=== PATIENT | female | born 1955 | race Caucasian/White ===

== ENCOUNTER 2019-10-19 11:06 | Outpatient (CLI) | payer MEDICARE, OTHER, SELFPAY ==
--- NOTE | ~2019-10-19 | XR_ITS ---
EXAMINATION: XR knee RT min 4V DATE: 10/19/2019 12:15 INDICATION: Right calf pain. TECHNIQUE: 4 views of right knee were obtained. COMPARISON: Right knee radiographs 02/19/2019 FINDINGS: There is varus angulation at the knee. No fracture. There is severe osteoarthritis of media l compartment, moderate osteoarthritis of patellofemoral compartment, and mild osteoarthritis of late ral compartment. No knee joint effusion. IMPRESSION: 1. Severe right knee osteoarthritis. Reviewed, dictated and finalized at location A. 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
--- NOTE | ~2019-10-19 | US_ITS ---
EXAMINATION: US venous doppler [facility] DATE: 10/19/2019 11:56 INDICATION: Bilateral calf pain. TECHNIQUE: Grayscale ultrasound images without and with compression and Doppler ultrasound images of the bilateral lower extremity veins were obtained. COMPARISON: Ultrasound 09/21/2018 FINDINGS: The visualized portions of right common femoral vein, profunda (deep) femoral vein, femoral vein, pop liteal vein, peroneal veins, posterior tibial veins, and greater saphenous vein outflow are patent. The visualized portions of left common femoral vein, profunda femoral vein, femoral vein, popliteal v ein, peroneal veins, posterior tibial veins, and greater saphenous vein outflow are patent. IMPRESSION: 1. No deep venous thrombosis. Reviewed, dictated and finalized at location A. SUPERVISOR FIREARMS
--- NOTE | ~2019-10-19 | XR_ITS ---
EXAMINATION: XR knee LT min 4V DATE: 10/19/2019 12:15 INDICATION: Left calf pain. TECHNIQUE: 4 views of left knee were obtained. COMPARISON: Left knee radiographs 02/19/2019 FINDINGS: There is varus angulation at the knee. No fracture. There is severe osteoarthritis of media l compartment, moderate osteoarthritis of patellofemoral compartment, and mild osteoarthritis of late ral compartment. No knee joint effusion. There is an 11 mm loose body in lateral patellofemoral joint recess. IMPRESSION: 1. Severe left knee osteoarthritis. 2. Left knee loose body. Reviewed, dictated and finalized at location A. IFIED LACTATION EDUCATOR
[2019-10-19 13:05] LABS: Basophils Absolute Auto 0.1 K/mm3 (0.0-0.1); Basophils Percent Auto 0.6 % (0.2-1.2); Eosinophils Absolute Auto 0.4 K/mm3 (0-0.3); Eosinophils Percent Auto 4.2 % (0-4.4); Hemoglobin 11.7 g/dL (12.0-15.0); Immature Granulocyte Absolute 0.03 K/mm3 (0.00-0.031); Immature Granulocyte Percent A 0.3 % (0-0.5); Lymphocytes Absolute Auto 2.47 K/mm3 (0.9-3.2); Lymphocytes Percent Auto 27.3 % (18.3-44.2); Mean Corpuscular HGB Conc 30.8 g/dl (32-36); Mean Corpuscular Hemoglobin 28.5 pg (26-34); Mean Corpuscular Volume 92.5 fl (80-100); Mean Platelet Volume 9.3 fl (7.4-10.4); Monocytes Absolute Auto 0.6 K/mm3 (0.1-0.6); Monocytes Percent Auto 7.1 % (2.6-8.5); Neutrophils Absolute Auto 5.5 K/mm3 (1.3-6.7); Neutrophils Percent Auto 60.5 % (45.5-73.1); Platelet Count Result 256 k/mm3 (150-375); Red Blood Count 4.11 M/mm3 (4.2-5.4); Red Cell Distribution Width 14.5 % (11.5-14.5); White Blood Count 9.1 K/mm3 (4.5-10.0)
[2019-10-19 13:09] LABS: Add Urine Microscopic? YES; Appearance Urine Clear (Clear); Bacteria Urine Trace /hpf; Bilirubin Urine Negative (Negative); Color Urine Straw (Yellow); Glucose Urine UA Negative (Negative); Ketones Urine Negative (Negative); Leukocyte Esterase Ur 3+ LEU/UL (Negative); Mucus Urine Rare /lpf; Nitrate Urine Negative (Negative); Protein Urine Negative (Negative); Specific Grav Ur 1.011 (1.001-1.035); Squamous Epithelial Cell Urine Rare /hpf (Few); Urobilinogen Urine Negative mg/dL (<2.0); WBC Urine >75 /hpf
[2019-10-19 13:18] LABS: Blood Urine Negative (Negative)
[2019-10-22 03:17] LABS: Thyroglobulin 0.1 ng/mL (2.8-40.9); Thyroglobulin Antibodies <1 IU/mL (<=1); Thyroid Peroxidase Antibodies 6 IU/mL (<9)
== END 2019-10-19 11:07 | disposition home or self-care (01) ==
PROVIDERS: PCP Emergency Medicine; Visit Provider Emergency Medicine
DX: E03.9 Hypothyroidism, unspecified (principal); R35.0 Frequency of micturition; R53.81 Other malaise; M17.0 Bilateral primary osteoarthritis of knee; M23.42 Loose body in knee, left knee; M79.662 Pain in left lower leg; M79.661 Pain in right lower leg
CPT/HCPCS: 36415; 73564; 81001; 84432; 85025; 86376; 86800; 87077; 87086; 87088; 87186; 93970

== ENCOUNTER 2019-11-23 15:34 | Outpatient (CLI) | payer MEDICARE, SELFPAY ==
--- NOTE | ~2019-11-23 | CT_ITS ---
EXAMINATION: CT abdomen pelvis wo/w con DATE: 11/23/2019 16:42 INDICATION: Hematuria. Frequent urinary tract infections. TECHNIQUE: Computed tomography (CT) of the abdomen and pelvis was performed without and subsequently with 130 cc Omnipaque 350 intravenous contrast. Automated exposure control and iterative reconstructi on technique were employed. Exam dose: 2188.45 mGy-cm total exam DLP. COMPARISON: 09/17/2018 CT abdomen 06/17/2007 CT renal scan FINDINGS: There is minimal infiltrate or atelectasis in the lower lobes, primarily the dependent lowe r lobes and the anterior basilar right lower lobe. No pericardial or pleural effusion. There is a small sliding hiatal hernia. Status post cholecystectomy. There is a relatively stable approximately 1 cm hypoattenuating fluid density right hepatic lesion (s eries 6 image 42), present on 09/17/2018 but not identified on 06/17/2007. No other hepatic space-occu pying mass lesion is evident. No significant enlargement of the bile ducts or pancreatic duct. There are several calcifications in the pancreas consistent with chronic pancreatitis. Normal splenic size. Normal morphology of the adrenal glands. There is a 5 mm hypoenhancing lesion of the mid right kidney laterally (series 6 image 78), too small to definitively characterize, but most likely a cyst. There are approximately 6 mm posterior and 5.8 mm medial upper pole left renal cysts, approximately 5 mm posterior mid left renal cyst. At least 2 smaller left renal cysts are suggested. No filling defect of the renal collecting systems, ureters or urinary bladder is evident. No urinary tract calculus or hydroureteronephrosis. There is atherosclerotic calcification of the abdominal aorta but no aneurysm. No intraperitoneal or retroperitoneal or pelvic mass lesion or adenopathy or ascites. The urinary bladder is unremarkable. There are some uterine calcifications consistent with fibroadeno mas. No adnexal mass lesion is evident. Normal appendix. Diverticulosis of the left colon; no CT evidence of diverticulitis. No bowel obstruc tion or intraperitoneal free air. Up to 3.3 cm x 4.2 cm fat-containing umbilical hernia. Diffuse idiopathic skeletal hyperostosis of the thoracic spine. Moderately severe degenerative disc d isease with mild retrolisthesis at L4-5. There is moderate degenerative disc disease elsewhere in the lumbar spine. Generator device is noted in the subcutaneous soft tissues of the anterolateral left lower abdomen wi th electrodes extending into the lower thoracic spinal canal posteriorly. IMPRESSION: Bilateral 6 mm and smaller renal cysts No urinary tract calculus or hydroureteronephrosis Status post cholecystectomy Small sliding hiatal hernia Chronic pancreatitis Diverticulosis of left colon Reviewed, dictated and finalized at Location A. Reviewed, dictated and finalized at location B. 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
[2019-11-23 16:16] LABS: Blood Urea Nitrogen 22 mg/dL (8-26); Estimated Glomerular Filt Rate 50
== END 2019-11-23 15:35 | disposition home or self-care (01) ==
PROVIDERS: PCP Emergency Medicine; Visit Provider Emergency Medicine
DX: R31.9 Hematuria, unspecified (principal); N28.1 Cyst of kidney, acquired; K44.9 Diaphragmatic hernia without obstruction or gangrene; K57.30 Diverticulosis of large intestine without perforation or abscess without bleeding; K86.1 Other chronic pancreatitis
CPT/HCPCS: 74178; Q9967

== ENCOUNTER 2020-10-21 00:47 | Outpatient (CLI) | payer MEDICARE, SELFPAY ==
[2020-10-21 20:08] LABS: SARS-CoV-2 RNA PCR Positive
== END 2020-10-21 00:48 | disposition home or self-care (01) ==
LOC: ANHCOVIDDT 00:47
PROVIDERS: PCP Emergency Medicine; Visit Provider Internal Medicine Gastroenterology
DX: U07.1 COVID-19 (principal)
CPT/HCPCS: C9803; U0003

== ENCOUNTER 2021-01-25 14:36 | Outpatient (CLI) | payer MEDICARE, SELFPAY ==
--- NOTE | ~2021-01-25 | MM_ITS ---
EXAMINATION: MM screening stephon BI w margoth HISTORY: Screening mammogram TECHNIQUE: Craniocaudal and mediolateral oblique 3-D tomosynthesis images were obtained and synthetic 2-D images were generated. CAD analysis was submitted and interpreted. COMPARISON: 10/21/2019, 09/24/2018, 09/05/2017 bilateral digital screening mammogram examinations BREAST PARENCHYMAL COMPOSITION: There are scattered areas of fibroglandular density. FINDINGS: Bilateral benign calcifications. There is no evidence of suspicious mass, calcification, or architectural distortion to suggest malignancy in either breast. There has been no suspicious interv al new or developing density or other significant change. IMPRESSION: 1. No mammographic evidence of malignancy. 2. Recommend routine screening mammography in one year. BI-RADS Category 2: Benign finding(s)..... Reviewed, dictated and finalized at location A.
== END 2021-01-25 14:37 | disposition home or self-care (01) ==
PROVIDERS: PCP Emergency Medicine; Visit Provider Emergency Medicine
DX: Z12.31 Encounter for screening mammogram for malignant neoplasm of breast (principal)
CPT/HCPCS: 77063; 77067

== ENCOUNTER → 2021-03-24 01:16 | Outpatient (CLI) | payer MEDICARE, SELFPAY ==
[2021-03-24 19:37] LABS: SARS-CoV-2 RNA PCR Negative
== END ==
PROVIDERS: PCP Emergency Medicine; Visit Provider Internal Medicine Gastroenterology
DX: Z01.812 Encounter for preprocedural laboratory examination (principal); Z20.822 Contact with and (suspected) exposure to COVID-19
CPT/HCPCS: C9803; U0003; U0005

== ENCOUNTER 2021-03-27 01:17 | Day surgery (SDC) | payer MEDICARE, SELFPAY ==
[2020-10-05 12:06] VITALS: BMI 30.8
--- NOTE | 2020-10-23 10:35 | SUR.PREOP ---
Spoke with patient on phone about COVID test result positive. Denies symptoms at this time. Instructed to self isolate and stay home. Questions answered. Patient instructed to notify primary doctor and that the health department would be calling to follow up.
[2021-03-13 16:11] VITALS: BMI 31.1
[2021-03-27 09:13] VITALS: BP 140/70; PULSE 86; RESP 22; TEMP 36.8; O2SAT 100; BMI 31.0
[2021-03-27] MEDS: LACTATED RINGERS 1,000 ML 150 ML IV CONT (09:32)
[2021-03-27 09:33] LABS: Glucose Point of Care 181 mg/dl (65-105)
--- NOTE | 2021-03-27 10:19 | WPDANESEPPF ---
Anes - Initial Pre Proc Eval Procedure: Operation Date: 03/27/21 10:30 Proposed Procedures p Esophagogastroduodenoscopy & Screening Colonoscopy - Leroy Meza MD Date/Time: 03/27/21 10:19 Surgeon: Leroy Meza MD Pre Op Diagnosis: GERD, neoplasm screening Patient Data Age: 65 Gender: F Height: 5 ft 8 in Weight: 92.7 kg Last Vital Signs Temp 98.3 F 03/27/21 09:13 Pulse 86 03/27/21 09:13 Resp 22 H 03/27/21 09:13 BP 140/70 03/27/21 09:13 Pulse Ox 100 03/27/21 09:13 Allergies Allergy/AdvReac Type Severity Reaction Status Date / Time No Known Allergies Allergy Verified 03/27/21 09:12 Home Medications Medication Instructions Recorded Confirmed Type aspirin 81 mg tablet,delayed 81 mg PO DAILY 08/10/20 03/13/21 History release atorvastatin 10 mg tablet 10 mg PO DAILY 08/10/20 03/13/21 History furosemide 20 mg tablet 20 mg PO QAM 08/10/20 03/13/21 History glimepiride 2 mg tablet 2 mg PO .DAILYWM 08/10/20 03/13/21 History metformin 1,000 mg tablet 1,000 mg PO BID 08/10/20 03/13/21 History peg 3350-electrolytes 236 240 ml PO Q10M #4000 ml 08/11/20 03/13/21 Rx gram-22.74 gram-6.74 gram-5.86 gram solution Fiber (calcium polycarbophil) 3 tab-cap BYMOUTH DAILY 10/05/20 03/13/21 History allopurinol 100 mg PO BID 10/05/20 03/13/21 History gabapentin [Neurontin] 600 mg PO BID 10/05/20 03/13/21 History levothyroxine [Euthyrox] 137 mcg PO DAILY 10/05/20 03/13/21 History omeprazole 20 mg PO DAILY 10/05/20 03/13/21 History Laboratory Tests 03/27/21 09:22 POC Capillary Glucose 181 mg/dl H mg/dl (65-105) Patient hx anesthesia problems: none Family hx anesthesia problems: none PMFSH Past Medical History Medical History (Updated 08/10/20 @ 10:01 by LIZETT Victoria) Chronic pancreatitis Diabetes 1.5, managed as type 2 Dysphagia History of colon polyps Hyperlipidemia Family History Family History Mother Family history of diabetes mellitus in first degree relative Family history of heart disease in male family member before age 55 Family history of kidney disease, Onset Age: 84 Father Family history of heart disease in male family member before age 55 Grandparent Family history of heart disease in male family member before age 55 Social History Social History Smoking packs per day: 2.5 Smoking cigarettes per day: 50.0 Years smoked: 24 Smoking pack-years: 60.00 Smoking status: Former smoker Tobacco type: cigarettes Second hand tobacco smoke exposure: No Smoking end date: 10/20/99 Alcohol intake: current Alcohol use details: NO DRINKS 1 YEAR Substance use: never Substance use type: does not use Living arrangements: with family Spiritual care concerns: No Anes - Eval Final PreProcedure Day of Procedure 03/27/21 10:19 Patient weight: obese Heart: regular rate and rhythm Lungs: clear to auscultation Airway: Mallampati scale class III Neurological: alert and oriented Last oral intake: >/= 8 hours ASA classification: III Emergent: no Anesthetic plan: proceed Anesthesia type and monitoring: general GIVS and standard monitoring Informed Consent: The patient's anesthetic plan and its attendant risks and benefits were discussed with the patient/family/POA. Questions were solicited and answers provided to the satisfaction of the patient/family/POA.
--- NOTE | 2021-03-27 10:24 | PM.HPGS ---
History of Present Illness History of Present Illness Consent: Risks, benefits, and alternatives have been discussed and questions answered. Patient agrees to proceed with procedure. Chief complaint: GERD, neoplasm screening Narrative: Lee Ann Trujillo is a 65 year old female here for egd and colonoscopy, she has gerd symptoms better with omeprazole, also episodes of mild epigastric pain. Has history of perforated esophagus about 25 years ago during a surgical intubation with tracheostomy. Colon polyps about 5 years ago. Review of Systems Constitutional: Constitutional: Denies headache(s) and Denies weakness Eyes: Eyes: Denies blurry vision ENT: Reports Normal hearing present, Denies headache(s) and Denies neck pain Cardiovascular: Cardiovascular: Denies chest pain and Denies dyspnea Respiratory: Respiratory: Denies dyspnea Gastrointestinal: Gastrointestinal: Reports no additional gastrointestinal complaints Genitourinary: Genitourinary: Denies dysuria Musculoskeletal: Musculoskeletal: Denies neck pain Integumentary/Breasts: Skin/Breast: Denies dry skin Neurologic: Reports Normal hearing present, Denies headache(s) and Denies weakness Psychiatric: Psychiatric: Denies anxiety Endocrine: Endocrine: Denies change in body appearance Hematologic/Lymphatic: Hematologic/Lymphatic: Denies easy bleeding Allergic/Immunologic: Allergic/Immunologic: Denies urticaria PMFSH Past Medical History Medical History (Updated 03/27/21 @ 10:25 by Leroy Meza MD) Chronic pancreatitis Diabetes 1.5, managed as type 2 Dysphagia GERD (gastroesophageal reflux disease) History of colon polyps Hyperlipidemia Family History Family History Mother Family history of diabetes mellitus in first degree relative Family history of heart disease in male family member before age 55 Family history of kidney disease, Onset Age: 84 Father Family history of heart disease in male family member before age 55 Grandparent Family history of heart disease in male family member before age 55 Social History Social History Smoking packs per day: 2.5 Smoking cigarettes per day: 50.0 Years smoked: 24 Smoking pack-years: 60.00 Smoking status: Former smoker Tobacco type: cigarettes Second hand tobacco smoke exposure: No Smoking end date: 10/20/99 Alcohol intake: current Alcohol use details: NO DRINKS 1 YEAR Substance use: never Substance use type: does not use Living arrangements: with family Spiritual care concerns: No Meds Home Medications and Allergies Home Medications Medication Instructions Recorded Confirmed Type aspirin 81 mg tablet,delayed 81 mg PO DAILY 08/10/20 03/13/21 History release atorvastatin 10 mg tablet 10 mg PO DAILY 08/10/20 03/13/21 History furosemide 20 mg tablet 20 mg PO QAM 08/10/20 03/13/21 History glimepiride 2 mg tablet 2 mg PO .DAILYWM 08/10/20 03/13/21 History metformin 1,000 mg tablet 1,000 mg PO BID 08/10/20 03/13/21 History peg 3350-electrolytes 236 240 ml PO Q10M #4000 ml 08/11/20 03/13/21 Rx gram-22.74 gram-6.74 gram-5.86 gram solution Fiber (calcium polycarbophil) 3 tab-cap BYMOUTH DAILY 10/05/20 03/13/21 History allopurinol 100 mg PO BID 10/05/20 03/13/21 History gabapentin [Neurontin] 600 mg PO BID 10/05/20 03/13/21 History levothyroxine [Euthyrox] 137 mcg PO DAILY 10/05/20 03/13/21 History omeprazole 20 mg PO DAILY 10/05/20 03/13/21 History Allergies Allergy/AdvReac Type Severity Reaction Status Date / Time No Known Allergies Allergy Verified 03/27/21 09:12 Vital Signs Vital Signs - 24 hr 03/27/21 09:13 Temperature 98.3 F Pulse Rate 86 Respiratory Rate 22 H Blood Pressure 140/70 Pulse Oximetry 100 Exam Const: General: comfortable and no acute distress HENMT: General nose exam: Normal nares
[2021-03-27 10:55] VITALS: BP 82/50; PULSE 92; RESP 22; O2SAT 95
[2021-03-27 11:05] VITALS: BP 113/57; PULSE 88; RESP 19; O2SAT 99
[2021-03-27 11:15] VITALS: BP 114/70; PULSE 76; RESP 20; O2SAT 98
== END 2021-03-27 11:24 | disposition home or self-care (01) ==
PROVIDERS: PCP Emergency Medicine; Visit Provider Internal Medicine Gastroenterology
PROC: 0DJ08ZZ Inspection of Upper Intestinal Tract, Via Natural or Artificial Opening Endoscopic (ICD-10-PCS; CPT 43235; principal; 2021-03-27 10:30)
DX: Z12.11 Encounter for screening for malignant neoplasm of colon (principal); Z86.010 Personal history of colon polyps; K57.30 Diverticulosis of large intestine without perforation or abscess without bleeding; K64.8 Other hemorrhoids; K29.50 Unspecified chronic gastritis without bleeding; E78.5 Hyperlipidemia, unspecified; E13.8 Other specified diabetes mellitus with unspecified complications; K86.1 Other chronic pancreatitis; Z87.891 Personal history of nicotine dependence; Z79.82 Long term (current) use of aspirin; E03.9 Hypothyroidism, unspecified; Z79.84 Long term (current) use of oral hypoglycemic drugs; Z87.19 Personal history of other diseases of the digestive system
CPT/HCPCS: 43239; G0105; 82948; 88305; C9803; J7120; U0003; U0005

== ENCOUNTER → 2021-05-15 13:18 | Outpatient (CLI) | payer MEDICARE, SELFPAY ==
--- NOTE | ~2021-05-15 | DEXA_ITS ---
Bone Density Report Name: Lee Ann Trujillo Age: 65 Sex: Female Ethnicity: White Date of : 1955 Indication: postmenopausal; screening for osteoporosis; height loss; Referring Provider: GABRIELA YU Study: Bone densitometry was performed. Exam Date: May 15, 2021 Accession number: [id number] Bone Density: Region BMD T-score Z-score Classification AP Spine (L3, L4) 0.957 -1.3 0.7 Osteopenia Femoral Neck (Left) 0.604 -2.2 -0.6 Osteopenia Total Hip (Left) 0.791 -1.2 0.1 Osteopenia Femoral Neck (Right) 0.635 -1.9 -0.3 Osteopenia Total Hip (Right) 0.732 -1.7 -0.4 Osteopenia Total Hip Mean 0.762 -1.5 -0.2 Osteopenia World Health Organization criteria for BMD impression classify patients as: Normal (T-score at or above -1.0), Osteopenia (T-score between -1.0 and -2.5), or Osteoporosis (T-score at or below -2.5). 10-year Fracture Risk(1): Major Osteoporotic Fracture 11% Hip Fracture 1.8% Reported Risk Factors: [place] (), Neck BMD=0.604, BMI=32.5 (1) FRAX(R) Version 3.08. Fracture probability calculated for an untreated patient. Fracture probability may be lower if the patient has received treatment. Clinical Information Provided by Patient: Has used the following medications: Vitamin D, Calcium Patient maximum height was 68 Menopause Age: 41 No regular weight bearing exercise Drinks caffeinated beverages Onset of menses at age 11 Number of children 0 Missed period for more than 6 months in a row Impression: The patient has low bone mass, based on the Left Femoral Neck T-score. The patient has an estimated ten-year risk of hip fracture of 1.8% and an estimated ten-year risk of major fracture of 11%, based on the WHO FRAX algorithm. Discussion: BONE DENSITY IS LOW AT ONE OR MORE SKELETAL SITES. This patient's lowest T-score is low at one or more skeletal sites. It meets the World Health Organization's (WHO) criteria for ?low bone mass? (T-score between -1.0 and -2.5). The patient's 10-year risk of fracture as calculated by FRAX is less than the threshold where pharmacological therapy is recommended by the National Osteoporosis Foundation (NOF). However, all treatment decisions require clinical judgment and consideration of individual patient factors, including patient preferences, comorbidities, previous drug use, risk factors not captured in the FRAX model (e.g., frailty, falls, vitamin D deficiency, increased bone turnover, interval significant decline in bone density) and possible under or overestimation of fracture risk by FRAX. The patient should follow a healthful lifestyle (good nutrition with adequate calcium and vitamin D, and appropriate weight-bearing exercise). Follow-Up: Consider repeating this study in 2 to 3 years to reassess this patient's status, or sooner if there is some n
== END ==
PROVIDERS: PCP Emergency Medicine; Visit Provider Emergency Medicine
DX: M85.88 Other specified disorders of bone density and structure, other site (principal); M85.852 Other specified disorders of bone density and structure, left thigh; M85.851 Other specified disorders of bone density and structure, right thigh
CPT/HCPCS: 77080

== ENCOUNTER 2021-09-17 08:29 | Outpatient (CLI) | payer MEDICARE, SELFPAY ==
[2021-09-17 09:49] LABS: Hemoglobin A1C 7.3 % (<5.7)
[2021-09-17 09:59] LABS: Albumin Level 4.3 g/dL (3.5-5.1); Anion Gap 11 mmol/L (8-16); Blood Urea Nitrogen 39 mg/dL (7-17); Calcium 9.2 mg/dL (8.4-10.2); Carbon Dioxide 22 mmol/L (22-30); Chloride 105 mmol/L (98-107); Estimated Glomerular Filt Rate 50; Glucose 172 mg/dL (65-110); Phosphorus 3.6 mg/dL (2.5-4.5); Potassium 5.3 mmol/L (3.4-5.0); Sodium 138 mmol/L (137-145)
[2021-09-17 10:32] LABS: Add Urine Microscopic? YES; Appearance Urine Cloudy (Clear); Bacteria Urine Trace /hpf; Bilirubin Urine Negative (Negative); Blood Urine 2+ (Negative); Color Urine Yellow (Yellow); Glucose Urine UA Negative (Negative); Ketones Urine Negative (Negative); Leukocyte Esterase Ur 2+ LEU/UL (Negative); Mucus Urine Rare /lpf; Nitrate Urine Negative (Negative); Protein Urine Negative (Negative); RBC Urine 21-50 /hpf (0-2); Specific Grav Ur 1.014 (1.001-1.035); Squamous Epithelial Cell Urine Occasional /hpf (Few); Urobilinogen Urine Negative mg/dL (<2.0); WBC Urine >75 /hpf
== END 2021-09-17 08:30 | disposition home or self-care (01) ==
LOC: ANHLAB 08:35
PROVIDERS: PCP Emergency Medicine; Visit Provider Emergency Medicine
DX: E11.21 Type 2 diabetes mellitus with diabetic nephropathy (principal); E87.5 Hyperkalemia; R31.9 Hematuria, unspecified
CPT/HCPCS: 36415; 80069; 81001; 83036; 87077; 87086; 87186; 88108

== ENCOUNTER 2022-02-26 09:29 | Outpatient (CLI) | payer MEDICARE, SELFPAY ==
--- NOTE | ~2022-02-26 | MM_ITS ---
EXAMINATION: MM screening stephon BI w margoth HISTORY: Screening TECHNIQUE: Craniocaudal and mediolateral oblique 3-D tomosynthesis images were obtained and synthetic 2-D images were generated. CAD analysis was submitted and interpreted. COMPARISON: Comparison to multiple prior studies sequentially, with oldest reviewed study dated 07/21. BREAST PARENCHYMAL COMPOSITION: Breast composed of scattered areas of fibroglandular density FINDINGS: Stable benign-appearing left breast calcifications and small mass in the lower outer quadra nt anteriorly. There is no evidence of suspicious mass, calcification, or architectural distortion to suggest malignancy in either breast. There has been no suspicious interval change. IMPRESSION: 1. No mammographic evidence of malignancy. 2. Recommend routine screening mammography in one year. BI-RADS Category 2: Benign finding(s). Reviewed, dictated and finalized at location A.
== END 2022-02-26 09:30 | disposition home or self-care (01) ==
PROVIDERS: PCP Emergency Medicine; Visit Provider Emergency Medicine
DX: Z12.31 Encounter for screening mammogram for malignant neoplasm of breast (principal)
CPT/HCPCS: 77063; 77067

== ENCOUNTER 2022-04-10 09:24 | Outpatient (CLI) | payer MEDICARE, SELFPAY ==
--- NOTE | ~2022-04-10 | CT_ITS ---
EXAMINATION: CT abdomen pelvis wo/w con DATE: 04/10/2022 10:05 INDICATION: Hematuria TECHNIQUE: Computed tomography (CT) of the abdomen and pelvis was performed without intravenous contr ast. CT of the abdomen and pelvis was then performed with a total of 130 mL Omnipaque 300 intravenous contrast using a double-bolus technique for simultaneous opacification of the renal parenchyma and r enal collecting system. The dose-length product (DLP) was 2382.38 mGy-cm. Automated exposure control and iterative reconstruction technique were employed. COMPARISON: 11/23/2019 FINDINGS: Minimal dependent atelectasis is present in the lung bases. The heart size is normal. The l iver is diffusely low in attenuation when compared with the spleen, consistent with hepatic steatosis . The gallbladder is surgically absent. There is mild enlargement of the common bile duct and central intrahepatic ducts which is likely due to post cholecystectomy state. Punctate calcifications in an otherwise normal spleen likely represent healed granulomatous disease. The pancreas and adrenal gland s are normal. Hypoattenuating lesions in the kidneys, measuring up to 5 mm on the right, are too smal l to characterize but likely represent cysts. No suspicious renal or urothelial lesion is identified. No stones are identified in the kidneys, ureters, or bladder. There is no hydronephrosis or hydroure ter. Colonic diverticulosis is present without evidence of diverticulitis. No pathologically enlarged abdominal or pelvic lymph nodes are identified. There is no free intraperitoneal gas or evidence of bowel obstruction. There is an umbilical hernia containing fat. There is moderate lumbar spondylosis. IMPRESSION: 1. No CT correlate for the patient's symptoms. Reviewed, dictated and finalized at location A.
[2022-04-10 09:51] LABS: Estimated Glomerular Filt Rate 45
== END 2022-04-10 09:25 | disposition home or self-care (01) ==
PROVIDERS: PCP Emergency Medicine; Visit Provider Emergency Medicine
DX: R31.9 Hematuria, unspecified (principal)
CPT/HCPCS: 74178; Q9967

== ENCOUNTER 2022-05-21 15:50 | Outpatient (CLI) | payer MEDICARE, SELFPAY ==
--- NOTE | ~2022-05-21 | US_ITS ---
EXAMINATION: US pelvic complete w TV DATE: 05/21/2022 16:39 INDICATION: IRON DEFICIENCY ANEMIA and hematuria TECHNIQUE: Multiple transabdominal and endovaginal sonographic images of the pelvis were obtained. COMPARISON: CT abdomen pelvis 04/10/2022. FINDINGS: Uterus: 5.8 x 4.4 x 3.3 cm. Endometrial complex not well visualized. Multiple fibroids identified bhumika suring up to 3 cm and 2 cm. Likely third smaller fibroid in the lower uterine segment. Right Ovary: Not visualized. Left Ovary: Not visualized. There is no free fluid in the pelvis. IMPRESSION: 1. Limited examination, endometrial complex and bilateral ovaries not visualized. 2. Uterine fibroids. Reviewed, dictated and finalized at location K. IMPRESSION: 1. Limited examination, endometrial complex and bilateral ovaries not visualize d. 2. Uterine fibroids.
== END 2022-05-21 15:51 | disposition home or self-care (01) ==
PROVIDERS: PCP Emergency Medicine; Visit Provider Emergency Medicine
DX: D50.9 Iron deficiency anemia, unspecified (principal); D25.9 Leiomyoma of uterus, unspecified
CPT/HCPCS: 76830; 76856

== ENCOUNTER 2022-10-04 13:26 | Outpatient (CLI) | payer MEDICARE, SELFPAY ==
--- NOTE | ~2022-10-04 | US_ITS ---
EXAMINATION: US renal BI DATE: 10/04/2022 15:09 INDICATION: Chronic kidney disease TECHNIQUE: Multiple grayscale and Doppler ultrasound images of the kidneys were obtained. COMPARISON: 09/02/2019 FINDINGS: The right kidney measures 10.7 x 4.2 x 5.7 cm. The left kidney measures 11.8 x 5.4 x 7.0 cm . The kidneys demonstrate normal parenchymal echogenicity. There is no hydronephrosis. The bladder is normal. IMPRESSION: 1. Normal kidneys without hydronephrosis. Reviewed, dictated and finalized at location A. 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
== END 2022-10-04 13:27 | disposition home or self-care (01) ==
PROVIDERS: PCP Emergency Medicine; Visit Provider Internal Medicine Nephrology
DX: N18.32 Chronic kidney disease, stage 3b (principal)
CPT/HCPCS: 76775

== ENCOUNTER 2023-03-31 14:46 | Outpatient (NON) | payer MEDICARE, SELFPAY ==
[2023-04-01 08:45] LABS: IFOB Positive Control Positive; Immunochemical Fecal Occult Bl Negative (N)
== END 2023-03-31 14:47 | disposition home or self-care (01) ==
LOC: ANHLAB 14:48
PROVIDERS: PCP Emergency Medicine; Visit Provider Emergency Medicine
DX: D50.9 Iron deficiency anemia, unspecified (principal)
CPT/HCPCS: 82274

== ENCOUNTER 2023-06-17 08:55 | Outpatient (CLI) | payer MEDICARE, SELFPAY ==
--- NOTE | ~2023-06-17 | DEXA_ITS ---
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 Exam Date: June 17, 2023 Accession number: [id number] Bone Density: Region BMD T-score Z-score Classification AP Spine(L3, L4) 0.989 -1.0 1.1 Normal Femoral Neck (Left) 0.626 -2.0 -0.3 Osteopenia Total Hip (Left) 0.822 -1.0 0.4 Normal Femoral Neck (Right) 0.641 -1.9 -0.2 Osteopenia Total Hip (Right) 0.733 -1.7 -0.3 Osteopenia Total Hip Mean 0.777 -1.4 0.1 Osteopenia World Health Organization criteria for BMD impression classify patients as: Normal (T-score at or above -1.0), Osteopenia (T-score between -1.0 and -2.5), or Osteoporosis (T-score at or below -2.5). 10-year Fracture Risk(1): Major Osteoporotic Fracture 11% Hip Fracture 1.8% Reported Risk Factors: [place] (), Neck BMD=0.626, BMI=29.7 (1) FRAX(R) Version 3.08. Fracture probability calculated for an untreated patient. Fracture probability may be lower if the patient has received treatment. Previous Exams: Region Exam Age BMD T-score BMD Change BMD Change Date g/cm2 vs Baseline vs Previous AP Spine (L3-L4) 06/17/2023 67 0.989 -1.0 0.033 (3.4%)# 0.006 (0.6%) 09/24/2018 62 0.983 -1.1 0.027 (2.8%)# -0.008 (-0.8%) 08/03/2015 59 0.991 -1.0 0.035 (3.6%)# 0.035 (3.6%)# 05/28/2013 57 0.956 -1.3 Total Hip(Left) 06/17/2023 67 0.822 -1.0 -0.104 (-11.3% -0.095 (-10.3% 09/24/2018 62 0.916 -0.2 -0.010 (-1.1%) 0.083 (10.0%)* 08/03/2015 59 0.833 -0.9 -0.093 (-10.1% -0.093 (-10.1% 05/28/2013 57 0.926 -0.1 Total Hip(Right) 06/17/2023 67 0.733 -1.7 -0.156 (-17.6% -0.141 (-16.1% 09/24/2018 62 0.873 -0.6 -0.015 (-1.7%) 0.062 (7.6%)* 08/03/2015 59 0.812 -1.1 -0.077 (-8.6%) -0.077 (-8.6%) 05/28/2013 57 0.889 -0.4 *Denotes significance at 95% confidence level, LSC for AP Spine = 0.022 g/cm2, LSC for Total Hip = 0.027 g/cm2 # Denotes dissimilar scan types or analysis methods Clinical Information Provided by Patient: Has used the following medications: Vitamin D Has the following medical conditions: stage 4 ckd Patient maximum height was 68 Menopause Age: 41 No regular weight bearing exercise Drinks caffeinated beverages Onset of menses at age 11 Number of children 0
--- NOTE | ~2023-06-17 | MM_ITS ---
EXAMINATION: MM screening [facility] BI w margoth HISTORY: Screening mammogram, family history of breast cancer in her sister. TECHNIQUE: Craniocaudal and mediolateral oblique 3-D tomosynthesis images were obtained and synthetic 2-D images were generated. CAD analysis was submitted and interpreted. COMPARISON: 02/26/2022, 01/25/2021, 10/21/2019 BREAST PARENCHYMAL COMPOSITION: There are scattered areas of fibroglandular density. FINDINGS: There is stable focal asymmetry in the posterior third lower outer left breast. No suspicio us mass, calcification, or architectural distortion are identified in either breast to suggest malign moni. There has been no suspicious interval change. IMPRESSION: 1. No mammographic evidence of malignancy. 2. Recommend routine screening mammography in one year. BI-RADS Category 2: Benign finding(s). Reviewed, dictated and finalized at location A.
== END 2023-06-17 08:56 | disposition home or self-care (01) ==
PROVIDERS: PCP Emergency Medicine; Visit Provider Emergency Medicine
DX: Z12.31 Encounter for screening mammogram for malignant neoplasm of breast (principal); Z78.0 Asymptomatic menopausal state; M85.852 Other specified disorders of bone density and structure, left thigh; M85.851 Other specified disorders of bone density and structure, right thigh
CPT/HCPCS: 77063; 77067; 77080

== ENCOUNTER 2023-11-20 13:48 | Outpatient (CLI) | payer MEDICARE, SELFPAY ==
--- NOTE | ~2023-11-20 | US_ITS ---
EXAMINATION: US arterial ankle brachial ind DATE: 11/20/2023 14:37 INDICATION: Peripheral vascular disease with claudication TECHNIQUE: Segmental pressures and plethysmographic and Doppler waveforms of the brachial and lower e xtremity arteries were obtained. COMPARISON: None. FINDINGS: Right and left brachial artery pressures of 120 mm Hg and 116 mm Hg, respectively, are concordant (no rmal difference <= 30 mmHg). The right ankle-brachial index (FAVIO) is 1.24 (normal >= 0.9-1.0). The right great toe-brachial index (TBI) is 0.59 (normal >= 0.65). Arterial Doppler waveforms are biphasic with brisk systolic upstrokes at both right posterior tibial and dorsalis pedis arteries. The left FAVIO is 1.10. The left TBI is 0.80. Arterial Doppler waveforms are biphasic with brisk systol ic upstrokes at both left posterior tibial and dorsalis pedis arteries. IMPRESSION: 1. Mild arterial occlusive disease to the right lower limb with normal right FAVIO but mildly decreased right TBI. 2. No significant arterial occlusive disease to the left lower limb with normal left FAVIO and TBI. Reviewed, dictated and finalized at location A. L WINDER IMPRESSION: 1. Mild arterial occlusive disease to the right lower limb with normal right AB I but mildly decreased right TBI. 2. No significant arterial occlusive disease to the left lower limb with normal left FAVIO and TBI.
== END 2023-11-20 13:49 | disposition home or self-care (01) ==
LOC: ANHIMG 13:51
PROVIDERS: PCP Emergency Medicine; Visit Provider Emergency Medicine
DX: I73.9 Peripheral vascular disease, unspecified (principal)
CPT/HCPCS: 93922

== ENCOUNTER 2024-04-28 10:48 | Outpatient (CLI) | payer MEDICARE, SELFPAY ==
[2024-04-29 13:09] LABS: Creat 24 Hr 0.82 g/24 h (0.50-2.15); Pro/Creat Ratio 171 mg/g creat (<150); Pro/Creat Ratio mg/mg 0.171 (<0.150); Protein,total, 24 Hr Ur 140 mg/24 h (<150)
[2024-05-02 12:53] LABS: Albumin 100 %
== END 2024-04-28 10:49 | disposition home or self-care (01) ==
PROVIDERS: PCP Emergency Medicine; Visit Provider Internal Medicine Nephrology
DX: N18.32 Chronic kidney disease, stage 3b (principal)
CPT/HCPCS: 86335

== ENCOUNTER 2024-10-06 13:48 | Outpatient (CLI) | payer MEDICARE, SELFPAY ==
--- NOTE | ~2024-10-06 | MM_ITS ---
EXAMINATION: MM screening [facility] BI w margoth HISTORY: Screening TECHNIQUE: Craniocaudal and mediolateral oblique 3-D tomosynthesis images were obtained and synthetic 2-D images were generated. CAD analysis was submitted and interpreted. COMPARISON: Comparison to multiple prior studies sequentially, with oldest reviewed study dated 08/20. BREAST PARENCHYMAL COMPOSITION: Not dense: There are scattered areas of fibroglandular density. FINDINGS: There are 2 developing clusters of indeterminate calcifications of the left breast centered in the upper outer quadrant of the left breast. The right breast is stable without evidence for ricardo gnancy. IMPRESSION: 1. Developing clusters of indeterminate left breast calcifications. 2. Magnification views are recommended. BI-RADS Category 0: Incomplete: Needs additional imaging evaluation. Reviewed, dictated and finalized at location B. 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
== END 2024-10-06 13:49 | disposition home or self-care (01) ==
LOC: ANHIMG 13:50
PROVIDERS: PCP Emergency Medicine; Visit Provider Emergency Medicine
DX: Z12.31 Encounter for screening mammogram for malignant neoplasm of breast (principal); R92.8 Other abnormal and inconclusive findings on diagnostic imaging of breast
CPT/HCPCS: 77063; 77067

== ENCOUNTER 2024-10-28 10:22 | Outpatient (CLI) | payer MEDICARE, SELFPAY ==
--- NOTE | ~2024-10-28 | MM_ITS ---
EXAMINATION: MM diagnostic mammo unilat LT HISTORY: Left breast calcifications TECHNIQUE: Additional 3-D tomosynthesis images of the left breast were performed and synthetic 2-D im ages were generated. CAD analysis was submitted and interpreted. COMPARISON: Comparison to multiple prior studies sequentially, with oldest reviewed study dated 03/2018. BREAST PARENCHYMAL COMPOSITION: Not dense: There are scattered areas of fibroglandular density. FINDINGS: There is a developing cluster of indeterminate calcifications in the upper outer quadrant o f the left breast, posterior third. There is a second cluster of calcifications in the upper outer qu adrant located more medially which are not significantly changed from prior examinations. There are n o suspicious masses or architectural distortion. IMPRESSION: 1. 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 2. Stereotactic left breast biopsy recommended. BI-RADS category 4, suspicious findings. Reviewed, dictated and finalized at location B. 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 Developing cluster of indeterminate calcifications upper outer quadrant of t he left breast, posterior third. 2. Stereotactic left breast biopsy recommended. BI-RADS category 4, suspicious findings.
== END 2024-10-28 10:23 | disposition home or self-care (01) ==
PROVIDERS: PCP Emergency Medicine; Visit Provider Emergency Medicine
DX: N63.20 Unspecified lump in the left breast, unspecified quadrant (principal); R92.8 Other abnormal and inconclusive findings on diagnostic imaging of breast
CPT/HCPCS: 77065

== ENCOUNTER 2024-11-29 08:35 | Outpatient (CLI) | payer MEDICARE, SELFPAY ==
--- NOTE | ~2024-11-29 | MM_ITS ---
MM stereotactic bx LT, MM post biopsy diagnostic LT, MM stereotactic specimen LT INDICATION: Abnormal calcifications in the left breast. Stereotactic core biopsy is requested evalua te for malignancy.] BREAST PARENCHYMAL COMPOSITION: Not dense: There are scattered areas of fibroglandular density. TECHNIQUE AND FINDINGS: The risks and potential benefits of the procedure were discussed with the patient and written informe d consent was obtained. The patient was placed in the prone position clustered at the table with the left breast in craniocaudal compression, and the area of interest was localized and targeted utilizi ng digital imaging with stereotaxis. After sterile preparation of the skin, 1% lidocaine was utilized for local anesthesia at the skin pun cture site and 1% lidocaine with epinephrine was utilized for deeper local anesthesia/is about the bi opsy site. A 9G Eviva vacuum assisted biopsy needle was advanced to the level of the calcification o f interest from a cephalad approach utilizing stereotactic guidance and a total of 6 tissue core biop sies were obtained. A specimen radiograph demonstrates that the calcifications of interest are included within the tissue cores. A tissue marker clip was then placed at the biopsy site. The needle was removed and hemosta sis was achieved. The patient tolerated the procedure well and there is no evidence of significant i mmediate complication. The patient was given verbal as well as written postprocedural instructions p rior to discharge from the department. Tissue cores were submitted to surgical pathology for histolo gic analysis. A 2-view left unilateral digital mammogram was obtained post procedure and this demonstrates that the tissue marker clip is in expected position.] IMPRESSION: 1. Successful stereotactic biopsy of calcifications in the upper outer quadrant of the left breast w ith post procedure mammogram for marker placement. Please refer to pathology report for histologic a nalysis. Reviewed, dictated and finalized at location B. ES LABORER IMPRESSION: 1. Successful stereotactic biopsy of calcifications in the upper outer quadran t of the left breast with post procedure mammogram for marker placement. Pleas e refer to pathology report for histologic analysis. IMPRESSION: 1. Successful stereotactic biopsy of calcifications in the upper outer quadran t of the left breast with post procedure mammogram for marker placement. Pleas e refer to pathology report for histologic analysis.
--- OUTSIDE RECORDS SUMMARY | 2024-11-29 08:46 | XMS_ITS | Continuity of Care Document ---
Author Organization [facility] Address [address] [place] [address] Phone Care Team Providers Care Shopper Marketing Manager Name Role Phone Osman Malcolm MD Unavailable Unavailable Allergies, Adverse Reactions, Alerts Substance Reaction Status Criticality No Known Allergies Active No Inform ation Medications Medication Instructions Dosage Effective Dates (start - stop) Status Comments tramadol 50 mg tablet take 1 tablet by oral route every 6 hours as needed as needed 50 MG - Active PRN for pain, avoid driving or operate machines Synthroid 112 mcg tablet take 1 tablet by oral route every day 112 MCG - Active lisinopril 5 mg tablet take 1 tablet by oral route every day 5 MG - Active Lasix 20 mg tablet take 1 tablet by oral route every day 20 MG - Active allopurinol 100 mg tablet take 1 tablet by oral route 2 times every day 100 MG - Active fenofibrate 160 mg tablet take 1 tablet by oral route every day 160 MG - Active atorvastatin 10 mg tablet take 1 tablet by oral route every day 10 MG - Active Pepcid 20 mg tablet take 1 tablet by oral route 2 times every day 20 MG - Active metformin 500 mg tablet take 1 tablet by oral route 2 times every day with morning and evening meals 500 MG - Active Neurontin 300 mg capsule take 1 capsule by oral route 3 times every day 300 MG - Active Basagllubna Ruggiero U-100 Insulin 100 unit/mL (3 mL) subcutaneous inject by subcutaneous route as per insulin protocol 0.00 - Active 14 units daily OneTouch Verio test strips test bid - Active e11.9 Januvia 100 mg tablet take 1 tablet by oral route every day 100 MG - Active Procedures Procedure Date OFFICE/OUTPATIENT VISIT, EST OFFICE/OUTPATIENT VISIT, EST OFFICE/OUTPATIENT VISIT, EST OFFICE/OUTPATIENT VISIT, EST OFFICE/OUTPATIENT VISIT, EST OFFICE/OUTPATIENT VISIT, EST OFFICE/OUTPATIENT VISIT, EST OFFICE/OUTPATIENT VISIT, EST OFFICE/OUTPATIENT VISIT, EST OFFICE/OUTPATIENT VISIT, EST PREV VISIT, EST, 65 & OVER OFFICE/OUTPATIENT VISIT, EST OFFICE/OUTPATIENT VISIT, EST OFFICE/OUTPATIENT VISIT, EST OFFICE/OUTPATIENT VISIT, EST OFFICE/OUTPATIENT VISIT, EST OFFICE/OUTPATIENT VISIT, EST OFFICE/OUTPATIENT VISIT, EST PREV VISIT, EST, 65 & OVER OFFICE/OUTPATIENT VISIT, EST OFFICE/OUTPATIENT VISIT, EST OFFICE/OUTPATIENT VISIT, EST OFFICE/OUTPATIENT VISIT, EST PREV VISIT, EST, 65 & OVER OFFICE/OUTPATIENT VISIT, EST OFFICE/OUTPATIENT VISIT, EST OFFICE/OUTPATIENT VISIT, EST OFFICE/OUTPATIENT VISIT, EST OFFICE/OUTPATIENT VISIT, EST PREV VISIT, EST, 65 & OVER OFFICE/OUTPATIENT VISIT, EST OFFICE/OUTPATIENT VISIT, EST OFFICE/OUTPATIENT VISIT, EST OFFICE/OUTPATIENT VISIT, EST OFFICE/OUTPATIENT VISIT, EST OFFICE/OUTPATIENT VISIT, EST PREV VISIT, NEW, AGE 40-64 OFFICE/OUTPATIENT VISIT, NEW Advance Directives Directive Yes / No Effective Date File Name No Information Encounters Encounter Description Practice Location Reason(s) For Visit Diagnoses Date Provider Providers Copied on Encounter OFFICE/OUTPA TIENT VISIT, [facility], [address], [place], [place], [address], [place] tel:[phone] [facility] breast1 (chief complaint) Lump in the left breast 5 Gold Eduardo [address], [place], [place], [address] , [place]. tel:[phone] OFFICE/OUTPA TIENT VISIT, [facility], [address], [place], [place], [address], [place] tel:[phone] [facility] back pain1 (chief complaint) Chronic pain syndrome 5 Gold Eduardo [address], [place], [place], [address] , [place]. tel:[phone] OFFICE/OUTPA TIENT VISIT, [facility], [address], [place], [place], [address], [place] tel:[phone] [facility] mammo (chief complaint) Lump in the left breast 4 Gold Eduardo [address], [place], [place], [address] , [place]. tel:[phone] OFFICE/OUTPA TIENT VISIT, [facility], [address], [place], [place], [address], [place] tel:[phone] [facility] infection1 (chief complaint)re nal (chief complaint)ba ck pain1 (chief complaint) Iron deficiency anemiaType 2 diabetes mellitus with diabetic mononeuropathySta ge III chronic renal diseaseCellulitis of abdominal wall 4 Gold Eduardo [address], [place], [address] , [place]. tel:[phone] OFFICE/OUTPA TIENT VISIT, [facility], [address], [place], [place], [address], [place] tel:[phone] [facility] thyroid1 (chief complaint)HT N (chief complaint)go ut1 (chief complaint)ed ema1 (chief complaint) Encntr screen mammogram for malignant neoplasm of breastHypothyroid ismEssential (primary) hypertensionGoutE rafat 4 Gold Brewer. [address], [place], [place], [address] , [place]. tel:[phone] OFFICE/OUTPA TIENT VISIT, [facility], [address], [place], [place], [address], [place] tel:[phone] [facility] back pain1 (chief complaint) Chronic pain syndromeNeuropath y 4 Gold Brewer. [address], [place], [place], [address] , [place]. tel:[phone] OFFICE/OUTPA TIENT VISIT, [facility], [address], [place], [place], [address], [place] tel:[phone] [facility] hypothyroidi sm1 (chief complaint)ir on (chief complaint)HL P (chief complaint)DM (chief complaint)GE RD1 (chief complaint) Mixed hyperlipidemiaHyp othyroidismIron deficiency anemiaType 2 diabetes mellitus with diabetic mononeuropathyGER D w/o esophagitis 4 Gold Brewer. [address], [place], [place], [address] , [place]. tel:[phone] OFFICE/OUTPA TIENT VISIT, [facility], [address] [place] [place] [address], [place] tel:[phone] [facility] PVD1 (chief complaint)HL P (chief complaint)HT N (chief complaint) Peripheral vascular disease, unspecifiedEssent ial (primary) hypertensionMixed hyperlipidemia 4 Gold Brewer. [address], [place], [place], [address] , [place]. tel:[phone] OFFICE/OUTPA TIENT VISIT, [facility], [address], [place], [place], [address], [place] tel:[phone] [facility] GERD1 (chief complaint)PV D (chief complaint) Peripheral vascular disease, unspecifiedGERD w/o esophagitis 4 Malcolm Osman. [address], [place], [place], [address] , [place]. [phone] OFFICE/OUTPA TIENT VISIT, [facility], [address], [place], [place], [address], [place] tel:[phone] [facility] thyroid1 (chief complaint)re nal (chief complaint)HL P (chief complaint)ir on deficiency1 (chief complaint)DM (chief complaint)go ut1 (chief complaint) HypothyroidismMix ed hyperlipidemiaGou tIron deficiency anemiaType 2 diabetes mellitus with diabetic mononeuropathy 3 Gold Brewer. [address], [place], [place], [address] , [place]. [phone] PREV VISIT, EST, 65 & OVER [facility], [address], [place], [place], [address], [place] tel:[phone] [facility] physical (chief complaint) Encounter for general adult medical exam w abnormal findingsIron deficiency anemiaMixed hyperlipidemiaSta ge III chronic renal diseaseType 2 diabetes mellitus with diabetic mononeuropathyGou tHypothyroidism 3 oGld Brewer. [address], [place], [place], [address] , [place]. [phone] OFFICE/OUTPA TIENT VISIT, [facility], [address] [place] [place] [address], [place] tel:[phone] [facility] renal disease1 (chief complaint)th yroid1 (chief complaint)DM (chief complaint)os teopenia1 (chief complaint)ir on defificnecy (chief complaint)we ight loss1 (chief complaint) HypothyroidismSta ge III chronic renal diseaseIron deficiency anemiaOth disrd of bone density and structure, unspecified siteAbnormal weight lossMixed hyperlipidemia Raoul- 3 Gold Eduardo [address], [place], [place], [address] , [place]. tel: [phone] OFFICE/OUTPA TIENT VISIT, [facility], [address], [place], [place], [address], [place] tel:[phone] [facility] DM (chief complaint)GE RD1 (chief complaint)HL P (chief complaint)th yroid1 (chief complaint) HypothyroidismTyp e 2 diabetes mellitus with diabetic mononeuropathyMix ed hyperlipidemiaGER D w/o esophagitis 3 Gold Eduardo [address], [place], [place], [address] , [place]. tel: [phone] OFFICE/OUTPA TIENT VISIT, [facility], [address] [place] [place], [address], [place] tel:[phone] [facility] foot pain1 (chief complaint) Pain in right footType 2 diabetes mellitus with diabetic mononeuropathy 3 Gold Eduardo [address], [place], [place], [address] , [place]. tel: [phone] OFFICE/OUTPA TIENT VISIT, [facility], [address] [place] [place] [address], [place] tel:[phone] [facility] anemia1 (chief complaint)HL P (chief complaint)re nal1 (chief complaint)DM (chief complaint)th yroid1 (chief complaint)ra sh1 (chief complaint) Iron deficiency anemiaType 2 diabetes mellitus with diabetic mononeuropathyMix ed hyperlipidemiaHyp othyroidismStage III chronic renal diseaseTinea corporis Dec- 3 Gold Brewer. [address], [place], [place], [address] , [place]. tel: [phone] OFFICE/OUTPA TIENT VISIT, [facility], [address], [place], [place], [address], [place] tel:[phone] [facility] DM (chief complaint)he maturia1 (chief complaint)ir on deficiency 1 (chief complaint)HL P (chief complaint)fa tty liver1 (chief complaint)th ryoid1 (chief complaint) Type 2 diabetes mellitus with diabetic nephropathyIron deficiency anemiaMixed hyperlipidemiaFat ty liverHypothyroidi smOther specified disorder of bone densityGERD w/o esophagitis 2 Gold Eduardo [address], [place], [place], [address] , [place]. tel:[phone] [facility], [address], [place], [place], [address], [place] tel:[phone] [facility] No Information 2 Gold Eduardo [address], [place], [place], [address] , [place]. tel:[phone] OFFICE/OUTPA TIENT VISIT, EST [facility], [address], [place], [place], [address], [place] tel:[phone] [facility] back pain1 (chief complaint)an emia1 (chief complaint)DM (chief complaint) Chronic pain syndromeOther spondylosis, lumbar regionIron deficiency anemiaType 2 diabetes mellitus with diabetic mononeuropathy 2 Gold Eduardo [address], [place], [place], [address] , [place]. tel:[phone] PREV VISIT, EST, 65 & OVER [facility], [address], [place], [place], [address], [place] tel:[phone] [facility] physical (chief complaint) Encounter for general adult medical exam w abnormal findingsHypothyro idismIron deficiency anemiaAsymptomati c microscopic hematuriaMixed hyperlipidemiaOth disrd of bone density and structure, unspecified siteSleep apneaGoutType 2 diabetes mellitus with diabetic mononeuropathyGER D w/o esophagitis 2 Gold Eduardo [address], [place], [place], [address] , [place]. tel:[phone] [facility], [address] [facility] [place], [place], [address], [place] tel:[phone] [facility] No Information 2 Gold Eduardo [address] [facility] [address], [place], [place], [address] , [place]. tel:[phone] OFFICE/OUTPA TIENT VISIT, [facility], [address] [place], [address], [place] tel:[phone] [facility] DM (chief complaint)HL P (chief complaint)an emia1 (chief complaint)re nal1 (chief complaint)go ut1 (chief complaint) HematuriaRenal diseaseHyperlipid emiaType 2 diabetes mellitus with diabetic nephropathyHypoth yroidismAnemia 2 Gold Eduardo [address] [facility] [address], [place], [place], [address] , [place]. tel:[phone] OFFICE/OUTPA TIENT VISIT, [facility], [address] [place], [address], [place] tel:[phone] [facility] DM (chief complaint)UT I1 (chief complaint)os teopenia1 (chief complaint)re nal (chief complaint)go ut1 (chief complaint) Urinary tract infectionHematuri aType 2 diabetes mellitus with diabetic nephropathyHyperk alemiaOth disrd of bone density and structure, unspecified siteRenal diseaseGout 1 Gold Eduardo [address] [facility] [address], [place], [place], [address] , [place]. tel:[phone] OFFICE/OUTPA TIENT VISIT, [facility], [address] [facility] [place], [address], [place] tel:[phone] [facility] osteopenia1 (chief complaint)re nal (chief complaint)DM (chief complaint)Tati L (chief complaint)he maturia1 (chief complaint) Type 2 diabetes mellitus with diabetic nephropathyHyperk alemiaHematuriaOt her specified disorder of bone density 1 Gold Eduardo [address], [place], [place], [address] , [place]. tel:[phone] PREV VISIT, EST, 65 & OVER [facility], [address], [place], [place], [address], [place] tel:[phone] [facility] physical (chief complaint) Encounter for general adult medical exam w abnormal findingsHypothyro idismGERD w/o esophagitisHyperl ipidemiaGoutType 2 diabetes mellitus w/ diabetic neuropathySleep apneaOth disrd of bone density and structure, unspecified siteAnemiaFatty liver Mar- 1 Gold Eduardo [address], [place], [place], [address] , [place]. [phone] OFFICE/OUTPA TIENT VISIT, [facility], [address], [place], [place], [address], [place] tel:[phone] [facility] DM (chief complaint)GE RD1 (chief complaint)go ut1 (chief complaint)HL P (chief complaint) Type 2 diabetes mellitus w/ diabetic neuropathyHypothy roidismHyperlipid emiaGERD w/o esophagitisGout Nov- 1 Gold Eduardo [address], [place], [address] , [place]. [phone] OFFICE/OUTPA TIENT VISIT, [facility], [address] [place], [address], [place] tel:[phone] [facility] knee pain1 (chief complaint)sl eep apnea1 (chief complaint)hy pothyroidism 1 (chief complaint)ed ema1 (chief complaint)DM (chief complaint)HL P (chief complaint) Osteoarthritis of knee, unspecifiedSleep apneaType 2 diabetes mellitus without complicationsEdem aHypothyroidismHy perlipidemia 0 Gold Eduardo [address], [place], [place], [address] , [place]. tel:[phone] OFFICE/OUTPA TIENT VISIT, [facility], [address], [place], [place], [address], [place] tel:[phone] [facility] LFT (chief complaint)re nal (chief complaint)go ut1 (chief complaint)GE RD1 (chief complaint) Fatty liverRenal diseaseGoutType 2 diabetes mellitus without complicationsGERD w/o esophagitisPolyp of colon 0 Malcolm Osman. [address], [place], [place], [address] , [place]. tel:[phone] OFFICE/OUTPA TIENT VISIT, [facility], [address], [place], [place], [address], [place] tel:[phone] [facility] knee pain1 (chief complaint) Pain in left kneeOsteoarthriti s of knee, unspecified 0 Malcolm Osman. [address], [place], [place], [address] , [place]. tel:[phone] PREV VISIT, EST, 65 & OVER [facility], [address], [place], [place], [address], [place] tel:[phone] [facility] PHysical (chief complaint) Encounter for general adult medical exam w abnormal findingsGoutType 2 diabetes mellitus without complicationsGERD w/o esophagitisFatty liverHypothyroidi sm 0 Malcolm Osman. [address], [place], [place], [address] , [place]. tel:[phone] OFFICE/OUTPA TIENT VISIT, EST [facility], [address], [place], [place], [address], [place] tel:[phone] [facility] knee pain1 (chief complaint)he maturia1 (chief complaint)pa ncreatitis1 (chief complaint)GE RD1 (chief complaint)DM (chief complaint) Chronic pancreatitisHemat uriaGERD w/o esophagitisType 2 diabetes mellitus without complicationsAnem ia Dec- 0 Malcolm Osman. [address], [place], [place], [address] , [place]. tel:[phone] OFFICE/OUTPA TIENT VISIT, [facility], [address], [place], [place], [address], [place] tel:[phone] [facility] anemia1 (chief complaint)UT I1 (chief complaint)kn ee pain1 (chief complaint)go ut1 (chief complaint) HematuriaAnemiaOs teoarthritis of knee, unspecifiedGout 0 Gold Brewer. [address], [place], [place], [address] , [place]. tel:[phone] Referring Provider: Osman Malcolm, [address] [facility] [address], [place], [place], [address]. tel:[phone] OFFICE/OUTPA TIENT VISIT, [facility], [address], [place], [place], [address], [place] tel:[phone] [facility] fatty liver1 (chief complaint)th yroid (chief complaint)si ck1 (chief complaint) HypothyroidismFat ty liverUrinary frequencyPain in unspecified lower legVaricose veins of unspecified lower extremity with painSleep apnea 9 Gold Eduardo [address], [place], [place], [address] , [place]. tel:[phone] Referring Provider: Brittany Moreno [facility] [address], [place], [place], [address]. tel:[phone] OFFICE/OUTPA TIENT VISIT, [facility], [address] [place] [place], [address], [place] tel:[phone] [facility] LFT (chief complaint)DM (chief complaint)UT I1 (chief complaint)hy opthyroidism 1 (chief complaint)ba ck pain1 (chief complaint)ed ema1 (chief complaint) HypothyroidismUri nary tract infectionType 2 diabetes mellitus w/ diabetic neuropathyLiver diseaseOth disrd of bone density and structure, unspecified siteEdemaHyperlip idemiaMotion sickness, initial encounter 9 Gold Brewer. [address], [place], [place], [address] , [place]. tel:[phone] Referring Provider: Brittany Moreno [facility], [place], [place], [address]. tel:[phone] OFFICE/OUTPA TIENT VISIT, EST [facility], [address] [place], [place], [address], tel:[phone] [facility] Medicine DM (chief complaint)UT I1 (chief complaint)HL P (chief complaint)ba ck pain1 (chief complaint) GoutHyperlipidemi aType 2 diabetes mellitus w/ diabetic neuropathyUrinary tract infectionLiver diseaseEdema 9 Gold Brewer. [address] [facility] [address], [place], [place], [address] , [place]. tel:[phone] Referring Provider: Brittany Moreno [facility] [address], [place], [place], [address]. tel:[phone] PREV VISIT, NEW, AGE 40-64 [facility], [facility] [address] [facility] [place], [address], [place] tel:[phone] [facility] Physical (chief complaint) Encounter for general adult medical exam w abnormal findingsSleep apneaHyperlipidem iaGoutType 2 diabetes mellitus w/ diabetic neuropathy 9 Gold Brewer. [address] [facility] [address], [place], [place], [address] , [place]. tel:[phone] Referring Provider: Brittany Moreno [address] [facility], [place], [place], [address]. tel:[phone] Family History Family Member Type Diagnosis Age At Onset Mother Problem (finding) Diabetes melli tus type 2 (Cause Of ) 82 Father Problem (finding) lung CA 67 Sister Problem (finding) breast CA 50 Brother Problem (finding) Alive and well Payers Payer name Insurance type Covered democrat ID Authoriza tion(s) [facility] CI [id number] Social History Type Description Quantity Date Captured Comments Alcohol Use Details Caffeine Use Details Unknown Tobacco Use Status Ex-cigarette smoker 025 Smoking Status Former smoker Sex Female Vital Signs Date / Time: Height Weight BMI Pulse Rate Blood Pressure Temperature Respiratory Rate Body Surface Area Head Circumference BMI percentile Pulse Ox Inhaled Ox 2:15 PM 67.00 in 170.00 lbs 26.6 3 kg/m eter (2) Chief Complaint And Reason For Visit From encounter dated '11/01/2024 13:37'. breast1 (chief complaint). Description: Pt has suspicious clusters left upper outer quadrant of theleft breast on screening and diagnostic mammogram. Pt denies any palpable breast nodule or any painor redness or warmth or drainage. Pt needs biopsy Plan Of Treatment Date Type Action Status Goal Tobacco cessation counseling completed Goal Special diet education compl eted Goal Tobacco cessation counseling completed Goal Tobacco cessation counseling completed Goal Special diet education compl eted Goal Tobacco cessation counseling completed Goal Special diet education compl eted Goal Tobacco cessation counseling completed Goal Special diet education compl eted Referral Ordered: US GUIDANCE ordered Referral Ordered: MAMMOGRAM, ONE BREAST ordered Referral Ordered: MAMMOGRAM, SCREENING ordered Referral Ordered: US ARTERIAL ANKLE/BRACIAL IND ordered Referral Ordered: Podiatry (related to Pain in right foot) ordered Referral Ordered: Referrals: Podiatry. Evaluate and treat ordered Referral Ordered: Alexander George MD -[facility] : Obstetrics & Gynecology (related to Iron deficiency anemia) ordered Referral Ordered: Nephrology (related to Type 2 diabetes mellitus with diabetic nephropathy) ordered Referral Ordered: Referrals: Nephrology. Evaluate and treat ordered Referral Referred To: Alexander George MD, [address] [place], [id number] Ordered: Referrals: [facility] Phys[facility] : Obstetrics & Gynecology. Alexander George MD. Evaluate and treat ordered Referral Ordered: Hematology (related to Iron deficiency anemia) ordered Referral Ordered: US, PELVIC (NONOBSTETRIC); ordered Referral Ordered: Referrals: Hematology. Evaluate and treat ordered Referral Ordered: Urology (related to Hematuria) ordered Referral Ordered: Genaro Escalante -[facility] : Internal Medicine : Endocrinology, Diabetes & Metabolism (related to Type 2 diabetes mellitus with diabetic nephropathy) ordered Referral Referred To: Genaro Escalante [id number] [facility]
[address] [place], [place] [id number] Ordered: Referrals: Allopathic & Osteopathic Physicians : Internal Medicine : Endocrinology, Diabetes & Metabolism. Genaro Escalante. Evaluate and treat ordered Referral Ordered: Referrals: Urology. Evaluate and treat ordered Referral Ordered: DXA BONE DENSITY, AXIAL ordered Referral Ordered: Gastroenterology (related to GERD w/o esophagitis) ordered Referral Ordered: Gastroenterology (related to Chronic pancreatitis) ordered Referral Ordered: Referrals: Gastroenterology. Evaluate and treat ordered Referral Ordered: Go Lazaro -[facility] : Orthopaedic Surgery (related to Osteoarthritis of knee, unspecified) ordered Referral Referred To: Go Lazaro [address] [place] [address] [phone] Ordered: Referrals: Allopathic & Osteopathic Physicians : Orthopaedic Surgery. Go Lazaro. Evaluate and treat ordered Referral Ordered: CT ABDOMEN&PELVIS W/CONTRAST ordered Referral Ordered: US THYROID ordered Referral Ordered: US VENOUS DOPPLER ordered Referral Ordered: US EXAM, ABDOM, COMPLETE ordered History Of Present Illness Encounter Date Complaint History Of Prese nt Illness breast1 Pt has suspiciou s clusters left upper outer quadrant of the left breast on screening and diagnostic mammogram. Pt denies any palpable breast nodule or any pain or redness or warmth or drainage. Pt needs biopsy back pain1 Pt has chronic l ow back pain due to DDD Pt sees pain management and had MRI done in the past Pt denies any loss of bowel or bladder control or saddle area paresthesia Pt needs handicap parking permit completed mammo Pt had screening mammo done recently which showed developing clusters of indeterminate left breast calcifications. Pt denies any palpable breast nodule or pain. Pt denies any breast retractions of discoloration or any nipple discharge . infection1 pt recently went to hospital for infected neurostimulator and wires 3 weeks ago. Pt recently had neurostimulator replaced and she notices redness and warmth with drainage on her left side as well as her back where the wires comes out Pt received IV abx and she saw neurosurgeon and the neurostimulator and wires were removed and she left hospital with oral doxycycline .Pt is seeing ID doctor now Pt denies any fever, chill or drainage renal Pt has chronic r enal disease with anemia. back pain1 Pt has chronic l ow back pain and she has been having worsening back pain since neurostimulator removal. Pt wants ultram refilled . edema1 Pt has LE edema. Pt takes lasix and she denies any edema gout1 Pt denies any re current gout attacks. Pt is on allopurinol. her uric acid is ok HTN Pt has HTN, Pt t akes lisinopril and her bp is ok. Pt denies any chest pain or headache thyroid1 Pt has hypothyro idism. Pt takes 112 mcg synthroid and her TSH is ok Pt denies any dysphagia or neck pain back pain1 Pt has chronic l ow back pain with neuropathy Pt has neurostimulator in place but needs to be replaced .Pt needs medical clearance for above Pt is on baby asa daily Pt had MRi done of L spine which showed DDD in the past Pt denies any loss of bowel or bladder control or saddle area paresthesia. GERD1 Pt has chronic G ERD. Pt has HH and gastritis. Pt doing ok with pepcid .Pt denies any abd pain, nausea, vomiting DM Pt has DM with n ephropathy. pt sees endo and also nephrology. Pt is on metformin, amaryl, januvia and basaglar. her glucose is borderline high and her A1c is 6.3. HLP Pt has HLP. Pt t akes lipitor and feno Pt denies any myalgia. her TG is borderline high iron Pt has iron defi ciency anemia due to renal disease. Pt is s/p iron infusion recently by hematology. her iron is slightly high. She has mild stable anemia. Pt denies any blood loss . hypothyroidism1 Pt has hypothyro idism. Pt takes 125 mcg of synthroid and appears slightly over replaced. Pt denies any dysphagia or neck pain. Pt denies any chest pain or palpitation PVD1 Pt had PVD scree fred done by insurance which showed mild PVD both legs. Pt does have Dm with neuropathy Pt denies any harish claudication Pt denies any cold extremity or toe discoloration HLP Pt has HLP Pt ta kes lipitor pt denies any myalgia. Her LDL is over 91. HTN Pt has HTN Pt ta kes lisinopril and her bp is stable PVD Pt had PVD scree fred done by insurance which showed mild PVD both legs. Pt does have MD with neuropathy Pt denies any harish claudication Pt denies any cold extremity or toe discoloration GERD1 Pt has been havi ng GERD recently and her wood bucker started her on pepcid 3 months ago which works well for her. Pt has been off omeprazole per nephrology due to potential renal damage from omeprazole. Pt does have HH and gastritis Pt denies any abd pain gout1 Pt has gout Pt t akes allopurinol .Pt denies any gout attacks HLP Pt has HLP pt ta kes feno and lipitor Pt denies any myalgia. iron deficiency1 Pt has iron def iciency anemia pt denies any bleeding. pt denies any bleeding Pt sees hematology and had iron infusion DM Pt is seeing end o. Pt is on metformin, ,amaryl, januvia and insulin Pt sees endo. She restarted metformin recently due to elevated a1c per pt by endo renal Pt has chronic r enal disease .Pt sees nephrology and is stable Pt has normal UO thyroid1 Pt has hypothyro idism. Pt takes 125 mcg of synthroid Pt denies any dysphagia or neck pain physical Pt needs annual physical pt has chronic anemia Her iron is ok. Pt did receive iron infusion 6 months ago and her iron and hemoglobin are ok. Pt has slightly high thyroid. Pt has borderline and stable stage III renal disease .Pt sees nephrology. Pt has DM Pt sees endo. Pt has osteopenia. Pt takes calcium and D and she works on weight bearing exercise. Pt denies any new complaints renal disease1 Pt has worsening renal function Pt has normal UO Pt sees nephrology and she just saw nephrology this morning . Pt has proteinuria. thyroid1 Pt has hypothyro idism. Pt takes synthroid and is over replaced Pt denies any dysphagia or neck pain DM Pt sees endo Pt states that her recently A1c is down to 5.7. Pt is on insulin januvia ,amaryl and metformin. osteopenia1 Pt has been taki ng fosamax for two year .Pt denies any bone pain iron defificnecy Pt has iron def iciency anemia Pt has not had iron infusion for a while Pt denies any blood loss. Pt has not done fecal globin yet weight loss1 Pt has been work ing on diet and exercise and she lost some weight Pt denies any nausea, vomiting ,appetite loss, early satiety, change of bowel, blood in stool, abd pain, GERD. ETc GERD1 Pt has chronic G ERD. pt is off omeprazole by nephrology and she is on pepcid now. HLP pt has HLP Pt ta kes lipitor and feno. Pt denie sany myalgia thyroid1 Pt has hypothyro idism Pt takes synthroid Pt needs it refilled DM Pt has DM Pt see s endo. Pt is on insulin now Pt has neuropathy Pt states that she could not tolerate cymbalta and she is off cymbalta. Pt also failed lyrica. her endo started her on neurontin again which seems to help Pt also saw podiatry and was told the blisters are due to neuropathy foot pain1 pt c/o acute ons et of some pain and bruising plantar surface of right foot and spreading to lateral aspect of right foot since last night Pt notices some bruising and some bleeding as well but she is not sure where the bleeding is from Pt does have neuropathy both feet .Pt has not started cymbalta yet Pt denies any cold extremity Pt denies any foot injury. Pt denies any calf pain or swelling. She denies any claudication . 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 Pt received iron infusion and her anemia is improving and her iron is high. Lab missed fecal globin HLP Pt has high TG P t takes lipitor and feno Pt could not afford vascepa. renal1 Pt has stable st age III renal disease Pt has normal UO. Pt sees nephrology now. DM Pt has DM Pt jeaneth es metformin, amaryl, januvia and also insulin ,Pt sees endo her A1c is improving Pt denies any polyuria, polydipsia Pt also has neuropathy Pt weaned herself off lyrica about one month ago sine not helping her neuropathy thyroid1 Pt is on 150 mcg of synthroid. Pt denies any dysphagia orn elizabeth pain. Her TSh is slightly suppressed but T4 ok Pt feels well Pt denies any chest pain, palpitation, headache, etc rash1 Pt c/o mild itch ing rash around dorsal left foot for several months Pt denies any bleeding or bruising. Pt denies any spreading thryoid1 Pt has low thyro id Pt takes synthroid and is under replaced. Pt denies any dysphagia or neck pain hematuria1 Pt has chronic h ematuria .Pt seen urology and had negative work up Pt denies any UTI symptoms. DM Pt has DM. P jeaneth es metformin, amaryl and januvia and she is seeing endo and she started on 24 hours insulin and her glucose is down to 150s per patient. Pt denies any polyuria, polydipsia. Pt has low renal and proteinuria as well. fatty liver1 Pt has fatty helen er with borderline high LFT. Pt denies any abd pain or jaundice. Pt rarely drinks alcohol HLP Pt has HLP Pt ta kes feno and lipitor and her TG is high and her endo started her on vascepa. pt eats a lot of starchy food. Pt denies any myalgia iron deficiency 1 Pt has iron de ficiency anemia. Pt had 3 rounds of iron infusion but she is anemic again and she is planning for iron infusion .Pt denies any sob back pain1 pt has chronic l ow back pain with sciatica and leg numbness. Pt denies any loss of bowel or bladder control or saddle area paresthesia Pt had MRI done several years ago which showed DDD ,Pt did see neurosurgeon and was told that she was not surgical candidate. Pt denies any worsening pain, Pt wants ultram refilled. Pt takes lyrica as well anemia1 Pt has iron defi ciency anemia. Pt is seeing hematology and will get iron infusion. Pt denies any bleeding. Pt has not done pelvic ultrasound yet . DM Pt has DM Pt jeaneth es metformin and amaryl and Januvia. Pt states that her glucose is around 150s. Pt has francisca with endo next month physical Pt needs annual physical pt has chronic mild anemia with normal MCV. her iron is borderline low. Pt denies any vaginal bleeding .Pt denies any flank pain. Pt had normal CT urogram. Pt saw urology and had cystoscopy which was normal per patent. Pt is on abx now for at least two month and will repeat UA. Pt denies any dizziness, chest pain. Pt has DM. Pt takes amaryl, januvia, metformin. Her BG is around 120 at home. Pt has HLP pt takes lipitor her TG is high. Pt is not able to cut down carb and sweet. Pt has francisca with endo in May. Pt denies any other complaints DM Pt has DM Pt jeaneth es metformin, januvia and amaryl and her glucose is 186 and A1c is 7.9, which is slightly worse than last time. pt does have neuropathy Pt denies any polyuria, polydipsia. HLP Pt has HLP. take s lipitor and her TG is high. Pt denies any myalgia. Her TG is high anemia1 Pt has worsening anemia Pt has intermittent hematuria Pt. She denies any urinary symptoms Pt denies any GI bleeding renal1 Pt has boderline stable renal function. Pt has normal UO gout1 Pt takes allopur inol and her uric acid is ok Pt denies any gout flare up gout1 Pt takes allopur inol and she denies any gout attack renal Pt has borderlin e renal function, which is stable Pt denies any flank pain Pt has normal UO Pt has borderline high kcl, which is stable. Pt denies any chest pain or palpitation osteopenia1 Pt has osteopeni a Pt takes calcium and D and she tarted fosamax 3 months ago pt denies any joint pain, jaw pain, bone pain or toothache Pt denies any worsening GERD UTI1 Pt has UTI and h ematuria. Pt did notice some dysuria last week but no symptoms currently. Pt denies any flank pain or abd pain or fever, chill. Pt denies any abd pain or any urinary frequency or urgency DM Pt has DM. Pt ta ke metformin, amaryl and januvia. Her glucose is around 150s an her A1c improved pt denies any polyuria, polydipsia or hypoglycemia Pt has neuropathy and she takes lyrica and doing ok osteopenia1 Pt has osteopeni a, which is worse than two years ago pt denies any fx Pt takes calcium and D. Pt is working on weight bearing exercise renal Pt has borderlin e stable renal function Pt has normal UO DM Pt has DM Pt jeaneth es metformin and amaryl and her glucose is around 150s Pt denies any polyuria polydipsia. Pt started lisinopril and her bp is ok Pt has normal UO kCL Pt has hgh KCL p t denies any chest pain or palpitation hematuria1 Pt has mild evy turia. Pt denies any urinary symptoms Pt denies any flank pain Pt denies any vaginal bleeding physical Pt needs annual physical Pt has DM. Pt takes metformin and amaryl and her glucose has been elevated recently to around 200. Pt denies any polyuria, polydipsia. Pt also has worsening neuropathy symptoms. Pt has proteinuria on lab Pt denies any UTI symptoms. Pt has mildly elevated TG Pt takes lipitor. Pt denies any myalgia. Pt has borderline stable renal function. Pt has normal UO. Pt has borderline high LFT Pt denies any abd pain or jaundice. Pt does have fatty liver. Pt has borderline stable mild anemia. Pt has chronic GERD Pt takes omeprazole and doing ok. Pt also has low thyroid. Pt denies any dysphagia or neck pain Pt takes synthroid. Pt takes neurontin for neuropathy but not working anymore. Pt denies any other complaints DM Pt has DM Pt jeaneth es metformin and amaryl. Pt states that her glucose is around 130s Pt denies any polyuria polydipsia. Pt has neuropathy also and she takes neurontin and she states that she is out of refills. GERD1 Pt has GERD Pt t akes omeprazole and doing ok Pt denies any abd pain .Pt has not done EGD yet. Pt also has not done colonoscopy yet. gout1 Pt has gout. Pt takes allopurinol and doing ok Pt has not had gout attack. HLP Pt has HLP Pt ta kes lipitor Pt denies any myalgia knee pain1 Pt has chronic b ilateral knee pain due to severe arthritis ,.Pt just had left knee replacement and she will undergo right knee replacement soon Pt needs medical clearance . Pt denies any issue with general anesthesia or left knee replacement surgery recently. 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 Her [employer] is sending me paper work to complete hypothyroidism1 Pt has hypothyro idism. Pt takes synthroid Pt needs refill edema1 Pt has LE edema. Pt takes lasix and KCL and doing ok Pt denies any edema DM Pt has DM. Pt ta kes metformin and amaryl and her glucose is around 120s .Pt denies any polyuria, polydipsia. Pt has neuropathy Pt takes neurontin as well. LFT Pt has fatty helen er. PT denies any abd pain renal Pt has borderlin e stable renal disease Pt has normal UO gout1 Pt has been taki ng allopurinol BID and her uric acid is ok now . Pt denies any gout attacks GERD1 Pt has chronic G ERD Pt has hiatal hernia. Pt had colonoscopy 3-4 years ago with polyp and she was told to repeat every 5 years .Pt told me she spoke with [facility] office who told her no records of her colonoscopy ?? Pt doing ok with omeprazole. Pepcid is in back order . knee pain1 Pt has bilateral knee pain due to osteoarthritis .Pt will have left knee replacement soon. Pt denies any history of adverse reaction with anesthesia. Pt denies any chest pain or sob. Pt did have perforated esophagus from remote intubation which the anesthesiologist is aware of. Pt states that she will get spinal anesthesia this time. Pt denies any other complaints PHysical Pt needs annual physical pt has DM. pt takes metformin and amaryl and her glucose is around 130s. Her A1c is 6.7. Pt has mild GERD, which is well controlled with pepcid Pt denies any abd pain or GERD Pt has gout. Her uric acid is elevated currently. Pt does have knee pain Pt denies any joint redness or warmth. Pt takes allopurinol 100 mg daily Pt sees ortho due to arthritis Pt had injection which did help Pt has knee pain again and she will get knee replacement soon. Pt has borderline renal function and mild proteinuria. Pt takes ultram PRN for pain, Pt has mild sciatica and leg numbness, Pt also takes neurontin, Pt denies any other complaints. knee pain1 Pt has bilateral knee pain Pt just saw ortho and she received injections Pt was told that she needs to knee replacement soon Pt feels better hematuria1 Pt had UTI with hematuria ,which resolved after augmentin pt denies any abd pain and repeat UA is ok without hematuria. pt denies any fever, chill. pancreatitis1 pt has chronic p ancreatitis. Pt never had acute pancreatitis Pt rarely drinks alcohol. Pt denies any abd pain GERD1 Pt has mild hiat al hernia. pt states that she has been having heart burn daily Pt takes tums daily pt has been having GERD for several months DM Pt has Dm. pt ta kes metformin and amaryl. her BG is 120-130.Pt has neuropathy Pt takes neurontin and doing ok. knee pain1 Pt has severe bi lateral knee pain. Pt denies any knee injury ,Pt notices some swelling bilateral knee here and there Pt has severe arthritis on x ray recently Pt denies any redness or warmth. Pt has loose body left knee gout1 Pt takes allopur inol. pt denies any gout attack Pt needs refill UTI1 Pt has recurrent UTi and hematuria. Pt had levaquin and macrobid but she still has UTI Pt denies any active UTi Pt denies any abd pain, flank pain Pt denies any fever pt notices some chill here and there anemia1 Pt has very bord franky anemia .Pt denies any blood loss. pt denies any vaginal bleeding Pt has hematuria fatty liver1 Pt has fatty helen er. pt denies any abd pain. Pt denies any jaundice thyroid pt has low thyro id. Pt takes synthroid. Pt denies any neck pain or dysphagia sick1 Pt c/o acute ons et of urinary frequency, urgency and she thinks that her urine is foaming looking Pt c/o right flank pain ,pt feels low grade temp as high as 99. Pt denies any fever, chill. Pt feels overall malaise. Pt denies any abd pain, Pt notices mild nausea but no vomiting. Pt c/o bilateral lower extremity pain for 2-3 weeks and she notices right lower extremity swelling below the knee also for 2-3 weeks. Pt feels pain around bilateral calf and also tib/fib also. Pt denies any claudication Pt denies any recent travel or bedrest. Pt has chronic low back pain with sciatica but she feels different type of pain Pt just feels overall malaise pt c/o posterior right knee pain also. Pt feels very fatigue and wore out. Pt denies any chest pain or sob pt denies any recent travel LFT Pt has high LFT. pt denies any abd pain or jaundice DM Patient has diab etes. Patient take metformin and amaryl. Her A1c is 6.3. Patient denies any polyuria polydipsia. Pt has neuropathy symptoms and she takes neurontin and doing ok UTI1 Pt has persisten t UTI, Pt denies any symptoms Pt denies any fever, chill, flank pain hyopthyroidism1 Pt has hypothyro idism. Pt takes synthroid Pt needs refill back pain1 Pt has chronic l ow back pain pt sees pain management Pt has sciatica and neuropathy symptoms pt needs neurontin refilled. Pt denies any loss of bladder control edema1 Pt has chronic L E edema. Pt takes lasix and KCL pt needs refilled. HLP Pt has mildly hi gh TG. Pt takes lipitor Pt denies any myalgia. Pt does eat a lot of starchy food DM Pt has DM. Pt st ates that her fasting glucose in the morning is around 130-150 but then dip down to 50-70 right before lunch. Pt takes the amaryl at night before sleep. Pt denies any hypoglycemia. Pt denies any polyuria, polydipsia. . Pt has mild neuropathy symptoms. Pt takes neurontin. Pt has proteinuria. back pain1 Pt has chronic l ow back pain Pt has DDD with sciatica. Pt had MRI done also by pain management Pt has neurostimulator in place. Pt takes ultram PRN for pain Pt denies any loss of bladder control. UTI1 Pt has UTi. Pt j ust notices some burning and dysuria today. Pt denies any frequency or urgency or flank pain Physical PT needs annual physical. pt takes metformin and her BG is around 150 to 200. Pt denies any polyuria, polydipsia. Pt states that she has been getting sample of januvia vs Trajenta depending the availability of sample by her previous MD. Pt has not taken any samples drug for several weeks. Pt states that her BG is around 150s. Pt also has gout. Pt takes allopurinol and she has not had any gout attack for several years. Pt takes lipitor for HLP. pt denies any myalgia. Pt has LE edema and she takes lasix and KCL and doing ok. Pt has neuropathy both feet and she takes Neurontin and doing ok. Pt has DDD and she has sciatica and leg numbness. Pt takes ultram occasionally and she has neurostimulator in place and she sees pain management. Pt denies any other complaints Instructions Date Instruction Additional Infor mation Weight management Related to Hem aturia Special diet education Related t o Body mass index (BMI) 31.0-31.9, adult Increase physical activity Relat ed to Hypothyroidism Weight management Related to Hyp othyroidism Special diet education Related t o Body mass index (BMI) 31.0-31.9, adult Increase physical activity Relat ed to Hypothyroidism Weight management Related to Hyp othyroidism Special diet education Related t o Body mass index (BMI) 33.0-33.9, adult Increase activity. Related to Hy perlipidemia Follow a low sodium diet. Relate d to Hyperlipidemia Increase physical activity Relat ed to Encounter for general adult medical exam w abnormal findings Weight management Related to Enc ounter for general adult medical exam w abnormal findings Special diet education Related t o Body mass index (BMI) 32.0-32.9, adult Assessments Type Assessment Date assessment Lump in the left breast 025 Mental Status Date Cognitive Assessment Orientation - Cedar ed to time, place, person, situation.
--- OUTSIDE RECORDS SUMMARY | 2024-11-29 08:46 | XMS_ITS | Clinical Summary ---
Author Organization [facility] Address [address] [place] [address] Care Team Providers Care Bronc Breaker Name Role Phone Osman Malcolm MD Primary Care Provider [phone] Allergies No known active allergies Medications LASIX 20 MG tablet Take 1 tablet (20 mg total) by mouth daily. 06/23/2024 Active cephALEXin (KEFLEX) 500 MG capsule Take 1 capsule (500 mg total) by mouth daily. 06/07/2024 Active lisinopril (PRINIVIL) 5 MG tablet Take 1 tablet (5 mg total) by mouth daily. 06/23/2024 Active fenofibrate 160 MG tablet Take 1 tablet (160 mg total) by mouth daily. Active atorvastatin (LIPITOR) 10 MG tablet Take 1 tablet (10 mg total) by mouth daily. 02/19/2024 Active metFORMIN ER (GLUCOPHAGE-XR) 500 MG 24 hr tablet Take 1 tablet (500 mg total) by mouth 2 (two) times daily before meals. Active glimepiride (AMARYL) 1 MG tablet Take 1 tablet (1 mg total) by mouth daily. 08/03/2024 Active allopurinol (ZYLOPRIM) 100 MG tablet Take 1 tablet (100 mg total) by mouth 2 (two) times daily. Active levothyroxine (SYNTHROID) 112 MCG tablet Take 1 tablet (112 mcg total) by mouth every morning. 05/10/2024 Active famotidine (PEPCID) 20 MG tablet Take 1 tablet (20 mg total) by mouth 2 (two) times daily. Active insulin glargine (LANTUS) 100 UNIT/ML injection (PEN) Inject 18 Units into the skin nightly at bedtime. Active aspirin 81 MG chewable tablet Chew 1 tablet (81 mg total) by mouth daily. Active Multiple Vitamins-Minera ls (PRESERVISION AREDS 2) Cap Take 1 Capful by mouth 2 (two) times a day. Active Vitamin D3 125 mcg Tab Take 1 tablet (125 mcg total) by mouth daily. Active SITagliptin (JANUVIA) 100 MG tablet Take 1 tablet (100 mg total) by mouth daily. Active gabapentin (NEURONTIN) 400 MG capsule Take 1 capsule (400 mg total) by mouth 3 (three) times daily. 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 Encounters Date Type Department Care Team Description 09/22/[address], [address] [phone] Tania Lr NP Information 09/22/[address], [address] [phone] Tania Lr NP Information 09/07/2024 10:40 AM ACETYLENE TORCH BURNER Office Visit [address], [address] [phone] Tania Lr NP Follow Up; Infection (Post OP wound) 09/07/2024 Travel from Last 3 Months Immunizations Name Administration Dates Next Due Fluzone (IIV3, Trivalent, 0.5 ML Prefilled Syrin ) 08/10/2024 Social History Tobacco Use Types Packs/Day Years Used Date Smoking Tobacco: Never Smokeless Tobacco: Never Tobacco Cessation:Counseling Given: No Alcohol Use Standard Drinks/Week Comments Never 0 (1 standard drink = 0.6 oz pur e alcohol) [facility] Utilities Answer Date Recorded In the past 12 months has e electric, gas, oil, or water company threatened to shut off services in your home? No 08/04/2024 Humiliation, Afraid, Rape, and Kick questionnair e Answer Date Recorded Within the last year, have y ou been afraid of your partner or ex-partner? No 08/04/2024 Within the last year, have y ou been humiliated or emotionally abused in other ways by your partner or ex-partner? No Within the last year, have y ou been kicked, hit, slapped, or otherwise physically hurt by your partner or ex-partner? No 08/04/2024 Within the last year, have y ou been raped or forced to have any kind of sexual activity by your partner or ex-partner? No 08/04/2024 Overall Financial Resource Strain (CARDIA) Answe r Date Recorded How hard is it for you to pa y for the very basics like food, housing, medical care, and heating? Not hard at all 08/04/2024 PHQ-2 Answer Date Recorded Patient Health Questionnaire-2 Score 0 09/07/2024 Hunger Vital Sign Answer Date Recorded Within the past 12 months, y ou worried that your food would run out before you got the money to buy more. Never true 08/04/20 24 Within the past 12 months, t he food you bought just didn't last and you didn't have money to get more. Never true 08/04/2024 PRAPARE - Transportation Answer Date Re corded In the past 12 months, has l ack of transportation kept you from medical appointments or from getting medications? No 07/20 In the past 12 months, has l ack of transportation kept you from meetings, work, or from getting things needed for daily living? No 08/04/2024 Housing Stability Vital Sign Answer Jagjit e Recorded In the last 12 months, was t here a time when you were not able to pay the mortgage or rent on time? No 08/04/2024 In the past 12 months, how m any times have you moved where you were living? 0 08/04/2024 At any time in the past 12 m [facility], were you homeless or living in a residential (including now)? No 08/04/2024 Comments No Sex and Gender Information Value Date Recorded Sex Assigned at Not on file Legal Sex Female 12:57 PM CDT Gender Identity Not on file Sexual Orientation Not on file Last Filed Vital Signs Vital Sign Reading Time Taken Comments Blood Pressure 89/60 09/07/2024 10:35 AM ACETYLENE TORCH BURNER Pulse 88 09/07/2024 10:35 AM ACETYLENE TORCH BURNER Temperature 36.5 C (97.7 F) 09/07/2024 10:35 AM ACETYLENE TORCH BURNER Respiratory Rate 16 09/07/2024 10:35 AM ACETYLENE TORCH BURNER Oxygen Saturation 98% 09/07/2024 10:35 AM ACETYLENE TORCH BURNER Inhaled Oxygen Concentration - - Weight 76.7 kg (169 lb) 09/07/2024 10:35 AM ACETYLENE TORCH BURNER Height 170.2 cm (5' 7 ) 09/07/2024 10:35 AM ACETYLENE TORCH BURNER Body Mass Index 26.47 09/07/2024 10:35 AM ACETYLENE TORCH BURNER Plan of Treatment Health Maintenance Due Date Last Done Comments Colorectal Cancer Screening Colonoscopy (10 Years) 1954 Hepatitis C 1972 DTaP, Tdap and Td Vaccines (1 - Tdap) 1973 Mammogram Screening 1994 Annual Medicare Wellness Visit 2019 Dexa Scan (General) 2019 Pneumococcal Vaccine: 65+ Years (2 of 2 - PPSV23 or PCV20) 07/18/2021 07/18/2020, 06/20/2020 COVID-19 Vaccine ( season) 2024 07/31/2023, 08/04/2022, 01/22/2022, Additional history exists PHQ-2 (Physician [place]ining) 10/20/2024 09/07/2024 Zoster Vaccines Completed 04/30/2021, 02/21/2021 RSV Immunization or 60+ Years Completed 08/13/2023 Influenza Adult Completed 08/10/2024, 07/20, 08/05/2022, Additional history exists Meningococcal B Vaccine Aged Out No l onger eligible based on patient's age to complete this topic Meningococcal Vaccine Aged Out No bairon hair eligible based on patient's age to complete this topic RSV Immunizations Under 20 Months Aged Out No longer eligible based on patient's age to complete this topic Goals Goal Patient Goal Type Associated Problems Recent Progress Patient-Stated? Author Health - patient able to perform ADLs independently Lifestyle No Yina Briscoe, RN Medical Devices Implanted Type Area Hotel Assistant Manager Device Identifier Shelf Expiration Date Model / Serial / Lot Stimulator Lead Implant(2 Leads)-11/30/19 16 Implanted:Qty: 2 on 11/30/2015 Lead Implant Spine Thoracic [employer] [id number] / / Stimulator Implant- 024 Implanted:Qty: 1 on 04/16/2024 Stimulator Implant Back [employer] [id number] / [id number] / Description:MR CONDITIONAL A T 1.5 T ONLY, NEED REMOTE TO TURN OFF STIMULATION, SHOULD BE FULL BODY ELIGIBLE , NORMAL MODE NATALIIA , MAX 30 MINUTES TOTAL SCAN TIME IN 90 MINUTE WINDOW Insurance [facility] Advance Directives * Full Code (Latest Code Status on File) Date Activated Date Inactivated Comments 08/04/2024 1:00 AM 08/10/2024 2:07 PM Care Teams Bronc Breaker Relationship Specialty Start Date End Date Osman Malcolm MD PCP - General FAMILY PRACTICE 05/09/22
--- OUTSIDE RECORDS SUMMARY | 2024-11-29 08:46 | XMS_ITS | Clinical Summary ---
Author Organization [facility] Address [address] [place] [id number] Phone Care Team Providers Care Senior Drafter Name Role Phone Osman Malcolm MD Primary Care Provider [phone] Allergies No known active allergies Medications Medication Sig Dispensed Refills Start Date End Date Status alendronate (FOSAMAX) 35 MG tablet TAKE 1 TABLET BY MOUTH ONCE A WEEK. TAKE IN THE MORNING AT LEAST 30 MINUTES BEFORE FIRST FOOD, BEVERAGE, OR MEDICATION OF THE DAY 08/21/2022 Active allopurinol (ZYLOPRIM) 100 MG tablet Take 100 mg by mouth in the morning and 100 mg before bedtime. 07/12/2022 Active atorvastatin (LIPITOR) 10 MG tablet Take 10 mg by mouth 1 (one) time each day 07/12/2022 Active cholecalciferol (VITAMIN D-3 SUPER STRENGTH) 50 MCG (1999) tablet Take by mouth Activ e fenofibrate (TRIGLIDE) 160 MG tablet 09/30/2022 Active furosemide (LASIX) 20 MG tablet Take 20 mg by mouth 1 (one) time each day 09/09/2022 Active glimepiride (AMARYL) 2 MG tablet Take 1 mg by mouth in the morning. 05/28/2022 Active OneTouch Verio test strip USE TO TEST BLOOD SUGAR TWICE DAILY 09/16/2022 Active insulin glargine (Basaglar KwikPen) 100 UNIT/ML injection Inject 20 Units under the skin in the morning. 05/28/2022 Active pen needle, diabetic 31G X 8 MM misc USE TO INJECT INSULIN DAILY 08/14/2022 Active Lancets (OneTouch Delica Plus [id number]) misc USE TO CHECK GLUCOSE TWICE DAILY 08/28/2022 Active levothyroxine (SYNTHROID) 137 MCG tablet Take 1 tablet by mouth 1 (one) time each day 08/24/2019 Active lisinopril (PRINIVIL) 5 MG tablet 09/30/2022 Active metFORMIN (GLUCOPHAGE) 1000 MG tablet TAKE 1 TABLET BY MOUTH TWICE DAILY WITH MORNING MEAL AND WITH EVENING MEAL 07/14/2022 Active pregabalin (LYRICA) 100 MG capsule Take 100 mg by mouth in the morning and 100 mg at noon and 100 mg in the evening. 07/08/2022 Active SITagliptin (JANUVIA) 100 MG tablet Take 100 mg by mouth in the morning. 05/28/2022 Active traMADol (ULTRAM) 50 MG tablet TAKE 1 TABLET BY MOUTH EVERY 6 HOURS NEEDED FOR PAIN , AVOID DRIVING OR OPERATE MACHINES 07/14/2022 Active aspirin (ASPIR) 81 MG EC tablet Take 81 mg by mouth in the morning. Active calcium carbonate (OS-ALTON) 1250 (500 Ca) MG chewable tablet Chew 1 tablet 1 (one) time each day Active Multiple Vitamins-Minerals (ICAPS AREDS 2 PO) Take by mouth Act rosa elena Active Problems No known active problems Immunizations Name Administration Dates Next Due Influenza TIV (IM) 08/03/2022 Influenza, Unspecified 07/20/2020 Pneumococcal Conjugate 06/20/2020 Social History Tobacco Use Types Packs/Day Years Used Date Smoking Tobacco: Former Cigarettes Smokeless Tobacco: Never Tobacco Cessation:Counseling Given: Not Answered Alcohol Use Standard Drinks/Week Comments Yes 0 (1 standard drink = 0.6 oz pur e alcohol) rare Sex and Gender Information Value Date Recorded Sex Assigned at Not on file Gender Identity Not on file Sexual Orientation Not on file Last Filed Vital Signs Vital Sign Reading Time Taken Comments Blood Pressure 124/60 10/02/2022 11:11 AM COMMUNITY HEALTH REPRESENTATIVE Pulse 72 10/02/2022 11:11 AM COMMUNITY HEALTH REPRESENTATIVE Temperature 36.2 C (97.2 F) 10/02/2022 11:11 AM COMMUNITY HEALTH REPRESENTATIVE Respiratory Rate - - Oxygen Saturation - - Inhaled Oxygen Concentration - - Weight 97.5 kg (215 lb) 10/02/2022 11:11 AM COMMUNITY HEALTH REPRESENTATIVE Height 170.2 cm (5' 7 ) 10/02/2022 11:11 AM COMMUNITY HEALTH REPRESENTATIVE Body Mass Index 33.67 10/02/2022 11:11 AM COMMUNITY HEALTH REPRESENTATIVE Plan of Treatment Health Maintenance Due Date Last Done Comments Pneumococcal PPSV23/PCV13 65 + Years / High and Highest Risk (1 of 4 - PCV) 1960 Diabetic Foot Exam 1964 Ophthalmology Exam 1964 Influenza Vaccine (#1) 2024 08/03/2022, 2019 Care Teams Senior Drafter Relationship Specialty Start Date End Date Osman Malcolm MD [address] [place] [id number] PCP - General Family Medicine 08/28/22
--- OUTSIDE RECORDS SUMMARY | 2024-11-29 08:46 | XMS_ITS | Referral Summary ---
Author Organization [facility] Medical Office Building [address] Address [address] [place] [address] Care Team Providers Care Hospitality Coordinator Name Role Phone Jamaal Rey Linares PA Unavailable [phone] Reina Jimenes Unavailable [phone] Osman Malcolm MD Primary Care Provider [phone] Encounters Date Type Department Care Team Description 11/05/2024 11:59 PM CLINICAL PHYSICIAN ASSISTANT Anesthesia Event [facility] Operating Room [address] [place] [phone] Dinora Matthew NP 11/08/2024 11:45 AM CLINICAL PHYSICIAN ASSISTANT Pre-Admission Testing [facility] Pre Anesthesia Testing [address] [place] [phone] Preoperative evaluation to rule out surgical contraindication (Primary Dx); Other specified pre-operative examination; care home current use of anticoagulant 11/04/2024 Telephone [facility] Pre Anesthesia Testing [address] [place] [phone] Khushi Gresham 11/03/2024 Orders Only [facility] Diabetes and Endocrinology [address] [place] [phone] ProviderMarcello MD 10/26/2024 Telephone [facility] Diabetes and Endocrinology [address] [place] [phone] SchSisi batres NP Med Management ([facility] - Basaglar) 10/26/2024 11:30 AM CLINICAL PHYSICIAN ASSISTANT Office Visit [facility] Diabetes and Endocrinology [address] [place] [phone] Sisi Guevara, GRACE Type 2 diabetes mellitus with hyperglycemia, with long-term current use of insulin (HCC) (Primary Dx); CKD stage 4 due to type 2 diabetes mellitus (CMS/HCC) (HCC); Hyperlipidemia associated with type 2 diabetes mellitus (HCC); Diabetic neuropathy associated with type 2 diabetes mellitus (CMS/HCC) (HCC) 10/19/2024 Telephone [facility] [address] [phone] Sisi Guevara, GRACE Med Refill 10/08/2024 Telephone [facility] Diabetes and Endocrinology [address] [place] [phone] Sisi Guevara NP Forms/questionnaires ([place]) 09/30/2024 Telephone [facility] Diabetes and Endocrinology [address] [place] [phone] Sisi Guevara NP Forms/questionnaires ([facility] Pt Assistance) from Last 3 Months Allergies Active Allergy Reactions Criticality Noted Date Comments Duloxetine Other (See comments) Medium 01/30/2023 Pt states she felt like she was itching from the inside out Medications atorvastatin (LIPITOR) 10 mg tablet Take 1 tablet (10 mg total) by mouth every morning 9 Active blood glucose diagnostic strip test bid 9 Active furosemide (LASIX) 20 mg tablet Take 1 tablet (20 mg total) by mouth every morning 9 Active lancets 33 gauge misc use BID 9 Active allopurinoL (ZYLOPRIM) 100 mg tablet Take 1 tablet (100 mg total) by mouth 2 (two) times a day Active lisinopriL (PRINIVIL,ZEST RIL) 5 mg tablet Take 1 tablet (5 mg total) by mouth every morning 1 Active traMADoL (ULTRAM) 50 mg tablet Take 1 tablet (50 mg total) by mouth every 6 (six) hours as needed for pain Active aspirin 81 mg enteric coated tablet Take 1 tablet (81 mg total) by mouth daily Active famotidine (PEPCID) 20 mg tablet Take 1 tablet (20 mg total) by mouth 2 (two) times a day 3 Active fenofibrate (TRIGLIDE) 160 mg tablet Take 1 tablet (160 mg total) by mouth every morning 3 Active cephalexin (KEFLEX) 500 mg capsule Take 1 capsule (500 mg total) by mouth daily Active blood-glucose sensor (Dexcom G7 Sensor) deviceIndicati ons:Type 2 diabetes mellitus with hyperglycemia, with long-term current use of insulin ([facility]) Continuous glucose monitoring. Change every 10 days. 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) miscIndication s:Type 2 diabetes mellitus with hyperglycemia, with long-term current use of insulin ([facility]) Continuous glucose monitor 1 each 3 Active gabapentin (NEURONTIN) 300 mg capsuleIndicat ions:Diabetic Peripheral Neuropathy Take 1 capsule (300 mg total) by mouth 3 (three) times a day 90 capsule 11 4 12/25/19 25 Active metFORMIN XR (GLUCOPHAGE XR) 500 mg 24 hr tablet Take 1 tablet (500 mg total) by mouth 2 (two) times a day before breakfast and dinner 180 tablet 2 4 Active levothyroxine (SYNTHROID) 112 mcg tablet Take 1 tablet (112 mcg total) by mouth talent specialist before breakfast 4 Active pen needle, diabetic 32 gauge x needleIndicati ons:Type 2 diabetes mellitus with hyperglycemia, with long-term current use of insulin ([facility]) USE TO INJECT INSULIN DAILY 100 each 5 Active insulin glargine 100 unit/mL (3 mL) pen for injection Inject 14 Units under the skin nightly Max daily dose is 20 units Active SITagliptin phosphate (JANUVIA) 100 mg tabletIndicati ons:type 2 diabetes mellitus Take 1 tablet (100 mg total) by mouth every morning Active Januvia 100 mg tabletIndicati ons:Type 2 diabetes mellitus with hyperglycemia, with long-term current use of insulin ([facility]) TAKE ONE TABLET BY MOUTH EVERY DAY 90 tablet 2 4 11/08/19 Discontinu ed(Error) BASAGLAR 100 unit/mL (3 mL) pen for injection DIAL AND INJECT 20 UNITS UNDER THE SKIN NIGHTLY. MAX DAILY DOSE IS 20 UNITS. 30 mL 5 11/08/19 Discontinu ed(Error) Active Problems Problem Noted Date Diagnosed Date Diabetic neuropathy 11/16/2024 Diabetic mononeuropathy asso ciated with type 2 diabetes mellitus 11/01/2024 CKD stage 4 due to type 2 diabetes mellitus ([facility] /[facility]) 06/29/2024 Assessment & Plan (10/26/2024 12:09 PM CLINICAL PHYSICIAN ASSISTANT): Chronic problem. Managed by Dr Marr at [facility]. Next appt 12/29/24 Nephropathy: On GWEN-I / ARB s : Yes. Lisinopril 5mg. Last MA: 12/25/23 (36 calc). Last creat/GFR: 03/31/24 GFR=27, CR=1.96. Assessment & Plan (06/29/2024 11:48 AM CDT): Chronic problem. Managed by Dr Marr at [facility]. Next appt 06/30/24. Nephropathy: On GWEN-I / ARB s : Yes. Lisinopril 5mg. Last MA: 12/25/23 (36 calc). Last creat/GFR: 03/31/24 GFR=27, CR=1.96. Diabetic neuropathy associat ed with type 2 diabetes mellitus ([facility]) 01/30/2023 Assessment & Plan (10/26/2024 11:56 AM CLINICAL PHYSICIAN ASSISTANT): Chronic problem. Gabapentin Gabapentin 300-600mg at HS. Has tried duloxetine in past but allergy (pruritic). H/o foot ulcers. Reviewed foot care; needs to lotion daily. Aware to check feet nightly & not go barefoot.Aware to check feet nightly, not to go barefoot. Assessment & Plan (06/29/2024 11:46 AM CDT): Chronic problem. Gabapentin 300mg TID. Has tried duloxetine in past but allergy (pruritic). H/o foot ulcers. Reviewed foot care; needs to lotion daily. Aware to check feet nightly & not go barefoot.Aware to check feet nightly, not to go barefoot. Assessment & Plan (12/25/2023 10:41 AM CLINICAL PHYSICIAN ASSISTANT): Foot care discussed Continue gabapentin Assessment & Plan (05/08/2023 11:12 AM CDT): Chronic problem. Gabapentin 300mg Has tried duloxetine in past but allergy (pruritic). H/o foot ulcers. Aware to check feet nightly & not go barefoot. Assessment & Plan (01/30/2023 10:57 AM CDT): Chronic problem. Has tried duloxetine in past but allergy (pruritic). For neuropathy: Gabapentin 300mg at bedtime. If doing well; continue this. -In 4-5 days--If pain bothersome during day--add 300mg every morning (12 hours apart) & continue 300mg at bedtime. -in 4-5 days--If doing well but afternoons are bothersome--can add 300mg there also. All doses would be 8 hours apart then (morning, afternoon & evening). Class 1 obesity due to exces s calories with serious comorbidity and body mass index (BMI) of 32.0 to 32.9 in adult 10/31/2022 Assessment & Plan (10/31/2022 12:56 PM CLINICAL PHYSICIAN ASSISTANT): Encouraged Mrs Trujillo to walk in home if weather not conducive to walking outside. Discussed healthy diet and importance of regular physical activity (20- 30min/day, 150min/wk). Hyperlipidemia associated with type 2 diabetes ltaanya brown 07/25/2022 Assessment & Plan (10/26/2024 11:30 AM CLINICAL PHYSICIAN ASSISTANT): Chronic problem, at goal on Atorvastatin 10mg & fenofibrate 160mg daily Last lipid panel: 12/25/23 LDL=98, JV=458. Assessment & Plan (06/29/2024 11:46 AM CDT): Chronic problem, at goal on Atorvastatin 10mg & fenofibrate 160mg daily Last lipid panel: 12/25/23 LDL=98, RY=083. Assessment & Plan (12/25/2023 10:41 AM CLINICAL PHYSICIAN ASSISTANT): Chronic, stable Continue Atorvastatin 10 mg daily UDT lipid profile Assessment & Plan (05/08/2023 11:12 AM CDT): Chronic problem, at goal on Atorvastatin 10mg & fenofibrate 160mg daily Last lipid panel: 07/25/22 LDL=74, ZK=401. No changes at this time. Assessment & Plan (01/30/2023 11:08 AM CDT): Chronic problem, at goal on Atorvastatin 10mg. Last lipid panel: 07/25/22 LDL=74, ZJ=335. No changes at this time. Assessment & Plan (10/31/2022 8:59 AM CLINICAL PHYSICIAN ASSISTANT): Chronic problem, near goal. LDL=74 07/2022. Atorvastatin 10mg daily. No changes at this time. Assessment & Plan (07/25/2022 12:50 PM CDT): Continue atorvastastin Check lipid profile LDL goal under 70 Type 2 diabetes mellitus wit h hyperglycemia, with long-term current use of insulin 05/28/2022 Assessment & Plan (10/26/2024 11:56 AM CLINICAL PHYSICIAN ASSISTANT): Chronic problem, stable/controlled. A1c stable at 5.8%. Current medications: Metformin XR 500mg twice daily before meals Januvia 100 mg daily (PAP) Basaglar 14 units every evening (PAP) Cannot trial GLP1a d/t h/o pancreatitis UTD on labs DM eye exam (2023 at [facility]). 2nd request letter sent. Strive for regular exercise (30min most days) and diet (get at least 4-5 servings of fruit and veggies daily, avoid processed foods, increase lean protein intake and decrease carb portions as well as fruit juices, regular soda & desserts). Watch carbs and simple sugars. Check the blood sugar: Dexcom G7 Check the feet daily for skin breakdown and infection. Assessment & Plan (06/29/2024 12:02 PM CDT): Chronic problem. A1c improved from 6.3% 12/25/23 to now 5.9% Will need to start decreasing Basaglar by 2 units weekly to see if we can stop the overnight and before dinner lows. If Dr Marr stops the metformin tomorrow--keep the basaglar as it is (may need to increase in future) Current medications: Metformin XR 500mg twice daily before meals Glimepiride 1mg daily before breakfast Januvia 100 mg daily (PAP) Basaglar 18 units every evening (PAP) Cannot trial GLP1a d/t h/o pancreatitis UTD on labs DM eye exam. Strive for regular exercise (30min most days) and diet (get at least 4-5 servings of fruit and veggies daily, avoid processed foods, increase lean protein intake and decrease carb portions as well as fruit juices, regular soda & desserts). Watch carbs and simple sugars. Check the blood sugar: Dexcom G7 Check the feet daily for skin breakdown and infection. Assessment & Plan (12/25/2023 10:40 AM CLINICAL PHYSICIAN ASSISTANT): Chronic, stable Contiue current regimen including Basaglar, Glimepiride 1 mg daily, Metformin 500 mg bid and Januvia Diet and exercise were discussed Assessment & Plan (09/09/2023 11:37 AM CLINICAL PHYSICIAN ASSISTANT): Hba1c was Lab Results Component Value Date HGBA1C 7.0 09/09/2023 today, indicating suboptimal DM control with hypo and hyperglycemia Goal Hba1c and blood glucose explained Diet and exercise were advised Prevention and treatment of hyypoglcyemia were discussed with the patient Blood glucose monitoring : DEXCOM Adjustment to medications: Restart Metformin, 500 mg twice a day, before breakfast and dinner Lower Basaglar, 20 units at bedtime Lower Glimepiride 1 mg daily Stay on Januvia. Assessment & Plan (05/08/2023 11:09 AM CDT): Chronic problem. A1c increased from 5.9% to now 7.8% Phone not compatible with dexcom nor [employer].come. Sent in Dexcom 7 & reader. Current medications: Glimepiride 2mg twice daily before meals Januvia 100 mg daily (PAP) Basaglar 16 units every evening --will up tirate 2 units every week until blood sugars 130s or less without hypoglycemic events. Cannot trial GLP1a d/t h/o pancreatitis UTD on labs UTD on DM eye exam. Strive for regular exercise (30min most days) and diet (get at least 4-5 servings of fruit and veggies daily, avoid processed foods, increase lean protein intake and decrease carb portions as well as fruit juices, regular soda & desserts). Watch carbs and simple sugars. Check the blood sugar twice daily. Check the feet daily for skin breakdown and infection. Assessment & Plan (01/30/2023 11:05 AM CDT): Chronic problem, at goal. No changes at this time. Current medications: Metformin 1000 mg twice daily Glimepiride 0.5mg every morning Januvia 100 mg daily Basaglar 14 units every evening Had DM eye exam 01/2023 at [facility] in [place]. Letter sent to get copy of results. Engaged w/podiatry re: R foot blister. Discussed the need to strive for regular exercise (30min most days) and diet (get at least 4-5 servings of fruit and veggies daily, avoid processed foods, increase lean protein intake and decrease carb portions as well as fruit juices, regular soda & desserts). Watch carbs and simple sugars. Check the blood sugar twice daily. Check the feet daily for skin breakdown and infection. Assessment & Plan (10/31/2022 12:55 PM CLINICAL PHYSICIAN ASSISTANT): Chronic problem, at goal. No changes. Continue current medications: Metformin 1000 mg bid Glimepiride 1mg once a day, in the morning Januvia 100 mg in the am Basaglar 14 units hs Mrs Trujillo to make a diabetic eye exam and have report sent to our office. Assessment & Plan (07/25/2022 12:51 PM CDT): Better,but with afternoon hypoglycemia Lower Glimepiride to 1 mg Continue Januvia, Metformin and Basaglar. Assessment & Plan (05/28/2022 4:33 PM CDT): Hba1c was Lab Results Component Value Date HGBA1C 8.6 05/28/2022 today, indicating inadequate DM control Goal Hba1c and blood glucose explained Diet and exercise were advised Prevention and treatment of hyypoglcyemia were discussed with the patient Blood glucose monitoring : bid , bf and dinner Adjustment to medications: Stay on Januvia and Metformin Will recheck GFR and will adjust dose of Metformin, if indicated Lower the Glimepiride to only once a day, 2 mg in the morning. Start Basaglar, 14 units at beditme After a week, if your sugars are persistently over 160, in the mornings, increase the Basaglar to 20 unit s Anemia, iron deficiency, inadequate dietary inta ke 05/14/2022 B12 deficiency 05/14/2022 Iron deficiency 05/14/2022 S/P total knee arthroplasty, right 09/15/2020 Idiopathic chronic pancreatitis (CMS/HCC) 2019 Acquired hypothyroidism 08/24/2019 Resolved Problems Problem Noted Date Diagnosed Date Resolved Date Aftercare following left kne e joint replacement surgery 05/03/2020 10/31/2022 Primary osteoarthritis of both knees 04/20/2020 09/15/2020 Overview (04/20/2020): Added automatically from request for surgery [id number] Immunizations Name Administration Dates Next Due Influenza, Unspecified 07/20/2020 Social History Tobacco Use Types Packs/Day Years Used Date Smoking Tobacco: Former Smokeless Tobacco: Never Tobacco Cessation:Counseling Given: Not Answered Alcohol Use Standard Drinks/Week Comments Yes 0 (1 standard drink = 0.6 oz pur e alcohol) occasional AUDIT-C Answer Date Recorded Q1: How often do you have a drink containing alcohol? Never 11/08/2024 Q2: How many drinks containi ng alcohol do you have on a typical day when you are drinking? Patient does not drink Frequency of Binge Drinking Not on file 10/21 PHQ-2 Answer Date Recorded PHQ-2 Total Score (If total score is 3 or more points, staff should administer the PHQ-9) 0 05/08/2023 Comments Unknown Sex and Gender Information Value Date Recorded Sex Assigned at Not on file Legal Sex Female 6:42 PM CLINICAL PHYSICIAN ASSISTANT Gender Identity Not on file Sexual Orientation Not on file Last Filed Vital Signs Vital Sign Reading Time Taken Comments Blood Pressure 138/57 11/08/2024 11:00 AM CLINICAL PHYSICIAN ASSISTANT Pulse 90 11/08/2024 11:00 AM CLINICAL PHYSICIAN ASSISTANT Temperature 37 C (98.6 F) 01/16/2023 12:30 PM CDT Respiratory Rate 16 10/26/2024 11:13 AM CLINICAL PHYSICIAN ASSISTANT Oxygen Saturation 100% 11/08/2024 11:00 AM CLINICAL PHYSICIAN ASSISTANT Inhaled Oxygen Concentration - - Weight 76.2 kg (168 lb) 11/08/2024 11:00 AM CLINICAL PHYSICIAN ASSISTANT Height 170.2 cm (5' 7 ) 11/08/2024 11:00 AM CLINICAL PHYSICIAN ASSISTANT Body Mass Index 26.31 11/08/2024 11:00 AM CLINICAL PHYSICIAN ASSISTANT Plan of Treatment Upcoming Encounters Date Type Department Care Team (Latest Contact Info) Description 12/27/2024 9:30 AM CDT Hospital Encounter [facility] Operating Room [address] [place] [phone] [place] [address] [place] [id number] 12/27/2024 9:30 AM CDT - 12/27/2024 12:30 PM CDT Surgery [facility] Operating Room [address] [place] [phone] [place] [address] [place] [id number] Thoracic 10 Laminotomy for Placement of Spinal Cord Stimulator Scheduled Procedures Name Priority Associated Diagnoses Date/Ti me INSERTION SPINAL CORD STIMULATOR Diabetic polyneuropathy associated with other specified diabetes mellitus (HCC) 12/27/2024 9:30 AM CDT Medical Devices Implanted Type Area Food Cooking Machine Operator Device Identifier Shelf Expiration Date Model / Serial / Lot [employer] [id number] Attune Cruciate Retain Cementless Knee Left 6 Narrow Component - [id number] Implanted:Qty: 1 on 05/02/2020 by Go Lazaro MD at [facility] Left: Knee [employer] 10/19/2029 [id number] / / [id number] [employer] [id number] Attune 5mm Cruciate Retaining Rotate Platform Knee 6 Insert - [id number] Implanted:Qty: 1 on 05/02/2020 by Go Lazaro MD at [facility] Left: Knee [employer] 08/19/2024 [id number] / / [id number] Attune Knee System, Tibial Base Rotating Platform Implanted:Qty: 1 on 05/02/2020 by Go Lazaro MD at [facility] Left: Knee [employer] [id number] 05/19/2028 [id number] / / [id number] [employer] [id number] Palacos R+G High Viscosity Cement Bone Gentamicin Arthroplasty - [id number] Implanted:Qty: 1 on 05/02/2020 by Go Lazaro MD at [facility] Left: Knee [employer] 02/16/2022 [id number] / / [id number] [employer] [id number] Palacos R+G High Viscosity Cement Bone Gentamicin Arthroplasty - [id number] Implanted:Qty: 1 on 09/05/2020 by Go Lazaro MD at [facility] Right: Knee [employer] 08/19/2022 [id number] / / [id number] [employer] [id number] Baseplate Tibial Attune 6 Knee Cement Rotate Platform Sterile - [id number] Implanted:Qty: 1 on 09/05/2020 by Go Lazaro MD at [facility] Right: Knee [employer] 03/19/2030 [id number] / / [id number] [employer] [id number] Attune 7mm Cruciate Retaining Rotate Platform Knee 6 Insert - [id number] Implanted:Qty: 1 on 09/05/2020 by Go Lazaro MD at [facility] Right: Knee [employer] 08/19/2024 [id number] / / [id number] [employer] [id number] Attune Cruciate Retain Cementless Knee Right 6 Component Femoral - [id number] Implanted:Qty: 1 on 09/05/2020 by Go Lazaro MD at [facility] Right: Knee [employer] 07/19/2028 [id number] / / [id number] Procedures Procedure Name Priority Date/Time Associated Diagnosis Comments EGFR Routine 11/08/2024 12:06 PM CLINICAL PHYSICIAN ASSISTANT Preoperative evaluation to rule out surgical contraindication APTT Routine 11/08/2024 12:06 PM CLINICAL PHYSICIAN ASSISTANT Other specified pre-operative examination terminologist current use of anticoagulant BASIC METABOLIC PANEL Routine 11/08/2024 12:06 PM CLINICAL PHYSICIAN ASSISTANT Preoperative evaluation to rule out surgical contraindication POCT HEMOGLOBIN A1C Routine 10/26/2024 11:17 AM CLINICAL PHYSICIAN ASSISTANT Type 2 diabetes mellitus with hyperglycemia, with long-term current use of insulin ([facility]) POCT GLUCOSE Routine 10/26/2024 11:17 AM CLINICAL PHYSICIAN ASSISTANT Type 2 diabetes mellitus with hyperglycemia, with long-term current use of insulin ([facility]) DIABETES EYE EXAM Routine 09/07/2024 7:29 AM CLINICAL PHYSICIAN ASSISTANT LIPID PANEL Routine 12/25/2023 10:51 AM CLINICAL PHYSICIAN ASSISTANT Type 2 diabetes mellitus with hyperglycemia, with long-term current use of insulin ([facility]) ([facility]) ALBUMIN CREATININE RATIO, URINE Routine 12/25/2023 10:51 AM CLINICAL PHYSICIAN ASSISTANT Type 2 diabetes mellitus with hyperglycemia, with long-term current use of insulin ([facility]) ([facility]) from Last 3 Months or Most Recently Relevant to Health Maintenance Results * (ABNORMAL) eGFR (11/08/2024 12:06 PM CLINICAL PHYSICIAN ASSISTANT) [facility] eGFR 33(L) >=60 mL/min/1. 73 m2 Comment: Interpretive Data Reference Interval Normal >/= 90 mL/min/1.73m2 Mildly decreased* 60 - 89 mL/min/1.73m2 Mildly to moderately decreased 45 - 59 mL/min/1.73m2 Moderately to severely decreased 30 - 44 mL/min/1.73m2 Severely decreased 15 - 29 mL/min/1.73m2 Kidney Failure < 15 mL/min/1.73m2 *Relative to young adult level Estimated glomerular filtration rate is determined by the 2020 CKD-EPI equation recommended by the National Kidney Foundation (A Unifying Approach to GFR Estimation: Recommendations of the NKF-ASK Task Force on Reassessing the Inclusion of Race in Diagnosing Kidney Disease, JASN 2020). The CKD-EPI equation should not be used for patients with unstable renal function and has not been validated in children and those over 70. Current interpretive data was last reviewed 2021. Blood 11/08/2024 12:0 6 PM CLINICAL PHYSICIAN ASSISTANT 11/08/2024 12:06 PM CLINICAL PHYSICIAN ASSISTANT us Dinora Matthew NP LAB BLOOD ORDERABLES Fin al Result Performing Organization Address City/[facility]/ZIP Co de Phone Number [facility] [address] [employer] [place], [place] [id number] * aPTT (11/08/2024 12:06 PM CLINICAL PHYSICIAN ASSISTANT) aPTT 30 28 - 38 sec Comment: Interpretive Data Heparin therapeutic range: 66.0 - 100.0 seconds. Range based on correlation with therapeutic heparin activity range of 0.3 - 0.7 Units/mL. Current interpretive data was last revised on 2023. Blood 11/08/2024 12:0 6 PM CLINICAL PHYSICIAN ASSISTANT 11/08/2024 12:06 PM CLINICAL PHYSICIAN ASSISTANT us Vivi Johansen MD LAB BLOOD ORDERABLES Fin al Result Performing Organization Address City/[facility]/ZIP Co de Phone Number [facility] [address] [facility] [place] [address] * (ABNORMAL) Basic metabolic panel (11/08/2024 12:06 PM CLINICAL PHYSICIAN ASSISTANT) Sodium 141 135 - 145 mmol/L Potassium, pl 4.9 3.3 - 4.9 mmol/L [facility] Chloride 103 97 - 110 mmol/L [facility] CO2 25 22 - 32 mmol/L [facility] Anion gap 13 2 - 15 mmol/L [facility] BUN 47(H) 6 - 25 mg/dL [facility] Creatinine 1.67(H) 0.60 - 1.10 mg/dL [facility] Glucose 129 70 - 199 mg/dL [facility] Comment: Interpretive Data Fasting glucose >/= 126 mg/dl is diagnostic for diabetes. Fasting is defined as no caloric intake for at least 8 hours. Fasting glucose between 100 mg/dl to 125 mg/dl is diagnostic of prediabetes. In a patient with classic symptoms of hyperglycemia or hyperglycemic crisis, a random glucose >/= 200 mg/dl is diagnostic for diabetes. In the absence of unequivocal hyperglycemia, results should be confirmed by repeat testing. The classification and Diagnosis of Diabetes Diabetes Care 2021; 46: S19-S40. Current interpretive data was last revised 2022. Calcium 10.0 8.5 - 10.3 mg/dL [facility] Blood 11/08/2024 12:0 6 PM CLINICAL PHYSICIAN ASSISTANT 11/08/2024 12:06 PM CLINICAL PHYSICIAN ASSISTANT Dinora Matthew NP LAB BLOOD ORDERABLES Fin al Result [facility] [address] Department [place] [address] * (ABNORMAL) POCT hemoglobin A1c (10/26/2024 11:17 AM CLINICAL PHYSICIAN ASSISTANT) Hemoglobin A1C, POC 5.8 4.0 - 5.6 % Blood 10/26/2024 11:1 7 AM CLINICAL PHYSICIAN ASSISTANT us Sisi Guevara NP POINT OF CARE TEST ORDERA BLES Final Result * (ABNORMAL) POCT glucose (10/26/2024 11:17 AM CLINICAL PHYSICIAN ASSISTANT) Glucose Blood, POC 184 mg/dL Blood 10/26/2024 11:1 7 AM CLINICAL PHYSICIAN ASSISTANT Sisi Guevara OVERCASTER POINT OF CARE TEST ORDERA BLES Final Result * HM DIABETES EYE EXAM (09/07/2024 7:29 AM CLINICAL PHYSICIAN ASSISTANT) Historical Provider HEALTH MAINTENANCE Final Result * Albumin Creatinine Ratio, Urine (12/25/2023 10:51 AM CLINICAL PHYSICIAN ASSISTANT) Albumin Ur <12.0 mg/L Comment: Interpretive Data No reference range established. Current interpretive data was last revised 2019. Creatinine Ur 33.6 mg/dL [facility] Comment: Interpretive Data No reference range established. Current interpretive data was last revised 2019. Albumin Creatinine Ratio, Ur See Comment - [facility] Comment:Unable to calculate Urine 12/25/2023 10:5 1 AM CLINICAL PHYSICIAN ASSISTANT 12/25/2023 4:20 PM CLINICAL PHYSICIAN ASSISTANT Charan Hopper MD LAB URINE ORDERABLES Final Resul t [facility] [address] Department of Laboratories [place], [place] [id number] * (ABNORMAL) Lipid panel (12/25/2023 10:51 AM CLINICAL PHYSICIAN ASSISTANT) Cholesterol 179 30 - 199 mg/dL Comment: Interpretive Data Ages < or = 19 years Acceptable: <170 mg/dL Borderline high: 170-199 mg/dL High: >or= 200 mg/dL Ages > or = 20 years Desirable: <200 mg/dL Borderline high: 200-239 mg/dL High: >or= 240 mg/dL Literature References: 1. Expert Panel on Integrated Guidelines for Cardiovascular Health and Risk Reduction in Children and Adolescents. Pediatrics 2011;128:S213 2. NCEP Expert Panel. Circulation 2004;110:227 Current Interpretive Data was last revised on 2018. Triglycerides 194(H) <=149 mg/dL [facility] Comment: Interpretive Data Ages < or = 9 years Acceptable: <75 mg/dL Borderline high: 75-99 mg/dL High: >or= 100 mg/dL Ages 10 to 20 years Acceptable: <90 mg/dL Borderline high: 90-129 mg/dL High: >or= 130 mg/dL Ages > or = 20 years Desirable: <150 mg/dL Borderline high: 150-199 mg/dL High: 200-499 mg/dL Very high: >or= 499 mg/dL Literature References: 1. Expert Panel on Integrated Guidelines for Cardiovascular Health and Risk Reduction in Children and Adolescents. Pediatrics 2011;128:S213 2. NCEP Expert Panel. Circulation 2004;110:227 Current Interpretive Data was last revised on 2018. HDL 42 >=40 mg/dL [facility] Comment: Interpretive Data Ages < or = 19 years Acceptable: >45 mg/dL Borderline low: 40-45 mg/dL Low: <40 mg/dL Ages > or = 20 years Desirable: >or= 60 mg/dL Low: <40 mg/dL Literature References: 1. Expert Panel on Integrated Guidelines for Cardiovascular Health and Risk Reduction in Children and Adolescents. Pediatrics 2011;128:S213 2. NCEP Expert Panel. Circulation 2004;110:227 Current Interpretive Data was last revised on 2018. LDL, calculated 98 <=129 mg/dL [facility] Comment: Interpretive Data Ages < or = 19 years Acceptable: <110 mg/dL Borderline high: 110-129 mg/dL High: >or= 130 mg/dL Ages > or = 20 years Optimal: <100 mg/dL Near optimal: 100-129 mg/dL Borderline high: 130-159 mg/dL High: >160 mg/dL Literature References: 1. Expert Panel on Integrated Guidelines for Cardiovascular Health and Risk Reduction in Children and Adolescents. Pediatrics 2011;128:S213 2. NCEP Expert Panel. Circulation 2004;110:227 Current Interpretive Data was last revised on 2018. Non-HDL Cholesterol 137 mg/dL [facility] Comment: Interpretive Data Ages < or = 19 years Acceptable: <120 mg/dL Borderline high: 120-144 mg/dL High: >145 mg/dL Ages > or = 20 years When triglycerides are >200 mg/dL, Non-HDL cholesterol is a secondary target of therapy with treatment goals that are 30 mg/dL greater than the LDL cholesterol target. Literature References: 1. Expert Panel on Integrated Guidelines for Cardiovascular Health and Risk Reduction in Children and Adolescents. Pediatrics 2011;128:S213 2. NCEP Expert Panel. Circulation 2004;110:227 Current Interpretive Data was last revised on 2018. Chol/HDL ratio 4 [facility] Blood 12/25/2023 10:5 1 AM CLINICAL PHYSICIAN ASSISTANT 12/25/2023 4:20 PM CLINICAL PHYSICIAN ASSISTANT us Charan Hopper MD LAB BLOOD ORDERABLES Final Resul t [facility] [address] Department [place] [address] from Last 3 Months or Most Recently Relevant to Health Maintenance Insurance [employer] [facility] MEDICARE MEDICARE SOLUTIONS MEDICARE SOLUTIONS Advance Directives For more information, please contact: [phone] * Full Code (Latest Code Status on File) Date Activated Date Inactivated Comments 09/05/2020 1:54 PM 09/06/2020 6:34 PM * Full Code Date Activated Date Inactivated Comments 05/02/2020 2:11 PM 05/03/2020 8:18 PM Care Teams Hospitality Coordinator Relationship Specialty Start Date End Date Osman Malcolm MD [address] [place] [address] PCP - General Family Medicine 09/18/22 Rey Hinton PA [address] [place] [address] [place] [address] Physician Finish Inspector Orthopedic Surgery 05/03/20 Reina Jimenes PA [address] [place] [address] [place] [address] Physician Finish Inspector Orthopedic Surgery 09/06/20
--- OUTSIDE RECORDS SUMMARY | 2024-11-29 08:46 | XMS_ITS | Clinical Summary ---
Author Organization [facility] Address [address] [place] [address] Phone Care Team Providers Care Natural Science Curator Name Role Phone Gold Osman Primary Care Provider [phone] Robert Corbett MD Unavailable [phone] Adrien Cerrato MD Unavailable [phone] Allergies No known active allergies Medications furosemide (LASIX) 20 MG Tablet Take 1 Tablet by mouth daily. 0 Active allopurinol (ZYLOPRIM) 100 MG Tablet Take 100 mg by mouth 2 times daily. Active atorvastatin (LIPITOR) 10 MG Tablet Take 10 mg by mouth daily. Active traMADol (ULTRAM) 50 MG Tablet Take 50 mg by mouth every 6 hours as needed. Active Aspirin 81 MG Tablet Take 81 mg by mouth daily. Active lisinopril (PRINIVIL, ZESTRIL) 5 MG Tablet 1 Active Januvia 100 MG Tablet 2 Active Cholecalciferol (Vitamin D3) 50 MCG (1999) Tablet Take by mouth. Active fenofibrate 160 MG Tablet Take 1 Tablet by mouth. 2 Active ReliOn Pen [place] 32G X 4 MM Misc 3 Active gabapentin (NEURONTIN) 300 MG Capsule Take 300 mg by mouth 3 times daily. 3 Active levothyroxine (SYNTHROID) 112 MCG Tablet Take 112 mcg by mouth. 4 Active famotidine (PEPCID) 20 MG Tablet Take 20 mg by mouth 2 times daily. Active Continuous Glucose Sensor (Dexcom G7 Sensor) Misc Active cephALEXin (KEFLEX) 500 MG Capsule Take 500 mg by mouth daily. 4 Active metFORMIN (GLUCOPHAGE) 500 MG Tablet 2 times daily. Active insulin glargine (Basaglar KwikPen) 100 UNIT/ML Solution Pen-injector 18 Units. Active Vitamin D3 (CHOLECALCIFERO L) 125 MCG Tablet Take 125 mcg by mouth. Active Multiple Vitamins-Minera ls (PreserVision AREDS 2) Capsule Take 1 Capful by mouth 2 times daily. Active doxycycline hyclate (VIBRAMYCIN) 100 MG Capsule take 1 capsule by mouth every 12 hours 4 Active glimepiride (AMARYL) 1 MG Tablet 11/04/19 25 Discontinu ed(Med List Clean Up) Active Problems Problem Noted Date Diagnosed Date Elevated blood pressure reading 11/04/2024 Anemia in stage 3a chronic kidney disease 2023 Hyperlipidemia associated with type 2 diabetes m kevin 07/25/2022 Overview (10/23/2022): Last Assessment & Plan: Continue atorvastastin Check lipid profile LDL goal under 70 Type 2 diabetes mellitus wit h hyperglycemia, with long-term current use of insulin 05/28/2022 Overview (10/23/2022): Last Assessment & Plan: Better,but with afternoon hypoglycemia Lower Glimepiride to 1 mg Continue Januvia, Metformin and Basaglar. Iron deficiency 05/14/2022 B12 deficiency 05/14/2022 Anemia, iron deficiency, inadequate dietary inta ke 05/14/2022 Idiopathic chronic pancreatitis 03/08/2020 Acquired hypothyroidism 08/24/2019 Encounters Date Type Department Care Team Description 11/04/2024 9:30 AM CLAY HOISTER Clinical Support [facility] [address] [phone] Anemia in stage 3a chronic kidney disease (HCC) (Primary Dx); Anemia, iron deficiency, inadequate dietary intake 11/04/2024 9:00 AM CLAY HOISTER Office Visit [facility] [address] [facility] [address] [place] [phone] Mayda Torres, BUSINESS INSURANCE AGENT, DOCUMENT CONTROL SPECIALIST Anemia in stage 3a chronic kidney disease (HCC) (Primary Dx); Anemia, iron deficiency, inadequate dietary intake 11/04/2024 Travel 10/29/2024 Results Follow-Up [facility] [address] [place] [phone] Mayda Torres, BUSINESS INSURANCE AGENT, DOCUMENT CONTROL SPECIALIST 10/28/2024 9:00 AM CLAY HOISTER Lab [facility] [address] [facility] [address] [place] [address] Nurse, [facility] Anemia, iron deficiency, inadequate dietary intake (Primary Dx) 10/28/2024 Travel from Last 3 Months Immunizations Immunization Administration Dates Next Due Hepatitis A Vaccine 12/16/2000,06/10/2000 Influenza Vaccine, MDCK,quad rivalent, pres free 07/18/2020 Influenza Vaccine, Quadrivalent, PF 08/02/2019 Influenza Vaccine,unspecified Formulation 2019 Influenza, High-dose, Quadrivalent 08/05/2022, Influenza, Seasonal, Injectable, Undefined 08/03,06/07/2014,07/27/2013 Influenza, high-dose, trivalent, PF 08/17/2018 Pneumococcal Vaccine - 13 Valent 07/18/2020 Pneumococcal Vaccine Peds - 7 Valent 06/20/2020 Zoster Vaccine Recombinant 04/30/2021,02/21/2021 Family History Medical History Relation Name Comments Cancer Father lugs and all th roughout body Diabetes Mother Hypertension Mother Breast Cancer Sister Relation Name Status Comments Father Mother Sister Social History Tobacco Use Types Packs/Day Years Used Date Smoking Tobacco: Former Cigarettes Smokeless Tobacco: Never Tobacco Cessation:Counseling Given: Not Answered Alcohol Use Standard Drinks/Week Comments Yes 0 (1 standard drink = 0.6 oz pur e alcohol) very rare PHQ-2 Answer Date Recorded Total Score - Questions 1-9 0 04/20 Comments No Sex and Gender Information Value Date Recorded Sex Assigned at Not on file Legal Sex Female 11:42 PM CDT Gender Identity Not on file Sexual Orientation Not on file Last Filed Vital Signs Vital Sign Reading Time Taken Comments Blood Pressure 142/82 11/04/2024 9:15 AM CLAY HOISTER Pulse 88 11/04/2024 9:15 AM CLAY HOISTER Temperature 36 C (96.8 F) 11/04/2024 9:15 AM CLAY HOISTER Respiratory Rate 18 11/04/2024 9:15 AM CLAY HOISTER Oxygen Saturation 99% 11/04/2024 9:15 AM CLAY HOISTER Inhaled Oxygen Concentration - - Weight 77.1 kg (169 lb 14.4 oz) 11/04/2024 9:15 AM CLAY HOISTER Height 170.2 cm (5' 7 ) 11/04/2024 9:15 AM CLAY HOISTER Body Mass Index 26.61 11/04/2024 9:15 AM CLAY HOISTER Plan of Treatment Upcoming Encounters Date Type Department Care Team (Late st Contact Info) Description 02/03/2025 9:00 AM CDT Office Visit [facility] [address] [address] [phone] Adrien Cerrato MD [address] [place] [phone] Health Maintenance Due Date Last Done Comments DEXA Bone Density 1954 Diabetes: Eye Exam 1954 Diabetes: Foot Exam 1954 Hepatitis C Virus (HCV) Screening 1954 TdaP Immunization 1954 Mammogram 1994 Colonoscopy 1999 Colorectal Cancer Screening 1999 Cologuard 2004 Immunochemical Fecal Occult Blood 2004 Pneumococcal Immunization (50+ years) (2 of 2 - PPSV23) 09/12/2020 07/18/2020, 06/20/2020 SARS-COV-2 Immunization ( season) 2025 08/12/2024, 07/31/2023, 08/04/2022, Additional history exists Diabetes: Hemoglobin A1c 04/25/2025 025, 06/29/2024, 12/25/2023, Additional history exists Diabetes: Nephropathy Screening 10/28/2025 10/28/2024, 07/22/2024, 01/21/2024, Additional history exists Pneumococcal Immunization Combined Discontinued 07/18/2020, 06/20/2020 Zoster Immunization Completed 04/30/2021, Respiratory Syncytial Virus (RSV) Immunization (Adult) Completed 08/13/2023 Influenza Immunization Completed 4, 07/31/2023, 08/05/2022, Additional history exists Hepatitis B Immunization Aged Out No longer eligible based on patient's age to complete this topic Meningococcal Immunization (ACWY) Aged Out No longer eligible based on patient's age to complete this topic Rotavirus Immunization Aged Out No lo nger eligible based on patient's age to complete this topic Procedures Procedure Name Priority Date/Time Associated Diagnosis Comments CBC WITH AUTO DIFF OH Routine 10/28/2024 8:55 AM CLAY HOISTER CMP (COMPREHENSIVE METABOLIC PANEL) Routine 10/28/2024 8:55 AM CLAY HOISTER Anemia in stage 3a chronic kidney disease (HCC) VITAMIN B12 Routine 10/28/2024 8:55 AM CLAY HOISTER Anemia in stage 3a chronic kidney disease (HCC) FOLIC ACID (FOLATE) Routine 10/28/2024 8 :55 AM CLAY HOISTER Anemia in stage 3a chronic kidney disease (HCC) FERRITIN Routine 10/28/2024 8:55 AM CLAY HOISTER Anemia in stage 3a chronic kidney disease (HCC) IRON W/ IRON BINDING CAPACITY OH Routine 10/28/2024 8:55 AM CLAY HOISTER Anemia in stage 3a chronic kidney disease (HCC) from Last 3 Months Results * (ABNORMAL) IRON W/ IRON BINDING CAPACITY OH (10/28/2024 8:55 AM CLAY HOISTER) IRON 69 50 - 212 ug/dL [facility] UIBC 440(H) 155 - 355 ug/dL [facility] TIBC 509(H) 261 - 478 ug/dl [facility] ROLL SCALE WORK[facility] % Saturation 14(L) 20 - 50 % [facility] ROLL SCALE WORK[facility] 10/28/2024 8:55 AM CLAY HOISTER Narrative [facility] - 10/29/2024 10:21 AM CLAY HOISTER Release to patient->Immediate Mayda Torres BUSINESS INSURANCE AGENT, DOCUMENT CONTROL SPECIALIST LAB SEND OUTS Final Result [facility] [employer] [place] [address], * (ABNORMAL) CBC WITH AUTO DIFF [place] (10/28/2024 8:55 AM CLAY HOISTER) WBC 5.2 4.0 - 10.0 10*3/uL [facility] ROLL SCALE WORKER [facility] HGB 9.7(L) 11.2 - 15.7 g/dL [facility] ROLL SCALE WORKER [facility] HCT 31.2(L) 34.1 - 44.9 % CANCER ROLL SCALE WORKER [facility] PLT 209 163 - 369 10*3/uL [facility] SC[employer] WORK[facility] MPV 10.3 9.4 - 12.4 fL [facility] RO[employer] SC[facility] WORK[facility] RBC 3.08(L) 3.93 - 5.22 10*6/uL [facility] ROLL SCALE WORKER [facility] MCV 101(H) 79 - 95 fL [facility] ROLL SCALE WORKER [facility] MCH 31.5 25.6 - 32.2 pg CANCER ROLL SCALE WORKER [facility] MCHC 31.1(L) 32.2 - 36.5 g/dL [facility] ROLL SCALE WORK[facility] RDW 14.9(H) 11.6 - 14.4 % [facility] Neutrophils % 65.3 36.0 - 66.0 % [facility] RO[facility] SC[facility] WORK[facility] Lymphocytes % 15.6(L) 19.0 - 40.0 % [facility] SC[facility] WORK[facility] Monocytes % 10.6 4.1 - 12.1 % [facility] RO[employer] SC[facility] WORK[facility] Eosinophils % 5.8(H) 0.0 - 3.5 % [facility] ROLL SCALE WORKER [facility] Basophils % 1.0 0.0 - 1.0 % [facility] RO[facility] SCALE WORK[facility] Absolute Neutrophils 3.4 1.4 - 6.6 10*3/uL [facility] SC[facility] WORK[facility] Absolute Lymphocytes 0.8 0.8 - 4.0 10*3/uL [facility] ROLL SCALE WORKER [facility] Absolute Monocytes 0.6 0.2 - 1.2 10*3/uL [facility] ROLL SCALE WORKER [facility] Absolute Eosinophils 0.3 0.0 - 0.4 10*3/uL [facility] SC[facility] WORKER [facility] Absolute Basophils 0.1 0.0 - 0.1 10*3/uL [facility] WORK[facility] 10/28/2024 8:55 AM CLAY HOISTER us Mayda Torres APRN, DOCUMENT CONTROL SPECIALIST LAB SEND OUTS Final Result [facility]LL SCALE WORK[facility] [address] [place] [address], [place] [phone] * VITAMIN B12 (10/28/2024 8:55 AM CLAY HOISTER) Vitamin B12 222 180 - 914 pg/mL [facility] Blood 10/28/2024 8:55 AM CLAY HOISTER Narrative [facility] - 10/29/2024 3:15 PM CLAY HOISTER Release to patient->Immediate us Mayda Torres APRN, DOCUMENT CONTROL SPECIALIST CHEMISTRY ORDERABLES Final Result Performing Organization Address City/[facility]/ZIP Co de Phone Number [facility] [place] [address], [place] [phone] * FOLIC ACID (FOLATE) (10/28/2024 8:55 AM CLAY HOISTER) Folate 8.69 >=5.90 ng/mL [facility] Blood 10/28/2024 8:55 AM CLAY HOISTER Narrative [facility] - 10/29/2024 3:15 PM CLAY HOISTER Release to patient->Immediate IS THE PATIENT REQUIRED TO BE FASTING FOR 12 HOURS?->No us Mayda Torres APRN, DOCUMENT CONTROL SPECIALIST CHEMISTRY ORDERABLES Final Result Performing Organization Address City/[facility]/ZIP Co de Phone Number [facility] ROLL SCALE WORKER [facility] [address] [place] [address], [place] [phone] * (ABNORMAL) FERRITIN (10/28/2024 8:55 AM CLAY HOISTER) Ferritin 365(H) 11 - 307 ng/mL [facility] WORK[facility] Blood 10/28/2024 8:55 AM CLAY HOISTER Narrative [facility] ROLL SCALE WORKER [facility] - 10/29/2024 3:15 PM CLAY HOISTER Release to patient->Immediate Mayda Torres APRN, DOCUMENT CONTROL SPECIALIST CHEMISTRY ORDERABLES Final Result Performing Organization Address [facility]/ZIP Co de Phone Number CANCER ROLL SCALE WORKER [facility] [address] [place] [address], * (ABNORMAL) CMP (COMPREHENSIVE METABOLIC PANEL) (10/28/2024 8:55 AM CLAY HOISTER) Glucose 205(H) 70 - 105 mg/dL [facility] WORK[facility] Blood Urea Nitrogen 43(H) 7 - 25 mg/dL [facility] Creatinine 1.8(H) 0.6 - 1.2 mg/dL [facility] ROLL SCALE WORKER [facility] Sodium 142 136 - 145 mEq/L [facility] Potassium 4.0 3.5 - 5.1 mEq/L [facility] Chloride 101 98 - 107 mEq/L [facility] Bicarbonate 29 21 - 31 mEq/L [facility] Total Bilirubin 0.4 0.3 - 1.0 mg/dL [facility] ROLL SCALE WORKER [facility] Alk. Phosphatase 26(L) 34 - 104 U/L [facility] ROLL SCALE WORKER [facility] Aspartate Aminotransferase 29 13 - 39 U/L [facility] ROLL SCALE WORKER [facility] Alanine Aminotransferase 22 7 - 52 U/L [facility] Total Protein 6.7 6.4 - 8.9 g/dL [facility] Albumin 4.4 3.5 - 5.7 g/dL [facility] ROLL SCALE WORKER [facility] Calcium 9.6 8.6 - 10.3 mg/dL [facility] WORK[facility] Anion Gap 16.0(H) 7.0 - 15.0 mEq/L [facility] WORK[facility] Globulin 2.3 2.0 - 3.5 g/dL [facility] RO[employer] SCALE WORK[facility] EGFR 30(L) >60 ml/min/1. 73m2 [facility] SC[employer] WORK[facility] Comment: This eGFR is calculated using 2020 CKD-EPI Creatinine equation without race modifier based on the NKF-ASN task force recommendations Blood 10/28/2024 8:55 AM CLAY HOISTER Narrative [facility] - 10/29/2024 10:21 AM CLAY HOISTER Release to patient->Immediate IS THE PATIENT REQUIRED TO BE FASTING FOR 8 HOURS?->No Mayda Torres APRN, DOCUMENT CONTROL SPECIALIST CHEMISTRY ORDERABLES Final Result [facility] [facility] [place] [address], from Last 3 Months Insurance MEDICARE C AET MEDICARE C [facility] Care Teams Natural Science Curator Relationship Specialty Start Date End Date Osman Malcolm [address] [place] [address] PCP - General Family Medicine 03/08/20 Robert Corbett MD [address] [place] [address] Consulting Physician Oncology 04/18/22 Adrien Cerrato MD [address] [place] [address] Consulting Physician Oncology 05/14/22
--- OUTSIDE RECORDS SUMMARY | 2024-11-29 08:46 | XMS_ITS | Continuity of Care Document ---
Author Organization [facility] Address [id number] [place] [address] [address] [place] [address] Phone Care Team Providers Care Consumer Loan Processor Name Role Phone Elda Powers Unavailable Unavailable Procedures Procedure Date Eye Exam & Treatment Dilated Retinal Exam W Interpretation Se AREDS Formula Prescribed/Recommended May Eye Exam, New Patient Dilated Macular Exam Performed 07 Advance Directives Directive Yes / No Effective Date File Name No Information Encounters Encounter Description Practice Location Reason(s) For Visit Diagnoses Date Provider Providers Copied on Encounter [facility], [address], [place], [place], [id number], tel:[phone] [facility] No Information [address]. [address] , [address], [place], [place], [facility], . tel:[phone] Referring Provider: Avery Ye, [address] [facility] [address], [place], [place], [facility]. tel:[phone] [facility], [address], [place], [place], [id number], tel:[phone] [facility] No Information [address]. [address] , [address], [place], [place], [facility], . tel:[phone] Referring Provider: Avery Ye, [address], [place], [place], [facility]. tel:[phone] Family History Family Member Type Diagnosis Age At Onset No Information Payers Payer name Insurance type Covered republican ID Authoriza tifrederick(s) Medicare [facility] [id number] Social History Type Description Quantity Date Captured [...]
--- OUTSIDE RECORDS SUMMARY | 2024-11-29 08:47 | XMS_ITS | Clinical Summary ---
Author Organization [facility] Building B Address [address] [place] [address] Care Team Providers Care Fraud Analyst Name Role Phone Rey Hinton PA Unavailable [phone] Reina Jimenes Unavailable [phone] Osman Malcolm MD Primary Care Provider [phone] Allergies Active Allergy Reactions Criticality Noted Date [...] with long-term current use of insulin (HCC) Continuous glucose monitoring. Change every 10 days. 9 each 3 3 Active blood-glucose meter,continuo us (Dexcom G7 Porcelain Waxer) miscIndication s:Type 2 diabetes mellitus with hyperglycemia, with long-term current use of insulin ([facility]) Continuous glucose monitor 1 each 3 Active [...] 1 tablet (112 mcg total) by mouth pattern grader cutter before breakfast 4 Active pen needle, diabetic 32 gauge x 32 needleIndicati ons:Type 2 diabetes mellitus with hyperglycemia, with long-term current use of insulin (HCC) USE TO INJECT INSULIN DAILY 100 each [...] with long-term current use of insulin (HCC) TAKE ONE TABLET BY MOUTH EVERY DAY 90 tablet 2 4 11/08/19 25 Discontinu ed(Error) BASAGLAR 100 unit/mL (3 mL) pen for injection DIAL AND INJECT 20 UNITS UNDER THE SKIN NIGHTLY. MAX DAILY DOSE IS 20 UNITS. 30 mL 5 11/08/19 25 Discontinu ed(Error) Active Problems Problem Noted Date Diagnosed Date Diabetic neuropathy 11/16/2024 Diabetic mononeuropathy asso ciated with type 2 diabetes mellitus 11/01/2024 CKD stage 4 due to type 2 diabetes mellitus ([facility]) 06/29/2024 Assessment & Plan (10/26/2024 12:09 PM YEAST MAKER): Chronic problem. Managed by Dr Marr at [place]. Next appt 12/29/24 Nephropathy: On GWEN-I / ARB s : Yes. Lisinopril 5mg. Last MA: 12/25/23 (36 calc). Last creat/GFR: 03/31/24 GFR=27, CR=1.96. Assessment & Plan (06/29/2024 11:48 AM CDT): Chronic problem. Managed by Dr Marr at [facility]. Next appt 06/30/24. Nephropathy: On GWEN-I / ARB s : Yes. Lisinopril 5mg. Last MA: 12/25/23 (36 calc). Last creat/GFR: 03/31/24 GFR=27, CR=1.96. Diabetic neuropathy associat ed with type 2 diabetes mellitus ([facility]) 01/30/2023 Assessment & Plan (10/26/2024 11:56 AM YEAST MAKER): Chronic problem. Gabapentin Gabapentin 300-600mg at HS. [...] barefoot. Assessment & Plan (12/25/2023 10:41 AM YEAST MAKER): Foot care discussed Continue gabapentin Assessment & [...] 10/31/2022 Assessment & Plan (10/31/2022 12:56 PM YEAST MAKER): Encouraged Mrs Trujillo to walk in home if weather not conducive to walking outside. Discussed healthy diet and importance of regular physical activity (20- 30min/day, 150min/wk). Hyperlipidemia associated with type 2 diabetes latanya brown 07/25/2022 Assessment & Plan (10/26/2024 11:30 AM YEAST MAKER): Chronic problem, at goal on Atorvastatin 10mg & fenofibrate 160mg daily Last lipid panel: 12/25/23 LDL=98, DM=129. Assessment & Plan (06/29/2024 11:46 AM CDT): Chronic problem, at goal on Atorvastatin 10mg & fenofibrate 160mg daily Last lipid panel: 12/25/23 LDL=98, VE=894. Assessment & Plan (12/25/2023 10:41 AM YEAST MAKER): Chronic, stable Continue Atorvastatin 10 mg daily UDT lipid profile Assessment & Plan (05/08/2023 11:12 AM CDT): Chronic problem, at goal on Atorvastatin 10mg & fenofibrate 160mg daily Last lipid panel: 07/25/22 LDL=74, PG=459. No changes at this time. Assessment & Plan (01/30/2023 11:08 AM CDT): Chronic problem, at goal on Atorvastatin 10mg. Last lipid panel: 07/25/22 LDL=74, YU=450. No changes at this time. Assessment & Plan (10/31/2022 8:59 AM YEAST MAKER): Chronic problem, near goal. LDL=74 07/2022. Atorvastatin 10mg daily. No changes at this time. Assessment & Plan (07/25/2022 12:50 PM CDT): Continue atorvastastin Check lipid profile LDL goal under 70 Type 2 diabetes mellitus wit h hyperglycemia, with long-term current use of insulin 05/28/2022 Assessment & Plan (10/26/2024 11:56 AM YEAST MAKER): Chronic problem, stable/controlled. A1c stable at 5.8%. Current medications: Metformin XR 500mg twice daily before meals Januvia 100 mg daily (PAP) Basaglar 14 units every evening (PAP) Cannot trial GLP1a d/t h/o pancreatitis UTD on labs DM eye exam (2023 at [facility]). 2nd request letter sent. Strive for regular [...] infection. Assessment & Plan (12/25/2023 10:40 AM YEAST MAKER): Chronic, stable Contiue current regimen including Basaglar, Glimepiride 1 mg daily, Metformin 500 mg bid and Januvia Diet and exercise were discussed Assessment & Plan (09/09/2023 11:37 AM YEAST MAKER): Hba1c was Lab Results Component Value Date [...] 7.8% Phone not compatible with dexcom nor freestyle ahseeb. Sent in Dexcom 7 & reader. Current [...] evening Had DM eye exam 01/2023 at [facility] in [place]. Letter sent to get copy of results. [...] infection. Assessment & Plan (10/31/2022 12:55 PM YEAST MAKER): Chronic problem, at goal. No changes. Continue [...] (04/20/2020): Added automatically from request for surgery [id number] Encounters Date Type Department Care Team Description 11/08/2024 11:45 AM YEAST MAKER Pre-Admission Testing [facility] Pre Anesthesia Testing [address] [place] [phone] Preoperative evaluation to rule out surgical contraindication (Primary Dx); Other specified pre-operative examination; oncology registrar current use of anticoagulant 11/05/2024 11:59 PM YEAST MAKER Anesthesia Event [facility] Operating Room [address] [place] [phone] Dinora Matthew NP 11/04/2024 Telephone [facility] Pre Anesthesia Testing [address] [place] [phone] Khushi Gresham 11/03/2024 Orders Only [facility] Diabetes and Endocrinology [address] [place] [phone] Provider, MD Marcello 10/26/2024 11:30 AM YEAST MAKER Office Visit [facility] Medical [facility] Diabetes and Endocrinology [address] [place] [phone] Sisi Guevara, GRACE Type 2 diabetes mellitus with hyperglycemia, with long-term current use of insulin (HCC) (Primary Dx); CKD stage 4 due to type 2 diabetes mellitus (CMS/HCC) (HCC); Hyperlipidemia associated with type 2 diabetes mellitus (HCC); Diabetic neuropathy associated with type 2 diabetes mellitus (CMS/HCC) (HCC) 10/26/2024 Telephone [facility] Diabetes and Endocrinology [address] [place] [phone] Sisi Guevara, GRACE Med Management (Huyen Cares - Basaglar) 10/19/2024 Telephone [facility] [address] [address] Sisi Guevara, GRACE Med Refill 10/08/2024 Telephone [facility] Diabetes and Endocrinology [address] [place] [phone] Sisi Guevara NP Forms/questionnaires (Malcolm) 09/30/2024 Telephone [facility] Diabetes and Endocrinology [address] [place] [phone] Sisi Guevara NP Forms/questionnaires ([employer] Pt Assistance) from Last 3 Months Immunizations Name Administration Dates Next Due Influenza, Unspecified 07/20/2020 Surgical History Surgery Date Site/Laterality Comments TRACHEOSTOMY and closure SPINAL CORD STIMULATOR IMPLANT (has had 3 SCS) THYROIDECTOMY CHOLECYSTECTOMY SPINAL CORD STIMULATOR REMOVAL 07/20/2024 - 08/19/2024 for infection DILATION AND CURETTAGE, DIAGNOSTIC / THERAPEUTIC TOTAL KNEE ARTHROPLASTY Bilateral Medical History Medical History Date Comments Diabetes mellitus (HCC) History of nephrolithiasis Esophagus perforation Gout ABDIRAHMAN on CPAP Hyperlipidemia GERD (gastroesophageal reflux disease) CKD (chronic kidney disease) stage 4, GFR 15-29 ml/min (CMS/HCC) (HCC) Diabetic neuropathy (HCC) Chronic iron deficiency anemia l ast iron infusion 11-04-2024 (gets intermittent iron infusion) Injury of trachea with D&C as yo uth. required tracheostomy Hypothyroidism Family History Relation Name Status Comments Other Sister Social History Tobacco Use Types Packs/Day [...] on file Legal Sex Female 6:42 PM YEAST MAKER Gender Identity Not on file Sexual Orientation Not on file Obstetrics History Last Filed Vital Signs Vital Sign Reading Time Taken Comments Blood Pressure 138/57 11/08/2024 11:00 AM YEAST MAKER Pulse 90 11/08/2024 11:00 AM YEAST MAKER Temperature 37 C (98.6 F) 01/16/2023 12:30 PM CDT Respiratory Rate 16 10/26/2024 11:13 AM YEAST MAKER Oxygen Saturation 100% 11/08/2024 11:00 AM YEAST MAKER Inhaled Oxygen Concentration - - Weight 76.2 kg (168 lb) 11/08/2024 11:00 AM YEAST MAKER Height 170.2 cm (5' 7 ) 11/08/2024 11:00 AM YEAST MAKER Body Mass Index 26.31 11/08/2024 11:00 AM YEAST MAKER Plan of Treatment Upcoming Encounters Date Type Department Care Team (Latest Contact Info) Description 12/27/2024 9:30 AM CDT Hospital Encounter [facility] Operating Room [address] [place] [phone] [place] [address] [place] [address] 12/27/2024 9:30 AM CDT - 12/27/2024 12:30 PM CDT Surgery [facility] Operating Room [address] [place] [address], [place] [address] [place] [address] [place] [address] Thoracic 10 Laminotomy for Placement of Spinal Cord Stimulator Scheduled Procedures Name Priority Associated Diagnoses Date/Ti me INSERTION SPINAL CORD STIMULATOR Diabetic polyneuropathy associated with other specified diabetes mellitus (HCC) 12/27/2024 9:30 AM CDT Health Maintenance Due Date Last Done Comments Breast Cancer Screening-Mammogram 1954 Colon Cancer Screening-Colonoscopy 1955 Hepatitis C Screening 1954 Osteoporosis Screening-Bone Density Scan 1954 DTaP/Tdap/Td Vaccine (1 - Tdap) 1965 Hepatitis B Screening 1972 Well Visit 65+ 2019 Pneumococcal vaccine 65+ (2 of 2 - PPSV23 or PCV20) 09/12/2020 07/18/2020, 06/20/2020 Depression Screening 05/08/2024 05/08/2023, 07/25/2022, 05/28/2022, Additional history exists Albumin Creatinine Ratio, Urine 12/24/2024 , 07/25/2022 Lipid Panel 12/24/2024 12/25/2023, 07/25/2022 Hemoglobin A1C 04/25/2025 10/26/2024, 06/20, 12/25/2023, Additional history exists Foot Exam 06/29/2025 06/29/2024, 01/18, 10/31/2022 Dilated Eye Exam 09/07/2025 09/07/2024, 10/22/2021 Fall Risk Assessment 11/08/2025 11/08/2024, 09/09/20 23 eGFR 11/08/2025 11/08/2024, 03/20, 12/25/2023, Additional history exists Zoster Vaccine Completed 04/30/2021, 02/21/2021 Influenza Vaccine Completed 08/10/2024, , 07/20/2020, Additional history exists Medical Devices Implanted Type Area Grounds Manager Device Identifier Shelf Expiration Date Model / Serial / Lot [employer] [id number] Attune Cruciate Retain Cementless Knee Left 6 Narrow Component - [id number] Implanted:Qty: 1 on 05/02/2020 by Go Lazaro MD at [facility] Left: Knee [employer] 10/19/2029 [id number] / / [id number] [employer] [id number] Attune 5mm Cruciate Retaining Rotate Platform Knee 6 Insert - [id number] Implanted:Qty: 1 on 05/02/2020 by Go Lazaro MD at [facility] Left: Knee [employer] 08/19/2024 [id number] / / [id number] Attune Knee System, Tibial Base Rotating Platform Implanted:Qty: 1 on 05/02/2020 by Go Lazaro MD at [facility] Left: Knee [employer] [id number] 05/19/2028 [id number] / / [id number] [employer] [id number] Palacos R+G High Viscosity Cement Bone Gentamicin Arthroplasty - [id number] Implanted:Qty: 1 on 05/02/2020 by Go Lazaro MD at [facility] Left: Knee [employer] 02/16/2022 [id number] / / [id number] [employer] [id number] Palacos R+G High Viscosity Cement Bone Gentamicin Arthroplasty - [id number] Implanted:Qty: 1 on 09/05/2020 by Go Lazaro MD at [facility] Right: Knee [employer] 08/19/2022 [id number] / / [id number] [employer] [id number] Baseplate Tibial Attune 6 Knee Cement Rotate Platform Sterile - [id number] Implanted:Qty: 1 on 09/05/2020 by Go Lazaro MD at [facility] Right: Knee [employer] 03/19/2030 [id number] / / [id number] [employer] [id number] Attune 7mm Cruciate Retaining Rotate Platform Knee 6 Insert - [id number] Implanted:Qty: 1 on 09/05/2020 by Go Lazaro MD at [facility] Right: Knee [employer] 08/19/2024 [id number] / / [id number] [employer] [id number] Attune Cruciate Retain Cementless Knee Right 6 Component Femoral - [id number] Implanted:Qty: 1 on 09/05/2020 by Go Lazaro MD at [facility] Right: Knee [employer] 07/19/2028 [id number] / / [id number] Procedures Procedure Name Priority Date/Time Associated Diagnosis Comments EGFR Routine 11/08/2024 12:06 PM YEAST MAKER Preoperative evaluation to rule out surgical contraindication APTT Routine 11/08/2024 12:06 PM YEAST MAKER Other specified pre-operative examination oncology registrar current use of anticoagulant BASIC METABOLIC PANEL Routine 11/08/2024 12:06 PM YEAST MAKER Preoperative evaluation to rule out surgical contraindication POCT HEMOGLOBIN A1C Routine 10/26/2024 11:17 AM YEAST MAKER Type 2 diabetes mellitus with hyperglycemia, with long-term current use of insulin ([facility]) POCT GLUCOSE Routine 10/26/2024 11:17 AM YEAST MAKER Type 2 diabetes mellitus with hyperglycemia, with long-term current use of insulin ([facility]) DIABETES EYE EXAM Routine 09/07/2024 7:29 AM YEAST MAKER LIPID PANEL Routine 12/25/2023 10:51 AM YEAST MAKER Type 2 diabetes mellitus with hyperglycemia, with long-term current use of insulin ([facility]/HCC) ([facility]) ALBUMIN CREATININE RATIO, URINE Routine 12/25/2023 10:51 AM YEAST MAKER Type 2 diabetes mellitus with hyperglycemia, with long-term current use of insulin ([facility]) ([facility]) from Last 3 Months or Most Recently Relevant to Health Maintenance Results * (ABNORMAL) eGFR (11/08/2024 12:06 PM YEAST MAKER) [facility] eGFR 33(L) >=60 mL/min/1. 73 m2 Comment: [...] reviewed 2021. Blood 11/08/2024 12:0 6 PM YEAST MAKER 11/08/2024 12:06 PM YEAST MAKER us Dinora Matthew NP LAB BLOOD ORDERABLES Fin al Result Performing Organization Address City/[facility]/ZIP Co de Phone Number [facility] [address] Department [employer] [place], [place] [phone] * aPTT (11/08/2024 12:06 PM YEAST MAKER) [facility] aPTT 30 28 - 38 sec Comment: Interpretive Data Heparin therapeutic range: 66.0 - 100.0 seconds. Range based on correlation with therapeutic heparin activity range of 0.3 - 0.7 Units/mL. Current interpretive data was last revised on 2023. Blood 11/08/2024 12:0 6 PM YEAST MAKER 11/08/2024 12:06 PM YEAST MAKER us Vivi Johansen MD LAB BLOOD ORDERABLES Fin al Result Performing Organization Address City/[facility]/ZIP Co de Phone Number [facility] [address] Department of [employer] [place], [place] [phone] * (ABNORMAL) Basic metabolic panel (11/08/2024 12:06 PM YEAST MAKER) [facility] Sodium 141 135 - 145 mmol/L Potassium, pl 4.9 3.3 - 4.9 mmol/L [facility] Chloride 103 97 - 110 mmol/L [facility] CO2 25 22 - 32 mmol/L [facility] Anion gap 13 2 - 15 mmol/L [facility] BUN 47(H) 6 - 25 mg/dL [facility] Creatinine 1.67(H) 0.60 - 1.10 mg/dL [facility] Glucose 129 70 - 199 mg/dL [facility] Comment: Interpretive Data Fasting glucose >/= [...] 2022. Calcium 10.0 8.5 - 10.3 mg/dL [facility] Blood 11/08/2024 12:0 6 PM YEAST MAKER 11/08/2024 12:06 PM YEAST MAKER us Dinora Matthew NP LAB BLOOD ORDERABLES Fin al Result [facility] [address] Department [place] [address] * (ABNORMAL) POCT hemoglobin A1c (10/26/2024 11:17 AM YEAST MAKER) [facility] Hemoglobin A1C, POC 5.8 4.0 - 5.6 % Blood 10/26/2024 11:1 7 AM YEAST MAKER us Sisi Guevara NP POINT OF CARE TEST ORDERA BLES Final Result * (ABNORMAL) POCT glucose (10/26/2024 11:17 AM YEAST MAKER) Glucose Blood, POC 184 mg/dL Blood 10/26/2024 11:1 7 AM YEAST MAKER Sisi Guevara [employer] POINT OF CARE TEST ORDERA BLES Final Result * HM DIABETES EYE EXAM (09/07/2024 7:29 AM YEAST MAKER) Historical Provider HEALTH MAINTENANCE Final Result * Albumin Creatinine Ratio, Urine (12/25/2023 10:51 AM YEAST MAKER) Albumin Ur <12.0 mg/L Comment: Interpretive Data No reference range established. Current interpretive data was last revised 2019. Creatinine Ur 33.6 mg/dL [facility] Comment: Interpretive Data No reference range established. Current interpretive data was last revised 2019. Albumin Creatinine Ratio, Ur See Comment 1 - 29 [facility] Comment:Unable to calculate Urine 12/25/2023 10:5 1 AM YEAST MAKER 12/25/2023 4:20 PM YEAST MAKER Charan Hopper MD LAB URINE ORDERABLES Final Resul t [facility] [address] Department [place] [address] * (ABNORMAL) Lipid panel (12/25/2023 10:51 AM YEAST MAKER) Cholesterol 179 30 - 199 mg/dL Comment: [...] on 2018. HDL 42 >=40 mg/dL [facility] Comment: Interpretive Data Ages [...] 2018. LDL, calculated 98 <=129 mg/dL [facility] Comment: Interpretive Data Ages [...] on 2018. Non-HDL Cholesterol 137 mg/dL [facility] Comment: Interpretive Data Ages [...] [facility] Blood 12/25/2023 10:5 1 AM YEAST MAKER 12/25/2023 4:20 PM YEAST MAKER us Charan Hopper MD LAB BLOOD ORDERABLES Final Resul t [facility] [address] Department [place] [address] from Last 3 Months or Most Recently Relevant to Health Maintenance Insurance [employer] T MEDICARE MEDICARE SOLUTIONS MEDICARE SOLUTIONS Advance Directives For more information, please contact: [phone] * Full Code (Latest Code Status on File) Date Activated Date Inactivated Comments 09/05/2020 1:54 PM 09/06/2020 6:34 PM * Full Code Date Activated Date Inactivated Comments 05/02/2020 2:11 PM 05/03/2020 8:18 PM Care Teams Fraud Analyst Relationship Specialty Start Date End Date Osman Malcolm MD [address] [facility] [address] [place] [address] PCP - General Family Medicine 09/18/22 Rey Hinton PA [address] [place] [address] [address] [place] [address] Physician Neuroscience Director Na Orthopedic Surgery 05/03/20 Reina Jimenes PA [address] [place] [address] [address], [place] [address] Physician Neuroscience Director Na Orthopedic Surgery 09/06/20
== END 2024-11-29 08:36 | disposition home or self-care (01) ==
PROVIDERS: PCP Emergency Medicine; Visit Provider Emergency Medicine
DX: R92.1 Mammographic calcification found on diagnostic imaging of breast (principal)
CPT/HCPCS: 19081; 77065; 88305

== ENCOUNTER 2025-01-12 08:53 | Outpatient (CLI) | payer MEDICARE, SELFPAY ==
--- OUTSIDE RECORDS SUMMARY | 2025-01-12 09:21 | XMS_ITS | Continuity of Care Document ---
Author Organization [facility] Address [id number] [place] [address] [address] [place] [address] Phone Care Team Providers Care Screen Printing Inspector Name Role Phone Elda Powers Unavailable Unavailable Procedures Procedure Date Eye Exam & Treatment Dilated Retinal Exam W Interpretation Se AREDS Formula Prescribed/Recommended May Eye Exam, New Patient Dilated Macular Exam Performed 07 Advance Directives Directive Yes / No Effective Date File Name No Information Encounters Encounter Description Practice Location Reason(s) For Visit Diagnoses Date Provider Providers Copied on Encounter [facility], [address], [place], [place], [id number], tel:[phone] [facility] No Information [address]. [address] , [address], [place], [place], [facility], . tel:[phone] Referring Provider: Avery Ye, [address], [place], [place], [facility]. tel:[phone] [facility], [address], [place], [place], [id number], tel:[phone] [facility] No Information [address]. [address] , [address], [place], [place], [facility], . tel:[phone] Referring Provider: Avery Ye, [address], [place], [place], [facility]. tel:[phone] Family History Family Member Type Diagnosis Age At Onset No Information Payers Payer name Insurance type Covered alliance party ID Authoriza tifrederick(s) Medicare [facility] [id number] Social History Type Description Quantity Date Captured [...]
--- OUTSIDE RECORDS SUMMARY | 2025-01-12 09:21 | XMS_ITS | Referral Summary ---
Author Organization [facility] Building B Address [address] [place] [address] Care Team Providers Care Optical Engineering Technician Name Role Phone Rey Hinton Unavailable [phone] Reina Jimenes Unavailable [phone] Osman Malcolm MD Primary Care Provider [phone] Encounters Date Type Department Care Team Description 12/27/2024 5:11 AM CDT - 12/29/2024 3:52 PM CDT Hospital Encounter [facility] [address] [place] [phone] Vivi Johansen MD Discharge Disposition: Discharge to home or self care 12/27/2024 7:30 AM CDT - 12/27/2024 10:30 AM CDT Surgery [facility] Operating Room [address] [place] [phone] Vivi Johansen MD T10 Laminotomy for Placement of Spinal Cord Stimulator 12/27/2024 7:33 AM CDT Anesthesia Event [facility] Operating Room [address] [place] [phone] Carson Yee MD [place], Justin Kyle, SALES TRADER 11/05/2024 11:59 PM ASE MASTER MECHANIC Anesthesia Event [facility] Operating Room [address] [place] [phone] Dinora Matthew NP 11/08/2024 11:45 AM ASE MASTER MECHANIC Pre-Admission Testing [facility] Pre Anesthesia Testing [address] [place] [phone] Preoperative evaluation to rule out surgical contraindication (Primary Dx); Other specified pre-operative examination; 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 11/04/2024 Telephone [facility] Pre Anesthesia Testing [address] [place] [phone] Khushi Gresham 11/03/2024 Orders Only [facility] Medical [facility] [address] [place] [phone] ProviderMarcello MD 10/26/2024 Telephone [facility] Diabetes [facility] Endocrinology [address] [place] [phone] Sisi Guevara NP Med Management (Huyen [facility]ares - Basaglar) 10/26/2024 11:30 AM ASE MASTER MECHANIC Office Visit [facility] Medical [facility] [address] [place] [phone] Sisi Guevara NP Type 2 diabetes mellitus with hyperglycemia, with long-term current use of insulin (HCC) (Primary Dx); CKD stage 4 due to type 2 diabetes mellitus (HCC); Hyperlipidemia associated with type 2 diabetes mellitus (HCC); Diabetic neuropathy associated with type 2 diabetes mellitus (HCC) 10/19/2024 Telephone [facility] [address] [phone] Sisi Guevara NP Med Refill from Last 3 Months Allergies Active Allergy [...] total) by mouth every morning 1 Active famotidine (PEPCID) 20 mg tablet Take [...] hyperglycemia, with long-term current use of insulin ([facility]) Continuous glucose monitoring. Change every 10 days. 9 each 3 3 Active blood-glucose meter,continuo us (Dexcom G7 Marine Propulsion Technician) miscIndication s:Type 2 diabetes mellitus with hyperglycemia, with long-term current use of insulin ([facility]) Continuous glucose monitor 1 each 3 Active gabapentin (NEURONTIN) 300 mg capsuleIndicat ions:Diabetic Peripheral Neuropathy Take 1 capsule (300 mg total) by mouth 3 (three) times a day 90 capsule 11 4 Active metFORMIN XR (GLUCOPHAGE XR) 500 mg 24 hr tablet Take 1 tablet (500 mg total) by mouth 2 (two) times a day before breakfast and dinner 180 tablet 2 4 Active levothyroxine (SYNTHROID) 112 mcg tablet Take 1 tablet (112 mcg total) by mouth digital project manager before breakfast 4 Active pen needle, diabetic 32 gauge x needleIndicati ons:Type 2 diabetes mellitus with hyperglycemia, with long-term current use of insulin ([facility]) USE TO INJECT INSULIN DAILY 100 each 5 Active insulin glargine 100 unit/mL (3 mL) pen for injection Inject 14 Units under the skin nightly Max daily dose is 20 units Active SITagliptin phosphate (JANUVIA) 100 mg tabletIndicati ons:type 2 diabetes mellitus Take 1 tablet (100 mg total) by mouth every morning Active oxyCODONE (ROXICODONE) 5 mg immediate release tabletIndicati ons:Pain Take 1 tablet (5 mg total) by mouth every 6 (six) hours as needed for pain 28 tablet 5 Active cyclobenzaprin e (FLEXERIL) 10 mg tablet Take 1 tablet (10 mg total) by mouth 3 (three) times a day as needed for muscle spasms 30 tablet 5 Active senna-docusate (PERICOLACE) 8.6-50 mgIndications: constipation Take 1 tablet by mouth 2 (two) times a day 14 tablet 5 Active traMADoL (ULTRAM) 50 mg tablet Take 1 tablet (50 mg total) by mouth every 6 (six) hours as needed for pain 12/30/19 25 Discontinu ed(Stop Taking at Discharge) aspirin 81 mg enteric coated tablet Take 1 tablet (81 mg total) by mouth daily 12/30/19 25 Discontinu ed(Stop Taking at Discharge) cephalexin (KEFTAB) 500 mg tablet Take 1 tablet (500 mg total) by mouth 4 (four) times a day for 3 days 12 tablet 5 12/31/19 25 methylPREDNISo lone (MEDROL DOSEPACK) 4 mg Dosepack Take as directed on package 1 packet 5 01/05/20 25 Active Problems Problem Noted Date Diagnosed Date Diabetic neuropathy with neurologic complication 12/27/2024 Diabetic neuropathy 11/16/2024 Diabetic mononeuropathy asso ciated with type 2 diabetes mellitus 11/01/2024 CKD stage 4 due to type 2 diabetes mellitus 06/20 Assessment & Plan (10/26/2024 12:09 PM ASE MASTER MECHANIC): Chronic problem. Managed by Dr Marr at [facility]. Next appt 12/29/24 Nephropathy: On GWEN-I / ARB s : Yes. Lisinopril 5mg. Last MA: 12/25/23 (36 calc). Last creat/GFR: 03/31/24 GFR=27, CR=1.96. Assessment & Plan (06/29/2024 11:48 AM CDT): Chronic problem. Managed by Dr Marr at [facility]. Next appt 06/30/24. Nephropathy: On GWEN-I / ARB s : Yes. Lisinopril 5mg. Last MA: 12/25/23 (36 calc). Last creat/GFR: 03/31/24 GFR=27, CR=1.96. Diabetic neuropathy associat ed with type 2 diabetes mellitus 01/30/2023 Assessment & Plan (10/26/2024 11:56 AM ASE MASTER MECHANIC): Chronic problem. Gabapentin Gabapentin 300-600mg at HS. [...] barefoot. Assessment & Plan (12/25/2023 10:41 AM ASE MASTER MECHANIC): Foot care discussed Continue gabapentin Assessment & [...] 10/31/2022 Assessment & Plan (10/31/2022 12:56 PM ASE MASTER MECHANIC): Encouraged Mrs Trujillo to walk in home if weather not conducive to walking outside. Discussed healthy diet and importance of regular physical activity (20- 30min/day, 150min/wk). Hyperlipidemia associated with type 2 diabetes latanya brown 07/25/2022 Assessment & Plan (10/26/2024 11:30 AM ASE MASTER MECHANIC): Chronic problem, at goal on Atorvastatin 10mg & fenofibrate 160mg daily Last lipid panel: 12/25/23 LDL=98, YA=709. Assessment & Plan (06/29/2024 11:46 AM CDT): Chronic problem, at goal on Atorvastatin 10mg & fenofibrate 160mg daily Last lipid panel: 12/25/23 LDL=98, HV=270. Assessment & Plan (12/25/2023 10:41 AM ASE MASTER MECHANIC): Chronic, stable Continue Atorvastatin 10 mg daily UDT lipid profile Assessment & Plan (05/08/2023 11:12 AM CDT): Chronic problem, at goal on Atorvastatin 10mg & fenofibrate 160mg daily Last lipid panel: 07/25/22 LDL=74, BE=793. No changes at this time. Assessment & Plan (01/30/2023 11:08 AM CDT): Chronic problem, at goal on Atorvastatin 10mg. Last lipid panel: 07/25/22 LDL=74, WW=521. No changes at this time. Assessment & Plan (10/31/2022 8:59 AM ASE MASTER MECHANIC): Chronic problem, near goal. LDL=74 07/2022. Atorvastatin 10mg daily. No changes at this time. Assessment & Plan (07/25/2022 12:50 PM CDT): Continue atorvastastin Check lipid profile LDL goal under 70 Type 2 diabetes mellitus wit h hyperglycemia, with long-term current use of insulin 05/28/2022 Assessment & Plan (10/26/2024 11:56 AM ASE MASTER MECHANIC): Chronic problem, stable/controlled. A1c stable at 5.8%. Current medications: Metformin XR 500mg twice daily before meals Januvia 100 mg daily (PAP) Basaglar 14 units every evening (PAP) Cannot trial GLP1a d/t h/o pancreatitis UTD on labs DM eye exam (2023 at [facility]). 2nd request letter sent. Strive for regular [...] infection. Assessment & Plan (12/25/2023 10:40 AM ASE MASTER MECHANIC): Chronic, stable Contiue current regimen including Basaglar, Glimepiride 1 mg daily, Metformin 500 mg bid and Januvia Diet and exercise were discussed Assessment & Plan (09/09/2023 11:37 AM ASE MASTER MECHANIC): Hba1c was Lab Results Component Value Date [...] 7.8% Phone not compatible with dexcom nor MiaoyushangstPhone2Action haseeb. Sent in Dexcom 7 & reader. Current [...] evening Had DM eye exam 01/2023 at [facility] in [place]. Letter sent to get copy of results. [...] infection. Assessment & Plan (10/31/2022 12:55 PM ASE MASTER MECHANIC): Chronic problem, at goal. No changes. Continue [...] knee arthroplasty, right 09/15/2020 Idiopathic chronic pancreatitis 03/08/2020 Acquired hypothyroidism 08/24/2019 Resolved Problems Problem Noted Date Diagnosed Date Resolved Date Aftercare following left kne e joint replacement surgery 05/03/2020 10/31/2022 Primary osteoarthritis of both knees 04/20/2020 09/15/2020 Overview (04/20/2020): Added automatically from request for surgery [id number] Immunizations Immunization Administration Dates Next Due Influenza, Unspecified 07/20/2020 Social History Tobacco Use Types Packs/Day Years Used Date Smoking Tobacco: Former Smokeless Tobacco: Never Tobacco Cessation:Counseling Given: Not Answered Alcohol Use Standard Drinks/Week Comments Yes 0 (1 standard drink = 0.6 oz pur e alcohol) occasional AUDIT-C Answer Date Recorded Q1: How often do you have a drink containing alcohol? Never 12/24/2024 Q2: How many drinks containi ng alcohol do you have on a typical day when you are drinking? Patient does not drink Q3: How often do you have si x or more drinks on one occasion? Never 12/24/2024 PHQ-2 Answer Date Recorded PHQ-2 Total Score (If total score is 3 or more points, staff should administer the PHQ-9) 0 05/08/2023 Personal Safety Answer Date Recorded Have you ever been in or are you currently in a harmful physical or emotional relationship or is someone making you feel afraid or unsafe? Denies 12/27/2024 Comments Unknown Sex and Gender Information Value Date Recorded Sex Assigned at Not on file Legal Sex Female 6:42 PM ASE MASTER MECHANIC Gender Identity Not on file Sexual Orientation Not on file Last Filed Vital Signs Vital Sign Reading Time Taken Comments Blood Pressure 121/70 12/29/2024 7:49 AM CDT Pulse 110 12/29/2024 7:49 AM CDT Temperature 36.9 C (98.4 F) 12/29/2024 7:49 AM CDT Respiratory Rate 18 12/29/2024 7:49 AM CDT Oxygen Saturation 95% 12/29/2024 7:49 AM CDT Inhaled Oxygen Concentration - - Weight 77.6 kg (171 lb 1.2 oz) 12/27/2024 6:32 A M CDT Height 170.2 cm (5' 7 ) 12/27/2024 6:32 AM CDT Body Mass Index 26.79 12/27/2024 6:32 AM CDT Plan of Treatment Not on file Medical Devices Implanted Type [employer] Device Identifier Shelf Expiration Date Model / Serial / Lot Depuy Orthopaedics Inc [id number] Attune Cruciate Retain Cementless Knee Left 6 Narrow Component - [id number] Implanted:Qty: 1 on 05/02/2020 by Go Lazaro MD at [facility] Left: Knee [employer] 10/19/2029 [id number] / / [id number] Depuy Orth[employer]ed[employer] Inc [id number] Attune 5mm Cruciate Retaining Rotate Platform Knee 6 Insert - [id number] Implanted:Qty: 1 on 05/02/2020 by Go Lazaro MD at [facility] Left: Knee [employer] 08/19/2024 [id number] / / [id number] Attune Knee System, Tibial Base Rotating Platform Implanted:Qty: 1 on 05/02/2020 by Go Lazaro MD at [facility] Left: Knee [employer] Inc [id number] 05/19/2028 [id number] / / [id number] [employer] [id number] [place]os R+G High Viscosity Cement Bone Gentamicin Arthroplasty - [id number] Implanted:Qty: 1 on 05/02/2020 by Go Lazaro MD at [facility] Left: Knee [employer] 02/16/2022 [id number] / / [id number] [employer] [id number] [place]os R+G High Viscosity Cement Bone Gentamicin Arthroplasty - [id number] Implanted:Qty: 1 on 09/05/2020 by Go Lazaro MD at [facility] Right: Knee [employer] 08/19/2022 [id number] / / [id number] Depuy Orthopaed[employer] Inc [id number] Baseplate Tibial Attune 6 Knee Cement Rotate Platform Sterile - [id number] Implanted:Qty: 1 on 09/05/2020 by Go Lazaro MD at [facility] Right: Knee [employer] 03/19/2030 [id number] / / [id number] Dep[employer] [id number] Attune 7mm Cruciate Retaining Rotate Platform Knee 6 Insert - [id number] Implanted:Qty: 1 on 09/05/2020 by Go Lazaro MD at [facility] Right: Knee [employer] 08/19/2024 [id number] / / [id number] Dep[employer] [id number] Attune Cruciate Retain Cementless Knee Right 6 Component Femoral - [id number] Implanted:Qty: 1 on 09/05/2020 by Go Lazaro MD at [facility] Right: Knee [employer] 07/19/2028 [id number] / / [id number] Medtronic Inc Specify Surescan 65cm 3 Column 16 Electrode Lead Nerve Stimulator [id number] - [id number] Implanted:Qty: 1 on 12/27/2024 by Vivi Johansen MD at [facility] N/A: Back Med[employer] Inc 09/24/2028 [id number] / / [id number] Med[employer] Inc Generator Pulse Inceptiv Sys Stm Electrcl Analges Implant [id number] - [id number] - [id number] Implanted:Qty: 1 on 12/27/2024 by Vivi Johansen MD at [facility] Right: Back [employer] Inc [id number] 11/02/2025 [id number] / [id number] / Biocomposites Stimulan Rapid Cure Kit Paste Paramedic Instructor 5cc 12.5cc Bone Void 620-005 - [id number] Implanted:Qty: 1 on 12/27/2024 by Vivi Johansen MD at [facility] N/A: Back [employer] [id number] 06/19/2027 [id number] / / [id number] Procedures Procedure Name Priority Date/Time Associated Diagnosis Comments POCT GLUCOSE DEVICE Routine 12/28/2024 8 :34 PM CDT POCT GLUCOSE DEVICE Routine 12/27/2024 9 :06 PM CDT POCT GLUCOSE DEVICE Routine 12/27/2024 1 0:20 AM CDT FL FLUOROSCOPY < 1 HOUR IP Routine 12/27/2024 9:19 AM CDT XR SPINE THORACOLUMBAR JUNCTION 2 OR MORE VIEWS IP Routine 12/27/2024 9:19 AM CDT AZ AN PROCEDURE PLACEHOLDER Routine 12/27/2024 8:03 AM CDT AZ AN ELECTIVE ENDOTRACHEAL AIRWAY Routine 12/27/2024 8:03 AM CDT INSERTION SPINAL CORD STIMULATOR 12/27/2024 7:35 AM CDT Diabetic polyneuropathy associated with other specified diabetes mellitus (HCC) EGFR STAT 12/27/2024 6:52 AM CDT BASIC METABOLIC PANEL STAT 12/27/2024 6:52 AM CDT POCT GLUCOSE DEVICE Routine 12/27/2024 6 :38 AM CDT EGFR Routine 11/08/2024 12:06 PM ASE MASTER MECHANIC Preoperative evaluation to rule out surgical contraindication APTT Routine 11/08/2024 12:06 PM ASE MASTER MECHANIC Other specified pre-operative examination skilled nursing current use of anticoagulant BASIC METABOLIC PANEL Routine 11/08/2024 12:06 PM ASE MASTER MECHANIC Preoperative evaluation to rule out surgical contraindication POCT HEMOGLOBIN A1C Routine 10/26/2024 1 1:17 AM ASE MASTER MECHANIC Type 2 diabetes mellitus with hyperglycemia, with long-term current use of insulin (HCC) POCT GLUCOSE Routine 10/26/2024 11:17 AM ASE MASTER MECHANIC Type 2 diabetes mellitus with hyperglycemia, with long-term current use of insulin (HCC) HM DIABETES EYE EXAM Routine 09/07/2024 7:29 AM ASE MASTER MECHANIC LIPID PANEL Routine 12/25/2023 10:51 AM ASE MASTER MECHANIC Type 2 diabetes mellitus with hyperglycemia, with long-term current use of insulin (HCC) ALBUMIN CREATININE RATIO, URINE Routine 12/25/2023 10:51 AM ASE MASTER MECHANIC Type 2 diabetes mellitus with hyperglycemia, with long-term current use of insulin (HCC) from Last 3 Months or Most Recently Relevant to Health Maintenance Results * POCT glucose (12/28/2024 8:34 PM CDT) Glucose, POC 156 70 - 199 mg/dL Comment: For Glucose values <35 mg/dl when Hematocrit is >60 mg/dl,the test may not accurately detect significant hypoglycemia,and testing in the Laboratory should be considered if clinically indicated. Blood 12/28/2024 8:34 PM CDT 12/28/2024 8:34 PM CDT Vivi Johansen MD LAB POCT ORDERABLES - DE VICE Final Result Performing Organization Address [facility] Co de Phone Number [facility] [address] [facility] [place] [address] * POCT glucose (12/27/2024 9:06 PM CDT) Glucose, POC 150 70 - 199 mg/dL Comment: For Glucose values <35 mg/dl when Hematocrit is >60 mg/dl,the test may not accurately detect significant hypoglycemia,and testing in the Laboratory should be considered if clinically indicated. Blood 12/27/2024 9:06 PM CDT 12/27/2024 9:06 PM CDT Vivi Johansen MD LAB POCT ORDERABLES - DE VICE Final Result Performing Organization Address [facility] Co de Phone Number [facility] [address] [facility] [place] [address] * POCT glucose (12/27/2024 10:20 AM CDT) Glucose, POC 176 70 - 199 mg/dL Comment: For Glucose values <35 mg/dl when Hematocrit is >60 mg/dl,the test may not accurately detect significant hypoglycemia,and testing in the Laboratory should be considered if clinically indicated. Blood 12/27/2024 10:2 0 AM CDT 12/27/2024 10:20 AM CDT Vivi Johansen MD LAB POCT ORDERABLES - DE VICE Final Result Performing Organization Address City/[facility]/ZIP Co de Phone Number [facility] [address] Department [place] [address] * FL Fluoroscopy < 1 Hour (12/27/2024 9:19 AM CDT) Narrative [facility] - 12/27/2024 9:20 AM CDT The images from this study are not interpreted by Radiology. Please refer to the physician's procedure / OR operative note. Vivi Johansen MD IMG FLUOROSCOPY PROCEDUR ES Final Result Performing Organization Address [facility] Co de Phone Number [facility] * XR Spine Thoracolumbar Junction 2 or More Views (12/27/2024 9:19 AM CDT) Anatomical Region Laterality Modality Spine N/A Computed Radiogr aphy 12/27/2024 9:23 AM CDT Impressions 12/27/2024 9:23 AM CDT FINDINGS/IMPRESSION: 5 intraoperative fluoroscopic images are submitted for review. Operative changes of T10 laminotomy for spinal cord stimulator lead placement. Please refer to the dedicated operative report for complete evaluation of real-time findings. Electronically signed by: Sebastian Orellana M.D. Narrative 12/27/2024 9:23 AM CDT EXAM: XR SPINE THORACOLUMBAR JUNCTION 2 OR MORE VIEWS INDICATION: T10 Laminotomy for Placement of Spinal Cord Stimulator COMPARISON: Radiograph 11/30/2015 Procedure Note Sebastian Orellana MD - 12/27/2024 EXAM: XR SPINE THORACOLUMBAR JUNCTION 2 OR MORE VIEWS INDICATION: T10 Laminotomy for Placement of Spinal Cord Stimulator COMPARISON: Radiograph 11/30/2015 IMPRESSION: FINDINGS/IMPRESSION: 5 intraoperative fluoroscopic images are submitted for review. Operative changes of T10 laminotomy for spinal cord stimulator lead placement. Please refer to the dedicated operative report for complete evaluation of real-time findings. Electronically signed by: Sebastian Orellana M.D. Vivi Johansen MD IMG XR PROCEDURES Final Result * AZ AN ELECTIVE ENDOTRACHEAL AIRWAY, AZ AN PROCEDURE PLACEHOLDER (12/27/2024 8:03 AM CDT) Narrative Deshawn Mera CRNA - 12/27/2024 8:03 AM CDT Deshawn Mera CRNA 12/27/2024 8:04 AM Airway Patient location: OR Urgency: elective Indications for airway management: anesthesia and airway protection Difficult airway: no Staff: Supervising provider: Carson Yee MD Placed by: SALES TRADER: Deshawn Mera CRNA Emergent airway documentation: Risks and benefits discussed: yes Consent obtained: yes Consent given by: patient Airway prep: Preoxygenated: yes Patient position: sniffing MILS maintained throughout: yes Mask difficulty assessment: 2 - vent by mask + OA or adjuvant Spontaneous ventilation during airway: absent Sedation level during airway: deep Final airway details: Final airway type: endotracheal airway Tube type: ETT ETT size: 6.0 mm Cuffed: yes Technique used for successful ETT placement: video laryngoscopy Devices/Methods used in placement: stylet Insertion site: oral Blade type: Giancarlo Video blade type: Glidescope Blade size: 3 Cormack-Lehane (video): grade I - full view of glottis Cuff volume: 8 mL Cuff inflated with: air ETT to teeth: 19 cm Placement verified by: auscultation and CO2 detection Airway secured with: silk tape Number of attempts: 1 us Carson Yee MD ANESTHESIA ORDERABLES Final Result * (ABNORMAL) eGFR (12/27/2024 6:52 AM CDT) eGFR 42(L) >=60 mL/min/1. 73 m2 Comment: Interpretive Data [...] interpretive data was last reviewed 2021. Blood 12/27/2024 6:52 AM CDT 12/27/2024 6:57 AM CDT us Carson Yee MD LAB BLOOD ORDERABLES Final R esult [facility] [address] Department [place] [address] * (ABNORMAL) Basic metabolic panel (12/27/2024 6:52 AM CDT) Sodium 140 135 - 145 mmol/L Potassium, pl 4.7 3.3 - 4.9 mmol/L [facility] Chloride 105 97 - 110 mmol/L [facility] CO2 23 22 - 32 mmol/L [facility] Anion gap 12 2 - 15 mmol/L [facility] BUN 41(H) 6 - 25 mg/dL [facility] Creatinine 1.36(H) 0.60 - 1.10 mg/dL [facility] Glucose 110 70 - 199 mg/dL [facility] Comment: Interpretive Data Fasting glucose >/= 126 [...] interpretive data was last revised 2022. Calcium 9.5 8.5 - 10.3 mg/dL [facility] Blood 12/27/2024 6:52 AM CDT 12/27/2024 6:57 AM CDT us Carson Yee MD LAB BLOOD ORDERABLES Final R esult Performing Organization Address City/[facility]/ZIP Co de Phone Number [facility] [address] Department [place] [place] [address] * POCT glucose (12/27/2024 6:38 AM CDT) Glucose, POC 111 70 - 199 mg/dL Comment: For Glucose values <35 mg/dl when Hematocrit is >60 mg/dl,the test may not accurately detect significant hypoglycemia,and testing in the Laboratory should be considered if clinically indicated. Blood 12/27/2024 6:38 AM CDT 12/27/2024 6:38 AM CDT us Vivi Johansen MD LAB POCT ORDERABLES - DE VICE Final Result Performing Organization Address [facility] Co de Phone Number [facility] [address] Department of [employer] [place], [place] [id number] * (ABNORMAL) eGFR (11/08/2024 12:06 PM ASE MASTER MECHANIC) eGFR 33(L) >=60 mL/min/1. 73 m2 Comment: [...] reviewed 2021. Blood 11/08/2024 12:0 6 PM ASE MASTER MECHANIC 11/08/2024 12:06 PM ASE MASTER MECHANIC us Dinora Matthew NP LAB BLOOD ORDERABLES Fin al Result Performing Organization Address [facility] Co de Phone Number [facility] [address] [place] [address] * aPTT (11/08/2024 12:06 PM ASE MASTER MECHANIC) aPTT 30 28 - 38 sec Comment: Interpretive Data Heparin therapeutic range: 66.0 - 100.0 seconds. Range based on correlation with therapeutic heparin activity range of 0.3 - 0.7 Units/mL. Current interpretive data was last revised on 2023. Blood 11/08/2024 12:0 6 PM ASE MASTER MECHANIC 11/08/2024 12:06 PM ASE MASTER MECHANIC us Vivi Johansen MD LAB BLOOD ORDERABLES Fin al Result Performing Organization Address [facility] de Phone Number [facility] [address] [place] [address] * (ABNORMAL) Basic metabolic panel (11/08/2024 12:06 PM ASE MASTER MECHANIC) Sodium 141 135 - 145 mmol/L Potassium, pl 4.9 3.3 - 4.9 mmol/L [facility] Chloride 103 97 - 110 mmol/L [facility] CO2 25 22 - 32 mmol/L [facility] Anion gap 13 2 - 15 mmol/L [facility] BUN 47(H) 6 - 25 mg/dL [facility] Creatinine 1.67(H) 0.60 - 1.10 mg/dL [facility] Glucose 129 70 - 199 mg/dL [facility] Comment: Interpretive Data Fasting glucose >/= 126 [...] 2022. Calcium 10.0 8.5 - 10.3 mg/dL [facility] Blood 11/08/2024 12:0 6 PM ASE MASTER MECHANIC 11/08/2024 12:06 PM ASE MASTER MECHANIC us Dinora Matthew NP LAB BLOOD ORDERABLES Fin al Result [facility] [address] Department [place] [address] * (ABNORMAL) POCT hemoglobin A1c (10/26/2024 11:17 AM ASE MASTER MECHANIC) Hemoglobin A1C, POC 5.8 4.0 - 5.6 % Blood 10/26/2024 11:1 7 AM ASE MASTER MECHANIC us Sisi Guevara NP POINT OF CARE TEST ORDERA BLES Final Result * (ABNORMAL) POCT glucose (10/26/2024 11:17 AM ASE MASTER MECHANIC) Glucose Blood, POC 184 mg/dL Blood 10/26/2024 11:1 7 AM ASE MASTER MECHANIC us Sisi Guevara NP POINT OF CARE TEST ORDERA BLES Final Result * HM DIABETES EYE EXAM (09/07/2024 7:29 AM ASE MASTER MECHANIC) us Historical Provider HEALTH MAINTENANCE Final Result * Albumin Creatinine Ratio, Urine (12/25/2023 10:51 AM ASE MASTER MECHANIC) Albumin Ur <12.0 mg/L Comment: Interpretive Data No reference range established. Current interpretive data was last revised 2019. Creatinine Ur 33.6 mg/dL [facility] Comment: Interpretive Data No reference range established. Current interpretive data was last revised 2019. Albumin Creatinine Ratio, Ur See Comment 1 - 29 [facility] Comment:Unable to calculate Urine 12/25/2023 10:5 1 AM ASE MASTER MECHANIC 12/25/2023 4:20 PM ASE MASTER MECHANIC us Charan Hopper MD LAB URINE ORDERABLES Final Resul t [facility] [address] [address] Department [place] [address] * (ABNORMAL) Lipid panel (12/25/2023 10:51 AM ASE MASTER MECHANIC) Cholesterol 179 30 - 199 mg/dL Comment: [...] revised on 2018. Non-HDL Cholesterol 137 mg/dL [facility] Comment: Interpretive Data Ages < or [...] Pediatrics 2011;128:S213 2. NCEP Expert Panel. Circulation 2003;110:227 Current Interpretive Data was last revised on 2018. Chol/HDL ratio 4 [facility] Blood 12/25/2023 10:5 1 AM ASE MASTER MECHANIC 12/25/2023 4:20 PM ASE MASTER MECHANIC us Charan Hopper MD LAB BLOOD [place] [address] [facility] Department [place] [address] from Last 3 Months or Most Recently Relevant to Health Maintenance Insurance [employer] [facility] MEDICARE [facility] MEDICARE Address: [address] [place] [address] [employer] Formerly [facility] [address] [address] [employer] [address] [address] Advance Directives For more information, please contact: [phone] * Full Code (Latest Code Status on File) Date Activated Date Inactivated Comments 12/27/2024 12:45 PM 12/29/2024 7:57 PM * Full Code Date Activated Date Inactivated Comments 09/05/2020 1:54 PM 09/06/2020 6:34 PM * Full Code Date Activated Date Inactivated Comments 05/02/2020 2:11 PM 05/03/2020 8:18 PM Care Teams Optical Engineering Technician Relationship Specialty Start Date End Date Osman Malcolm MD [address] [address] PCP - General Family Medicine 09/18/22 Rey Hinton PA [address] [place] [address] [place] [address] Physician Theatre Professor Orthopedic Surgery 05/03/20 Reina Jimenes PA [address] [place] [address] [place] [address] Physician Theatre Professor Orthopedic Surgery 09/06/20
--- OUTSIDE RECORDS SUMMARY | 2025-01-12 09:21 | XMS_ITS | Clinical Summary ---
Author Organization [facility] Address [address] [place] [address] Phone Care Team Providers Care Stripper Black And White Name Role Phone Osman Malcolm Primary Care Provider [phone] Robert Corbett MD Unavailable Adrien Cerrato MD Unavailable [phone] Allergies No known active allergies Medications furosemide (LASIX) 20 MG Tablet Take 1 Tablet by mouth daily. 02/01/2020 Active allopurinol (ZYLOPRIM) 100 MG Tablet Take 100 mg by mouth 2 times daily. Active atorvastatin (LIPITOR) 10 MG Tablet Take 10 mg by mouth daily. Active traMADol (ULTRAM) 50 MG Tablet Take 50 mg by mouth every 6 hours as needed. Active Aspirin 81 MG Tablet Take 81 mg by mouth daily. Active lisinopril (PRINIVIL, ZESTRIL) 5 MG Tablet 07/11/2021 Active Januvia 100 MG Tablet 04/30/2022 Active Cholecalciferol (Vitamin D3) 50 MCG (1999) Tablet Take by mouth. Active fenofibrate 160 MG Tablet Take 1 Tablet by mouth. 08/21/2022 Active ReliOn Pen Lock [place] 32G X 4 MM Misc 12/24/2022 Active gabapentin (NEURONTIN) 300 MG Capsule Take 300 mg by mouth 3 times daily. 02/26/2023 Active levothyroxine (SYNTHROID) 112 MCG Tablet Take 112 mcg by mouth. 05/10/2024 Active famotidine (PEPCID) 20 MG Tablet Take 20 mg by mouth 2 times daily. Active Continuous Glucose Sensor (Dexcom G7 Sensor) Misc Active cephALEXin (KEFLEX) 500 MG Capsule Take 500 mg by mouth daily. 06/07/2024 Active metFORMIN (GLUCOPHAGE) 500 MG Tablet 2 [...] 1 capsule by mouth every 12 hours 09/04/2024 Active Active Problems Problem Noted Date Diagnosed [...] Department Care Team Description 11/04/2024 9:30 AM DOUBLE CUTTER Clinical Support [facility] [address] [address] [address] Anemia in stage 3a chronic kidney disease (HCC) (Primary Dx); Anemia, iron deficiency, inadequate dietary intake 11/04/2024 9:00 AM DOUBLE CUTTER Office Visit [facility] [address] [address] [place] [address] Mayda Torres, MOOSE, OPERATIONS BUSINESS PARTNER Anemia in stage 3a chronic kidney disease (HCC) (Primary Dx); Anemia, iron deficiency, inadequate dietary intake 11/04/2024 Travel 10/29/2024 Results Follow-Up [facility] [address] [place] [address] Mayda Torres, MANAGER WOMEN, OPERATIONS BUSINESS PARTNER 10/28/2024 9:00 AM DOUBLE CUTTER Lab [facility] [address] [address] [address] Nurse, [facility] [place] Anemia, iron deficiency, inadequate dietary intake (Primary [...] Comments Blood Pressure 142/82 11/04/2024 9:15 AM DOUBLE CUTTER Pulse 88 11/04/2024 9:15 AM DOUBLE CUTTER Temperature 36 C (96.8 F) 11/04/2024 9:15 AM DOUBLE CUTTER Respiratory Rate 18 11/04/2024 9:15 AM DOUBLE CUTTER Oxygen Saturation 99% 11/04/2024 9:15 AM DOUBLE CUTTER Inhaled Oxygen Concentration - - Weight 77.1 kg (169 lb 14.4 oz) 11/04/2024 9:15 AM DOUBLE CUTTER Height 170.2 cm (5' 7 ) 11/04/2024 9:15 AM DOUBLE CUTTER Body Mass Index 26.61 11/04/2024 9:15 AM DOUBLE CUTTER Plan of Treatment Upcoming Encounters Date Type Department Care Team (Late st Contact Info) Description 02/03/2025 9:00 AM CDT Office Visit [facility] [address] [address] [address] Adrien Cerrato MD [address] [place] [address] Health Maintenance Due Date Last Done Comments DEXA Bone Density 1954 Diabetes: Eye Exam 1954 Diabetes: Foot Exam 1955 Hepatitis C Virus (HCV) Screening 1955 Mammogram 1955 TdaP Immunization 1954 Colonoscopy 1999 Colorectal Cancer Screening 1999 Cologuard [...] AUTO DIFF [place] Routine 10/28/2024 8:55 AM DOUBLE CUTTER CMP (COMPREHENSIVE METABOLIC PANEL) Routine 10/28/2024 8:55 AM DOUBLE CUTTER Anemia in stage 3a chronic kidney disease (HCC) VITAMIN B12 Routine 10/28/2024 8:55 AM DOUBLE CUTTER Anemia in stage 3a chronic kidney disease (HCC) FOLIC ACID (FOLATE) Routine 10/28/2024 8 :55 AM DOUBLE CUTTER Anemia in stage 3a chronic kidney disease (HCC) FERRITIN Routine 10/28/2024 8:55 AM DOUBLE CUTTER Anemia in stage 3a chronic kidney disease (HCC) IRON W/ IRON BINDING CAPACITY OH Routine 10/28/2024 8:55 AM DOUBLE CUTTER Anemia in stage 3a chronic kidney disease (HCC) from Last 3 Months Results * (ABNORMAL) IRON W/ IRON BINDING CAPACITY [place] (10/28/2024 8:55 AM DOUBLE CUTTER) IRON 69 50 - 212 ug/dL [facility] UIBC 440(H) 155 - 355 ug/dL [facility] TIBC 509(H) 261 - 478 ug/dl [facility] % Saturation 14(L) 20 - 50 % [facility] 10/28/2024 8:55 AM DOUBLE CUTTER Narrative [facility] - 10/29/2024 10:21 AM DOUBLE CUTTER Release to patient->Immediate Mayda Torres MANAGER WOMEN, OPERATIONS BUSINESS PARTNER LAB SEND OUTS Final Result [facility] [address] [place] [address], * (ABNORMAL) CBC WITH AUTO DIFF [place] (10/28/2024 8:55 AM DOUBLE CUTTER) WBC 5.2 4.0 - 10.0 10*3/uL [facility] HGB 9.7(L) 11.2 - 15.7 g/dL [facility] HCT 31.2(L) 34.1 - 44.9 % [facility] PLT 209 163 - 369 10*3/uL [facility] MPV 10.3 9.4 - 12.4 fL [facility] RBC 3.08(L) 3.93 - 5.22 10*6/uL [facility] MCV 101(H) 79 - 95 fL [facility] MCH 31.5 25.6 - 32.2 pg [facility] MCHC 31.1(L) 32.2 - 36.5 g/dL [facility] RDW 14.9(H) 11.6 - 14.4 % [facility] Neutrophils % 65.3 36.0 - 66.0 % [facility] Lymphocytes % 15.6(L) 19.0 - 40.0 % [facility] Monocytes % 10.6 4.1 - 12.1 % [facility] Eosinophils % 5.8(H) 0.0 - 3.5 % [facility] Basophils % 1.0 0.0 - 1.0 % [facility] Absolute Neutrophils 3.4 1.4 - 6.6 10*3/uL [facility] Absolute Lymphocytes 0.8 0.8 - 4.0 10*3/uL [facility] Absolute Monocytes 0.6 0.2 - 1.2 10*3/uL [facility] Absolute Eosinophils 0.3 0.0 - 0.4 10*3/uL [facility] Absolute Basophils 0.1 0.0 - 0.1 10*3/uL [facility] 10/28/2024 8:55 AM DOUBLE CUTTER us Mayda Torres APRN, OPERATIONS BUSINESS PARTNER LAB SEND OUTS Final Result Performing Organization Address [facility]/ZIP Co de Phone Number [facility] [address] [place] [address], [place] [phone] * VITAMIN B12 (10/28/2024 8:55 AM DOUBLE CUTTER) Vitamin B12 222 180 - 914 pg/mL [facility] Blood 10/28/2024 8:55 AM DOUBLE CUTTER Narrative [facility] - 10/29/2024 3:15 PM DOUBLE CUTTER Release to patient->Immediate us Mayda Torres APRN, OPERATIONS BUSINESS PARTNER CHEMISTRY ORDERABLES Final Result Performing Organization Address [facility] Co de Phone Number [facility] [address] [place] [address], [place] [phone] * FOLIC ACID (FOLATE) (10/28/2024 8:55 AM DOUBLE CUTTER) Folate 8.69 >=5.90 ng/mL [facility] Blood 10/28/2024 8:55 AM DOUBLE CUTTER Narrative [facility] - 10/29/2024 3:15 PM DOUBLE CUTTER Release to patient->Immediate IS THE PATIENT REQUIRED TO BE FASTING FOR 12 HOURS?->No us Mayda Torres APRN, OPERATIONS BUSINESS PARTNER CHEMISTRY ORDERABLES Final Result Performing Organization Address City/[facility]/ZIP Co de Phone Number [facility] [address] [address], [place] [phone] * (ABNORMAL) FERRITIN (10/28/2024 8:55 AM DOUBLE CUTTER) Ferritin 365(H) 11 - 307 ng/mL [facility] Blood 10/28/2024 8:55 AM DOUBLE CUTTER Narrative [facility] - 10/29/2024 3:15 PM DOUBLE CUTTER Release to patient->Immediate Mayda Torres MANAGER WOMEN, OPERATIONS BUSINESS PARTNER CHEMISTRY ORDERABLES Final Result [facility] [address] [address], [place] [phone] * (ABNORMAL) CMP (COMPREHENSIVE METABOLIC PANEL) (10/28/2024 8:55 AM DOUBLE CUTTER) Glucose 205(H) 70 - 105 mg/dL [facility] Blood Urea Nitrogen 43(H) 7 - 25 mg/dL [facility] Creatinine 1.8(H) 0.6 - 1.2 mg/dL [facility] Sodium 142 136 - 145 mEq/L [facility] Potassium 4.0 3.5 - 5.1 mEq/L [facility] Chloride 101 98 - 107 mEq/L [facility] Bicarbonate 29 21 - 31 mEq/L [facility] Total Bilirubin 0.4 0.3 - 1.0 mg/dL [facility] Alk. Phosphatase 26(L) 34 - 104 U/L [facility] Aspartate Aminotransferase 29 13 - 39 U/L [facility] Alanine Aminotransferase 22 7 - 52 U/L [facility] Total Protein 6.7 6.4 - 8.9 g/dL [facility] Albumin 4.4 3.5 - 5.7 g/dL [facility] Calcium 9.6 8.6 - 10.3 mg/dL [facility] Anion Gap 16.0(H) 7.0 - 15.0 mEq/L [facility] Globulin 2.3 2.0 - 3.5 g/dL [facility] EGFR 30(L) >60 ml/min/1. 73m2 [facility] Comment: This eGFR is calculated using 2020 CKD-EPI Creatinine equation without race modifier based on the NKF-ASN task force recommendations Blood 10/28/2024 8:55 AM DOUBLE CUTTER Narrative [facility] - 10/29/2024 10:21 AM DOUBLE CUTTER Release to patient->Immediate IS THE PATIENT REQUIRED TO BE FASTING FOR 8 HOURS?->No Mayda Torres APRN, OPERATIONS BUSINESS PARTNER CHEMISTRY ORDERABLES Final Result [facility] [place] [address], from Last 3 Months Insurance MEDICARE C [employer] MEDICARE C [facility] Care Teams Stripper Black And White Relationship Specialty Start Date End Date Osman Malcolm [address] [place] [address] PCP - General Family Medicine 03/08/20 Robert Corbett MD [address] [place] [address] Consulting Physician Oncology 04/18/22 Adrien Cerrato MD [address] [place] [address] Consulting Physician Oncology 05/14/22
--- OUTSIDE RECORDS SUMMARY | 2025-01-12 09:21 | XMS_ITS | Clinical Summary ---
Author Organization [facility] [address] Address [address] [place] [address] Care Team Providers Care Motorcycle Mechanic Apprentice Name Role Phone Rey Hinton PA Unavailable [phone] Reina Jimenes Unavailable [phone] Osman Malcolm MD Primary Care Provider [phone] Allergies Active Allergy Reactions Criticality Noted Date [...] hyperglycemia, with long-term current use of insulin ([facility]) Continuous glucose monitoring. Change every 10 days. 9 each 3 3 Active blood-glucose meter,continuo us (Dexcom G7 Resource Room Special Education Teacher) miscIndication s:Type 2 diabetes mellitus with hyperglycemia, with long-term current use of insulin ([facility]) Continuous glucose monitor 1 each 3 Active [...] 1 tablet (112 mcg total) by mouth director ambulatory before breakfast 4 Active pen needle, diabetic 32 gauge x /32 needleIndicati ons:Type 2 diabetes mellitus with hyperglycemia, with long-term current use of insulin ([facility]) USE TO INJECT INSULIN DAILY 100 each [...] (six) hours as needed for pain 12/30/19 Discontinu ed(Stop Taking at Discharge) aspirin 81 [...] 06/20 Assessment & Plan (10/26/2024 12:09 PM TAX INTERN): Chronic problem. Managed by Dr Marr at [facility]. Next appt 12/29/24 Nephropathy: On GWEN-I / ARB s : Yes. Lisinopril 5mg. Last MA: 12/25/23 (36 calc). Last creat/GFR: 03/31/24 GFR=27, CR=1.96. Assessment & Plan (06/29/2024 11:48 AM CDT): Chronic problem. Managed by Dr Tejinder mcconnell [facility]. Next appt 06/30/24. Nephropathy: On GWEN-I / ARB s : Yes. Lisinopril 5mg. Last MA: 12/25/23 (36 calc). Last creat/GFR: 03/31/24 GFR=27, CR=1.96. Diabetic neuropathy associat ed with type 2 diabetes mellitus 01/30/2023 Assessment & Plan (10/26/2024 11:56 AM TAX INTERN): Chronic problem. Gabapentin Gabapentin 300-600mg at HS. [...] barefoot. Assessment & Plan (12/25/2023 10:41 AM TAX INTERN): Foot care discussed Continue gabapentin Assessment & [...] 10/31/2022 Assessment & Plan (10/31/2022 12:56 PM TAX INTERN): Encouraged Mrs Trujillo to walk in home if weather not conducive to walking outside. Discussed healthy diet and importance of regular physical activity (20- 30min/day, 150min/wk). Hyperlipidemia associated with type 2 diabetes latanya brown 07/25/2022 Assessment & Plan (10/26/2024 11:30 AM TAX INTERN): Chronic problem, at goal on Atorvastatin 10mg & fenofibrate 160mg daily Last lipid panel: 12/25/23 LDL=98, PR=537. Assessment & Plan (06/29/2024 11:46 AM CDT): Chronic problem, at goal on Atorvastatin 10mg & fenofibrate 160mg daily Last lipid panel: 12/25/23 LDL=98, XU=448. Assessment & Plan (12/25/2023 10:41 AM TAX INTERN): Chronic, stable Continue Atorvastatin 10 mg daily UDT lipid profile Assessment & Plan (05/08/2023 11:12 AM CDT): Chronic problem, at goal on Atorvastatin 10mg & fenofibrate 160mg daily Last lipid panel: 07/25/22 LDL=74, NV=289. No changes at this time. Assessment & Plan (01/30/2023 11:08 AM CDT): Chronic problem, at goal on Atorvastatin 10mg. Last lipid panel: 07/25/22 LDL=74, CM=652. No changes at this time. Assessment & Plan (10/31/2022 8:59 AM TAX INTERN): Chronic problem, near goal. LDL=74 07/2022. Atorvastatin 10mg daily. No changes at this time. Assessment & Plan (07/25/2022 12:50 PM CDT): Continue atorvastastin Check lipid profile LDL goal under 70 Type 2 diabetes mellitus wit h hyperglycemia, with long-term current use of insulin 05/28/2022 Assessment & Plan (10/26/2024 11:56 AM TAX INTERN): Chronic problem, stable/controlled. A1c stable at 5.8%. Current medications: Metformin XR 500mg twice daily before meals Januvia 100 mg daily (PAP) Basaglar 14 units every evening (PAP) Cannot trial GLP1a d/t h/o pancreatitis UTD on labs DM eye exam (2023 at [facility]). 2nd request letter sent. Strive for regular [...] infection. Assessment & Plan (12/25/2023 10:40 AM TAX INTERN): Chronic, stable Contiue current regimen including Basaglar, Glimepiride 1 mg daily, Metformin 500 mg bid and Januvia Diet and exercise were discussed Assessment & Plan (09/09/2023 11:37 AM TAX INTERN): Hba1c was Lab Results Component Value Date [...] 7.8% Phone not compatible with dexcom nor [employer] haseeb. Sent in Dexcom 7 & reader. [...] DM eye exam 01/2023 at [facility] in [place]. Letter sent to get copy of results. [...] infection. Assessment & Plan (10/31/2022 12:55 PM TAX INTERN): Chronic problem, at goal. No changes. Continue [...] (04/20/2020): Added automatically from request for surgery [id number] Encounters Date Type Department Care Team Description 12/27/2024 7:33 AM CDT Anesthesia Event [facility] Operating Room [facility] [place] [address] Carson Yee MD [place], Justin Kyle, WU 12/27/2024 7:30 AM CDT - 12/27/2024 10:30 AM CDT Surgery [facility] Operating Room [address] [place] [phone] Vivi Johansen MD T10 Laminotomy for Placement of Spinal Cord Stimulator 12/27/2024 5:11 AM CDT - 12/29/2024 3:52 PM CDT Hospital Encounter [facility] [address] [place] [phone] Vivi Johansen MD Discharge Disposition: Discharge to home or self care 11/08/2024 11:45 AM TAX INTERN Pre-Admission Testing [facility] Pre Anesthesia Testing [address] [place] [phone] Preoperative evaluation to rule out surgical contraindication (Primary Dx); Other specified pre-operative examination; 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 specialist current use of anticoagulant 11/05/2024 11:59 PM TAX INTERN Anesthesia Event [facility] Operating Room [address] [place] [phone] Dinora Matthew NP 11/04/2024 Telephone [facility] Pre Anesthesia Testing [address] [place] [phone] Khushi Gresham 11/03/2024 Orders Only [facility] [address] [place] [phone] ProviderMarcello MD 10/26/2024 11:30 AM TAX INTERN Office Visit [facility] [address] [place] [phone] Sisi Guevara NP Type 2 diabetes mellitus with hyperglycemia, with long-term current use of insulin (HCC) (Primary Dx); CKD stage 4 due to type 2 diabetes mellitus (HCC); Hyperlipidemia associated with type 2 diabetes mellitus (HCC); Diabetic neuropathy associated with type 2 diabetes mellitus (HCC) 10/26/2024 Telephone [facility] [address] [place] [phone] Sisi Guevara NP Med Management ([facility] - Basaglar) 10/19/2024 Telephone [facility] [address] [place] [address] [address] [address] Sisi Guevara, GRACE Med Refill from Last 3 Months Immunizations Immunization Administration Dates Next Due Influenza, [...] kidney disease) stage 4, GFR 15-29 ml/min (HCC) Diabetic neuropathy (HCC) Chronic iron deficiency [...] on file Legal Sex Female 6:42 PM TAX INTERN Gender Identity Not on file Sexual Orientation [...] 12/27/2024 6:32 AM CDT Plan of Treatment Health Maintenance Due Date Last Done Comments Breast Cancer Screening-Mammogram 1954 Colon Cancer Screening-Colonoscopy 1954 Hepatitis C Screening 1954 Osteoporosis Screening-Bone Density Scan 1954 DTaP/Tdap/Td Vaccine (1 - Tdap) 1965 Hepatitis B Screening 1972 Well Visit 65+ 2019 Pneumococcal vaccine 65+ (2 of 2 - PPSV23) 09/12/2020 07/18/2020, 06/20/2020 Depression Screening 05/08/2024 05/08/2023, 07/25/2022, 05/28/2022, Additional history exists Albumin Creatinine Ratio, Urine 12/24/2024 , 07/25/2022 Lipid Panel 12/24/2024 12/25/2023, 07/25/2022 Hemoglobin A1C 04/25/2025 10/26/2024, 06/20, 12/25/2023, Additional history exists Foot Exam 06/29/2025 06/29/2024, 0412/2022, 10/31/2022 Dilated Eye Exam 09/07/2025 09/07/2024, 10/22/2021 eGFR 12/27/2025 12/27/2024, 10/21, 03/31/2024, Additional history exists Fall Risk Assessment 12/29/2025 12/29/2024, 09/09/20 23 Zoster Vaccine Completed 04/30/2021, 02/21/2021 Influenza Vaccine Completed 08/10/2024, , 07/20/2020, Additional history exists Medical Devices Implanted Type Area Data Conversion Analyst Device Identifier Shelf Expiration Date Model / Serial / Lot Depuy Orthopaed[employer] Inc [id number] Attune Cruciate Retain Cementless Knee Left 6 Narrow Component - [id number] Implanted:Qty: 1 on 05/02/2020 by Go Lazaro MD at [facility] Left: Knee [employer] 10/19/2029 [id number] / / [id number] Dep[employer] [id number] Attune 5mm Cruciate Retaining Rotate Platform Knee 6 Insert - [id number] Implanted:Qty: 1 on 05/02/2020 by Go Lazaro MD at [facility] Left: Knee [employer] 08/19/2024 [id number] / / [id number] Attune Knee System, Tibial Base Rotating Platform Implanted:Qty: 1 on 05/02/2020 by Go Lazaro MD at [facility] Left: Knee [employer] Inc [id number] 05/19/2028 [id number] / / [id number] [employer] [id number] Pal[place]os R+G High Viscosity Cement Bone Gentamicin Arthroplasty - [id number] Implanted:Qty: 1 on 05/02/2020 by Go Lazaro MD at [facility] Left: Knee [employer] 02/16/2022 [id number] / / [id number] [employer] [id number] Pal[place]os R+G High Viscosity Cement Bone Gentamicin Arthroplasty - [id number] Implanted:Qty: 1 on 09/05/2020 by Go Lazaro MD at [facility] Right: Knee [employer] 08/19/2022 [id number] / / [id number] Depuy [employer]opa[employer] [id number] Baseplate Tibial Attune 6 Knee Cement Rotate Platform Sterile - [id number] Implanted:Qty: 1 on 09/05/2020 by Go Lazaro MD at [facility] Right: Knee [employer] 03/19/2030 [id number] / / [id number] [employer] [id number] Attune 7mm Cruciate Retaining Rotate Platform Knee 6 Insert - [id number] Implanted:Qty: 1 on 09/05/2020 by Go Lazaro MD at [facility] Right: Knee [employer] 08/19/2024 [id number] / / [id number] [employer] [id number] Attune Cruciate Retain Cementless Knee Right 6 Component Femoral - [id number] Implanted:Qty: 1 on 09/05/2020 by Go Lazaro MD at [facility] Right: Knee [employer] 07/19/2028 [id number] / / [id number] Med[employer] Inc Specify Surescan 65cm 3 Column 16 Electrode Lead Nerve Stimulator [id number] - [id number] Implanted:Qty: 1 on 12/27/2024 by Vivi Johansen MD at [facility] N/A: Back [employer] Inc 09/24/2028 [id number] / / [id number] Med[employer] Inc Generator Pulse Inceptiv Sys Stm Electrcl Analges Implant [id number] - [id number] - [id number] Implanted:Qty: 1 on 12/27/2024 by Vivi Johansen MD at [facility] Right: Back [employer] Inc [id number] 11/02/2025 [id number] / [id number] / Biocom[employer]ites Stimulan Rapid Cure Kit Paste Coin Box Inspector 5cc 12.5cc Bone Void 620-005 - [id number] Implanted:Qty: 1 on 12/27/2024 by Vivi Johansen MD at [facility] N/A: Back [employer] [id number] 06/19/2027 [id number] / / [id number] Procedures Procedure Name Priority Date/Time Associated Diagnosis Comments POCT GLUCOSE DEVICE Routine 12/28/2024 8 :34 PM CDT POCT GLUCOSE DEVICE Routine 12/27/2024 9 :06 PM CDT POCT GLUCOSE DEVICE Routine 12/27/2024 1 0:20 AM CDT FL FLUOROSCOPY < 1 HOUR IP Routine 12/27/2024 9:19 AM CDT XR SPINE THORACOLUMBAR JUNCTION 2 OR MORE VIEWS IP Routine 12/27/2024 9:19 AM CDT HI AN PROCEDURE PLACEHOLDER Routine 12/27/2024 8:03 AM CDT HI AN ELECTIVE ENDOTRACHEAL AIRWAY Routine 12/27/2024 8:03 AM CDT INSERTION SPINAL CORD STIMULATOR 12/27/2024 7:35 AM CDT Diabetic polyneuropathy associated with other specified diabetes mellitus (HCC) EGFR STAT 12/27/2024 6:52 AM CDT BASIC METABOLIC PANEL STAT 12/27/2024 6:52 AM CDT POCT GLUCOSE DEVICE Routine 12/27/2024 6 :38 AM CDT EGFR Routine 11/08/2024 12:06 PM TAX INTERN Preoperative evaluation to rule out surgical contraindication APTT Routine 11/08/2024 12:06 PM TAX INTERN Other specified pre-operative examination 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 current 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 of anticoagulant BASIC METABOLIC PANEL Routine 11/08/2024 12:06 PM TAX INTERN Preoperative evaluation to rule out surgical contraindication POCT HEMOGLOBIN A1C Routine 10/26/2024 1 1:17 AM TAX INTERN Type 2 diabetes mellitus with hyperglycemia, with long-term current use of insulin (HCC) POCT GLUCOSE Routine 10/26/2024 11:17 AM TAX INTERN Type 2 diabetes mellitus with hyperglycemia, with long-term current use of insulin (HCC) HM DIABETES EYE EXAM Routine 09/07/2024 7:29 AM TAX INTERN LIPID PANEL Routine 12/25/2023 10:51 AM TAX INTERN Type 2 diabetes mellitus with hyperglycemia, with long-term current use of insulin (HCC) ALBUMIN CREATININE RATIO, URINE Routine 12/25/2023 10:51 AM TAX INTERN Type 2 diabetes mellitus with hyperglycemia, with [...] DE VICE Final Result Performing Organization Address [facility] Co de Phone Number [facility] [address] [place] [address] * POCT glucose (12/27/2024 9:06 [...] DE VICE Final Result Performing Organization Address City/[facility]/ZIP Co de Phone Number [facility] [address] [facility] [place] [address] * POCT glucose (12/27/2024 10:20 AM CDT) [...] DE VICE Final Result Performing Organization Address [facility] Co de Phone Number [facility] [address] [place] [address] * FL Fluoroscopy < 1 Hour (12/27/2024 9:19 AM CDT) Narrative [facility] - 12/27/2024 9:20 AM CDT The images from this study are not interpreted by Radiology. Please refer to the physician's procedure / OR operative note. Vivi Johansen MD IMG FLUOROSCOPY PROCEDUR ES Final Result Performing Organization Address [facility] Co sd Phone Number [facility] * XR Spine Thoracolumbar Junction 2 or [...] findings. Electronically signed by: Sebastian Orellana M.D. us Vivi Johansen MD IMG XR PROCEDURES Final Result * HI AN ELECTIVE ENDOTRACHEAL AIRWAY, HI AN PROCEDURE PLACEHOLDER (12/27/2024 8:03 AM CDT) Narrative Deshawn Mera CRNA - 12/27/2024 8:03 AM CDT Deshawn Mera CRNA 12/27/2024 8:04 AM Airway Patient location: OR Urgency: elective Indications for airway management: anesthesia and airway protection Difficult airway: no Staff: Supervising provider: Carson Yee MD Placed by: WARP SPINNER: Deshawn Mera CRNA Emergent airway documentation: Risks [...] of Race in Diagnosing Kidney Disease, JASN 202). The CKD-EPI equation should not be used for patients with unstable renal function and has not been validated in children and those over 70. Current interpretive data was last reviewed 2021. Blood 12/27/2024 6:52 AM CDT 12/27/2024 6:57 AM CDT us Carson Yee MD LAB BLOOD ORDERABLES Final R esult [facility] [address] [place] [address] * (ABNORMAL) Basic metabolic panel (12/27/2024 6:52 AM CDT) Sodium 140 135 - 145 mmol/L Potassium, pl 4.7 3.3 - 4.9 mmol/L [facility] Chloride 105 97 - 110 mmol/L [facility] CO2 23 22 - 32 mmol/L [facility] Anion gap 12 2 - 15 mmol/L [facility] BUN 41(H) 6 - 25 mg/dL [facility] Creatinine 1.36(H) 0.60 - 1.10 mg/dL [facility] Glucose 110 70 - 199 mg/dL [facility] Comment: Interpretive Data Fasting glucose [...] 2022. Calcium 9.5 8.5 - 10.3 mg/dL [facility] Blood 12/27/2024 6:52 AM CDT 12/27/2024 6:57 AM CDT us Carson Yee MD LAB BLOOD ORDERABLES Final R esult Performing Organization Address City/[facility]/ZIP Co de Phone Number [facility] [address] [place] [address] * POCT glucose (12/27/2024 6:38 AM CDT) [facility] Glucose, POC 111 70 - 199 mg/dL Comment: For Glucose values <35 mg/dl when Hematocrit is >60 mg/dl,the test may not accurately detect significant hypoglycemia,and testing in the Laboratory should be considered if clinically indicated. Blood 12/27/2024 6:38 AM CDT 12/27/2024 6:38 AM CDT us Vivi Johansen MD LAB POCT ORDERABLES - DE VICE Final Result Performing Organization Address [facility] de Phone Number [facility] [address] Department [place] [address] * (ABNORMAL) eGFR (11/08/2024 12:06 PM TAX INTERN) [facility] eGFR 33(L) >=60 mL/min/1. 73 m2 [...] reviewed 2021. Blood 11/08/2024 12:0 6 PM TAX INTERN 11/08/2024 12:06 PM TAX INTERN Dinora Matthew NP LAB BLOOD ORDERABLES Fin al Result Performing Organization Address [facility] Co de Phone Number [facility] [address] Department [employer] [place], [place] [phone] * aPTT (11/08/2024 12:06 PM TAX INTERN) aPTT 30 28 - 38 sec Comment: Interpretive Data Heparin therapeutic range: 66.0 - 100.0 seconds. Range based on correlation with therapeutic heparin activity range of 0.3 - 0.7 Units/mL. Current interpretive data was last revised on 2023. Blood 11/08/2024 12:0 6 PM TAX INTERN 11/08/2024 12:06 PM TAX INTERN Vivi Johansen MD LAB BLOOD ORDERABLES Fin al Result Performing Organization Address [facility] Co de Phone Number [facility] [address] Department [employer] [place], [place] [id number] * (ABNORMAL) Basic metabolic panel (11/08/2024 12:06 PM TAX INTERN) Sodium 141 135 - 145 mmol/L Potassium, pl 4.9 3.3 - 4.9 mmol/L [facility] Chloride 103 97 - 110 mmol/L [facility] CO2 25 22 - 32 mmol/L [facility] Anion gap 13 2 - 15 mmol/L [facility] BUN 47(H) 6 - 25 mg/dL [facility] Creatinine 1.67(H) 0.60 - 1.10 mg/dL [facility] Glucose 129 70 - 199 mg/dL [facility] Comment: Interpretive Data Fasting glucose [...] 2022. Calcium 10.0 8.5 - 10.3 mg/dL [facility] Blood 11/08/2024 12:0 6 PM TAX INTERN 11/08/2024 12:06 PM TAX INTERN us Dinora Matthew NP LAB BLOOD ORDERABLES Fin al Result [facility] [address] [place] [address] * (ABNORMAL) POCT hemoglobin A1c (10/26/2024 11:17 AM TAX INTERN) Hemoglobin A1C, POC 5.8 4.0 - 5.6 % Blood 10/26/2024 11:1 7 AM TAX INTERN us Sisi Guevara NP POINT OF CARE TEST ORDERA BLES Final Result * (ABNORMAL) POCT glucose (10/26/2024 11:17 AM TAX INTERN) Glucose Blood, POC 184 mg/dL Blood 10/26/2024 11:1 7 AM TAX INTERN us Sisi Guevara NP POINT OF CARE TEST ORDERA BLES Final Result * HM DIABETES EYE EXAM (09/07/2024 7:29 AM TAX INTERN) us Marcello Provider HEALTH MAINTENANCE Final Result * Albumin Creatinine Ratio, Urine (12/25/2023 10:51 AM TAX INTERN) Albumin Ur <12.0 mg/L Comment: Interpretive Data No reference range established. Current interpretive data was last revised 2019. Creatinine Ur 33.6 mg/dL [facility] Comment: Interpretive Data No reference range established. Current interpretive data was last revised 2019. Albumin Creatinine Ratio, Ur See Comment - [facility] Comment:Unable to calculate Urine 12/25/2023 10:5 1 AM TAX INTERN 12/25/2023 4:20 PM TAX INTERN Charan Hopper MD LAB URINE ORDERABLES Final Resul t [facility] [address] [place] [address] * (ABNORMAL) Lipid panel (12/25/2023 10:51 AM TAX INTERN) Cholesterol 179 30 - 199 mg/dL Comment: [...] revised on 2018. Chol/HDL ratio 4 [facility] Blood 12/25/2023 10:5 1 AM TAX INTERN 12/25/2023 4:20 PM TAX INTERN us Charan Hopper MD LAB BLOOD ORDERABLES Final Resul t [facility] [address] [place] [address] from Last 3 Months or Most Recently Relevant to Health Maintenance Insurance Strategy Store INSURANCE COMPANY [facility]IC[facility] Address: [facility] [id number] [place] [address] [facility] MEDICARE ADVANTAGE [facility] MEDICARE ADVANTAGE Advance Directives For more information, please contact: [phone] * Full Code (Latest Code Status on File) Date Activated Date Inactivated Comments 12/27/2024 12:45 PM 12/29/2024 7:57 PM * Full Code Date Activated Date Inactivated Comments 09/05/2020 1:54 PM 09/06/2020 6:34 PM * Full Code Date Activated Date Inactivated Comments 05/02/2020 2:11 PM 05/03/2020 8:18 PM Care Teams Motorcycle Mechanic Apprentice Relationship Specialty Start Date End Date Osman Malcolm MD [address] [place] [address] PCP - General Family Medicine 09/18/22 Rey Hinton PA [address] [place] [address] [facility] [address] [address] Physician Sorter [employer] Articles Orthopedic Surgery 05/03/20 Reina Jimenes PA [address] [place] [address] [address] [place] [address] Physician Sorter [employer] Articles Orthopedic Surgery 09/06/20
--- OUTSIDE RECORDS SUMMARY | 2025-01-12 09:21 | XMS_ITS | Clinical Summary ---
Author Organization [facility] Address [address] [place] [address] Care Team Providers Care First Dyer Name Role Phone Osman Malcolm MD Primary Care Provider [phone] Allergies No known active allergies Medications LASIX [...] Date Infection of spinal cord stimulator 08/04/2024 Immunizations Name Administration Dates Next Due Fluzone (IIV3, Trivalent, 0.5 ML Prefilled Syrin ge) 08/10/2024 Social History Tobacco Use Types Packs/Day Years Used Date Smoking Tobacco: Never Smokeless Tobacco: Never Tobacco Cessation:Counseling Given: No Alcohol Use Standard Drinks/Week Comments Never 0 (1 standard drink = 0.6 oz pur e alcohol) [facility] Utilities Answer Date Recorded In the past 12 months has [facility] [employer], oil, or water [employer] threatened to shut off services in your [...] any time in the past 12 m [facility], were you homeless or living in a senior care (including now)? No 08/04/2024 Comments No Sex and Gender Information Value Date Recorded Sex Assigned at Not on file Legal Sex Female 12:57 PM CDT Gender Identity Not on file Sexual Orientation Not on file Last Filed Vital Signs Vital Sign Reading Time Taken Comments Blood Pressure 89/60 09/07/2024 10:35 AM TELEPHONE SERVICE ADVISER Pulse 88 09/07/2024 10:35 AM TELEPHONE SERVICE ADVISER Temperature 36.5 C (97.7 F) 09/07/2024 10:35 AM TELEPHONE SERVICE ADVISER Respiratory Rate 16 09/07/2024 10:35 AM TELEPHONE SERVICE ADVISER Oxygen Saturation 98% 09/07/2024 10:35 AM TELEPHONE SERVICE ADVISER Inhaled Oxygen Concentration - - Weight 76.7 kg (169 lb) 09/07/2024 10:35 AM TELEPHONE SERVICE ADVISER Height 170.2 cm (5' 7 ) 09/07/2024 10:35 AM TELEPHONE SERVICE ADVISER Body Mass Index 26.47 09/07/2024 10:35 AM TELEPHONE SERVICE ADVISER Plan of Treatment Health Maintenance Due Date [...] 08/04/2022, 01/22/2022, Additional history exists PHQ-2 (Physician [place]) 10/20/2024 09/07/2024 Zoster Vaccines Completed 04/30/2021, 02/21/2021 [...] Briscoe, RN Medical Devices Implanted Type Area Rope Laying Machine Operator Device Identifier Shelf Expiration Date Model / Serial / Lot Stimulator Lead Implant(2 Leads)-11/30/19 16 Implanted:Qty: 2 on 11/30/2015 Lead Implant Spine Thoracic [employer] [id number] / / Stimulator Implant- 024 Implanted:Qty: 1 on 04/16/2024 Stimulator Implant Back [employer] [id number] / [id number] / Description:MR CONDITIONAL A T 1.5 T ONLY, NEED REMOTE TO TURN OFF STIMULATION, SHOULD BE FULL BODY ELIGIBLE , NORMAL MODE NATALIIA , MAX 30 MINUTES TOTAL SCAN TIME IN 90 MINUTE WINDOW Insurance [facility] Advance Directives * Full Code (Latest Code Status on File) Date Activated Date Inactivated Comments 08/04/2024 1:00 AM 08/10/2024 2:07 PM Care Teams First Dyer Relationship Specialty Start Date End Date Osman Malcolm MD PCP - General FAMILY PRACTICE 05/09/22
--- OUTSIDE RECORDS SUMMARY | 2025-01-12 09:22 | XMS_ITS | Clinical Summary ---
Author Organization [facility] Address [address] [place] [id number] Phone Care Team Providers Care Asset Management Lead Name Role Phone Osman Malcolm MD Primary Care Provider [phone] Allergies No known active allergies Medications Medication [...] DAILY 08/14/2022 Active Lancets (OneTouch Delica Plus [id number]) misc USE TO CHECK GLUCOSE TWICE DAILY [...] Comments Blood Pressure 124/60 10/02/2022 11:11 AM OFFICE COPY SELECTOR Pulse 72 10/02/2022 11:11 AM OFFICE COPY SELECTOR Temperature 36.2 C (97.2 F) 10/02/2022 11:11 AM OFFICE COPY SELECTOR Respiratory Rate - - Oxygen Saturation - - Inhaled Oxygen Concentration - - Weight 97.5 kg (215 lb) 10/02/2022 11:11 AM OFFICE COPY SELECTOR Height 170.2 cm (5' 7 ) 10/02/2022 11:11 AM OFFICE COPY SELECTOR Body Mass Index 33.67 10/02/2022 11:11 AM OFFICE COPY SELECTOR Plan of Treatment Health Maintenance Due Date Last Done Comments Pneumococcal PPSV23/PCV13 65 + Years / High and Highest Risk (1 of 4 - PCV) 1960 Diabetic Foot Exam 1964 Ophthalmology Exam 1964 Influenza Vaccine (#1) 2024 08/03/2022, 2019 Care Teams Asset Management Lead Relationship Specialty Start Date End Date Osman Malcolm MD [address] [place] [address] PCP - General Family Medicine 08/28/22
--- OUTSIDE RECORDS SUMMARY | 2025-01-12 09:22 | XMS_ITS | Continuity of Care Document ---
Author Organization [facility] Address [address] [place] [address] Phone Care Team Providers Care Station Engineer Chief Name Role Phone Osman Malcolm MD Unavailable [...] Providers Copied on Encounter OFFICE/OUTPA TIENT VISIT, [facility], [address], [place], [place], [address], [place] tel:[phone] [facility] sleep apnea1 (chief complaint)br east1 (chief complaint) Obstructive sleep apnea hypopneaLump in the left breast 5 Gold Brewer. [address], [place], [place], [address] , [place]. tel:[phone] OFFICE/OUTPA TIENT VISIT, [facility], [address], [place], [place], [address], [place] tel:[phone] [facility] breast1 (chief complaint) Lump in the left breast 5 Gold Osman. [address], [place], [place], [address] , [place]. tel:[phone] OFFICE/OUTPA TIENT VISIT, [facility], [address], [place], [place], [address], [place] tel:[phone] [facility] back pain1 (chief complaint) Chronic pain syndrome 5 Malcolm Osman. [address], [place], [place], [address] , [place]. tel:[phone] OFFICE/OUTPA TIENT VISIT, [facility], [address], [place], [place], [address], [place] tel:[phone] [facility] mammo (chief complaint) Lump in the left breast 4 Malcolm Osman. [address], [place], [place], [address] , [place]. tel:[phone] OFFICE/OUTPA TIENT VISIT, [facility], [address], [place], [place], [address], [place] tel:[phone] [facility] infection1 (chief complaint)re nal (chief complaint)ba ck pain1 (chief complaint) Iron deficiency anemiaType 2 diabetes mellitus with diabetic mononeuropathySta ge III chronic renal diseaseCellulitis of abdominal wall 4 Gold Brewer. [address], [place], [place], [address] , [place]. tel:[phone] OFFICE/OUTPA TIENT VISIT, [facility], [address], [place], [place], [address], [place] tel:[phone] [facility] thyroid1 (chief complaint)HT N (chief complaint)go ut1 (chief complaint)ed ema1 (chief complaint) Encntr screen mammogram for malignant neoplasm of breastHypothyroid ismEssential (primary) hypertensionGoutE rafat 4 Gold Brewer. [address], [place], [place], [address] , [place]. tel:[phone] OFFICE/OUTPA TIENT VISIT, [facility], [address], [place], [place], [address], [place] tel:[phone] [facility] back pain1 (chief complaint) Chronic pain syndromeNeuropath y 4 Gold Osman. [address], [place], [place], [address] , [place]. tel:[phone] OFFICE/OUTPA TIENT VISIT, [facility], [address], [place], [place], [address], [place] tel:[phone] [facility] hypothyroidi sm1 (chief complaint)ir on (chief complaint)HL P (chief complaint)DM (chief complaint)GE RD1 (chief complaint) Mixed hyperlipidemiaHyp othyroidismIron deficiency anemiaType 2 diabetes mellitus with diabetic mononeuropathyGER D w/o esophagitis 4 Gold Brewer. [address], [place], [place], [address] , [place]. tel:[phone] OFFICE/OUTPA TIENT VISIT, [facility], [address], [place], [place], [address], [place] tel:[phone] [facility] PVD1 (chief complaint)HL P (chief complaint)HT N (chief complaint) Peripheral vascular disease, unspecifiedEssent ial (primary) hypertensionMixed hyperlipidemia 4 Gold Brewer. [address], [place], [place], [address] , [place]. tel:[phone] OFFICE/OUTPA TIENT VISIT, [facility], [address], [place], [address], [place] tel:[phone] [facility] GERD1 (chief complaint)PV D (chief complaint) Peripheral vascular disease, unspecifiedGERD w/o esophagitis 4 Gold Brewer. [address], [place], [place], [address] , [place]. tel:[phone] OFFICE/OUTPA TIENT VISIT, [facility], [address], [place], [address], [place] tel:[phone] [facility] thyroid1 (chief complaint)re nal (chief complaint)HL P (chief complaint)ir on deficiency1 (chief complaint)DM (chief complaint)go ut1 (chief complaint) HypothyroidismMix ed hyperlipidemiaGou tIron deficiency anemiaType 2 diabetes mellitus with diabetic mononeuropathy 3 Gold Brewer. [address], [place], [place], [address] , [place]. tel:[phone] PREV VISIT, EST, 65 & OVER [facility], [address], [place], [place], [address], [place] tel:[phone] [facility] physical (chief complaint) Encounter for general adult medical exam w abnormal findingsIron deficiency anemiaMixed hyperlipidemiaSta ge III chronic renal diseaseType 2 diabetes mellitus with diabetic mononeuropathyGou tHypothyroidism 3 Gold Brewer. [address], [place], [address] , [place]. tel:[phone] OFFICE/OUTPA TIENT VISIT, [facility], [address] [place], [address], [place] tel:[phone] [facility] renal disease1 (chief complaint)th yroid1 (chief complaint)DM (chief complaint)os teopenia1 (chief complaint)ir on defificnecy (chief complaint)we ight loss1 (chief complaint) HypothyroidismSta ge III chronic renal diseaseIron deficiency anemiaOth disrd of bone density and structure, unspecified siteAbnormal weight lossMixed hyperlipidemia Raoul- 3 Gold Eduardo [address], [place], [place], [address] , [place]. tel:[phone] OFFICE/OUTPA TIENT VISIT, [facility], [address] [place], [address], tel:[phone] [facility] DM (chief complaint)GE RD1 (chief complaint)HL P (chief complaint)th yroid1 (chief complaint) HypothyroidismTyp e 2 diabetes mellitus with diabetic mononeuropathyMix ed hyperlipidemiaGER D w/o esophagitis 3 Gold Eduardo [address], [place], [address] , [place]. tel:[phone] OFFICE/OUTPA TIENT VISIT, [facility], [address] [place], [address], [place] tel:[phone] [facility] foot pain1 (chief complaint) Pain in right footType 2 diabetes mellitus with diabetic mononeuropathy 3 Gold Eduardo [address], [place], [place], [address] , [place]. tel:[phone] OFFICE/OUTPA TIENT VISIT, [facility], [address] [place], [address], [place] tel:[phone] [facility] anemia1 (chief complaint)HL P (chief complaint)re nal1 (chief complaint)DM (chief complaint)th yroid1 (chief complaint)ra sh1 (chief complaint) Iron deficiency anemiaType 2 diabetes mellitus with diabetic mononeuropathyMix ed hyperlipidemiaHyp othyroidismStage III chronic renal diseaseTinea corporis 3 Gold Eduardo [address], [place], [place], [address] , [place]. tel:[phone] OFFICE/OUTPA TIENT VISIT, [facility], [address], [place], [address], [place] tel:[phone] [facility] DM (chief complaint)he maturia1 (chief complaint)ir on deficiency 1 (chief complaint)HL P (chief complaint)fa tty liver1 (chief complaint)th ryoid1 (chief complaint) Type 2 diabetes mellitus with diabetic nephropathyIron deficiency anemiaMixed hyperlipidemiaFat ty liverHypothyroidi smOther specified disorder of bone densityGERD w/o esophagitis 2 Gold Eduardo [address], [place], [place], [address] , [place]. tel:[phone] [facility], [address], [place], [place], [address], [place] tel:[phone] [facility] No Information 2 Gold Eduardo [address], [place], [address] , [place]. tel:[phone] OFFICE/OUTPA TIENT VISIT, [facility], [address], [place], [place], [address], [place] tel:[phone] [facility] back pain1 (chief complaint)an emia1 (chief complaint)DM (chief complaint) Chronic pain syndromeOther spondylosis, lumbar regionIron deficiency anemiaType 2 diabetes mellitus with diabetic mononeuropathy 2 Gold Eduardo [address], [place], [place], [address] , [place]. tel:[phone] PREV VISIT, EST, 65 & OVER [facility], [address], [place], [place], [address], tel:[phone] [facility] physical (chief complaint) Encounter for general adult medical exam w abnormal findingsHypothyro idismIron deficiency anemiaAsymptomati c microscopic hematuriaMixed hyperlipidemiaOth disrd of bone density and structure, unspecified siteSleep apneaGoutType 2 diabetes mellitus with diabetic mononeuropathyGER D w/o esophagitis 2 Gold Eduardo [address], [place], [place], [address] , [place]. tel:[phone] [facility], [address], [place], [place], [address], [place] tel:[phone] [facility] No Information 2 Gold Eduardo [address], [place], [place], [address] , [place]. tel:[phone] OFFICE/OUTPA TIENT VISIT, [facility], [address] [place], [address], [place] tel:[phone] [facility] DM (chief complaint)HL P (chief complaint)an emia1 (chief complaint)re nal1 (chief complaint)go ut1 (chief complaint) HematuriaRenal diseaseHyperlipid emiaType 2 diabetes mellitus with diabetic nephropathyHypoth yroidismAnemia 2 Gold Eduardo [address], [place], [place], [address] , [place]. tel:[phone] OFFICE/OUTPA TIENT VISIT, [facility], [address], [place], [address], [place] tel:[phone] [facility] DM (chief complaint)UT I1 (chief complaint)os teopenia1 (chief complaint)re nal (chief complaint)go ut1 (chief complaint) Urinary tract infectionHematuri aType 2 diabetes mellitus with diabetic nephropathyHyperk alemiaOth disrd of bone density and structure, unspecified siteRenal diseaseGout 1 Gold Eduardo [address], [place], [place], [address] , [place]. tel:[phone] OFFICE/OUTPA TIENT VISIT, [facility], [address] [place], [address], [place] tel:[phone] [facility] osteopenia1 (chief complaint)re nal (chief complaint)DM (chief complaint)Tati L (chief complaint)he maturia1 (chief complaint) Type 2 diabetes mellitus with diabetic nephropathyHyperk alemiaHematuriaOt her specified disorder of bone density Jun- 1 Gold Brewer. [address], [place], [place], [address] , [place]. tel:[phone] PREV VISIT, EST, 65 & OVER [facility], [address], [place], [address], [place] tel:[phone] [facility] physical (chief complaint) Encounter for general adult medical exam w abnormal findingsHypothyro idismGERD w/o esophagitisHyperl ipidemiaGoutType 2 diabetes mellitus w/ diabetic neuropathySleep apneaOth disrd of bone density and structure, unspecified siteAnemiaFatty liver 1 Gold Brewer. [address], [place], [place], [address] , [place]. tel:[phone] OFFICE/OUTPA TIENT VISIT, [facility], [address] [place], [address], [place] tel:[phone] [facility] DM (chief complaint)GE RD1 (chief complaint)go ut1 (chief complaint)HL P (chief complaint) Type 2 diabetes mellitus w/ diabetic neuropathyHypothy roidismHyperlipid emiaGERD w/o esophagitisGout 1 Gold Brewer. [address], [place], [place], [address] , [place]. tel:[phone] OFFICE/OUTPA TIENT VISIT, [facility], [address] [place], [address], [place] tel:[phone] [facility] knee pain1 (chief complaint)sl eep apnea1 (chief complaint)hy pothyroidism 1 (chief complaint)ed ema1 (chief complaint)DM (chief complaint)HL P (chief complaint) Osteoarthritis of knee, unspecifiedSleep apneaType 2 diabetes mellitus without complicationsEdem aHypothyroidismHy perlipidemia 0 Malcolm Osman. [address], [place], [place], [address] , [place]. tel:[phone] OFFICE/OUTPA TIENT VISIT, [facility], [address], [place], [place], [address], [place] tel:[phone] [facility] LFT (chief complaint)re nal (chief complaint)go ut1 (chief complaint)GE RD1 (chief complaint) Fatty liverRenal diseaseGoutType 2 diabetes mellitus without complicationsGERD w/o esophagitisPolyp of colon 0 Malcolm Osman. [address], [place], [address] , [place]. [phone] OFFICE/OUTPA TIENT VISIT, [facility], [address], [place], [place], [address], [place] tel:[phone] [facility] knee pain1 (chief complaint) Pain in left kneeOsteoarthriti s of knee, unspecified 0 Malcolm Osman. [address], [place], [place], [address] , [place]. tel:[phone] PREV VISIT, EST, 65 & OVER [facility], [address], [place], [place], [address], [place] tel:[phone] [facility] PHysical (chief complaint) Encounter for general adult medical exam w abnormal findingsGoutType 2 diabetes mellitus without complicationsGERD w/o esophagitisFatty liverHypothyroidi sm 0 Malcolm Osman. [address], [place], [place], [address] , [place]. tel:[phone] OFFICE/OUTPA TIENT VISIT, [facility], [address], [place], [place], [address], [place] tel:[phone] [facility] knee pain1 (chief complaint)he maturia1 (chief complaint)pa ncreatitis1 (chief complaint)GE RD1 (chief complaint)DM (chief complaint) Chronic pancreatitisHemat uriaGERD w/o esophagitisType 2 diabetes mellitus without complicationsAnem ia 0 Gold Brewer. [address], [place], [place], [address] , [place]. tel:[phone] OFFICE/OUTPA TIENT VISIT, [facility], [address], [place], [address], [place] tel:[phone] [facility] anemia1 (chief complaint)UT I1 (chief complaint)kn ee pain1 (chief complaint)go ut1 (chief complaint) HematuriaAnemiaOs teoarthritis of knee, unspecifiedGout 0 Gold Brewer. [address], [place], [place], [address] , [place]. tel:[phone] Referring Provider: Brittany Moreno [address], [place], [place], [address]. tel:[phone] OFFICE/OUTPA TIENT VISIT, [facility], [address], [place], [address], [place] tel:[phone] [facility] fatty liver1 (chief complaint)th yroid (chief complaint)si ck1 (chief complaint) HypothyroidismFat ty liverUrinary frequencyPain in unspecified lower legVaricose veins of unspecified lower extremity with painSleep apnea 9 Gold Brewer. [address], [place], [address] , [place]. tel:[phone] Referring Provider: Brittany Moreno [address], [place], [place], [address]. tel:[phone] OFFICE/OUTPA TIENT VISIT, [facility], [address], [place], [address], [place] tel:[phone] [facility] LFT (chief complaint)DM (chief complaint)UT I1 (chief complaint)hy opthyroidism 1 (chief complaint)ba ck pain1 (chief complaint)ed ema1 (chief complaint) HypothyroidismUri nary tract infectionType 2 diabetes mellitus w/ diabetic neuropathyLiver diseaseOth disrd of bone density and structure, unspecified siteEdemaHyperlip idemiaMotion sickness, initial encounter 9 Gold Brewer. [address], [place], [place], [address] , [place]. [phone] Referring Provider: Brittany Moreno [facility] [address], [place], [place], [address]. tel:[phone] OFFICE/OUTPA TIENT VISIT, EST [facility], [address] [place], [address], tel:[phone] [facility] DM (chief complaint)UT I1 (chief complaint)HL P (chief complaint)ba ck pain1 (chief complaint) GoutHyperlipidemi aType 2 diabetes mellitus w/ diabetic neuropathyUrinary tract infectionLiver diseaseEdema 9 Gold Eduardo [address] [facility] [address], [place], [place], [address] , [place]. tel:[phone] Referring Provider: Brittany Moreno [facility] [address], [place], [place], [address]. tel:[phone] PREV VISIT, NEW, AGE 40-64 [facility], [address] [place], [address], [place] tel:[phone] [facility] Physical (chief complaint) Encounter for general adult medical exam w abnormal findingsSleep apneaHyperlipidem iaGoutType 2 diabetes mellitus w/ diabetic neuropathy 9 Gold Eduardo [address], [place], [place], [address] , [place]. [phone] Referring Provider: Brittany Moreno, [place], [address]. tel:[phone] Family History Family Member Type Diagnosis Age At Onset Mother Problem (finding) Diabetes janine miller type 2 (Cause Of ) 82 Father Problem (finding) lung CA 67 Sister Problem (finding) breast CA 50 Brother Problem (finding) Alive and well Payers Payer name Insurance type Covered libertarian ID [facility]ija [id number] Social History Type Description Quantity Date Captured Comments Alcohol Use Details Caffeine Use Details Unknown Tobacco Use Status Ex-cigarette smoker 025 Smoking Status Former smoker Sex Female Vital Signs Date / Time: Height Weight BMI Pulse Rate Blood Pressure Temperature Respiratory Rate Body Surface Area Head Circumference BMI percentile Pulse Ox Inhaled Ox 12:10 PM 67.00 in 173.00 lbs 27.1 0 kg/m eter (2) 89 /min 130/80 mm[Hg] 97.4 F 16 /min Chief Complaint And Reason For Visit From encounter dated '12/21/2024 11:56'. sleep apnea1 (chief complaint). Description: pt has severe sleep apnea Pt uses cpap nightly. pt states that the machine is over 5 years and the motor error msg pop up recently and she thinks the machines is about to break down. Pt uses cpap machine nightly and she feels more energy and better rest during sleep and the next day breast1 (chief complaint). Description: pt had left breast biopsy with benign nodule recently Plan Of Treatment Date Type Action Status [...] Referral Referred To: Alexander George MD, [address] [place], [phone] Ordered: Referrals: Allopathic & Osteopathic Physicians : [...] nephropathy) ordered Referral Referred To: Genaro Escalante [id number] [facility]
[address], [place] [id number] Ordered: Referrals: Allopathic & Osteopathic Physicians : [...] unspecified) ordered Referral Referred To: Go Lazaro [address] [place] [address] DR CERVANTES B [address] [phone] Ordered: Referrals: Allopathic & Osteopathic Physicians : Orthopaedic Surgery. Go Lazaro. Evaluate and treat ordered Referral Ordered: CT ABDOMEN&PELVIS W/CONTRAST ordered Referral Ordered: US THYROID ordered Referral Ordered: US VENOUS DOPPLER ordered Referral Ordered: US EXAM, ABDOM, COMPLETE ordered History Of Present Illness Encounter Date Complaint History Of Prese nt Illness sleep apnea1 pt has severe sl eep apnea Pt uses cpap nightly. pt states that the machine is over 5 years and the motor error msg pop up recently and she thinks the machines is about to break down. Pt uses cpap machine nightly and she feels more energy and better rest during sleep and the next day breast1 pt had left kaylene st biopsy with benign nodule recently breast1 Pt has suspiciou s clusters left [...] neurostimulator removal. Pt wants ultram refilled . thyroid1 Pt has hypothyro idism. Pt takes 112 mcg synthroid and her TSH is ok Pt denies any dysphagia or neck pain HTN Pt has HTN, Pt t akemerita lisinopril and her bp is ok. Pt denies any chest pain or headache gout1 Pt denies any re current gout attacks. Pt is on allopurinol. her uric acid is ok edema1 Pt has LE edema. Pt takes lasix and she denies any edema back pain1 Pt has chronic l ow back pain with neuropathy Pt has neurostimulator in place but needs to be replaced .Pt needs medical clearance for above Pt is on baby asa daily Pt had MRi done of L spine which showed DDD in the past Pt denies any loss of bowel or bladder control or saddle area paresthesia. hypothyroidism1 Pt has hypothyro idism. Pt takes 125 mcg of synthroid and appears slightly over replaced. Pt denies any dysphagia or neck pain. Pt denies any chest pain or palpitation iron Pt has iron defi ciency anemia due to renal disease. Pt is s/p iron infusion recently by hematology. her iron is slightly high. She has mild stable anemia. Pt denies any blood loss . HLP Pt has HLP. Pt t akes lipitor and feno Pt denies any myalgia. her TG is borderline high DM Pt has DM with n ephropathy. pt sees endo and also nephrology. Pt is on metformin, amaryl, januvia and basaglar. her glucose is borderline high and her A1c is 6.3. GERD1 Pt has chronic G ERD. Pt has HH and gastritis. Pt doing ok with pepcid .Pt denies any abd pain, nausea, vomiting PVD1 Pt had PVD scree fred done [...] bp is stable PVD Pt had PVD maribel ibarra done by insurance which showed mild PVD both legs. Pt does have MD with neuropathy Pt denies any harish claudication Pt denies any cold extremity or toe discoloration GERD1 Pt has been havi ng GERD recently and her outsole splicer started her on pepcid 3 months ago which works well for her. Pt has been off omeprazole per nephrology due to potential renal damage from omeprazole. Pt does have HH and gastritis Pt denies any abd pain HLP Pt has HLP pt ta kes [...] to elevated a1c per pt by endo gout1 Pt has gout Pt t akes allopurinol .Pt denies any gout attacks thyroid1 Pt has hypothyro idism. Pt takes 125 mcg of synthroid Pt denies any dysphagia or neck pain renal Pt has chronic r enal disease .Pt sees nephrology and is stable Pt has normal UO physical Pt needs annual physical pt has [...] o f iron deficiency anemia Pt sees SUPERINTENDENT PIER and hematology Pt denies any vacuum cleaner repairer bleeding Pt denies any Gi bleeding Pt [...] bleeding or bruising. Pt denies any spreading iron deficiency 1 Pt has iron de ficiency anemia. Pt had 3 rounds of iron infusion but she is anemic again and she is planning for iron infusion .Pt denies any sob HLP Pt has HLP Pt ta kes feno and lipitor and her TG is high and her endo started her on vascepa. pt eats a lot of starchy food. Pt denies any myalgia fatty liver1 Pt has fatty helen er with borderline high LFT. Pt denies any abd pain or jaundice. Pt rarely drinks alcohol DM Pt has DM. P jeaneth es metformin, amaryl and januvia and she is seeing endo and she started on 24 hours insulin and her glucose is down to 150s per patient. Pt denies any polyuria, polydipsia. Pt has low renal and proteinuria as well. hematuria1 Pt has chronic h ematuria .Pt seen urology and had negative work up Pt denies any UTI symptoms. thryoid1 Pt has low thyro id Pt takes synthroid and is under replaced. Pt denies any dysphagia or neck pain back pain1 pt has chronic l ow [...] ok Pt denies any gout flare up DM Pt has DM. Pt ta ke metformin, amaryl and januvia. Her glucose is around 150s an her A1c improved pt denies any polyuria, polydipsia or hypoglycemia Pt has neuropathy and she takes lyrica and doing ok UTI1 Pt has UTI and h ematuria. Pt did notice some dysuria last week but no symptoms currently. Pt denies any flank pain or abd pain or fever, chill. Pt denies any abd pain or any urinary frequency or urgency osteopenia1 Pt has osteopeni a Pt takes calcium and D and she tarted fosamax 3 months ago pt denies any joint pain, jaw pain, bone pain or toothache Pt denies any worsening GERD renal Pt has borderlin e renal function, which is stable Pt denies any flank pain Pt has normal UO Pt has borderline high kcl, which is stable. 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 Her [employer] company Provider [employer] is sending me paper work to complete [...] years .Pt [facility] me [facility] who told her no [...] neuropathy Pt takes neurontin and doing ok. anemia1 Pt has very bord franky anemia .Pt denies any blood loss. pt denies any vaginal bleeding Pt has hematuria UTI1 Pt has recurrent UTi and hematuria. Pt had levaquin and macrobid but she still has UTI Pt denies any active UTi Pt denies any abd pain, flank pain Pt denies any fever pt notices some chill here and there knee pain1 Pt has severe bi lateral knee pain. Pt denies any knee injury ,Pt notices some swelling bilateral knee here and there Pt has severe arthritis on x ray recently Pt denies any redness or warmth. Pt has loose body left knee gout1 Pt takes allopur inol. pt denies any gout attack Pt needs refill fatty liver1 Pt has fatty helen er. [...] other complaints Instructions Date Instruction Additional Infor jovany Weight management Related to Hem aturia Special [...] low sodium diet. Relate d to Hyperlipidemia Special diet education Related t o Body mass index (BMI) 32.0-32.9, adult Increase physical activity Relat ed to Encounter for general adult medical exam w abnormal findings Weight management Related to Enc ounter for general adult medical exam w abnormal findings Assessments Type Assessment Date assessment Obstructive sleep apnea hypopnea assessment Lump in the left breast 025 Mental Status Date Cognitive Assessment Orientation - [place] ed to time, place, person, situation.
[2025-01-12 09:53] LABS: Creatinine Urine 70.8 mg/dL; Total Protein Urine Random 17 mg/dL; Ur Ttl Prot Creatinine Ratio 0.24 mg/mg (0-0.20)
[2025-01-12 10:02] LABS: Hematocrit 37.8 % (37.0-47.0); Hemoglobin 11.8 g/dL (12.0-15.0); Mean Corpuscular HGB Conc 31.2 g/dl (32-36); Mean Corpuscular Hemoglobin 31.6 pg (26-34); Mean Corpuscular Volume 101.3 fl (80-100); Mean Platelet Volume 10.2 fl (7.4-10.4); Platelet Count Result 270 k/mm3 (150-375); Red Blood Count 3.73 M/mm3 (4.2-5.4); Red Cell Distribution Width 13.2 % (11.5-14.5); White Blood Count 8.7 K/mm3 (4.5-10.0)
[2025-01-12 10:22] LABS: Albumin Level 4.7 g/dL (3.5-5.1); Anion Gap 10 mmol/L (4-12); Blood Urea Nitrogen 54 mg/dL (7-17); Calcium 12.4 mg/dL (8.4-10.2); Carbon Dioxide 27 mmol/L (22-30); Chloride 103 mmol/L (98-107); Estimated Glomerular Filt Rate 20; Glucose 120 mg/dL (65-110); Phosphorus 4.5 mg/dL (2.5-4.5); Potassium 5.6 mmol/L (3.4-5.0); Sodium 140 mmol/L (137-145); Uric Acid 5.3 mg/dL (2.5-7.5)
[2025-01-12 10:48] LABS: Parathyroid Intact < 14.5 pg/mL (14.5-75.2)
== END 2025-01-12 08:54 | disposition home or self-care (01) ==
PROVIDERS: PCP Emergency Medicine; Visit Provider Internal Medicine Nephrology
DX: N18.32 Chronic kidney disease, stage 3b (principal); N20.0 Calculus of kidney
CPT/HCPCS: 36415; 80069; 82570; 83970; 84156; 84550; 85027

== ENCOUNTER 2025-01-14 09:32 | Emergency (ER) | payer MEDICARE, SELFPAY ==
[2025-01-14] VITALS (25 sets, daily range): BP systolic 109–138; BP diastolic 61–98; PULSE 80–98; RESP 12–21; TEMP 36.4; O2SAT 98–100
--- NOTE | ~2025-01-14 | XR_ITS ---
CHEST RADIOGRAPH, PA AND LATERAL CLINICAL HISTORY: hypercalcemia, breast CA . COMPARISON: 06/09/2006 TECHNIQUE: PA and lateral views of the chest. FINDINGS Multiple calcified lymph nodes within the mediastinum, suggesting prior granulomatous disease. The remainder of the cardiomediastinal silhouette is otherwise unremarkable. The lungs are clear. Dorsal column stimulator device is noted. IMPRESSION: No focal infiltrate or effusion. Reviewed, dictated and finalized at location A.
--- NOTE | ~2025-01-14 | CT_ITS ---
EXAMINATION: CT abd pelvis lumbar wo con DATE: 01/14/2025 12:42 INDICATION: Lower abdominal pain and lower back pain TECHNIQUE: Computed tomography (CT) of the abdomen, pelvis and lumbar spine was performed without int ravenous contrast. Automated exposure control and iterative reconstruction technique were employed. T he dose-length product was 441.09 mGy-cm. COMPARISON: 04/10/2022 FINDINGS: Lung bases are clear. Heart size is normal. Atherosclerotic coronary artery calcification. No pericar dial or pleural effusion. Small sliding-type hiatal hernia. Cholecystectomy clips the gallbladder fos sa. Liver, spleen, bilateral adrenal glands and kidneys are normal. A few punctate dystrophic calcifi cation at the tail of pancreas consistent with sequela of chronic pancreatitis. There is mild colonic diverticulosis with a sigmoid predominance. There is no adjacent inflammatory change to suggest div erticulitis. Small bowel and appendix are normal. Small to moderate-sized fat-containing umbilical h ernia. Uterine fibroids with coarse calcifications. Bilateral adnexa are unremarkable. No free intrap eritoneal gas or fluid. No pathologically enlarged abdominal or pelvic lymphadenopathy. Spinal stimulator with power supply in the subcutaneous tissues posterior to the right posterior mary c spine with leads extending into the central canal by interspinous process approach at the level of T9-T10 with distal tips at the level of the superior margin of the [id number]-[id number] at T8. There been pr ior partial T8 and T9 laminectomies. Mild lumbar levocurvature. Sagittal alignment is normal. Vertebr al body heights are normal with bridging or nearly bridging osteophytes at multiple levels in the low er thoracic and upper lumbar spine consistent with diffuse idiopathic skeletal hyperostosis (DISH). M oderate disc height loss at L4-L5. Mild disc height loss at L3-L4. Disc bulges contributing to mild c entral canal stenosis at L2-L3 through L4-L5. Severe right-sided and moderate left-sided facet osteoa rthritis at L5-S1. Additional mild to moderate facet osteoarthritis throughout the more cephalad lumb ar and lower thoracic spine. There is mild neural foraminal stenosis on the left at T12-L1 and bilate rally at L1-L2 through L4-L5.. IMPRESSION: 1. No acute intra-abdominal/pelvic process. 2. Dystrophic calcifications at the tail of pancreas consistent with sequela of chronic pancreatitis 3. Small sliding-type hiatal hernia. 4. Fibroid uterus. 5. Small to moderate-sized fat-containing umbilical hernia. 6. Diverticulosis. 7. Mild to moderate lumbar spondylosis with partial T8 and T9 laminectomies and thoracic spinal stimu lator lead placement. Reviewed, dictated and finalized at location B. IMPRESSION: 1. No acute intra-abdominal/pelvic process. 2. Dystrophic calcifications at the tail of pancreas consistent with sequela of chronic pancreatitis 3. Small sliding-type hiatal hernia. 4. Fibroid uterus. 5. Small to moderate-sized fat-containing umbilical hernia. 6. Diverticulosis. 7. Mild to moderate lumbar spondylosis with partial T8 and T9 laminectomies and thoracic spinal stimulator lead placement.
--- OUTSIDE RECORDS SUMMARY | 2025-01-14 10:10 | XMS_ITS | Continuity of Care Document ---
Author Organization [facility] Address [address] [place] [address] [address] [place] [address] Phone Care Team Providers Care Nuclear Technologist Name Role Phone Elda Powers Unavailable Unavailable Procedures Procedure Date Eye Exam & Treatment Dilated Retinal Exam W Interpretation Se AREDS Formula Prescribed/Recommended May Eye Exam, New Patient Dilated Macular Exam Performed 07 Advance Directives Directive Yes / No Effective Date File Name No Information Encounters Encounter Description Practice Location Reason(s) For Visit Diagnoses Date Provider Providers Copied on Encounter Merged with [facility], [address], [place], [place], [address], tel:[phone] [facility] No Information 2[address] Priya Schroeder. [address] , [address], [place], [place], [facility], . tel:[phone] Referring Provider: Avery Ye, [address] [facility] [address], [place], [place], [facility]. tel:[phone] Merged with [facility], [address], [place], [place], [address], tel:[phone] [facility] No Information 0200 7 Priya Schroeder. [address] , [address], [place], [place], [facility], . tel:[phone] Referring Provider: Avery Ye, [address], [place], [place], [facility]. tel:[phone] Family History Family Member Type Diagnosis Age At Onset No Information Payers Payer name Insurance type Covered libertarian ID Authoriza tifrederick(s) Medicare [facility] [id number] Social History Type Description Quantity Date Captured [...]
--- OUTSIDE RECORDS SUMMARY | 2025-01-14 10:10 | XMS_ITS | Continuity of Care Document ---
Author Organization [facility] Address [address] [place] [address] [place] [address] Phone Care Team Providers Care Legal Assistant Name Role Phone Osman Malcolm MD Unavailable [...] Providers Copied on Encounter OFFICE/OUTPA TIENT VISIT, [facility], [address], [place], [place], [address], [place] tel:[phone] [facility] sleep apnea1 (chief complaint)br east1 (chief complaint) Obstructive sleep apnea hypopneaLump in the left breast 5 Gold Brewer. [address], [place], [place], [address] , [place]. tel:[phone] OFFICE/OUTPA TIENT VISIT, [facility], [address], [place], [place], [address], [place] tel:[phone] [facility] breast1 (chief complaint) Lump in the left breast 5 Gold Osman. [address], [address], [place], [place], [address] , [place]. tel:[phone] OFFICE/OUTPA TIENT VISIT, [facility], [address], [place], [place], [address], [place] tel:[phone] [facility] back pain1 (chief complaint) Chronic pain syndrome 5 Malcolm Osman. [address], [place], [place], [address] , [place]. tel:[phone] OFFICE/OUTPA TIENT VISIT, [facility], [address], [place], [place], [address], [place] tel:[phone] [facility] mammo (chief complaint) Lump in the left breast 4 Malcolm Osman. [address], [address], [place], [place], [address] , [place]. tel:[phone] OFFICE/OUTPA TIENT VISIT, [facility], [address], [place], [place], [address], [place] tel:[phone] [facility] infection1 (chief complaint)re nal (chief complaint)ba ck pain1 (chief complaint) Iron deficiency anemiaType 2 diabetes mellitus with diabetic mononeuropathySta ge III chronic renal diseaseCellulitis of abdominal wall 4 Gold Brewer. [address], [address], [place], [place], [address] , [place]. tel:[phone] OFFICE/OUTPA TIENT VISIT, [facility], [address], [place], [place], [address], [place] tel:[phone] [facility] thyroid1 (chief complaint)HT N (chief complaint)go ut1 (chief complaint)ed ema1 (chief complaint) Encntr screen mammogram for malignant neoplasm of breastHypothyroid ismEssential (primary) hypertensionGoutE rafat 4 Gold Brewer. [address], [address], [place], [place], [address] , [place]. tel:[phone] OFFICE/OUTPA TIENT VISIT, [facility], [address], [place], [place], [address], [place] tel:[phone] [facility] back pain1 (chief complaint) Chronic pain syndromeNeuropath y 4 Gold Osman. [address], [address], [place], [place], [address] , [place]. tel:[phone] OFFICE/OUTPA TIENT VISIT, [facility], [address], [place], [place], [address], [place] tel:[phone] [facility] hypothyroidi sm1 (chief complaint)ir on (chief complaint)HL P (chief complaint)DM (chief complaint)GE RD1 (chief complaint) Mixed hyperlipidemiaHyp othyroidismIron deficiency anemiaType 2 diabetes mellitus with diabetic mononeuropathyGER D w/o esophagitis 4 Gold Brewer. [address], [address], [place], [place], [address] , [place]. tel:[phone] OFFICE/OUTPA TIENT VISIT, [facility], [address], [place], [place], [address], [place] tel:[phone] [facility] PVD1 (chief complaint)HL P (chief complaint)HT N (chief complaint) Peripheral vascular disease, unspecifiedEssent ial (primary) hypertensionMixed hyperlipidemia 4 Gold Brewer. [address], [address], [place], [place], [address] , [place]. tel:[phone] OFFICE/OUTPA TIENT VISIT, [facility], [address], [place], [place], [address], [place] tel:[phone] [facility] GERD1 (chief complaint)PV D (chief complaint) Peripheral vascular disease, unspecifiedGERD w/o esophagitis 4 Gold Brewer. [address], [address], [place], [place], [address] , [place]. tel:[phone] OFFICE/OUTPA TIENT VISIT, [facility], [address], [place], [place], [address], [place] tel:[phone] [facility] thyroid1 (chief complaint)re nal (chief complaint)HL P (chief complaint)ir on deficiency1 (chief complaint)DM (chief complaint)go ut1 (chief complaint) HypothyroidismMix ed hyperlipidemiaGou tIron deficiency anemiaType 2 diabetes mellitus with diabetic mononeuropathy 3 Gold Brewer. [address], [address], [place], [place], [address] , [place]. tel:[phone] PREV VISIT, EST, 65 & OVER [facility], [address], [place], [place], [address], [place] tel:[phone] [facility] physical (chief complaint) Encounter for general adult medical exam w abnormal findingsIron deficiency anemiaMixed hyperlipidemiaSta ge III chronic renal diseaseType 2 diabetes mellitus with diabetic mononeuropathyGou tHypothyroidism 3 Gold Brewer. [address], [address], [place], [place], [address] , [place]. tel:[phone] OFFICE/OUTPA TIENT VISIT, [facility], [address] [place] [place], [address], [place] tel:[phone] [facility] renal disease1 (chief complaint)th yroid1 (chief complaint)DM (chief complaint)os teopenia1 (chief complaint)ir on defificnecy (chief complaint)we ight loss1 (chief complaint) HypothyroidismSta ge III chronic renal diseaseIron deficiency anemiaOth disrd of bone density and structure, unspecified siteAbnormal weight lossMixed hyperlipidemia Raoul- 3 Gold Eduardo [address], [address], [place], [place], [address] , [place]. tel:[phone] OFFICE/OUTPA TIENT VISIT, [facility], [address] [place], [address], tel:[phone] [facility] DM (chief complaint)GE RD1 (chief complaint)HL P (chief complaint)th yroid1 (chief complaint) HypothyroidismTyp e 2 diabetes mellitus with diabetic mononeuropathyMix ed hyperlipidemiaGER D w/o esophagitis 3 Gold Eduardo [address], [address], [place], [place], [address] , [place]. tel:[phone] OFFICE/OUTPA TIENT VISIT, [facility], [address] [place], [address], [place] tel:[phone] [facility] foot pain1 (chief complaint) Pain in right footType 2 diabetes mellitus with diabetic mononeuropathy 3 Gold Eduardo [address], [place], [place], [address] , [place]. tel:[phone] OFFICE/OUTPA TIENT VISIT, [facility], [address] [place], [address], [place] tel:[phone] [facility] anemia1 (chief complaint)HL P (chief complaint)re nal1 (chief complaint)DM (chief complaint)th yroid1 (chief complaint)ra sh1 (chief complaint) Iron deficiency anemiaType 2 diabetes mellitus with diabetic mononeuropathyMix ed hyperlipidemiaHyp othyroidismStage III chronic renal diseaseTinea corporis 3 Gold Eduardo [address], [address], [place], [place], [address] , [place]. tel:[phone] OFFICE/OUTPA TIENT VISIT, [facility], [address], [place], [place], [address], [place] tel:[phone] [facility] DM (chief complaint)he maturia1 (chief complaint)ir on deficiency 1 (chief complaint)HL P (chief complaint)fa tty liver1 (chief complaint)th ryoid1 (chief complaint) Type 2 diabetes mellitus with diabetic nephropathyIron deficiency anemiaMixed hyperlipidemiaFat ty liverHypothyroidi smOther specified disorder of bone densityGERD w/o esophagitis 2 Gold Eduardo [address], [address], [place], [place], [address] , [place]. tel:[phone] [facility], [address], [place], [place], [address], [place] tel:[phone] [facility] No Information 2 Gold Eduardo [address], [address], [place], [place], [address] , [place]. tel:[phone] OFFICE/OUTPA TIENT VISIT, [facility], [address], [place], [place], [address], [place] tel:[phone] [facility] back pain1 (chief complaint)an emia1 (chief complaint)DM (chief complaint) Chronic pain syndromeOther spondylosis, lumbar regionIron deficiency anemiaType 2 diabetes mellitus with diabetic mononeuropathy 2 Gold Eduardo [address], [place], [place], [address] , [place]. tel:[phone] PREV VISIT, EST, 65 & OVER [facility], [address], [place], [place], [address], tel:[phone] [facility] physical (chief complaint) Encounter for general adult medical exam w abnormal findingsHypothyro idismIron deficiency anemiaAsymptomati c microscopic hematuriaMixed hyperlipidemiaOth disrd of bone density and structure, unspecified siteSleep apneaGoutType 2 diabetes mellitus with diabetic mononeuropathyGER D w/o esophagitis 2 Gold Eduardo [address], [place], [place], [address] , [place]. tel:[phone] [facility], [address], [place], [place], [address], [place] tel:[phone] [facility] No Information 2 Gold Eduardo [address], [place], [place], [address] , [place]. tel:[phone] OFFICE/OUTPA TIENT VISIT, [facility], [address] [place], [address], [place] tel:[phone] [facility] DM (chief complaint)HL P (chief complaint)an emia1 (chief complaint)re nal1 (chief complaint)go ut1 (chief complaint) HematuriaRenal diseaseHyperlipid emiaType 2 diabetes mellitus with diabetic nephropathyHypoth yroidismAnemia 2 Gold Eduardo [address], [place], [place], [address] , [place]. tel:[phone] OFFICE/OUTPA TIENT VISIT, [facility], [address], [place], [place], [address], [place] tel:[phone] [facility] DM (chief complaint)UT I1 (chief complaint)os teopenia1 (chief complaint)re nal (chief complaint)go ut1 (chief complaint) Urinary tract infectionHematuri aType 2 diabetes mellitus with diabetic nephropathyHyperk alemiaOth disrd of bone density and structure, unspecified siteRenal diseaseGout 1 Gold Eduardo [address], [place], [place], [address] , [place]. tel:[phone] OFFICE/OUTPA TIENT VISIT, [facility], [address] [place], [address], [place] tel:[phone] [facility] osteopenia1 (chief complaint)re nal (chief complaint)DM (chief complaint)Tati L (chief complaint)he maturia1 (chief complaint) Type 2 diabetes mellitus with diabetic nephropathyHyperk alemiaHematuriaOt her specified disorder of bone density Jun- 1 Gold Brewer. [address], [place], [place], [address] , [place]. tel:[phone] PREV VISIT, EST, 65 & OVER [facility], [address], [place], [place], [address], [place] tel:[phone] [facility] physical (chief complaint) Encounter for general adult medical exam w abnormal findingsHypothyro idismGERD w/o esophagitisHyperl ipidemiaGoutType 2 diabetes mellitus w/ diabetic neuropathySleep apneaOth disrd of bone density and structure, unspecified siteAnemiaFatty liver 1 Gold Brewer. [address], [address], [place], [place], [address] , [place]. tel:[phone] OFFICE/OUTPA TIENT VISIT, [facility], [address] [place], [address], [place] tel:[phone] [facility] DM (chief complaint)GE RD1 (chief complaint)go ut1 (chief complaint)HL P (chief complaint) Type 2 diabetes mellitus w/ diabetic neuropathyHypothy roidismHyperlipid emiaGERD w/o esophagitisGout 1 Gold Brewer. [address], [address], [place], [place], [address] , [place]. tel:[phone] OFFICE/OUTPA TIENT VISIT, [facility], [address] [place], [address], [place] tel:[phone] [facility] knee pain1 (chief complaint)sl eep apnea1 (chief complaint)hy pothyroidism 1 (chief complaint)ed ema1 (chief complaint)DM (chief complaint)HL P (chief complaint) Osteoarthritis of knee, unspecifiedSleep apneaType 2 diabetes mellitus without complicationsEdem aHypothyroidismHy perlipidemia 0 Malcolm Osman. [address], [address], [place], [place], [address] , [place]. tel:[phone] OFFICE/OUTPA TIENT VISIT, [facility], [address], [place], [place], [address], [place] tel:[phone] [facility] LFT (chief complaint)re nal (chief complaint)go ut1 (chief complaint)GE RD1 (chief complaint) Fatty liverRenal diseaseGoutType 2 diabetes mellitus without complicationsGERD w/o esophagitisPolyp of colon 0 Malcolm Osman. [address], [address], [place], [place], [address] , [place]. [phone] OFFICE/OUTPA TIENT VISIT, [facility], [address], [place], [place], [address], [place] tel:[phone] [facility] knee pain1 (chief complaint) Pain in left kneeOsteoarthriti s of knee, unspecified 0 Malcolm Osman. [address], [address], [place], [place], [address] , [place]. tel:[phone] PREV VISIT, EST, 65 & OVER [facility], [address], [place], [place], [address], [place] tel:[phone] [facility] PHysical (chief complaint) Encounter for general adult medical exam w abnormal findingsGoutType 2 diabetes mellitus without complicationsGERD w/o esophagitisFatty liverHypothyroidi sm 0 Malcolm Osman. [address], [address], [place], [place], [address] , [place]. tel:[phone] OFFICE/OUTPA TIENT VISIT, [facility], [address], [place], [place], [address], [place] tel:[phone] [facility] knee pain1 (chief complaint)he maturia1 (chief complaint)pa ncreatitis1 (chief complaint)GE RD1 (chief complaint)DM (chief complaint) Chronic pancreatitisHemat uriaGERD w/o esophagitisType 2 diabetes mellitus without complicationsAnem ia 0 Gold Brewer. [address], [address], [place], [place], [address] , [place]. tel:[phone] OFFICE/OUTPA TIENT VISIT, [facility], [address], [place], [place], [address], [place] tel:[phone] [facility] anemia1 (chief complaint)UT I1 (chief complaint)kn ee pain1 (chief complaint)go ut1 (chief complaint) HematuriaAnemiaOs teoarthritis of knee, unspecifiedGout 0 Gold Brewer. [address], [address], [place], [place], [address] , [place]. tel:[phone] Referring Provider: Brittany [address], [place], [place], [address]. tel:[phone] OFFICE/OUTPA TIENT VISIT, [facility], [address], [place], [place], [address], [place] tel:[phone] [facility] fatty liver1 (chief complaint)th yroid (chief complaint)si ck1 (chief complaint) HypothyroidismFat ty liverUrinary frequencyPain in unspecified lower legVaricose veins of unspecified lower extremity with painSleep apnea 9 Gold Brewer. [address], [place], [place], [address] , [place]. tel:[phone] Referring Provider: Brittany Moreno [address], [place], [place], [address]. tel:[phone] OFFICE/OUTPA TIENT VISIT, [facility], [address], [place], [place], [address], [place] tel:[phone] [facility] LFT (chief complaint)DM (chief complaint)UT I1 (chief complaint)hy opthyroidism 1 (chief complaint)ba ck pain1 (chief complaint)ed ema1 (chief complaint) HypothyroidismUri nary tract infectionType 2 diabetes mellitus w/ diabetic neuropathyLiver diseaseOth disrd of bone density and structure, unspecified siteEdemaHyperlip idemiaMotion sickness, initial encounter 9 Gold Brewer. [address], [place], [place], [address] , [place]. [phone] Referring Provider: Brittany Moreno [facility] [address], [place], [place], [address]. tel:[phone] OFFICE/OUTPA TIENT VISIT, EST [facility], [address] [place], [address], tel:[phone] [facility] DM (chief complaint)UT I1 (chief complaint)HL P (chief complaint)ba ck pain1 (chief complaint) GoutHyperlipidemi aType 2 diabetes mellitus w/ diabetic neuropathyUrinary tract infectionLiver diseaseEdema 9 Gold Eduardo [address] [facility] [address], [place], [place], [address] , [place]. tel:[phone] Referring Provider: Brittany Moreno [facility] [address], [place], [place], [address]. tel:[phone] PREV VISIT, NEW, AGE 40-64 [facility], [address] [place], [address], [place] tel:[phone] [facility] Physical (chief complaint) Encounter for general adult medical exam w abnormal findingsSleep apneaHyperlipidem iaGoutType 2 diabetes mellitus w/ diabetic neuropathy 9 Gold Eduardo [address], [place], [place], [address] , [place]. [phone] Referring Provider: Brittany Moreno, [place], [place], [address]. tel:[phone] Family History Family Member Type Diagnosis Age At Onset Mother Problem (finding) Diabetes janine miller type 2 (Cause Of ) 82 Father Problem (finding) lung CA 67 Sister Problem (finding) breast CA 50 Brother Problem (finding) Alive and well Payers Payer name Insurance type Covered alliance party ID Daija baut[id number] Social History Type Description Quantity Date Captured [...] Status Goal Tobacco cessation counseling completed Goal Tobacco [...] Referral Referred To: Alexander George MD, [address] [place], [place], [id number] Ordered: Referrals: Allopathic & Osteopathic Physicians : [...] nephropathy) ordered Referral Referred To: Genaro Escalante [address] [facility] [address], [place] [id number] Ordered: Referrals: Allopathic & Osteopathic Physicians : [...] unspecified) ordered Referral Referred To: Go Lazaro [address] [place] [address] [address] CERVANTES B [address] [phone] Ordered: Referrals: Allopathic & Osteopathic Physicians : [...] been havi ng GERD recently and her executive account manager started her on pepcid 3 months ago [...] o f iron deficiency anemia Pt sees ELECTROENCEPHALOGRAPHIC TECHNICIAN and hematology Pt denies any restaurant associate bleeding Pt denies any Gi bleeding Pt [...] pain or palpitation hematuria1 Pt has mild vey turia. Pt denies any urinary symptoms Pt [...] any myalgia sleep apnea1 Pt has sleep hand spring former ea Pt needs a new machine. Her [employer] company Provider [employer] is sending me paper work to complete [...] years .Pt told me [facility] who told her no records of [...] 32.0-32.9, adult Assessments Type Assessment Date assessment Obstructive sleep apnea hypopnea assessment Lump in the left breast 025 Mental Status Date Cognitive Assessment Orientation - [place] ed to time, place, person, situation.
--- OUTSIDE RECORDS SUMMARY | 2025-01-14 10:10 | XMS_ITS | Encounter Summary ---
Author Organization [facility] Healthcare Address [address] [place] [id number] Care Team Providers Care Loading Unit Tool Setter Name Role Phone Rey Hinton Unavailable [phone] Reina Jimenes Unavailable [phone] Osman Malcolm MD Primary Care Provider [phone] Encounter Details Date Type Department Care Team (Late st Contact Info) Description 01/13/2025 Orders Only [facility] Diabetes and Endocrinology Formerly named [facility] [place] [address] Provider, MD Marcello [address] [place], [place] [id number] Social History Tobacco Use Types Packs/Day Years Used Date Smoking Tobacco: Former Smokeless Tobacco: Never Alcohol Use Standard Drinks/Week Comments Yes 0 [...] on file 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 Gender Identity Not on file Sexual Orientation Not on file documented as of this encounter Plan of Treatment Not on file documented as of this encounter Procedures Procedure Name Priority Date/Time Associated Diagnosis Comments EGFR Routine 01/12/2025 9:14 AM CDT HM CREATININE Routine 01/12/2025 9:14 AM CDT PARATHYROID HORMONE-INTACT Routine 01/12/2025 9:14 AM CDT documented in this encounter Results * (ABNORMAL) Parathyroid Hormone-Intact (01/12/2025 9:14 AM CDT) 01/12/2025 9:14 AM CDT Impressions EXTERNAL LAB - 01/12/2025 9:58 AM CDT Result: <14.5 (14.5-75.2) us Historical Provider LAB BLOOD ORDERABLES Edit ed Result - Final EXTERNAL LAB * (ABNORMAL) EGFR (01/12/2025 9:14 AM CDT) SCRIBED eGFR in NonAfric Colombian 20 >=60 - NA EXTERNAL LAB 01/12/2025 9:14 AM CDT us Historical Provider HEALTH MAINTENANCE Edited Result - Final EXTERNAL LAB * (ABNORMAL) HM CREATININE (01/12/2025 9:14 AM CDT) SCRIBED Creatinine 2.14(A) 0.7 - 1.0 mg/dl EXTERNAL LAB SCRIBED eGFR in NonAfrican Colombian 20 >=60 - NA EXTERNAL LAB Blood 01/12/2025 9:14 AM CDT us Historical Provider HEALTH MAINTENANCE Edited Result - Final EXTERNAL LAB documented in this encounter Visit Diagnoses Not on filedocumented in this encounter Care Teams Loading Unit Tool Setter Relationship Specialty Start Date End Date Osman Malcolm MD [address] [place] [address] PCP - General Family Medicine 09/18/22 Rey Hinton PA [address] [place] [address] Physician Manufacturing Supervisor Orthopedic Surgery 05/03/20 Reina Jimenes PA [address] [place] [address] Physician Manufacturing Supervisor Orthopedic Surgery 09/06/20 documented as of this encounter
--- OUTSIDE RECORDS SUMMARY | 2025-01-14 10:10 | XMS_ITS | Clinical Summary ---
Author Organization [facility] Address [address] [place] [address] Care Team Providers Care Pharmaceutical Sales Representative Name Role Phone Osamn Malcolm MD Primary Care Provider [phone] Allergies No known active allergies Medications LASIX [...] 0.6 oz pur e alcohol) [facility] Utilities Answer Date Recorded In the past 12 months has [facility] [employer], oil, or water [employer] threatened to shut off services in your [...] any time in the past 12 m [facility], were you homeless or living in a residential (including now)? No 08/04/2024 Comments No Sex and Gender Information Value Date Recorded Sex Assigned at Not on file Legal Sex Female 12:57 PM CDT Gender Identity Not on file Sexual Orientation Not on file Last Filed Vital Signs Vital Sign Reading Time Taken Comments Blood Pressure 89/60 09/07/2024 10:35 AM FORMING ROLL OPERATOR Pulse 88 09/07/2024 10:35 AM FORMING ROLL OPERATOR Temperature 36.5 C (97.7 F) 09/07/2024 10:35 AM FORMING ROLL OPERATOR Respiratory Rate 16 09/07/2024 10:35 AM FORMING ROLL OPERATOR Oxygen Saturation 98% 09/07/2024 10:35 AM FORMING ROLL OPERATOR Inhaled Oxygen Concentration - - Weight 76.7 kg (169 lb) 09/07/2024 10:35 AM FORMING ROLL OPERATOR Height 170.2 cm (5' 7 ) 09/07/2024 10:35 AM FORMING ROLL OPERATOR Body Mass Index 26.47 09/07/2024 10:35 AM FORMING ROLL OPERATOR Plan of Treatment Health Maintenance Due Date [...] 08/04/2022, 01/22/2022, Additional history exists PHQ-2 (Physician Sun'Aq) 10/20/2024 09/07/2024 Zoster Vaccines Completed 04/30/2021, 02/21/2021 [...] Briscoe, RN Medical Devices Implanted Type Area Delivery Person Device Identifier Shelf Expiration Date Model / Serial / Lot Stimulator Lead Implant(2 Leads)-11/30/19 16 Implanted:Qty: 2 on 11/30/2015 Lead Implant Spine Thoracic [employer] [id number] / / Stimulator Implant- 024 Implanted:Qty: 1 on 04/16/2024 Stimulator Implant Back [employer] [id number] / [id number] / Description:MR CONDITIONAL A T 1.5 T ONLY, NEED REMOTE TO TURN OFF STIMULATION, SHOULD BE FULL BODY ELIGIBLE , NORMAL MODE NATALIIA , MAX 30 MINUTES TOTAL SCAN TIME IN 90 MINUTE WINDOW Insurance [facility] Advance Directives * Full Code (Latest Code Status on File) Date Activated Date Inactivated Comments 08/04/2024 1:00 AM 08/10/2024 2:07 PM Care Teams Pharmaceutical Sales Representative Relationship Specialty Start Date End Date Osman Malcolm MD PCP - General FAMILY PRACTICE 05/09/22
--- OUTSIDE RECORDS SUMMARY | 2025-01-14 10:10 | XMS_ITS | Referral Summary ---
Author Organization [facility] Medical Office Building B Address [address] [place] [address] Care Team Providers Care Cardroom Worker Name Role Phone Bettinachristin Rey Milagros PA Unavailable [phone] Jalil Reina Reid PA Unavailable [phone] Osman Malcolm MD Primary Care Provider [phone] Encounters Date Type Department Care Team Description 01/13/2025 Orders Only [facility] Medical Group Diabetes and Endocrinology [address] [place] [phone] ProviderMarcello MD 01/12/2025 Telephone [facility] Medical [facility] Diabetes and Endocrinology [address] [place] [phone] Sisi Guevara, CROWN POUNCER Med Management 12/27/2024 5:11 AM CDT - 12/29/2024 3:52 PM CDT Hospital Encounter [facility] [address] [place] [phone] Vivi Johansen MD Discharge Disposition: Discharge to home or self care 12/27/2024 7:30 AM CDT - 12/27/2024 10:30 AM CDT Surgery [facility] Operating Room [address] [place] [phone] Vivi Johansen MD T10 Laminotomy for Placement of Spinal Cord Stimulator 12/27/2024 7:33 AM CDT Anesthesia Event [facility] Operating Room [address] [place] [phone] Carson Yee MD [place], Justin Kyle, CRNA 11/05/2024 11:59 PM CHIP MUCKER Anesthesia Event [facility] Operating Room [facility] [place] [address] Dinora Matthew NP 11/08/2024 11:45 AM CHIP MUCKER Pre-Admission Testing [facility] Pre Anesthesia Testing [address] [place] [phone] Preoperative evaluation to rule out surgical contraindication (Primary Dx); Other specified pre-operative examination; superintendent terminal current use of anticoagulant 11/04/2024 Telephone [facility] Pre Anesthesia Testing [address] [place] [phone] Khushi Gresham 11/03/2024 Orders Only [facility] Medical Group Diabetes and Endocrinology [address] [place] [phone] ProviderMarcello MD 10/26/2024 Telephone [facility] Medical [facility] Diabetes and Endocrinology [address] [place] [phone] Sisi Guevara NP Med Management (Huyen Cares - Basaglar) 10/26/2024 11:30 AM CHIP MUCKER Office Visit [facility] Medical Group Diabetes and Endocrinology [address] [place] [phone] Sisi Guevara NP Type 2 diabetes mellitus with hyperglycemia, with long-term current use of insulin (HCC) (Primary Dx); CKD stage 4 due to type 2 diabetes mellitus (HCC); Hyperlipidemia associated with type 2 diabetes mellitus (HCC); Diabetic neuropathy associated with type 2 diabetes mellitus (HCC) 10/19/[address] [facility] [address], [place] [address] Sisi Guevara NP Med Refill from [...] hyperglycemia, with long-term current use of insulin ([facility]) Continuous glucose monitoring. Change every 10 days. 9 each 3 3 Active blood-glucose meter,continuo us (Dexcom G7 Employment Case Manager) miscIndication s:Type 2 diabetes mellitus with hyperglycemia, with long-term current use of insulin ([facility]) Continuous glucose monitor 1 each 3 Active [...] 1 tablet (112 mcg total) by mouth plate drying machine tender before breakfast 4 Active pen needle, diabetic 32 gauge x 5/32 needleIndicati ons:Type 2 diabetes mellitus with hyperglycemia, [...] 06/20 Assessment & Plan (10/26/2024 12:09 PM CHIP MUCKER): Chronic problem. Managed by Dr Marr at [place]. Next appt 12/29/24 Nephropathy: On GWEN-I / ARB s : Yes. Lisinopril 5mg. Last MA: 12/25/23 (36 calc). Last creat/GFR: 03/31/24 GFR=27, CR=1.96. Assessment & Plan (06/29/2024 11:48 AM CDT): Chronic problem. Managed by Dr Marr at [facility]. Next appt 06/30/24. Nephropathy: On GWEN-I / ARB s : Yes. Lisinopril 5mg. Last MA: 12/25/23 (36 calc). Last creat/GFR: 03/31/24 GFR=27, CR=1.96. Diabetic neuropathy associat ed with type 2 diabetes mellitus 01/30/2023 Assessment & Plan (10/26/2024 11:56 AM CHIP MUCKER): Chronic problem. Gabapentin Gabapentin 300-600mg at HS. [...] barefoot. Assessment & Plan (12/25/2023 10:41 AM CHIP MUCKER): Foot care discussed Continue gabapentin Assessment & [...] 10/31/2022 Assessment & Plan (10/31/2022 12:56 PM CHIP MUCKER): Encouraged Mrs Trujillo to walk in home if weather not conducive to walking outside. Discussed healthy diet and importance of regular physical activity (20- 30min/day, 150min/wk). Hyperlipidemia associated with type 2 diabetes latanya brown 07/25/2022 Assessment & Plan (10/26/2024 11:30 AM CHIP MUCKER): Chronic problem, at goal on Atorvastatin 10mg & fenofibrate 160mg daily Last lipid panel: 12/25/23 LDL=98, NF=155. Assessment & Plan (06/29/2024 11:46 AM CDT): Chronic problem, at goal on Atorvastatin 10mg & fenofibrate 160mg daily Last lipid panel: 12/25/23 LDL=98, HW=488. Assessment & Plan (12/25/2023 10:41 AM CHIP MUCKER): Chronic, stable Continue Atorvastatin 10 mg daily UDT lipid profile Assessment & Plan (05/08/2023 11:12 AM CDT): Chronic problem, at goal on Atorvastatin 10mg & fenofibrate 160mg daily Last lipid panel: 07/25/22 LDL=74, JN=069. No changes at this time. Assessment & Plan (01/30/2023 11:08 AM CDT): Chronic problem, at goal on Atorvastatin 10mg. Last lipid panel: 07/25/22 LDL=74, ZI=382. No changes at this time. Assessment & Plan (10/31/2022 8:59 AM CHIP MUCKER): Chronic problem, near goal. LDL=74 07/2022. Atorvastatin 10mg daily. No changes at this time. Assessment & Plan (07/25/2022 12:50 PM CDT): Continue atorvastastin Check lipid profile LDL goal under 70 Type 2 diabetes mellitus wit h hyperglycemia, with long-term current use of insulin 05/28/2022 Assessment & Plan (10/26/2024 11:56 AM CHIP MUCKER): Chronic problem, stable/controlled. A1c stable at 5.8%. Current medications: Metformin XR 500mg twice daily before meals Januvia 100 mg daily (PAP) Basaglar 14 units every evening (PAP) Cannot trial GLP1a d/t h/o pancreatitis UTD on labs DM eye exam (2023 at [facility]). 2nd request letter sent. Strive for regular [...] infection. Assessment & Plan (12/25/2023 10:40 AM CHIP MUCKER): Chronic, stable Contiue current regimen including Basaglar, Glimepiride 1 mg daily, Metformin 500 mg bid and Januvia Diet and exercise were discussed Assessment & Plan (09/09/2023 11:37 AM CHIP MUCKER): Hba1c was Lab Results Component Value Date [...] 7.8% Phone not compatible with dexcom nor [employer] haseeb. Sent in Dexcom 7 & reader. [...] evening Had DM eye exam 01/2023 at [facility] in [place]. Letter sent to get copy of results. [...] infection. Assessment & Plan (10/31/2022 12:55 PM CHIP MUCKER): Chronic problem, at goal. No changes. Continue [...] (04/20/2020): Added automatically from request for surgery [id number] Immunizations Immunization Administration Dates Next Due Influenza, [...] on file Legal Sex Female 6:42 PM CHIP MUCKER Gender Identity Not on file Sexual Orientation [...] on file Medical Devices Implanted Type Area Candy Separator Hard Device Identifier Shelf Expiration Date Model / Serial / Lot Depuy Orthopaed[employer] Inc [id number] Attune Cruciate Retain Cementless Knee Left 6 Narrow Component - [id number] Implanted:Qty: 1 on 05/02/2020 by Go Lazaro MD at [facility] Left: Knee [employer] 10/19/2029 [id number] / / [id number] Dep[employer] [id number] Attune 5mm Cruciate Retaining Rotate Platform Knee 6 Insert - [id number] Implanted:Qty: 1 on 05/02/2020 by Go Lazaro MD at [facility] Left: Knee [employer] 08/19/2024 [id number] / / [id number] Attune Knee System, Tibial Base Rotating Platform Implanted:Qty: 1 on 05/02/2020 by Go Lazaro MD at [facility] Left: Knee Dep[employer] Inc [id number] 05/19/2028 [id number] / / [id number] [employer] [id number] Palacos R+G High Viscosity Cement Bone Gentamicin Arthroplasty - [id number] Implanted:Qty: 1 on 05/02/2020 by Go Lazaro MD at [facility] Left: Knee [employer] 02/16/2022 [id number] / / [id number] [employer] [id number] Palacos R+G High Viscosity Cement Bone Gentamicin Arthroplasty - [id number] Implanted:Qty: 1 on 09/05/2020 by Go Lazaro MD at [facility] Right: Knee [employer] 08/19/2022 [id number] / / [id number] Depuy Orthopa[employer] Inc [id number] Baseplate Tibial Attune 6 Knee Cement Rotate Platform Sterile - [id number] Implanted:Qty: 1 on 09/05/2020 by Go Lazaro MD at [facility] Right: Knee [employer] 03/19/2030 [id number] / / [id number] Dep[employer] [id number] Attune 7mm Cruciate Retaining Rotate Platform Knee 6 Insert - [id number] Implanted:Qty: 1 on 09/05/2020 by Go Lazaro MD at [facility] Right: Knee [employer] 08/19/2024 [id number] / / [id number] [employer] [id number] Attune Cruciate Retain Cementless Knee Right 6 Component Femoral - [id number] Implanted:Qty: 1 on 09/05/2020 by Go Lazaro MD at [facility] Right: Knee [employer] 07/19/2028 [id number] / / [id number] Medtronic Inc Specify Surescan 65cm 3 Column 16 Electrode Lead Nerve Stimulator [id number] - [id number] Implanted:Qty: 1 on 12/27/2024 by Vivi Johansen MD at [facility] N/A: Back Med[employer] Inc 09/24/2028 [id number] / / [id number] Med[employer]onic Inc Generator Pulse Inceptiv Sys Stm Electrcl Analges Implant [id number] - [id number] - [id number] Implanted:Qty: 1 on 12/27/2024 by Vivi Johansen MD at [facility] Right: Back Med[employer] Inc [id number] 11/02/2025 [id number] / [id number] / Biocomposites Stimulan Rapid Cure Kit Paste Osha Inspector 5cc 12.5cc Bone Void 620-005 - [id number] Implanted:Qty: 1 on 12/27/2024 by Vivi Johansen MD at [facility] N/A: Back [employer] [id number] 06/19/2027 [id number] / / [id number] Procedures Procedure Name Priority Date/Time Associated Diagnosis Comments PARATHYROID HORMONE-INTACT Routine 01/12/2025 9:14 AM CDT EGFR Routine 01/12/2025 9:14 AM CDT HM CREATININE Routine 01/12/2025 9:14 AM CDT POCT GLUCOSE DEVICE Routine 12/28/2024 8 :34 PM CDT POCT GLUCOSE DEVICE Routine 12/27/2024 9 :06 PM CDT POCT GLUCOSE DEVICE Routine 12/27/2024 1 0:20 AM CDT FL FLUOROSCOPY < 1 HOUR IP Routine 12/27/2024 9:19 AM CDT XR SPINE THORACOLUMBAR JUNCTION 2 OR MORE VIEWS IP Routine 12/27/2024 9:19 AM CDT SC AN PROCEDURE PLACEHOLDER Routine 12/27/2024 8:03 AM CDT SC AN ELECTIVE ENDOTRACHEAL AIRWAY Routine 12/27/2024 8:03 AM CDT INSERTION SPINAL CORD STIMULATOR 12/27/2024 7:35 AM CDT Diabetic polyneuropathy associated with other specified diabetes mellitus (HCC) EGFR STAT 12/27/2024 6:52 AM CDT BASIC METABOLIC PANEL STAT 12/27/2024 6:52 AM CDT POCT GLUCOSE DEVICE Routine 12/27/2024 6 :38 AM CDT EGFR Routine 11/08/2024 12:06 PM CHIP MUCKER Preoperative evaluation to rule out surgical contraindication APTT Routine 11/08/2024 12:06 PM CHIP MUCKER Other specified pre-operative examination group home current use of anticoagulant BASIC METABOLIC PANEL Routine 11/08/2024 12:06 PM CHIP MUCKER Preoperative evaluation to rule out surgical contraindication POCT HEMOGLOBIN A1C Routine 10/26/2024 1 1:17 AM CHIP MUCKER Type 2 diabetes mellitus with hyperglycemia, with long-term current use of insulin (HCC) POCT GLUCOSE Routine 10/26/2024 11:17 AM CHIP MUCKER Type 2 diabetes mellitus with hyperglycemia, with long-term current use of insulin (HCC) HM DIABETES EYE EXAM Routine 09/07/2024 7:29 AM CHIP MUCKER LIPID PANEL Routine 12/25/2023 10:51 AM CHIP MUCKER Type 2 diabetes mellitus with hyperglycemia, with long-term current use of insulin (HCC) ALBUMIN CREATININE RATIO, URINE Routine 12/25/2023 10:51 AM CHIP MUCKER Type 2 diabetes mellitus with hyperglycemia, with long-term current use of insulin ([facility]) from Last 3 Months or Most Recently Relevant to Health Maintenance Results * (ABNORMAL) EGFR (01/12/2025 9:14 AM CDT) SCRIBED eGFR in NonAfrican Indian 20 >=60 - NA EXTERNAL LAB 01/12/2025 9:14 AM CDT us Historical Provider HEALTH MAINTENANCE Edited Result - Final Performing Organization Address City/[facility]/ZIP Co de Phone Number EXTERNAL LAB * (ABNORMAL) HM CREATININE (01/12/2025 9:14 AM CDT) SCRIBED Creatinine 2.14(A) 0.7 - 1.0 mg/dl EXTERNAL LAB SCRIBED eGFR in NonAfrican Indian 20 >=60 - NA EXTERNAL LAB Blood 01/12/2025 9:14 AM CDT us Historical Provider HEALTH MAINTENANCE Edited Result - Final EXTERNAL LAB * (ABNORMAL) Parathyroid Hormone-Intact (01/12/2025 9:14 AM CDT) 01/12/2025 9:14 AM CDT Impressions EXTERNAL LAB - 01/12/2025 9:58 AM CDT Result: <14.5 (14.5-75.2) [facility] Provider LAB BLOOD ORDERABLES Edit ed Result - Final Performing Organization Address City/[facility] [[email or web address]] Co de Phone Number EXTERNAL LAB * POCT glucose (12/28/2024 8:34 PM CDT) [...] DE VICE Final Result Performing Organization Address [facility] [[email or web address]] Co de Phone Number [facility] [address] [place] [address] * POCT glucose (12/27/2024 9:06 PM CDT) [...] DE VICE Final Result Performing Organization Address [facility] [[email or web address]] Co de Phone Number [facility] [address] Department [place] [address] * POCT glucose (12/27/2024 10:20 AM CDT) [...] DE VICE Final Result Performing Organization Address [facility]/ZIP Co de Phone Number [facility] [address] Department [place] [address] * FL Fluoroscopy < 1 Hour (12/27/2024 9:19 AM CDT) Narrative [facility] - 12/27/2024 9:20 AM CDT The images from this study are not interpreted by Radiology. Please refer to the physician's procedure / OR operative note. Vivi Johansen MD IMG FLUOROSCOPY PROCEDUR ES Final Result Performing Organization Address [facility] [[email or web address]] Co de Phone Number [facility] * XR Spine Thoracolumbar Junction 2 [...] MD IMG XR PROCEDURES Final Result * SC AN ELECTIVE ENDOTRACHEAL AIRWAY, SC AN PROCEDURE PLACEHOLDER (12/27/2024 8:03 AM CDT) Narrative Deshawn Mera CRNA - 12/27/2024 8:03 AM CDT Deshawn Mera CRNA 12/27/2024 8:04 AM Airway Patient location: OR Urgency: elective Indications for airway management: anesthesia and airway protection Difficult airway: no Staff: Supervising provider: Carson Yee MD Placed by: COTTON STRIPPER: Deshawn Mera CRNA Emergent airway documentation: Risks [...] MD LAB BLOOD ORDERABLES Final R esult [facility] [address] Department [place] [address] * (ABNORMAL) Basic metabolic panel (12/27/2024 6:52 AM CDT) Sodium 140 135 - 145 mmol/L Potassium, pl 4.7 3.3 - 4.9 mmol/L [facility] Chloride 105 97 - 110 mmol/L [facility] CO2 23 22 - 32 mmol/L [facility] Anion gap 12 2 - 15 mmol/L [facility] BUN 41(H) 6 - 25 mg/dL [facility] Creatinine 1.36(H) 0.60 - 1.10 mg/dL [facility] Glucose 110 70 - 199 mg/dL [facility] Comment: Interpretive Data Fasting glucose [...] classification and Diagnosis of Diabetes Diabetes Care 202; 46: S19-S40. Current interpretive data was last revised 2022. Calcium 9.5 8.5 - 10.3 mg/dL [facility] Blood 12/27/2024 6:52 AM CDT 12/27/2024 6:57 AM CDT us Carson Yee MD LAB BLOOD ORDERABLES Final R esult Performing Organization Address City/[facility]/ZIP Co de Phone Number [facility] [address] Department [place] [address] * POCT glucose (12/27/2024 6:38 AM CDT) [...] DE VICE Final Result Performing Organization Address City/[facility]/ZIP Co de Phone Number [facility] [address] Department [place] [address] * (ABNORMAL) eGFR (11/08/2024 12:06 PM CHIP MUCKER) eGFR 33(L) >=60 mL/min/1. 73 m2 Comment: [...] reviewed 2021. Blood 11/08/2024 12:0 6 PM CHIP MUCKER 11/08/2024 12:06 PM CHIP MUCKER Dinroa Matthew NP LAB BLOOD ORDERABLES Fin al Result Performing Organization Address [facility] [[email or web address]] Co de Phone Number [facility] [address] Department of MD [employer] [place], [place] [id number] * aPTT (11/08/2024 12:06 PM CHIP MUCKER) Pathologist [facility] aPTT 30 28 - 38 sec Comment: Interpretive Data Heparin therapeutic range: 66.0 - 100.0 seconds. Range based on correlation with therapeutic heparin activity range of 0.3 - 0.7 Units/mL. Current interpretive data was last revised on 2023. Blood 11/08/2024 12:0 6 PM CHIP MUCKER 11/08/2024 12:06 PM CHIP MUCKER Vivi Johansen MD LAB BLOOD ORDERABLES Fin al Result Performing Organization Address [facility]/ZIP Co de Phone Number [facility] [address] Department [place] [address] * (ABNORMAL) Basic metabolic panel (11/08/2024 12:06 PM CHIP MUCKER) Pathologist [facility] Sodium 141 135 - 145 mmol/L Potassium, pl 4.9 3.3 - 4.9 mmol/L [facility] Chloride 103 97 - 110 mmol/L [facility] CO2 25 22 - 32 mmol/L [facility] Anion gap 13 2 - 15 mmol/L [facility] BUN 47(H) 6 - 25 mg/dL [facility] Creatinine 1.67(H) 0.60 - 1.10 mg/dL [facility] Glucose 129 70 - 199 mg/dL [facility] Comment: Interpretive Data Fasting glucose [...] 2022. Calcium 10.0 8.5 - 10.3 mg/dL [facility] Blood 11/08/2024 12:0 6 PM CHIP MUCKER 11/08/2024 12:06 PM CHIP MUCKER us Dinora Matthew NP LAB BLOOD ORDERABLES Fin al Result [facility] [address] Department [place] [address] * (ABNORMAL) POCT hemoglobin A1c (10/26/2024 11:17 AM CHIP MUCKER) Hemoglobin A1C, POC 5.8 4.0 - 5.6 % Blood 10/26/2024 11:1 7 AM CHIP MUCKER us Sisi Guevara NP POINT OF CARE TEST ORDERA BLES Final Result * (ABNORMAL) POCT glucose (10/26/2024 11:17 AM CHIP MUCKER) Glucose Blood, POC 184 mg/dL Blood 10/26/2024 11:1 7 AM CHIP MUCKER us Sisi Guevara NP POINT OF CARE TEST ORDERA BLES Final Result * HM DIABETES EYE EXAM (09/07/2024 7:29 AM CHIP MUCKER) Historical Provider HEALTH MAINTENANCE Final Result * Albumin Creatinine Ratio, Urine (12/25/2023 10:51 AM CHIP MUCKER) Albumin Ur <12.0 mg/L Comment: Interpretive Data No reference range established. Current interpretive data was last revised 2019. Creatinine Ur 33.6 mg/dL [facility] Comment: Interpretive Data No reference range established. Current interpretive data was last revised 2019. Albumin Creatinine Ratio, Ur See Comment 1 - 29 [facility] Comment:Unable to calculate Urine 12/25/2023 10:5 1 AM CHIP MUCKER 12/25/2023 4:20 PM CHIP MUCKER Charan Hopper MD LAB URINE ORDERABLES Final Resul t [facility] [id number] Department [place] [address] * (ABNORMAL) Lipid panel (12/25/2023 10:51 AM CHIP MUCKER) Cholesterol 179 30 - 199 mg/dL Comment: [...] [facility] Blood 12/25/2023 10:5 1 AM CHIP MUCKER 12/25/2023 4:20 PM CHIP MUCKER us Charan Hopper MD LAB BLOOD ORDERABLES Final Resul t [facility] [address] Department [place] [address] from Last 3 Months or Most Recently Relevant to Health Maintenance Insurance [employer] MEDICARE [facility] MEDICARE [facility] MEDICARE Address: [address] [address] [place] [address] [facility] MEDICARE [facility] MEDIC[facility] Address: [address] [address] [place] [address] [address] Advance Directives For more information, please contact: [phone] * Full Code (Latest Code Status on File) Date Activated Date Inactivated Comments 12/27/2024 12:45 PM 12/29/2024 7:57 PM * Full Code Date Activated Date Inactivated Comments 09/05/2020 1:54 PM 09/06/2020 6:34 PM * Full Code Date Activated Date Inactivated Comments 05/02/2020 2:11 PM 05/03/2020 8:18 PM Care Teams Cardroom Worker Relationship Specialty Start Date End Date Osman Malcolm MD [address] [place], [place] [id number] PCP - General Family Medicine 09/18/22 Rey Hinton PA [address] [place] [address] [address] [address] Physician Soft Work Wrapper Examiner Orthopedic Surgery 05/03/20 Reina Jimenes PA [address] [place] [address] [address]RE[address]O [place] [address] Physician Soft Work Wrapper Examiner Orthopedic Surgery 09/06/20
--- OUTSIDE RECORDS SUMMARY | 2025-01-14 10:10 | XMS_ITS | Encounter Summary ---
Author Organization [facility] Address [address] [place] [address] Care Team Providers Care Pet Stylist Name Role Phone Rey Hinton Unavailable [phone] Reina Jimenes Unavailable [phone] Osman Malcolm MD Primary Care Provider [phone] Reason for Visit * Reason Onset Date Comments Med Management 01/12/2025 Encounter Details Date Type Department Care Team (Late st Contact Info) Description 01/12/2025 Telephone [facility] Diabetes and Endocrinology [address] [place] [phone] Sisi Guevara, ENERGY RISK MANAGEMENT ANALYST [address] [facility] [address] [address] Med Management Social History Tobacco Use Types Packs/Day Years [...] on file Legal Sex Female 6:42 PM SET UP PERSON Gender Identity Not on file Sexual Orientation Not on file documented as of this encounter Miscellaneous Notes * Telephone Encounter - Sisi Guevara NP - 01/13/2025 12:11 PM CDT [phone] Spoke w/Mrs Trujillo. Had neurostimlator placed 12/28/24; still healing. Creatinine=2.41, BUN=54, GFR=20, calcium=12.4 01/12/25 Dr Marr asked her to stop the metformin. Was taken off glimepiride also. Currently taking basaglar 18 units daily & Januvia 100mg daily. Reviewed above labs with Mrs Trujillo. She will stay off the Metformin & Glimepiride. She will increase basaglar 2 units weekly to attain morning fasting BG less than 150 wo going low. She will call if new script needed. * Telephone Encounter - Shanell Ordoñez MA - 01/13/2025 7:19 AM CDT Labs reports received and sent to Sisi for review. Creatinine, EGFR and PTH entered to chart. * Telephone Encounter - Sisi Guevara NP - 01/12/2025 4:28 PM CDT Unable to see note from renal as he's out of network. Can you call Dr Marr's office ([facility]) to get copy of last note & most recent labs? thanks * Telephone Encounter - Kathie Hook LPN - 01/12/2025 3:58 PM CDT Pt states that the Tufting Machine Operator told pt to stop taking her metformin because of pts lab/ pt kidney function test was too low (done on 12/27/24). Pt would like to know your opinion. documented in this encounter Plan of Treatment Not on file documented as of this encounter Visit Diagnoses Not on filedocumented in this encounter Care Teams Pet Stylist Relationship Specialty Start Date End Date Osman Malcolm MD [address] [place] [address] PCP - General Family Medicine 09/18/22 Rey Hinton PA [address] [facility] [address] [place] [address] Physician Processing Associate Orthopedic Surgery 05/03/20 Reina Jimenes PA [address] [facility] [address] [place] [address] Physician Processing Associate Orthopedic Surgery 09/06/20 documented as of this encounter
--- OUTSIDE RECORDS SUMMARY | 2025-01-14 10:11 | XMS_ITS | Clinical Summary ---
Author Organization [facility] Building B Address [address] [place] [address] Care Team Providers Care Heel Coverer Name Role Phone Rey Hinton PA Unavailable [phone] Reina Jimenes Unavailable [phone] Osman Malcolm MD Primary Care Provider [phone] Allergies Active Allergy Reactions Criticality Noted Date [...] with long-term current use of insulin ([facility]) Continuous glucose monitoring. Change every 10 days. 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 And Assembly Supervisor) miscIndication s:Type 2 diabetes mellitus with hyperglycemia, with long-term current use of insulin ([facility]) Continuous glucose monitor 1 each 3 Active [...] 1 tablet (112 mcg total) by mouth front desk representative before breakfast 4 Active pen needle, diabetic 32 gauge x /32 needleIndicati ons:Type 2 diabetes mellitus with hyperglycemia, with long-term current use of insulin ([facility]) USE TO INJECT INSULIN DAILY 100 each [...] 06/20 Assessment & Plan (10/26/2024 12:09 PM POWER WASHER): Chronic problem. Managed by Dr Marr at [place]. Next appt 12/29/24 Nephropathy: On GWEN-I / ARB s : Yes. Lisinopril 5mg. Last MA: 12/25/23 (36 calc). Last creat/GFR: 03/31/24 GFR=27, CR=1.96. Assessment & Plan (06/29/2024 11:48 AM CDT): Chronic problem. Managed by Dr Tejinder mcconnell [place]. Next appt 06/30/24. Nephropathy: On GWEN-I / ARB s : Yes. Lisinopril 5mg. Last MA: 12/25/23 (36 calc). Last creat/GFR: 03/31/24 GFR=27, CR=1.96. Diabetic neuropathy associat ed with type 2 diabetes mellitus 01/30/2023 Assessment & Plan (10/26/2024 11:56 AM POWER WASHER): Chronic problem. Gabapentin Gabapentin 300-600mg at HS. [...] barefoot. Assessment & Plan (12/25/2023 10:41 AM POWER WASHER): Foot care discussed Continue gabapentin Assessment & [...] 10/31/2022 Assessment & Plan (10/31/2022 12:56 PM POWER WASHER): Encouraged Mrs Trujillo to walk in home if weather not conducive to walking outside. Discussed healthy diet and importance of regular physical activity (20- 30min/day, 150min/wk). Hyperlipidemia associated with type 2 diabetes latanya brown 07/25/2022 Assessment & Plan (10/26/2024 11:30 AM POWER WASHER): Chronic problem, at goal on Atorvastatin 10mg & fenofibrate 160mg daily Last lipid panel: 12/25/23 LDL=98, HN=777. Assessment & Plan (06/29/2024 11:46 AM CDT): Chronic problem, at goal on Atorvastatin 10mg & fenofibrate 160mg daily Last lipid panel: 12/25/23 LDL=98, AE=138. Assessment & Plan (12/25/2023 10:41 AM POWER WASHER): Chronic, stable Continue Atorvastatin 10 mg daily UDT lipid profile Assessment & Plan (05/08/2023 11:12 AM CDT): Chronic problem, at goal on Atorvastatin 10mg & fenofibrate 160mg daily Last lipid panel: 07/25/22 LDL=74, KG=966. No changes at this time. Assessment & Plan (01/30/2023 11:08 AM CDT): Chronic problem, at goal on Atorvastatin 10mg. Last lipid panel: 07/25/22 LDL=74, RG=461. No changes at this time. Assessment & Plan (10/31/2022 8:59 AM POWER WASHER): Chronic problem, near goal. LDL=74 07/2022. Atorvastatin 10mg daily. No changes at this time. Assessment & Plan (07/25/2022 12:50 PM CDT): Continue atorvastastin Check lipid profile LDL goal under 70 Type 2 diabetes mellitus wit h hyperglycemia, with long-term current use of insulin 05/28/2022 Assessment & Plan (10/26/2024 11:56 AM POWER WASHER): Chronic problem, stable/controlled. A1c stable at 5.8%. Current medications: Metformin XR 500mg twice daily before meals Januvia 100 mg daily (PAP) Basaglar 14 units every evening (PAP) Cannot trial GLP1a d/t h/o pancreatitis UTD on labs DM eye exam (2023 at [facility]). 2nd request letter sent. Strive [...] infection. Assessment & Plan (12/25/2023 10:40 AM POWER WASHER): Chronic, stable Contiue current regimen including Basaglar, Glimepiride 1 mg daily, Metformin 500 mg bid and Januvia Diet and exercise were discussed Assessment & Plan (09/09/2023 11:37 AM POWER WASHER): Hba1c was Lab Results Component Value Date [...] 7.8% Phone not compatible with dexcom nor CureVac haseeb. Sent in Dexcom 7 & reader. [...] evening Had DM eye exam 01/2023 at [facility] in [place]. Letter sent to get copy of results. [...] infection. Assessment & Plan (10/31/2022 12:55 PM POWER WASHER): Chronic problem, at goal. No changes. Continue [...] (04/20/2020): Added automatically from request for surgery [id number] Encounters Date Type Department Care Team Description 01/13/2025 Orders Only [facility] Diabetes and Endocrinology [address] [place] [phone] ProviderMarcello MD 01/12/2025 Telephone [facility] Diabetes and Endocrinology [address] [place] [phone] Sisi Guevara, [employer] MEMBER Med Management 12/27/2024 7:33 AM CDT Anesthesia Event [facility] Operating Room [address] [place] [phone] Carson Yee MD [place], Justin Kyle, CRNA 12/27/2024 7:30 AM CDT - 12/27/2024 10:30 AM CDT Surgery [facility] Operating Room [address] [place] [phone] Vivi Johansen MD T10 Laminotomy for Placement of Spinal Cord Stimulator 12/27/2024 5:11 AM CDT - 12/29/2024 3:52 PM CDT Hospital Encounter [facility] [address] [place] [phone] Vivi Johansen MD Discharge Disposition: Discharge to home or self care 11/08/2024 11:45 AM POWER WASHER Pre-Admission Testing [facility] Pre Anesthesia Testing [address] [place] [address] [phone] Preoperative evaluation to rule out surgical contraindication (Primary Dx); Other specified pre-operative examination; group home current use of anticoagulant 11/05/2024 11:59 PM POWER WASHER Anesthesia Event [facility] Operating Room [address] [place] [phone] Dinora Matthew NP 11/04/2024 Telephone [facility] Pre Anesthesia Testing [address] [place] [phone] Khushi Gresham 11/03/2024 Orders Only [facility] Diabetes and Endocrinology [address] [place] [phone] Marcello Barajas MD 10/26/2024 11:30 AM POWER WASHER Office Visit [facility] Diabetes and Endocrinology [address] [place] [phone] Sisi Guevara, GRACE Type 2 diabetes mellitus with hyperglycemia, with long-term current use of insulin (HCC) (Primary Dx); CKD stage 4 due to type 2 diabetes mellitus (HCC); Hyperlipidemia associated with type 2 diabetes mellitus (HCC); Diabetic neuropathy associated with type 2 diabetes mellitus (HCC) 10/26/2024 Telephone [facility] Diabetes and Endocrinology [address] [place] [phone] Sisi Guevara, GRACE Med Management (Huyen Cares - Basaglar) 10/19/2024 Telephone [facility] [address] [place] [address] [address] [address] Sisi Guevara, GRACE Med Refill [...] on file Legal Sex Female 6:42 PM POWER WASHER Gender Identity Not on file Sexual Orientation [...] Exam 09/07/2025 09/07/2024, 10/22/2021 Fall Risk Assessment 12/29/2025 12/29/2024, 09/09/20 23 eGFR 01/12/2026 01/12/2025, 12/19, 12/27/2024, Additional history exists Zoster Vaccine Completed 04/30/2021, 02/21/2021 Influenza Vaccine Completed 08/10/2024, , 07/20/2020, Additional history exists Medical Devices Implanted Type Area Labor Contract Analyst Device Identifier Shelf Expiration Date Model / Serial / Lot Depuy Orthopaedics Inc [id number] Attune Cruciate Retain Cementless Knee Left 6 Narrow Component - [id number] Implanted:Qty: 1 on 05/02/2020 by Go Lazaro MD at [facility] Left: Knee [employer] 10/19/2029 [id number] / / [id number] Depuy [employer]ed[employer] [id number] Attune 5mm Cruciate Retaining Rotate Platform Knee 6 Insert - [id number] Implanted:Qty: 1 on 05/02/2020 by Go Lazaro MD at [facility] Left: Knee [employer] 08/19/2024 [id number] / / [id number] Attune Knee System, Tibial Base Rotating Platform Implanted:Qty: 1 on 05/02/2020 by Go Lazaro MD at [facility] Left: Knee [employer]uy [employer] Inc [id number] 05/19/2028 [id number] / / [id number] [employer] [id number] Palacos R+G High Viscosity Cement Bone Gentamicin Arthroplasty - [id number] Implanted:Qty: 1 on 05/02/2020 by Go Lazaro MD at [facility] Left: Knee [employer] 02/16/2022 [id number] / / [id number] [employer] [id number] Palacos R+G High Viscosity Cement Bone Gentamicin Arthroplasty - [id number] Implanted:Qty: 1 on 09/05/2020 by Go Lazaro MD at [facility] Right: Knee [employer] 08/19/2022 [id number] / / [id number] Depuy Orthopaedics Inc [id number] Baseplate Tibial Attune 6 Knee Cement Rotate Platform Sterile - [id number] Implanted:Qty: 1 on 09/05/2020 by Go Lazaro MD at [facility] Right: Knee [employer] Inc 03/19/2030 [id number] / / [id number] Dep[employer] [id number] Attune 7mm Cruciate Retaining Rotate Platform Knee 6 Insert - [id number] Implanted:Qty: 1 on 09/05/2020 by Go Lazaro MD at [facility] Right: Knee [employer] 08/19/2024 [id number] / / [id number] Dep[employer] [id number] Attune Cruciate Retain Cementless Knee Right 6 Component Femoral - [id number] Implanted:Qty: 1 on 09/05/2020 by Go Lazaro MD at [facility] Right: Knee [employer] Inc 07/19/2028 [id number] / / [id number] Medtronic Inc Specify Surescan 65cm 3 Column 16 Electrode Lead Nerve Stimulator [id number] - [id number] Implanted:Qty: 1 on 12/27/2024 by Vivi Johansen MD at [facility] N/A: Back Med[employer]onic Inc 09/24/2028 [id number] / / [id number] Medtronic Inc Generator Pulse Inceptiv Sys Stm Electrcl Analges Implant [id number] - [id number] - [id number] Implanted:Qty: 1 on 12/27/2024 by Vivi Johansen MD at [facility] Right: Back Med[employer] Inc [id number] 11/02/2025 [id number] / [id number] / Biocomposites Stimulan Rapid Cure Kit Paste Library Technician 5cc 12.5cc Bone Void 620-005 - [id number] Implanted:Qty: 1 on 12/27/2024 by Vivi Johansen MD at [facility] N/A: Back [employer]ites [id number] 06/19/2027 [id number] / / [id number] Procedures Procedure Name Priority Date/Time Associated Diagnosis [...] VIEWS IP Routine 12/27/2024 9:19 AM CDT AR AN PROCEDURE PLACEHOLDER Routine 12/27/2024 8:03 AM CDT AR AN ELECTIVE ENDOTRACHEAL AIRWAY Routine 12/27/2024 8:03 AM CDT INSERTION SPINAL CORD STIMULATOR 12/27/2024 7:35 AM CDT Diabetic polyneuropathy associated with other specified diabetes mellitus (HCC) EGFR STAT 12/27/2024 6:52 AM CDT BASIC METABOLIC PANEL STAT 12/27/2024 6:52 AM CDT POCT GLUCOSE DEVICE Routine 12/27/2024 6 :38 AM CDT EGFR Routine 11/08/2024 12:06 PM POWER WASHER Preoperative evaluation to rule out surgical contraindication APTT Routine 11/08/2024 12:06 PM POWER WASHER Other specified pre-operative examination group home current use of anticoagulant BASIC METABOLIC PANEL Routine 11/08/2024 12:06 PM POWER WASHER Preoperative evaluation to rule out surgical contraindication POCT HEMOGLOBIN A1C Routine 10/26/2024 1 1:17 AM POWER WASHER Type 2 diabetes mellitus with hyperglycemia, with long-term current use of insulin (HCC) POCT GLUCOSE Routine 10/26/2024 11:17 AM POWER WASHER Type 2 diabetes mellitus with hyperglycemia, with long-term current use of insulin (HCC) HM DIABETES EYE EXAM Routine 09/07/2024 7:29 AM POWER WASHER LIPID PANEL Routine 12/25/2023 10:51 AM POWER WASHER Type 2 diabetes mellitus with hyperglycemia, with long-term current use of insulin (HCC) ALBUMIN CREATININE RATIO, URINE Routine 12/25/2023 10:51 AM POWER WASHER Type 2 diabetes mellitus with hyperglycemia, with long-term current use of insulin (HCC) from Last 3 Months or Most Recently Relevant to Health Maintenance Results * (ABNORMAL) EGFR (01/12/2025 9:14 AM CDT) SCRIBED eGFR in NonAfrican Sudanese 20 >=60 - NA EXTERNAL LAB 01/12/2025 9:14 AM CDT Historical Provider HEALTH MAINTENANCE Edited Result - Final EXTERNAL LAB * (ABNORMAL) HM CREATININE (01/12/2025 9:14 AM CDT) SCRIBED Creatinine 2.14(A) 0.7 - 1.0 mg/dl EXTERNAL LAB SCRIBED eGFR in NonAfrican Sudanese 20 >=60 - NA EXTERNAL LAB Blood 01/12/2025 9:14 AM CDT Historical Provider HEALTH MAINTENANCE Edited Result - Final EXTERNAL LAB * (ABNORMAL) Parathyroid Hormone-Intact (01/12/2025 9:14 AM CDT) 01/12/2025 9:14 AM CDT Impressions EXTERNAL LAB - 01/12/2025 9:58 AM CDT Result: <14.5 (14.5-75.2) Historical Provider LAB BLOOD ORDERABLES Edit ed Result - Final EXTERNAL LAB * POCT glucose (12/28/2024 8:34 [...] DE VICE Final Result Performing Organization Address [facility] Co de Phone Number [facility] [address] [place], [place] [phone] * POCT glucose (12/27/2024 9:06 PM CDT) [...] DE VICE Final Result Performing Organization Address [facility] Co de Phone Number [facility] [address] Department [place] [address] * POCT glucose (12/27/2024 10:20 AM CDT) [...] Performing Organization Address City/[facility]/ZIP Co de Phone Number [facility] [address] Department [place] [address] * FL Fluoroscopy < 1 Hour (12/27/2024 9:19 AM CDT) Narrative [facility] - 12/27/2024 9:20 AM CDT The images from this study are not interpreted by Radiology. Please refer to the physician's procedure / OR operative note. Vivi Johansen MD IMG FLUOROSCOPY PROCEDUR ES Final Result Performing Organization Address [facility] Co de Phone Number [facility] * XR Spine Thoracolumbar [place] 2 or [...] MD IMG XR PROCEDURES Final Result * AR AN ELECTIVE ENDOTRACHEAL AIRWAY, AR AN PROCEDURE PLACEHOLDER (12/27/2024 8:03 AM CDT) Narrative Deshawn Mera CRNA - 12/27/2024 8:03 AM CDT Deshawn Mera CRNA 12/27/2024 8:04 AM Airway Patient location: OR Urgency: elective Indications for airway management: anesthesia and airway protection Difficult airway: no Staff: Supervising provider: Carson Yee MD Placed by: [employer] FOOTBALL COACH: Deshawn Mera CRNA Emergent airway documentation: Risks [...] MD LAB BLOOD ORDERABLES Final R esult [facility] [address] [place] [address] * (ABNORMAL) Basic metabolic panel (12/27/2024 6:52 AM CDT) [facility] Sodium 140 135 - 145 mmol/L Potassium, pl 4.7 3.3 - 4.9 mmol/L [facility] Chloride 105 97 - 110 mmol/L [facility] CO2 23 22 - 32 mmol/L [facility] Anion gap 12 2 - 15 mmol/L [facility] BUN 41(H) 6 - 25 mg/dL [facility] Creatinine 1.36(H) 0.60 - 1.10 mg/dL [facility] Glucose 110 70 - 199 mg/dL [facility] Comment: Interpretive Data Fasting glucose >/= 126 [...] 2022. Calcium 9.5 8.5 - 10.3 mg/dL [facility] Blood 12/27/2024 6:52 AM CDT 12/27/2024 6:57 AM CDT us Carson Yee MD LAB BLOOD ORDERABLES Final R esult Performing Organization Address City/[facility]/ZIP Co de Phone Number [facility] [address] Department of Laboratories [place], [place] [phone] * POCT glucose (12/27/2024 6:38 AM CDT) [facility] Glucose, POC 111 70 - 199 mg/dL Comment: For Glucose values <35 mg/dl when Hematocrit is >60 mg/dl,the test may not accurately detect significant hypoglycemia,and testing in the Laboratory should be considered if clinically indicated. Blood 12/27/2024 6:38 AM CDT 12/27/2024 6:38 AM CDT Vivi Johansen MD LAB POCT ORDERABLES - DE VICE Final Result Performing Organization Address City/[facility] Co de Phone Number [facility] [address] Department [place] [address] * (ABNORMAL) eGFR (11/08/2024 12:06 PM POWER WASHER) [facility] eGFR 33(L) >=60 mL/min/1. 73 m2 Comment: [...] reviewed 2021. Blood 11/08/2024 12:0 6 PM POWER WASHER 11/08/2024 12:06 PM POWER WASHER us Dinora Matthew NP LAB BLOOD ORDERABLES Fin al Result Performing Organization Address City/[facility]/ZIP Co de Phone Number [facility] [address] [place], [place] [id number] * aPTT (11/08/2024 12:06 PM POWER WASHER) aPTT 30 28 - 38 sec Comment: Interpretive Data Heparin therapeutic range: 66.0 - 100.0 seconds. Range based on correlation with therapeutic heparin activity range of 0.3 - 0.7 Units/mL. Current interpretive data was last revised on 2023. Blood 11/08/2024 12:0 6 PM POWER WASHER 11/08/2024 12:06 PM POWER WASHER us Vivi Johansen MD LAB BLOOD ORDERABLES Fin al Result [facility] [address] [facility] [address] [address] * (ABNORMAL) Basic metabolic panel (11/08/2024 12:06 PM POWER WASHER) Sodium 141 135 - 145 mmol/L Potassium, pl 4.9 3.3 - 4.9 mmol/L [facility] Chloride 103 97 - 110 mmol/L [facility] CO2 25 22 - 32 mmol/L [facility] Anion gap 13 2 - 15 mmol/L [facility] BUN 47(H) 6 - 25 mg/dL [facility] Creatinine 1.67(H) 0.60 - 1.10 mg/dL [facility] Glucose 129 70 - 199 mg/dL [facility] Comment: Interpretive Data Fasting glucose >/= 126 [...] 2022. Calcium 10.0 8.5 - 10.3 mg/dL [facility] Blood 11/08/2024 12:0 6 PM POWER WASHER 11/08/2024 12:06 PM POWER WASHER us Dinora Matthew NP LAB BLOOD ORDERABLES Fin al Result [facility] [address] Department [place] [address] * (ABNORMAL) POCT hemoglobin A1c (10/26/2024 11:17 AM POWER WASHER) Hemoglobin A1C, POC 5.8 4.0 - 5.6 % Blood 10/26/2024 11:1 7 AM POWER WASHER us Sisi Guevara [employer] MEMBER POINT OF CARE TEST ORDERA BLES Final Result * (ABNORMAL) POCT glucose (10/26/2024 11:17 AM POWER WASHER) Glucose Blood, POC 184 mg/dL Blood 10/26/2024 11:1 7 AM POWER WASHER Sisi Guevara [employer]BER POINT OF CARE TEST ORDERA BLES Final Result * HM DIABETES EYE EXAM (09/07/2024 7:29 AM POWER WASHER) Historical Provider HEALTH MAINTENANCE Final Result * Albumin Creatinine Ratio, Urine (12/25/2023 10:51 AM POWER WASHER) Albumin Ur <12.0 mg/L Comment: Interpretive Data No reference range established. Current interpretive data was last revised 2019. Creatinine Ur 33.6 mg/dL [facility] Comment: Interpretive Data No reference range established. Current interpretive data was last revised 2019. Albumin Creatinine Ratio, Ur See Comment 1 - [facility] Comment:Unable to calculate Urine 12/25/2023 10:5 1 AM POWER WASHER 12/25/2023 4:20 PM POWER WASHER Charan Hopper MD LAB URINE ORDERABLES Final Resul t [facility] [address] Department of Laboratories [place], [place] [phone] * (ABNORMAL) Lipid panel (12/25/2023 10:51 AM POWER WASHER) Cholesterol 179 30 - 199 mg/dL Comment: [...] on 2018. LDL, calculated 98 <=129 mg/dL [facility] Comment: Interpretive Data Ages < or = [...] [facility] Blood 12/25/2023 10:5 1 AM POWER WASHER 12/25/2023 4:20 PM POWER WASHER us Charan Hopper MD LAB BLOOD ORDERABLES Final Resul t [facility] [address] Department [place] [address] from Last 3 Months or Most Recently Relevant to Health Maintenance Insurance [employer]URANCE [employer] [facility] MEDICARE [facility] MEDICARE ADVANTAGE [facility] MEDICARE Address: [address] [address] [place] [address] [facility] MEDIC[facility] Address: [address] [address] [place] [address] Advance Directives For more information, please contact: [phone] * Full Code (Latest Code Status on File) Date Activated Date Inactivated Comments 12/27/2024 12:45 PM 12/29/2024 7:57 PM * Full Code Date Activated Date Inactivated Comments 09/05/2020 1:54 PM 09/06/2020 6:34 PM * Full Code Date Activated Date Inactivated Comments 05/02/2020 2:11 PM 05/03/2020 8:18 PM Care Teams Heel Coverer Relationship Specialty Start Date End Date Osman Malcolm MD [address] [facility] [address] [place] [phone] PCP - General Family Medicine 09/18/22 Rey Hinton PA [address] [place] [address] [address] [place] [address] Physician Vehicle Monitor Technician Orthopedic Surgery 05/03/20 Reina Jimenes PA [address] [place] [address] [address] [place] [address] Physician Vehicle Monitor Technician Orthopedic Surgery 09/06/20
--- OUTSIDE RECORDS SUMMARY | 2025-01-14 10:11 | XMS_ITS | Clinical Summary ---
Author Organization [facility] Address [address] [place] [address] Phone Care Team Providers Care Regional Safety Manager Name Role Phone Osman Malcolm Primary Care Provider [phone] Robert Corbett MD Unavailable [phone] Adrien Cerrato MD Unavailable [phone] Allergies No known active allergies Medications furosemide [...] Tablet by mouth. 08/21/2022 Active ReliOn Pen [place] 32G X 4 MM Misc 12/24/2022 Active [...] Department Care Team Description 11/04/2024 9:30 AM HEAD OF DIGITAL Clinical Support [facility] [address] [address] Anemia in stage 3a chronic kidney disease (HCC) (Primary Dx); Anemia, iron deficiency, inadequate dietary intake 11/04/2024 9:00 AM HEAD OF DIGITAL Office Visit [facility] [address] [address] [place] [phone] Mayda Torres, MOOSE, DIRECTOR SECURITY RISK MANAGEMENT Anemia in stage 3a chronic kidney disease (HCC) (Primary Dx); Anemia, iron deficiency, inadequate dietary intake 11/04/2024 Travel 10/29/2024 Results Follow-Up [facility] [address] [place] [address] Mayda Torres, TEST CONDUCTOR, DIRECTOR SECURITY RISK MANAGEMENT 10/28/2024 9:00 AM HEAD OF DIGITAL Lab [facility] [address] [address] [address] Nurse, Cc [place] Anemia, iron deficiency, inadequate dietary intake (Primary [...] Comments Blood Pressure 142/82 11/04/2024 9:15 AM HEAD OF DIGITAL Pulse 88 11/04/2024 9:15 AM HEAD OF DIGITAL Temperature 36 C (96.8 F) 11/04/2024 9:15 AM HEAD OF DIGITAL Respiratory Rate 18 11/04/2024 9:15 AM HEAD OF DIGITAL Oxygen Saturation 99% 11/04/2024 9:15 AM HEAD OF DIGITAL Inhaled Oxygen Concentration - - Weight 77.1 kg (169 lb 14.4 oz) 11/04/2024 9:15 AM HEAD OF DIGITAL Height 170.2 cm (5' 7 ) 11/04/2024 9:15 AM HEAD OF DIGITAL Body Mass Index 26.61 11/04/2024 9:15 AM HEAD OF DIGITAL Plan of Treatment Upcoming Encounters Date Type Department Care Team (Late st Contact Info) Description 02/03/2025 9:00 AM CDT Office Visit [facility] [address] [address] [address] Adrien Cerrato MD [address] [place] [address] Health Maintenance Due Date Last [...] AUTO DIFF [place] Routine 10/28/2024 8:55 AM HEAD OF DIGITAL CMP (COMPREHENSIVE METABOLIC PANEL) Routine 10/28/2024 8:55 AM HEAD OF DIGITAL Anemia in stage 3a chronic kidney disease (HCC) VITAMIN B12 Routine 10/28/2024 8:55 AM HEAD OF DIGITAL Anemia in stage 3a chronic kidney disease (HCC) FOLIC ACID (FOLATE) Routine 10/28/2024 8 :55 AM HEAD OF DIGITAL Anemia in stage 3a chronic kidney disease (HCC) FERRITIN Routine 10/28/2024 8:55 AM HEAD OF DIGITAL Anemia in stage 3a chronic kidney disease (HCC) IRON W/ IRON BINDING CAPACITY [place] Routine 10/28/2024 8:55 AM HEAD OF DIGITAL Anemia in stage 3a chronic kidney disease (HCC) from Last 3 Months Results * (ABNORMAL) IRON W/ IRON BINDING CAPACITY [place] (10/28/2024 8:55 AM HEAD OF DIGITAL) IRON 69 50 - 212 ug/dL [facility] UIBC 440(H) 155 - 355 ug/dL [facility] TIBC 509(H) 261 - 478 ug/dl [facility] % Saturation 14(L) 20 - 50 % [facility] 10/28/2024 8:55 AM HEAD OF DIGITAL Narrative [facility] - 10/29/2024 10:21 AM HEAD OF DIGITAL Release to patient->Immediate Mayda Torres TEST CONDUCTOR, DIRECTOR SECURITY RISK MANAGEMENT LAB SEND OUTS Final Result [facility] [place] [address], * (ABNORMAL) CBC WITH AUTO DIFF [place] (10/28/2024 8:55 AM HEAD OF DIGITAL) WBC 5.2 4.0 - 10.0 10*3/uL [facility] HGB 9.7(L) 11.2 - 15.7 g/dL [facility] HCT 31.2(L) 34.1 - 44.9 % [facility] PLT 209 163 - 369 10*3/uL [facility] MPV 10.3 9.4 - 12.4 fL [facility] RBC 3.08(L) 3.93 - 5.22 10*6/uL [facility] MCV 101(H) 79 - 95 fL [facility] MCH 31.5 25.6 - 32.2 pg [facility] MCHC 31.1(L) 32.2 - 36.5 g/dL [facility] RDW 14.9(H) 11.6 - 14.4 % [facility] Neutrophils % 65.3 36.0 - 66.0 % [facility] Lymphocytes % 15.6(L) 19.0 - 40.0 % [facility] Monocytes % 10.6 4.1 - 12.1 % [facility] Eosinophils % 5.8(H) 0.0 - 3.5 % [facility] Basophils % 1.0 0.0 - 1.0 % [facility] Absolute Neutrophils 3.4 1.4 - 6.6 10*3/uL [facility] Absolute Lymphocytes 0.8 0.8 - 4.0 10*3/uL [facility] Absolute Monocytes 0.6 0.2 - 1.2 10*3/uL [facility] Absolute Eosinophils 0.3 0.0 - 0.4 10*3/uL [facility] Absolute Basophils 0.1 0.0 - 0.1 10*3/uL [facility] 10/28/2024 8:55 AM HEAD OF DIGITAL us Mayda Torres APRN, DIRECTOR SECURITY RISK MANAGEMENT LAB SEND OUTS Final Result Performing Organization Address [facility]/ZIP Co de Phone Number [facility] [address] [place] [address], [place] [phone] * VITAMIN B12 (10/28/2024 8:55 AM HEAD OF DIGITAL) Vitamin B12 222 180 - 914 pg/mL [facility] Blood 10/28/2024 8:55 AM HEAD OF DIGITAL Narrative [facility] - 10/29/2024 3:15 PM HEAD OF DIGITAL Release to patient->Immediate us Mayda Torres APRN, DIRECTOR SECURITY RISK MANAGEMENT CHEMISTRY ORDERABLES Final Result Performing Organization Address [facility] Co de Phone Number [facility] [address] [place] [address], [place] [phone] * FOLIC ACID (FOLATE) (10/28/2024 8:55 AM HEAD OF DIGITAL) Folate 8.69 >=5.90 ng/mL [facility] Blood 10/28/2024 8:55 AM HEAD OF DIGITAL Narrative [facility] - 10/29/2024 3:15 PM HEAD OF DIGITAL Release to patient->Immediate IS THE PATIENT REQUIRED TO BE FASTING FOR 12 HOURS?->No us Mayda Torres APRN, DIRECTOR SECURITY RISK MANAGEMENT CHEMISTRY ORDERABLES Final Result Performing Organization Address City/[facility]/ZIP Co de Phone Number [facility] [address] [address], [place] [phone] * (ABNORMAL) FERRITIN (10/28/2024 8:55 AM HEAD OF DIGITAL) Ferritin 365(H) 11 - 307 ng/mL [facility] Blood 10/28/2024 8:55 AM HEAD OF DIGITAL Narrative [facility] - 10/29/2024 3:15 PM HEAD OF DIGITAL Release to patient->Immediate Mayda Torres TEST CONDUCTOR, DIRECTOR SECURITY RISK MANAGEMENT CHEMISTRY ORDERABLES Final Result [facility] [address] [address], [place] [phone] * (ABNORMAL) CMP (COMPREHENSIVE METABOLIC PANEL) (10/28/2024 8:55 AM HEAD OF DIGITAL) Glucose 205(H) 70 - 105 mg/dL [facility] Blood Urea Nitrogen 43(H) 7 - 25 mg/dL [facility] Creatinine 1.8(H) 0.6 - 1.2 mg/dL [facility] Sodium 142 136 - 145 mEq/L [facility] Potassium 4.0 3.5 - 5.1 mEq/L [facility] Chloride 101 98 - 107 mEq/L [facility] Bicarbonate 29 21 - 31 mEq/L [facility] Total Bilirubin 0.4 0.3 - 1.0 mg/dL [facility] Alk. Phosphatase 26(L) 34 - 104 U/L [facility] Aspartate Aminotransferase 29 13 - 39 U/L [facility] Alanine Aminotransferase 22 7 - 52 U/L [facility] Total Protein 6.7 6.4 - 8.9 g/dL [facility] Albumin 4.4 3.5 - 5.7 g/dL [facility] Calcium 9.6 8.6 - 10.3 mg/dL [facility] Anion Gap 16.0(H) 7.0 - 15.0 mEq/L [facility] Globulin 2.3 2.0 - 3.5 g/dL [facility] EGFR 30(L) >60 ml/min/1. 73m2 [facility] Comment: This eGFR is calculated using 2020 CKD-EPI Creatinine equation without race modifier based on the NKF-ASN task force recommendations Blood 10/28/2024 8:55 AM HEAD OF DIGITAL Narrative [facility] - 10/29/2024 10:21 AM HEAD OF DIGITAL Release to patient->Immediate IS THE PATIENT REQUIRED TO BE FASTING FOR 8 HOURS?->No Mayda Torres APRN, DIRECTOR SECURITY RISK MANAGEMENT CHEMISTRY ORDERABLES Final Result [facility] [place] [address], from Last 3 Months Insurance MEDICARE C [employer] MEDICARE C [facility] Care Teams Regional Safety Manager Relationship Specialty Start Date End Date Osman Malcolm [address] [facility] [place] [address] PCP - General Family Medicine 03/08/20 Robert Corbett MD [address] [place] [address] Consulting Physician Oncology 04/18/22 Adrien Cerrato MD [address] [place] [address] Consulting Physician Oncology 05/14/22
--- OUTSIDE RECORDS SUMMARY | 2025-01-14 10:11 | XMS_ITS | Clinical Summary ---
Author Organization [facility] cam[facility] Address [address] [place] [address] Phone Care Team Providers Care Commercial Parts Professional Name Role Phone Osman Malcolm MD Primary Care Provider [phone] Allergies No known active allergies Medications Medication [...] DAILY 08/14/2022 Active Lancets (OneTouch Delica Plus [id number]) misc USE TO CHECK GLUCOSE TWICE DAILY [...] Comments Blood Pressure 124/60 10/02/2022 11:11 AM FLIGHT SURGEON Pulse 72 10/02/2022 11:11 AM FLIGHT SURGEON Temperature 36.2 C (97.2 F) 10/02/2022 11:11 AM FLIGHT SURGEON Respiratory Rate - - Oxygen Saturation - - Inhaled Oxygen Concentration - - Weight 97.5 kg (215 lb) 10/02/2022 11:11 AM FLIGHT SURGEON Height 170.2 cm (5' 7 ) 10/02/2022 11:11 AM FLIGHT SURGEON Body Mass Index 33.67 10/02/2022 11:11 AM FLIGHT SURGEON Plan of Treatment Health Maintenance Due Date Last Done Comments Pneumococcal PPSV23/PCV13 65 + Years / High and Highest Risk (1 of 4 - PCV) 1960 Diabetic Foot Exam 1964 Ophthalmology Exam 1964 Influenza Vaccine (#1) 2024 08/03/2022, 2019 Care Teams Commercial Parts Professional Relationship Specialty Start Date End Date Osman Malcolm MD [address] [place] [address] PCP - General Family Medicine 08/28/22
[2025-01-14 11:39] LABS: Basophils Absolute Auto 0.1 K/mm3 (0.0-0.1); Basophils Percent Auto 0.7 % (0.2-1.2); Eosinophils Absolute Auto 0.4 K/mm3 (0-0.3); Eosinophils Percent Auto 6.1 % (0-4.4); Hematocrit 34.2 % (37.0-47.0); Hemoglobin 11.1 g/dL (12.0-15.0); Immature Granulocyte Absolute 0.04 K/mm3 (0.00-0.031); Immature Granulocyte Percent A 0.6 % (0-0.5); Lymphocytes Absolute Auto 1.35 K/mm3 (0.9-3.2); Lymphocytes Percent Auto 19.1 % (18.3-44.2); Mean Corpuscular HGB Conc 32.5 g/dl (32-36); Mean Corpuscular Hemoglobin 33.1 pg (26-34); Mean Corpuscular Volume 102.1 fl (80-100); Mean Platelet Volume 9.8 fl (7.4-10.4); Monocytes Absolute Auto 0.7 K/mm3 (0.1-0.6); Monocytes Percent Auto 9.2 % (2.6-8.5); Neutrophils Absolute Auto 4.6 K/mm3 (1.3-6.7); Neutrophils Percent Auto 64.3 % (45.5-73.1); Platelet Count Result 221 k/mm3 (150-375); Red Blood Count 3.35 M/mm3 (4.2-5.4); Red Cell Distribution Width 13.4 % (11.5-14.5); White Blood Count 7.1 K/mm3 (4.5-10.0)
[2025-01-14 11:53] LABS: Alanine Aminotransferase 17 U/L (6-35); Albumin Level 4.4 g/dL (3.5-5.1); Alkaline Phosphatase 32 U/L (38-126); Anion Gap 13 mmol/L (4-12); Aspartate Amino Transferase 26 U/L (14-36); Bilirubin,Total 0.3 mg/dL (0.2-1.3); Blood Urea Nitrogen 51 mg/dL (7-17); Carbon Dioxide 23 mmol/L (22-30); Chloride 105 mmol/L (98-107); Estimated CRCL calculation 23 ml/min; Estimated Glomerular Filt Rate 24; Glucose 128 mg/dL (65-110); Sodium 141 mmol/L (137-145)
[2025-01-14] MEDS: SODIUM CHLORIDE 0.9% IV 1,000 ML 999 ML IV CONT ×2 (12:10→15:04)
--- OUTSIDE RECORDS SUMMARY | 2025-01-14 12:19 | XMS_ITS | Clinical Summary ---
Author Organization [facility] Medical Office Building [address] Address [address] [place] [address] Care Team Providers Care Felled Seam Operator Chainstitch Name Role Phone Rey Hinton PA Unavailable [phone] Reina Jimenes Unavailable [phone] Osman Malcolm MD Primary Care Provider [phone] Allergies Active Allergy Reactions Criticality Noted Date [...] hyperglycemia, with long-term current use of insulin ([facility]) Continuous glucose monitoring. Change every 10 days. 9 each 3 3 Active blood-glucose meter,continuo us (Dexcom G7 Counter Person) miscIndication s:Type 2 diabetes mellitus with hyperglycemia, with long-term current use of insulin ([facility]) Continuous glucose monitor 1 each 3 Active [...] 1 tablet (112 mcg total) by mouth sorter lumber straightener before breakfast 4 Active pen needle, diabetic 32 gauge x /32 needleIndicati ons:Type 2 diabetes mellitus with hyperglycemia, with long-term current use of insulin ([facility]) USE TO INJECT INSULIN DAILY 100 each [...] 06/20 Assessment & Plan (10/26/2024 12:09 PM TRACK LAYER): Chronic problem. Managed by Dr Marr at [facility]. Next appt 12/29/24 Nephropathy: On GWEN-I / ARB s : Yes. Lisinopril 5mg. Last MA: 12/25/23 (36 calc). Last creat/GFR: 03/31/24 GFR=27, CR=1.96. Assessment & Plan (06/29/2024 11:48 AM CDT): Chronic problem. Managed by Dr Tejinder mcconnell [facility]. Next appt 06/30/24. Nephropathy: On GWEN-I / ARB s : Yes. Lisinopril 5mg. Last MA: 12/25/23 (36 calc). Last creat/GFR: 03/31/24 GFR=27, CR=1.96. Diabetic neuropathy associat ed with type 2 diabetes mellitus 01/30/2023 Assessment & Plan (10/26/2024 11:56 AM TRACK LAYER): Chronic problem. Gabapentin Gabapentin 300-600mg at HS. [...] barefoot. Assessment & Plan (12/25/2023 10:41 AM TRACK LAYER): Foot care discussed Continue gabapentin Assessment & [...] 10/31/2022 Assessment & Plan (10/31/2022 12:56 PM TRACK LAYER): Encouraged Mrs Trujillo to walk in home if weather not conducive to walking outside. Discussed healthy diet and importance of regular physical activity (20- 30min/day, 150min/wk). Hyperlipidemia associated with type 2 diabetes latanya brown 07/25/2022 Assessment & Plan (10/26/2024 11:30 AM TRACK LAYER): Chronic problem, at goal on Atorvastatin 10mg & fenofibrate 160mg daily Last lipid panel: 12/25/23 LDL=98, PV=127. Assessment & Plan (06/29/2024 11:46 AM CDT): Chronic problem, at goal on Atorvastatin 10mg & fenofibrate 160mg daily Last lipid panel: 12/25/23 LDL=98, OD=899. Assessment & Plan (12/25/2023 10:41 AM TRACK LAYER): Chronic, stable Continue Atorvastatin 10 mg daily UDT lipid profile Assessment & Plan (05/08/2023 11:12 AM CDT): Chronic problem, at goal on Atorvastatin 10mg & fenofibrate 160mg daily Last lipid panel: 07/25/22 LDL=74, QY=092. No changes at this time. Assessment & Plan (01/30/2023 11:08 AM CDT): Chronic problem, at goal on Atorvastatin 10mg. Last lipid panel: 07/25/22 LDL=74, PP=422. No changes at this time. Assessment & Plan (10/31/2022 8:59 AM TRACK LAYER): Chronic problem, near goal. LDL=74 07/2022. Atorvastatin 10mg daily. No changes at this time. Assessment & Plan (07/25/2022 12:50 PM CDT): Continue atorvastastin Check lipid profile LDL goal under 70 Type 2 diabetes mellitus wit h hyperglycemia, with long-term current use of insulin 05/28/2022 Assessment & Plan (10/26/2024 11:56 AM TRACK LAYER): Chronic problem, stable/controlled. A1c stable at 5.8%. Current medications: Metformin XR 500mg twice daily before meals Januvia 100 mg daily (PAP) Basaglar 14 units every evening (PAP) Cannot trial GLP1a d/t h/o pancreatitis UTD on labs DM eye exam (2023 at [facility]). 2nd request letter sent. Strive [...] infection. Assessment & Plan (12/25/2023 10:40 AM TRACK LAYER): Chronic, stable Contiue current regimen including Basaglar, Glimepiride 1 mg daily, Metformin 500 mg bid and Januvia Diet and exercise were discussed Assessment & Plan (09/09/2023 11:37 AM TRACK LAYER): Hba1c was Lab Results Component Value Date [...] 7.8% Phone not compatible with dexcom nor Astaro haseeb. Sent in Dexcom 7 & reader. [...] evening Had DM eye exam 01/2023 at [facility] in [place]. Letter sent to get copy of results. [...] infection. Assessment & Plan (10/31/2022 12:55 PM TRACK LAYER): Chronic problem, at goal. No changes. Continue current medications: Metformin 1000 mg bid Glimepiride 1mg once a day, in the morning Januvia 100 mg in the am Basaglar 14 units hs Mrs Trujilol to make a diabetic eye exam and [...] (04/20/2020): Added automatically from request for surgery [id number] Encounters Date Type Department Care Team Description 01/13/2025 Orders Only [facility] Diabetes and Endocrinology [address] [place] [phone] ProviderMarcello MD 01/12/2025 Telephone [facility] Diabetes and Endocrinology [address] [place] [phone] Sisi Guevara, SHANK THREADER Med Management 12/27/2024 7:33 AM CDT Anesthesia Event [facility] Operating Room [address] [place] [phone] Carson Yee MD [place], Justin Kyle, CRNA 12/27/2024 7:30 AM CDT - 12/27/2024 10:30 AM CDT Surgery [facility] Operating Room [address] [place] [phone] Vivi Johansen MD T10 Laminotomy for Placement of Spinal Cord Stimulator 12/27/2024 5:11 AM CDT - 12/29/2024 3:52 PM CDT Hospital Encounter [facility] [address] [place] [phone] Vivi Johansen MD Discharge Disposition: Discharge to home or self care 11/08/2024 11:45 AM TRACK LAYER Pre-Admission Testing [facility] Pre Anesthesia Testing [address] [place] [phone] Preoperative evaluation to rule out surgical contraindication (Primary Dx); Other specified pre-operative examination; USP current use of anticoagulant 11/05/2024 11:59 PM TRACK LAYER Anesthesia Event [facility] Operating Room [address] [place] [phone] Dinora Matthew NP 11/04/2024 Telephone [facility] Pre Anesthesia Testing [address] [place] [address] [phone] Khushi Gresham 11/03/2024 Orders Only [facility] Diabetes and Endocrinology [address] [place] [phone] Marcello Barajas MD 10/26/2024 11:30 AM TRACK LAYER Office Visit [facility] Diabetes and Endocrinology [address] [place] [phone] Sisi Guevara, GRACE Type 2 diabetes mellitus with hyperglycemia, with long-term current use of insulin (HCC) (Primary Dx); CKD stage 4 due to type 2 diabetes mellitus (HCC); Hyperlipidemia associated with type 2 diabetes mellitus (HCC); Diabetic neuropathy associated with type 2 diabetes mellitus (HCC) 10/26/2024 Telephone [facility] Diabetes and Endocrinology [address] [place] [address] Sisi Guevara, GRACE Med Management (Huyen [facility]ares - Basaglar) 10/19/2024 Telephone [facility] [phone] [place] [address] [address] [address] Sisi Guevara, GRACE Med Refill [...] on file Legal Sex Female 6:42 PM TRACK LAYER Gender Identity Not on file Sexual Orientation [...] history exists Medical Devices Implanted Type Area Supervisor [employer] Device Identifier Shelf Expiration Date Model / Serial / Lot Depuy Orthopaed[employer] Inc [id number] Attune Cruciate Retain Cementless Knee Left 6 Narrow Component - [id number] Implanted:Qty: 1 on 05/02/2020 by Go Lazaro MD at [facility] Left: Knee [employer] 10/19/2029 [id number] / / [id number] Depuy [employer] [id number] Attune 5mm Cruciate Retaining Rotate Platform Knee 6 Insert - [id number] Implanted:Qty: 1 on 05/02/2020 by Go Lazaro MD at [facility] Left: Knee [employer] 08/19/2024 [id number] / / [id number] Attune Knee System, Tibial Base Rotating Platform Implanted:Qty: 1 on 05/02/2020 by Go Lazaro MD at [facility] Left: Knee Depuy [employer] Inc [id number] 05/19/2028 [id number] / / [id number] [employer] [id number] [place]os R+G High Viscosity Cement Bone Gentamicin Arthroplasty - [id number] Implanted:Qty: 1 on 05/02/2020 by Go Lazaro MD at [facility] Left: Knee [employer] 02/16/2022 [id number] / / [id number] [employer] [id number] [place]os R+G High Viscosity Cement Bone Gentamicin Arthroplasty - [id number] Implanted:Qty: 1 on 09/05/2020 by Go Lazaro MD at [facility] Right: Knee [employer] 08/19/2022 [id number] / / [id number] Depuy Orthopaedics Inc [id number] Baseplate Tibial Attune 6 Knee Cement Rotate Platform Sterile - [id number] Implanted:Qty: 1 on 09/05/2020 by Go Lazaro MD at [facility] Right: Knee [employer] 03/19/2030 [id number] / / [id number] Dep[employer] [id number] Attune 7mm Cruciate Retaining Rotate Platform Knee 6 Insert - [id number] Implanted:Qty: 1 on 09/05/2020 by Go Lazaro MD at [facility] Right: Knee [employer] 08/19/2024 [id number] / / [id number] Dep[employer] [id number] Attune Cruciate Retain Cementless Knee Right 6 Component Femoral - [id number] Implanted:Qty: 1 on 09/05/2020 by Go Lazaro MD at [facility] Right: Knee [employer] 07/19/2028 [id number] / / [id number] Medtronic Inc Specify Surescan 65cm 3 Column 16 Electrode Lead Nerve Stimulator [id number] - [id number] Implanted:Qty: 1 on 12/27/2024 by Vivi Johansen MD at [facility] N/A: Back Med[employer] Inc 09/24/2028 [id number] / / [id number] Med[employer]onic Inc Generator Pulse Inceptiv Sys Stm Electrcl Analges Implant [id number] - [id number] - [id number] Implanted:Qty: 1 on 12/27/2024 by Vivi Johansen MD at [facility] Right: Back [employer] Inc [id number] 11/02/2025 [id number] / [id number] / Biocomposites Stimulan Rapid Cure Kit Paste Gang Supervisor Pipe Lines 5cc 12.5cc Bone Void 620-005 - [id number] Implanted:Qty: 1 on 12/27/2024 by Vivi Johansen MD at [facility] N/A: Back [employer] [id number] 06/19/2027 620-005 / / [id number] Procedures Procedure Name Priority Date/Time Associated Diagnosis [...] VIEWS IP Routine 12/27/2024 9:19 AM CDT WI AN PROCEDURE PLACEHOLDER Routine 12/27/2024 8:03 AM CDT WI AN ELECTIVE ENDOTRACHEAL AIRWAY Routine 12/27/2024 8:03 AM CDT INSERTION SPINAL CORD STIMULATOR 12/27/2024 7:35 AM CDT Diabetic polyneuropathy associated with other specified diabetes mellitus (HCC) EGFR STAT 12/27/2024 6:52 AM CDT BASIC METABOLIC PANEL STAT 12/27/2024 6:52 AM CDT POCT GLUCOSE DEVICE Routine 12/27/2024 6 :38 AM CDT EGFR Routine 11/08/2024 12:06 PM TRACK LAYER Preoperative evaluation to rule out surgical contraindication APTT Routine 11/08/2024 12:06 PM TRACK LAYER Other specified pre-operative examination USP current use of anticoagulant BASIC METABOLIC PANEL Routine 11/08/2024 12:06 PM TRACK LAYER Preoperative evaluation to rule out surgical contraindication POCT HEMOGLOBIN A1C Routine 10/26/2024 1 1:17 AM TRACK LAYER Type 2 diabetes mellitus with hyperglycemia, with long-term current use of insulin (HCC) POCT GLUCOSE Routine 10/26/2024 11:17 AM TRACK LAYER Type 2 diabetes mellitus with hyperglycemia, with long-term current use of insulin (HCC) [facility] DIABETES EYE EXAM Routine 09/07/2024 7:29 AM TRACK LAYER LIPID PANEL Routine 12/25/2023 10:51 AM TRACK LAYER Type 2 diabetes mellitus with hyperglycemia, with long-term current use of insulin (HCC) ALBUMIN CREATININE RATIO, URINE Routine 12/25/2023 10:51 AM TRACK LAYER Type 2 diabetes mellitus with hyperglycemia, with long-term current use of insulin (HCC) from Last 3 Months or Most Recently Relevant to Health Maintenance Results * (ABNORMAL) EGFR (01/12/2025 9:14 AM CDT) SCRIBED eGFR in NonAfrican Rwandan 20 >=60 - NA EXTERNAL LAB 01/12/2025 9:14 AM CDT Historical Provider HEALTH MAINTENANCE Edited Result - Final EXTERNAL LAB * (ABNORMAL) HM CREATININE (01/12/2025 9:14 AM CDT) SCRIBED Creatinine 2.14(A) 0.7 - 1.0 mg/dl EXTERNAL LAB SCRIBED eGFR in NonAfrican Rwandan 20 >=60 - NA EXTERNAL LAB Blood [...] DE VICE Final Result Performing Organization Address [facility] Co de Phone Number [facility] [address] [employer] [place], [place] [phone] * POCT glucose (12/27/2024 9:06 PM CDT) [...] DE VICE Final Result Performing Organization Address [facility] Co de Phone Number [facility] [address] Department [place] [address] * POCT glucose (12/27/2024 10:20 AM CDT) [...] DE VICE Final Result Performing Organization Address City/[facility]/ZIP Co de Phone Number [facility] [address] Department [place] [address] * FL Fluoroscopy < 1 Hour (12/27/2024 9:19 AM CDT) Narrative [facility] - 12/27/2024 9:20 AM CDT The images from this study are not interpreted by Radiology. Please refer to the physician's procedure / OR operative note. Vivi Johansen MD IMG FLUOROSCOPY PROCEDUR ES Final Result Performing Organization Address [facility] Co de Phone Number [facility] * XR Spine Thoracolumbar Junction 2 or [...] MD IMG XR PROCEDURES Final Result * WI AN ELECTIVE ENDOTRACHEAL AIRWAY, WI AN PROCEDURE PLACEHOLDER (12/27/2024 8:03 AM CDT) Narrative Deshawn Mera CRNA - 12/27/2024 8:03 AM CDT Deshawn Mera CRNA 12/27/2024 8:04 AM Airway Patient location: OR Urgency: elective Indications for airway management: anesthesia and airway protection Difficult airway: no Staff: Supervising provider: Carson Yee MD Placed by: BAG WORKER: Deshawn Mera CRNA Emergent airway documentation: Risks [...] MD LAB BLOOD ORDERABLES Final R esult [facility] [address] Department [place] [address] * (ABNORMAL) Basic metabolic panel (12/27/2024 6:52 AM CDT) [facility] Sodium 140 135 - 145 mmol/L Potassium, pl 4.7 3.3 - 4.9 mmol/L [facility] Chloride 105 97 - 110 mmol/L [facility] CO2 23 22 - 32 mmol/L [facility] Anion gap 12 2 - 15 mmol/L [facility] BUN 41(H) 6 - 25 mg/dL [facility] Creatinine 1.36(H) 0.60 - 1.10 mg/dL [facility] Glucose 110 70 - 199 mg/dL [facility] Comment: Interpretive Data Fasting glucose >/= [...] 2022. Calcium 9.5 8.5 - 10.3 mg/dL [facility] Blood 12/27/2024 6:52 AM CDT 12/27/2024 6:57 AM CDT us Carson Yee MD LAB BLOOD ORDERABLES Final R esult Performing Organization Address City/[facility]/ZIP Co de Phone Number [facility] [address] Department of Laboratories [place], [place] [phone] * POCT glucose (12/27/2024 6:38 AM CDT) [facility] Glucose, POC 111 70 - 199 mg/dL Comment: For Glucose values <35 mg/dl when Hematocrit is >60 mg/dl,the test may not accurately detect significant hypoglycemia,and testing in the Laboratory should be considered if clinically indicated. Blood 12/27/2024 6:38 AM CDT 12/27/2024 6:38 AM CDT Vivi Johansen MD LAB POCT ORDERABLES - DE VICE Final Result Performing Organization Address City/[facility] Co de Phone Number [facility] [address] Department [place] [address] * (ABNORMAL) eGFR (11/08/2024 12:06 PM TRACK LAYER) [facility] eGFR 33(L) >=60 mL/min/1. 73 m2 Comment: [...] reviewed 2021. Blood 11/08/2024 12:0 6 PM TRACK LAYER 11/08/2024 12:06 PM TRACK LAYER us Dinora Matthew NP LAB BLOOD ORDERABLES Fin al Result Performing Organization Address City/[facility]/ZIP Co de Phone Number [facility] [address] [employer] [place], [place] [phone] * aPTT (11/08/2024 12:06 PM TRACK LAYER) aPTT 30 28 - 38 sec Comment: Interpretive Data Heparin therapeutic range: 66.0 - 100.0 seconds. Range based on correlation with therapeutic heparin activity range of 0.3 - 0.7 Units/mL. Current interpretive data was last revised on 2023. Blood 11/08/2024 12:0 6 PM TRACK LAYER 11/08/2024 12:06 PM TRACK LAYER us Vivi Johansen MD LAB BLOOD ORDERABLES Fin al Result [facility] [address] [facility] [employer] [place] [address] * (ABNORMAL) Basic metabolic panel (11/08/2024 12:06 PM TRACK LAYER) Sodium 141 135 - 145 mmol/L Potassium, pl 4.9 3.3 - 4.9 mmol/L [facility] Chloride 103 97 - 110 mmol/L [facility] CO2 25 22 - 32 mmol/L [facility] Anion gap 13 2 - 15 mmol/L [facility] BUN 47(H) 6 - 25 mg/dL [facility] Creatinine 1.67(H) 0.60 - 1.10 mg/dL [facility] Glucose 129 70 - 199 mg/dL [facility] Comment: Interpretive Data Fasting glucose >/= [...] 2022. Calcium 10.0 8.5 - 10.3 mg/dL [facility] Blood 11/08/2024 12:0 6 PM TRACK LAYER 11/08/2024 12:06 PM TRACK LAYER us Dinora Matthew NP LAB BLOOD ORDERABLES Fin al Result [facility] [address] Department [place] [address] * (ABNORMAL) POCT hemoglobin A1c (10/26/2024 11:17 AM TRACK LAYER) Hemoglobin A1C, POC 5.8 4.0 - 5.6 % Blood 10/26/2024 11:1 7 AM TRACK LAYER us Sisi Guevara SHANK THREADER POINT OF CARE TEST ORDERA BLES Final Result * (ABNORMAL) POCT glucose (10/26/2024 11:17 AM TRACK LAYER) Glucose Blood, POC 184 mg/dL Blood 10/26/2024 11:1 7 AM TRACK LAYER Sisi Guevara SHANK THREADER POINT OF CARE TEST ORDERA BLES Final Result * [facility] DIABETES EYE EXAM (09/07/2024 7:29 AM TRACK LAYER) Historical Provider HEALTH MAINTENANCE Final Result * Albumin Creatinine Ratio, Urine (12/25/2023 10:51 AM TRACK LAYER) Albumin Ur <12.0 mg/L Comment: Interpretive Data No reference range established. Current interpretive data was last revised 2019. Creatinine Ur 33.6 mg/dL [facility] Comment: Interpretive Data No reference range established. Current interpretive data was last revised 2019. Albumin Creatinine Ratio, Ur See Comment 1 - [facility] Comment:Unable to calculate Urine 12/25/2023 10:5 1 AM TRACK LAYER 12/25/2023 4:20 PM TRACK LAYER Charan Hopper MD LAB URINE ORDERABLES Final Resul t [facility] [address] Department of Laboratories [place], [place] [phone] * (ABNORMAL) Lipid panel (12/25/2023 10:51 AM TRACK LAYER) Cholesterol 179 30 - 199 mg/dL Comment: [...] [facility] Blood 12/25/2023 10:5 1 AM TRACK LAYER 12/25/2023 4:20 PM TRACK LAYER us Charan Hopper MD LAB BLOOD ORDERABLES Final Resul t [facility] [address] Department [place] [address] from Last 3 Months or Most Recently Relevant to Health Maintenance Insurance [employer] [facility] MEDICARE [facility] MEDICARE ADVANTAGE [place] [id number] Advance Directives For more information, please contact: [phone] * Full Code (Latest Code Status on File) Date Activated Date Inactivated Comments 12/27/2024 12:45 PM 12/29/2024 7:57 PM * Full Code Date Activated Date Inactivated Comments 09/05/2020 1:54 PM 09/06/2020 6:34 PM * Full Code Date Activated Date Inactivated Comments 05/02/2020 2:11 PM 05/03/2020 8:18 PM Care Teams Felled Seam Operator Chainstitch Relationship Specialty Start Date End Date Osman Malcolm MD [address] [place] [phone] PCP - General Family Medicine 09/18/22 Rey Hinton PA [address] [place] [address] [address] [place] [address] Physician Heater Planer Operator Orthopedic Surgery 05/03/20 Reina Jimenes PA [address] [place] [address] [address] [place] [address] Physician Heater Planer Operator Orthopedic Surgery 09/06/20
--- OUTSIDE RECORDS SUMMARY | 2025-01-14 12:19 | XMS_ITS | Continuity of Care Document ---
Author Organization [facility] Address [address] [place] [address] [place] [address] Phone Care Team Providers Care 3D Animator Name Role Phone Osman Malcolm MD Unavailable Unavailable Allergies, Adverse Reactions, Alerts Substance Reaction Status Criticality No Known Allergies Active No Inform ation Medications Medication Instructions Dosage Effective Dates (start - stop) Status Comments tramadol 50 mg tablet take 1 tablet by oral route every 6 hours as needed as needed 50 MG - Active PRN for pain, avoid driving or operate machines allopurinol 100 mg tablet take 1 tablet by oral route 2 times every day 100 MG - Active Lasix 20 mg tablet take 1 tablet by oral route every day 20 MG - Active lisinopril 5 mg tablet take 1 tablet by oral route every day 5 MG - Active Synthroid 112 mcg tablet take 1 tablet by oral route every day 112 MCG - Active Pepcid 20 mg tablet take 1 tablet by oral route 2 times every day 20 MG - Active atorvastatin 10 mg tablet take 1 tablet by oral route every day 10 MG - Active fenofibrate 160 mg tablet take 1 tablet by oral route every day 160 MG - Active metformin 500 mg tablet [...] Providers Copied on Encounter OFFICE/OUTPA TIENT VISIT, [facility], [address], [place], [place], [address], [place] tel:[phone] [facility] sleep apnea1 (chief complaint)br east1 (chief complaint) Obstructive sleep apnea hypopneaLump in the left breast 5 Gold Brewer. [address], [place], [place], [address] , [place]. tel:[phone] OFFICE/OUTPA TIENT VISIT, [facility], [address], [place], [place], [address], [place] tel:[phone] [facility] breast1 (chief complaint) Lump in the left breast 5 Gold Osman. [address], [place], [place], [address] , [place]. tel:[phone] OFFICE/OUTPA TIENT VISIT, [facility], [address], [place], [place], [address], [place] tel:[phone] [facility] back pain1 (chief complaint) Chronic pain syndrome 5 Malcolm Osman. [address], [place], [place], [address] , [place]. tel:[phone] OFFICE/OUTPA TIENT VISIT, [facility], [address], [place], [place], [address], [place] tel:[phone] [facility] mammo (chief complaint) Lump in the left breast 4 Malcolm Osman. [address], [place], [place], [address] , [place]. tel:[phone] OFFICE/OUTPA TIENT VISIT, [facility], [address], [place], [place], [address], [place] tel:[phone] [facility] infection1 (chief complaint)re nal (chief complaint)ba ck pain1 (chief complaint) Iron deficiency anemiaType 2 diabetes mellitus with diabetic mononeuropathySta ge III chronic renal diseaseCellulitis of abdominal wall 4 Gold Brewer. [address], [place], [place], [address] , [place]. tel:[phone] OFFICE/OUTPA TIENT VISIT, [facility], [address], [place], [place], [address], [place] tel:[phone] [facility] thyroid1 (chief complaint)HT N (chief complaint)go ut1 (chief complaint)ed ema1 (chief complaint) Encntr screen mammogram for malignant neoplasm of breastHypothyroid ismEssential (primary) hypertensionGoutE rafat 4 Gold Brewer. [address], [place], [place], [address] , [place]. tel:[phone] OFFICE/OUTPA TIENT VISIT, [facility], [address], [place], [place], [address], [place] tel:[phone] [facility] back pain1 (chief complaint) Chronic pain syndromeNeuropath y 4 Gold Osman. [address], [place], [place], [address] , [place]. tel:[phone] OFFICE/OUTPA TIENT VISIT, [facility], [address], [place], [address], [place] tel:[phone] [facility] hypothyroidi sm1 (chief complaint)ir on (chief complaint)HL P (chief complaint)DM (chief complaint)GE RD1 (chief complaint) Mixed hyperlipidemiaHyp othyroidismIron deficiency anemiaType 2 diabetes mellitus with diabetic mononeuropathyGER D w/o esophagitis 4 Gold Brewer. [address], [place], [place], [address] , [place]. tel:[phone] OFFICE/OUTPA TIENT VISIT, [facility], [address], [place], [place], [address], [place] tel:[phone] [facility] PVD1 (chief complaint)HL P (chief complaint)HT N (chief complaint) Peripheral vascular disease, unspecifiedEssent ial (primary) hypertensionMixed hyperlipidemia 4 Gold Brewer. [address], [place], [place], [address] , [place]. tel:[phone] OFFICE/OUTPA TIENT VISIT, [facility], [address], [place], [address], [place] tel:[phone] [facility] GERD1 (chief complaint)PV D (chief complaint) Peripheral vascular disease, unspecifiedGERD w/o esophagitis 4 Gold Brewer. [address], [place], [place], [address] , [place]. tel:[phone] OFFICE/OUTPA TIENT VISIT, [facility], [address], [place], [address], [place] tel:[phone] [facility] thyroid1 (chief complaint)re nal (chief complaint)HL P (chief complaint)ir on deficiency1 (chief complaint)DM (chief complaint)go ut1 (chief complaint) HypothyroidismMix ed hyperlipidemiaGou tIron deficiency anemiaType 2 diabetes mellitus with diabetic mononeuropathy 3 Gold Brewer. [address], [place], [address] , [place]. tel:[phone] PREV VISIT, EST, 65 & OVER [facility], [address], [place], [place], [address], [place] tel:[phone] [facility] physical (chief complaint) Encounter for general adult medical exam w abnormal findingsIron deficiency anemiaMixed hyperlipidemiaSta ge III chronic renal diseaseType 2 diabetes mellitus with diabetic mononeuropathyGou tHypothyroidism 3 Gold Brewer. [address], [place], [address] , [place]. tel:[phone] OFFICE/OUTPA TIENT VISIT, [facility], [address] [place], [address], [place] tel:[phone] [facility] renal disease1 (chief complaint)th yroid1 (chief complaint)DM (chief complaint)os teopenia1 (chief complaint)ir on defificnecy (chief complaint)we ight loss1 (chief complaint) HypothyroidismSta ge III chronic renal diseaseIron deficiency anemiaOth disrd of bone density and structure, unspecified siteAbnormal weight lossMixed hyperlipidemia Raoul- 3 Gold Eduardo [address], [place], [place], [address] , [place]. tel:[phone] OFFICE/OUTPA TIENT VISIT, [facility], [address] [place], [address], tel:[phone] [facility] DM (chief complaint)GE RD1 (chief complaint)HL P (chief complaint)th yroid1 (chief complaint) HypothyroidismTyp e 2 diabetes mellitus with diabetic mononeuropathyMix ed hyperlipidemiaGER D w/o esophagitis 3 Gold Eduardo [address], [place], [address] , [place]. tel:[phone] OFFICE/OUTPA TIENT VISIT, [facility], [address] [place], [address], [place] tel:[phone] [facility] foot pain1 (chief complaint) Pain in right footType 2 diabetes mellitus with diabetic mononeuropathy 3 Gold Eduardo [address], [place], [place], [address] , [place]. tel:[phone] OFFICE/OUTPA TIENT VISIT, [facility], [address] [place], [address], [place] tel:[phone] [facility] anemia1 (chief complaint)HL P (chief complaint)re nal1 (chief complaint)DM (chief complaint)th yroid1 (chief complaint)ra sh1 (chief complaint) Iron deficiency anemiaType 2 diabetes mellitus with diabetic mononeuropathyMix ed hyperlipidemiaHyp othyroidismStage III chronic renal diseaseTinea corporis 3 Gold Eduardo [address], [place], [address] , [place]. tel:[phone] OFFICE/OUTPA TIENT VISIT, [facility], [address], [place], [address], [place] tel:[phone] [facility] DM (chief complaint)he maturia1 (chief complaint)ir on deficiency 1 (chief complaint)HL P (chief complaint)fa tty liver1 (chief complaint)th ryoid1 (chief complaint) Type 2 diabetes mellitus with diabetic nephropathyIron deficiency anemiaMixed hyperlipidemiaFat ty liverHypothyroidi smOther specified disorder of bone densityGERD w/o esophagitis 2 Gold Eduardo [address], [place], [place], [address] , [place]. tel:[phone] [facility], [address], [place], [address], [place] tel:[phone] [facility] No Information 2 Gold Eduardo [address], [place], [place], [address] , [place]. tel:[phone] OFFICE/OUTPA TIENT VISIT, [facility], [address], [place], [place], [address], [place] tel:[phone] [facility] back pain1 (chief complaint)an emia1 (chief complaint)DM (chief complaint) Chronic pain syndromeOther spondylosis, lumbar regionIron deficiency anemiaType 2 diabetes mellitus with diabetic mononeuropathy 2 Gold Eduardo [address], [place], [place], [address] , [place]. tel:[phone] PREV VISIT, EST, 65 & OVER [facility], [address], [place], [place], [address], tel:[phone] [facility] physical (chief complaint) Encounter for general adult medical exam w abnormal findingsHypothyro idismIron deficiency anemiaAsymptomati c microscopic hematuriaMixed hyperlipidemiaOth disrd of bone density and structure, unspecified siteSleep apneaGoutType 2 diabetes mellitus with diabetic mononeuropathyGER D w/o esophagitis 2 Gold Eduardo [address], [place], [place], [address] , [place]. tel:[phone] [facility], [address], [place], [address], [place] tel:[phone] [facility] No Information 2 Gold Eduardo [address], [place], [address] , [place]. tel:[phone] OFFICE/OUTPA TIENT VISIT, [facility], [address] [place], [address], [place] tel:[phone] [facility] DM (chief complaint)HL P (chief complaint)an emia1 (chief complaint)re nal1 (chief complaint)go ut1 (chief complaint) HematuriaRenal diseaseHyperlipid emiaType 2 diabetes mellitus with diabetic nephropathyHypoth yroidismAnemia 2 Gold Eduardo [address], [place], [place], [address] , [place]. tel:[phone] OFFICE/OUTPA TIENT VISIT, [facility], [address], [place], [place], [address], [place] tel:[phone] [facility] DM (chief complaint)UT I1 (chief complaint)os teopenia1 (chief complaint)re nal (chief complaint)go ut1 (chief complaint) Urinary tract infectionHematuri aType 2 diabetes mellitus with diabetic nephropathyHyperk alemiaOth disrd of bone density and structure, unspecified siteRenal diseaseGout 1 Gold Eduardo [address], [place], [place], [address] , [place]. tel:[phone] OFFICE/OUTPA TIENT VISIT, [facility], [address] [place], [address], [place] tel:[phone] [facility] osteopenia1 (chief complaint)re nal (chief complaint)DM (chief complaint)Tati L (chief complaint)he maturia1 (chief complaint) Type 2 diabetes mellitus with diabetic nephropathyHyperk alemiaHematuriaOt her specified disorder of bone density Jun- 1 Gold Brewer. [address], [place], [place], [address] , [place]. tel:[phone] PREV VISIT, EST, 65 & OVER [facility], [address], [place], [address], [place] tel:[phone] [facility] physical (chief complaint) Encounter for general adult medical exam w abnormal findingsHypothyro idismGERD w/o esophagitisHyperl ipidemiaGoutType 2 diabetes mellitus w/ diabetic neuropathySleep apneaOth disrd of bone density and structure, unspecified siteAnemiaFatty liver 1 Gold Brewer. [address], [place], [place], [address] , [place]. tel:[phone] OFFICE/OUTPA TIENT VISIT, [facility], [address] [place], [address], [place] tel:[phone] [facility] DM (chief complaint)GE RD1 (chief complaint)go ut1 (chief complaint)HL P (chief complaint) Type 2 diabetes mellitus w/ diabetic neuropathyHypothy roidismHyperlipid emiaGERD w/o esophagitisGout 1 Gold Brewer. [address], [place], [address] , [place]. tel:[phone] OFFICE/OUTPA TIENT VISIT, [facility], [address] [place], [address], [place] tel:[phone] [facility] knee pain1 (chief complaint)sl eep apnea1 (chief complaint)hy pothyroidism 1 (chief complaint)ed ema1 (chief complaint)DM (chief complaint)HL P (chief complaint) Osteoarthritis of knee, unspecifiedSleep apneaType 2 diabetes mellitus without complicationsEdem aHypothyroidismHy perlipidemia 0 Malcolm Osman. [address], [place], [place], [address] , [place]. tel:[phone] OFFICE/OUTPA TIENT VISIT, [facility], [address], [place], [place], [address], [place] tel:[phone] [facility] LFT (chief complaint)re nal (chief complaint)go ut1 (chief complaint)GE RD1 (chief complaint) Fatty liverRenal diseaseGoutType 2 diabetes mellitus without complicationsGERD w/o esophagitisPolyp of colon 0 Malcolm Osman. [address], [place], [place], [address] , [place]. [phone] OFFICE/OUTPA TIENT VISIT, [facility], [address], [place], [place], [address], [place] tel:[phone] [facility] knee pain1 (chief complaint) Pain in left kneeOsteoarthriti s of knee, unspecified 0 Malcolm Osman. [address], [place], [place], [address] , [place]. tel:[phone] PREV VISIT, EST, 65 & OVER [facility], [address], [place], [place], [address], [place] tel:[phone] [facility] PHysical (chief complaint) Encounter for general adult medical exam w abnormal findingsGoutType 2 diabetes mellitus without complicationsGERD w/o esophagitisFatty liverHypothyroidi sm 0 Malcolm Osman. [address], [place], [place], [address] , [place]. tel:[phone] OFFICE/OUTPA TIENT VISIT, [facility], [address], [place], [place], [address], [place] tel:[phone] [facility] knee pain1 (chief complaint)he maturia1 (chief complaint)pa ncreatitis1 (chief complaint)GE RD1 (chief complaint)DM (chief complaint) Chronic pancreatitisHemat uriaGERD w/o esophagitisType 2 diabetes mellitus without complicationsAnem ia 0 Gold Brewer. [address], [place], [place], [address] , [place]. tel:[phone] OFFICE/OUTPA TIENT VISIT, [facility], [address], [place], [place], [address], [place] tel:[phone] [facility] anemia1 (chief complaint)UT I1 (chief complaint)kn ee pain1 (chief complaint)go ut1 (chief complaint) HematuriaAnemiaOs teoarthritis of knee, unspecifiedGout 0 Gold Brewer. [address], [place], [place], [address] , [place]. tel:[phone] Referring Provider: Brittany [address], [place], [place], [address]. tel:[phone] OFFICE/OUTPA TIENT VISIT, [facility], [address], [place], [place], [address], [place] tel:[phone] [facility] fatty liver1 (chief complaint)th yroid (chief complaint)si ck1 (chief complaint) HypothyroidismFat ty liverUrinary frequencyPain in unspecified lower legVaricose veins of unspecified lower extremity with painSleep apnea 9 Gold Brewer. [address], [place], [place], [address] , [place]. tel:[phone] Referring Provider: Brittany [address], [place], [place], [address]. tel:[phone] OFFICE/OUTPA TIENT VISIT, [facility], [address], [place], [place], [address], [place] tel:[phone] [facility] LFT (chief complaint)DM (chief complaint)UT I1 (chief complaint)hy opthyroidism 1 (chief complaint)ba ck pain1 (chief complaint)ed ema1 (chief complaint) HypothyroidismUri nary tract infectionType 2 diabetes mellitus w/ diabetic neuropathyLiver diseaseOth disrd of bone density and structure, unspecified siteEdemaHyperlip idemiaMotion sickness, initial encounter 9 Gold Brewer. [address], [place], [place], [address] , [place]. [phone] Referring Provider: Brittany Moreno [facility] [address], [place], [place], [address]. tel:[phone] OFFICE/OUTPA TIENT VISIT, EST [facility], [address] [place], [address], tel:[phone] [facility] DM (chief complaint)UT I1 (chief complaint)HL P (chief complaint)ba ck pain1 (chief complaint) GoutHyperlipidemi aType 2 diabetes mellitus w/ diabetic neuropathyUrinary tract infectionLiver diseaseEdema 9 Gold Eduardo [address] [facility] [address], [place], [place], [address] , [place]. tel:[phone] Referring Provider: Brittany Moreno [facility] [address], [place], [place], [address]. tel:[phone] PREV VISIT, NEW, AGE 40-64 [facility], [address] [place], [address], [place] tel:[phone] [facility] Physical (chief complaint) Encounter for general adult medical exam w abnormal findingsSleep apneaHyperlipidem iaGoutType 2 diabetes mellitus w/ diabetic neuropathy 9 Gold Eduardo [address], [place], [address] , [place]. [phone] Referring Provider: Brittany Moreno, [place], [place], [address]. tel:[phone] Family History Family Member Type Diagnosis Age At Onset Mother Problem (finding) Diabetes janine miller type 2 (Cause Of ) 82 Father Problem (finding) lung CA 67 Sister Problem (finding) breast CA 50 Brother Problem (finding) Alive and well Payers Payer name Insurance type Covered republican ID Daija bautista[id number] Social History Type Description Quantity Date Captured [...] Referral Referred To: Alexander George MD, [place], [id number] Ordered: Referrals: Allopathic & Osteopathic Physicians : [...] nephropathy) ordered Referral Referred To: Genaro Escalante [id number] [facility]
[address], [place] [id number] Ordered: Referrals: Allopathic & Osteopathic Physicians : [...] unspecified) ordered Referral Referred To: Go Lazaro [address] [place] [address] [address] CERVANTES [address] [phone] Ordered: Referrals: Allopathic & Osteopathic Physicians : [...] been havi ng GERD recently and her call person started her on pepcid 3 months ago [...] o f iron deficiency anemia Pt sees [facility] and hematology Pt denies any tube skiver bleeding Pt denies any Gi bleeding Pt [...] any myalgia sleep apnea1 Pt has sleep glass washer ea Pt needs a new machine. Her [employer] company Provider [employer] is sending me paper work to complete [...] years .Pt told me [facility] who told her no [...] Mental Status Date Cognitive Assessment Orientation - [place] ed to time, place, person, situation.
--- OUTSIDE RECORDS SUMMARY | 2025-01-14 12:19 | XMS_ITS | Encounter Summary ---
Author Organization [facility] Healthcare Address [address] [place] [address] Care Team Providers Care Staff Design Engineer Name Role Phone Rey Hinton Unavailable [phone] Reina Jimenes Unavailable [phone] Osman Malcolm MD Primary Care Provider [phone] Encounter Details Date Type Department Care Team (Late st Contact Info) Description 01/13/2025 Orders Only [facility] Medical Group Diabetes and Endocrinology [facility] [place] [address] Provider, MD Marcello [address] [place], [place] [address] Social History Tobacco Use Types Packs/Day Years [...] on file 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 Gender Identity Not on file Sexual [...] 9:14 AM CDT) SCRIBED eGFR in NonAfric [place] 20 >=60 - NA EXTERNAL LAB 01/12/2025 9:14 AM CDT us Historical Provider HEALTH MAINTENANCE Edited Result - Final EXTERNAL LAB * (ABNORMAL) HM CREATININE (01/12/2025 9:14 AM CDT) SCRIBED Creatinine 2.14(A) 0.7 - 1.0 mg/dl EXTERNAL LAB SCRIBED eGFR in NonAfrican [place] 20 >=60 - NA EXTERNAL LAB Blood 01/12/2025 9:14 AM CDT us Historical Provider HEALTH MAINTENANCE Edited Result - Final EXTERNAL LAB documented in this encounter Visit Diagnoses Not on filedocumented in this encounter Care Teams Staff Design Engineer Relationship Specialty Start Date End Date Osman Malcolm MD [address] [place] [address] PCP - General Family Medicine 09/18/22 Rey Hinton PA [address] [facility] [address] [place] [address] Physician Machinist Instructor Orthopedic Surgery 05/03/20 Reina Jimenes PA [address] [facility] [address] [place] [address] Physician Machinist Instructor Orthopedic Surgery 09/06/20 documented as of this encounter
--- OUTSIDE RECORDS SUMMARY | 2025-01-14 12:19 | XMS_ITS | Clinical Summary ---
Author Organization [facility] Address [address] [place] [address] Phone Care Team Providers Care Fire Inspector Name Role Phone Osman Malcolm Primary Care Provider [phone] Robert Corbett MD Unavailable [phone] Adrien Cerrato MD Unavailable [phone] Allergies No known active allergies Medications furosemide [...] Tablet by mouth. 08/21/2022 Active ReliOn Pen [place] 32G X 4 MM Misc 12/24/2022 Active [...] Department Care Team Description 11/04/2024 9:30 AM STILL OPERATOR Clinical Support [facility] [address] [address] [address] Anemia in stage 3a chronic kidney disease (HCC) (Primary Dx); Anemia, iron deficiency, inadequate dietary intake 11/04/2024 9:00 AM STILL OPERATOR Office Visit [facility] [address] [address] [place] [address] Mayda Torres, MOOSE, RAILCAR BRAKE OPERATOR Anemia in stage 3a chronic kidney disease (HCC) (Primary Dx); Anemia, iron deficiency, inadequate dietary intake 11/04/2024 Travel 10/29/2024 Results Follow-Up [facility] [address] [place] [address] Mayda Torres, SWEAT BAND SEPARATOR, RAILCAR BRAKE OPERATOR 10/28/2024 9:00 AM STILL OPERATOR Lab [facility] [address] [address] [address] Nurse, [facility] [place] Anemia, iron deficiency, inadequate dietary intake (Primary [...] Comments Blood Pressure 142/82 11/04/2024 9:15 AM STILL OPERATOR Pulse 88 11/04/2024 9:15 AM STILL OPERATOR Temperature 36 C (96.8 F) 11/04/2024 9:15 AM STILL OPERATOR Respiratory Rate 18 11/04/2024 9:15 AM STILL OPERATOR Oxygen Saturation 99% 11/04/2024 9:15 AM STILL OPERATOR Inhaled Oxygen Concentration - - Weight 77.1 kg (169 lb 14.4 oz) 11/04/2024 9:15 AM STILL OPERATOR Height 170.2 cm (5' 7 ) 11/04/2024 9:15 AM STILL OPERATOR Body Mass Index 26.61 11/04/2024 9:15 AM STILL OPERATOR Plan of Treatment Upcoming Encounters Date Type Department Care Team (Late st Contact Info) Description 02/03/2025 9:00 AM CDT Office Visit [facility] [address] [address] [address] Adrien Cerrato MD [address] [place] [address] Health Maintenance Due Date Last [...] AUTO DIFF [place] Routine 10/28/2024 8:55 AM STILL OPERATOR CMP (COMPREHENSIVE METABOLIC PANEL) Routine 10/28/2024 8:55 AM STILL OPERATOR Anemia in stage 3a chronic kidney disease (HCC) VITAMIN B12 Routine 10/28/2024 8:55 AM STILL OPERATOR Anemia in stage 3a chronic kidney disease (HCC) FOLIC ACID (FOLATE) Routine 10/28/2024 8 :55 AM STILL OPERATOR Anemia in stage 3a chronic kidney disease (HCC) FERRITIN Routine 10/28/2024 8:55 AM STILL OPERATOR Anemia in stage 3a chronic kidney disease (HCC) IRON W/ IRON BINDING CAPACITY OH Routine 10/28/2024 8:55 AM STILL OPERATOR Anemia in stage 3a chronic kidney disease (HCC) from Last 3 Months Results * (ABNORMAL) IRON W/ IRON BINDING CAPACITY [place] (10/28/2024 8:55 AM STILL OPERATOR) IRON 69 50 - 212 ug/dL [facility] UIBC 440(H) 155 - 355 ug/dL [facility] TIBC 509(H) 261 - 478 ug/dl [facility] % Saturation 14(L) 20 - 50 % [facility] 10/28/2024 8:55 AM STILL OPERATOR Narrative [facility] - 10/29/2024 10:21 AM STILL OPERATOR Release to patient->Immediate Mayda Torres SWEAT BAND SEPARATOR, RAILCAR BRAKE OPERATOR LAB SEND OUTS Final Result [facility] [place] [address], * (ABNORMAL) CBC WITH AUTO DIFF [place] (10/28/2024 8:55 AM STILL OPERATOR) WBC 5.2 4.0 - 10.0 10*3/uL [facility] HGB 9.7(L) 11.2 - 15.7 g/dL [facility] HCT 31.2(L) 34.1 - 44.9 % [facility] PLT 209 163 - 369 10*3/uL [facility] MPV 10.3 9.4 - 12.4 fL [facility] RBC 3.08(L) 3.93 - 5.22 10*6/uL [facility] MCV 101(H) 79 - 95 fL [facility] MCH 31.5 25.6 - 32.2 pg [facility] MCHC 31.1(L) 32.2 - 36.5 g/dL [facility] RDW 14.9(H) 11.6 - 14.4 % [facility] Neutrophils % 65.3 36.0 - 66.0 % [facility] Lymphocytes % 15.6(L) 19.0 - 40.0 % [facility] Monocytes % 10.6 4.1 - 12.1 % [facility] Eosinophils % 5.8(H) 0.0 - 3.5 % [facility] Basophils % 1.0 0.0 - 1.0 % [facility] Absolute Neutrophils 3.4 1.4 - 6.6 10*3/uL [facility] Absolute Lymphocytes 0.8 0.8 - 4.0 10*3/uL [facility] Absolute Monocytes 0.6 0.2 - 1.2 10*3/uL [facility] Absolute Eosinophils 0.3 0.0 - 0.4 10*3/uL [facility] Absolute Basophils 0.1 0.0 - 0.1 10*3/uL [facility] 10/28/2024 8:55 AM STILL OPERATOR us Mayda Torres APRN, RAILCAR BRAKE OPERATOR LAB SEND OUTS Final Result Performing Organization Address [facility]/ZIP Co de Phone Number [facility] [address] [place] [address], [place] [phone] * VITAMIN B12 (10/28/2024 8:55 AM STILL OPERATOR) Vitamin B12 222 180 - 914 pg/mL [facility] Blood 10/28/2024 8:55 AM STILL OPERATOR Narrative [facility] - 10/29/2024 3:15 PM STILL OPERATOR Release to patient->Immediate us Mayda Torres APRN, RAILCAR BRAKE OPERATOR CHEMISTRY ORDERABLES Final Result Performing Organization Address [facility] Co de Phone Number [facility] [address] [place] [address], [place] [phone] * FOLIC ACID (FOLATE) (10/28/2024 8:55 AM STILL OPERATOR) Folate 8.69 >=5.90 ng/mL [facility] Blood 10/28/2024 8:55 AM STILL OPERATOR Narrative [facility] - 10/29/2024 3:15 PM STILL OPERATOR Release to patient->Immediate IS THE PATIENT REQUIRED TO BE FASTING FOR 12 HOURS?->No us Mayda Torres APRN, RAILCAR BRAKE OPERATOR CHEMISTRY ORDERABLES Final Result Performing Organization Address City/[facility]/ZIP Co de Phone Number [facility] [address] [address], [place] [phone] * (ABNORMAL) FERRITIN (10/28/2024 8:55 AM STILL OPERATOR) Ferritin 365(H) 11 - 307 ng/mL [facility] Blood 10/28/2024 8:55 AM STILL OPERATOR Narrative [facility] - 10/29/2024 3:15 PM STILL OPERATOR Release to patient->Immediate Mayda Torres SWEAT BAND SEPARATOR, RAILCAR BRAKE OPERATOR CHEMISTRY ORDERABLES Final Result [facility] [address] [address], [place] [phone] * (ABNORMAL) CMP (COMPREHENSIVE METABOLIC PANEL) (10/28/2024 8:55 AM STILL OPERATOR) Glucose 205(H) 70 - 105 mg/dL [facility] Blood Urea Nitrogen 43(H) 7 - 25 mg/dL [facility] Creatinine 1.8(H) 0.6 - 1.2 mg/dL [facility] Sodium 142 136 - 145 mEq/L [facility] Potassium 4.0 3.5 - 5.1 mEq/L [facility] Chloride 101 98 - 107 mEq/L [facility] Bicarbonate 29 21 - 31 mEq/L [facility] Total Bilirubin 0.4 0.3 - 1.0 mg/dL [facility] Alk. Phosphatase 26(L) 34 - 104 U/L [facility] Aspartate Aminotransferase 29 13 - 39 U/L [facility] Alanine Aminotransferase 22 7 - 52 U/L [facility] Total Protein 6.7 6.4 - 8.9 g/dL [facility] Albumin 4.4 3.5 - 5.7 g/dL [facility] Calcium 9.6 8.6 - 10.3 mg/dL [facility] Anion Gap 16.0(H) 7.0 - 15.0 mEq/L [facility] Globulin 2.3 2.0 - 3.5 g/dL [facility] EGFR 30(L) >60 ml/min/1. 73m2 [facility] Comment: This eGFR is calculated using 2020 CKD-EPI Creatinine equation without race modifier based on the NKF-ASN task force recommendations Blood 10/28/2024 8:55 AM STILL OPERATOR Narrative [facility] - 10/29/2024 10:21 AM STILL OPERATOR Release to patient->Immediate IS THE PATIENT REQUIRED TO BE FASTING FOR 8 HOURS?->No Mayda Torres APRN, RAILCAR BRAKE OPERATOR CHEMISTRY ORDERABLES Final Result [facility] [place] [address], from Last 3 Months Insurance MEDICARE C [employer] MEDICARE C [facility] Care Teams Fire Inspector Relationship Specialty Start Date End Date Osman Malcolm [address] [place] [address] PCP - General Family Medicine 03/08/20 Robert Corbett MD [address] [place] [address] Consulting Physician Oncology 04/18/22 Adrien Cerrato MD [address] [place] [address] Consulting Physician Oncology 05/14/22
--- OUTSIDE RECORDS SUMMARY | 2025-01-14 12:19 | XMS_ITS | Continuity of Care Document ---
Author Organization [facility] Address [address] [place] [address] [address] [place] [address] Phone Care Team Providers Care [place] Aide Name Role Phone Elda Powers Unavailable Unavailable Procedures Procedure Date Eye Exam & Treatment Dilated Retinal Exam W Interpretation Se AREDS Formula Prescribed/Recommended May Eye Exam, New Patient Dilated Macular Exam Performed 07 Advance Directives Directive Yes / No Effective Date File Name No Information Encounters Encounter Description Practice Location Reason(s) For Visit Diagnoses Date Provider Providers Copied on Encounter [facility], [address], [place], [place], [id number], tel:[phone] [facility] No Information [address]. [address] [facility] , [address], [place], [place], [facility], . tel:[phone] Referring Provider: Avery Ye, [address] [facility] [address], [place], [place], [facility]. tel:[phone] [facility], [address], [place], [place], [id number], tel:[phone] [facility] No Information [address]. [address] [facility] , [address], [place], [place], [facility] [place], . tel:[phone] Referring Provider: Avery Ye, [address], [place], [place], [facility]. tel:[phone] Family History Family Member Type Diagnosis Age At Onset No Information Payers Payer name Insurance type Covered democrat ID Authoriza tifrederick(s) Medicare [employer] [id number] Social History Type Description Quantity Date Captured [...]
--- OUTSIDE RECORDS SUMMARY | 2025-01-14 12:19 | XMS_ITS | Clinical Summary ---
Author Organization [facility] Address [address] [place] [address] Care Team Providers Care Price Changer Name Role Phone Osman Malcolm MD Primary Care Provider [phone] Allergies No known active allergies Medications LASIX [...] drink = 0.6 oz pur e alcohol) [facility] Utilities Answer Date Recorded In the past 12 months has [facility] z[employer], oil, or water [employer] threatened to shut off services in your [...] any time in the past 12 m [facility], were you homeless or living in a alf (including now)? No 08/04/2024 Comments No Sex and Gender Information Value Date Recorded Sex Assigned at Not on file Legal Sex Female 12:57 PM CDT Gender Identity Not on file Sexual Orientation Not on file Last Filed Vital Signs Vital Sign Reading Time Taken Comments Blood Pressure 89/60 09/07/2024 10:35 AM TRAFFIC SURVEY TECHNICIAN Pulse 88 09/07/2024 10:35 AM TRAFFIC SURVEY TECHNICIAN Temperature 36.5 C (97.7 F) 09/07/2024 10:35 AM TRAFFIC SURVEY TECHNICIAN Respiratory Rate 16 09/07/2024 10:35 AM TRAFFIC SURVEY TECHNICIAN Oxygen Saturation 98% 09/07/2024 10:35 AM TRAFFIC SURVEY TECHNICIAN Inhaled Oxygen Concentration - - Weight 76.7 kg (169 lb) 09/07/2024 10:35 AM TRAFFIC SURVEY TECHNICIAN Height 170.2 cm (5' 7 ) 09/07/2024 10:35 AM TRAFFIC SURVEY TECHNICIAN Body Mass Index 26.47 09/07/2024 10:35 AM TRAFFIC SURVEY TECHNICIAN Plan of Treatment Health Maintenance Due Date [...] 08/04/2022, 01/22/2022, Additional history exists PHQ-2 (Physician [place]) 10/20/2024 09/07/2024 Zoster Vaccines Completed 04/30/2021, 02/21/2021 [...] Briscoe, RN Medical Devices Implanted Type Area [employer] Professor Device Identifier Shelf Expiration Date Model / Serial / Lot Stimulator Lead Implant(2 Leads)-11/30/19 16 Implanted:Qty: 2 on 11/30/2015 Lead Implant Spine Thoracic [employer] [id number] / / Stimulator Implant- 024 Implanted:Qty: 1 on 04/16/2024 Stimulator Implant Back [employer] [id number] / [id number] / Description:MR CONDITIONAL A T 1.5 T ONLY, NEED REMOTE TO TURN OFF STIMULATION, SHOULD BE FULL BODY ELIGIBLE , NORMAL MODE NATALIIA , MAX 30 MINUTES TOTAL SCAN TIME IN 90 MINUTE WINDOW Insurance [facility] Advance Directives * Full Code (Latest Code Status on File) Date Activated Date Inactivated Comments 08/04/2024 1:00 AM 08/10/2024 2:07 PM Care Teams Price Changer Relationship Specialty Start Date End Date Osman Malcolm MD PCP - General FAMILY PRACTICE 05/09/22
--- OUTSIDE RECORDS SUMMARY | 2025-01-14 12:19 | XMS_ITS | Referral Summary ---
Author Organization [facility] Medical Office Building B Address [address] [place] [address] Care Team Providers Care Double Ending Machine Operator Name Role Phone Bettinachristin Rey Milagros PA Unavailable [phone] Jalil Reina Reid PA Unavailable [phone] Osman Malcolm MD Primary Care Provider [phone] Encounters Date Type Department Care Team Description 01/13/2025 Orders Only [facility] Medical Group Diabetes and Endocrinology [address] [place] [phone] ProviderMarcello MD 01/12/2025 Telephone [facility] Medical [facility] Diabetes and Endocrinology [address] [place] [phone] Sisi Guevara, KNITTER MECHANIC Med Management 12/27/2024 5:11 AM CDT - 12/29/2024 3:52 PM CDT Hospital Encounter [facility] [address] [place] [phone] Vivi Johansen MD Discharge Disposition: Discharge to home or self care 12/27/2024 7:30 AM CDT - 12/27/2024 10:30 AM CDT Surgery [facility] Operating Room [address] [place] [phone] Vivi Johansen MD T10 Laminotomy for Placement of Spinal Cord Stimulator 12/27/2024 7:33 AM CDT Anesthesia Event [facility] Operating Room [address] [place] [phone] Carson Yee MD [place], Justin Kyle, CRNA 11/05/2024 11:59 PM SHELLFISH BED WORKER Anesthesia Event [facility] Operating Room [facility] [place] [address] Dinora Matthew NP 11/08/2024 11:45 AM SHELLFISH BED WORKER Pre-Admission Testing [facility] Pre Anesthesia Testing [address] [place] [phone] Preoperative evaluation to rule out surgical contraindication (Primary Dx); Other specified pre-operative examination; long term acute care registered nurse current use of anticoagulant 11/04/2024 Telephone [facility] Pre Anesthesia Testing [address] [place] [phone] Khushi Gresham 11/03/2024 Orders Only [facility] Medical Group Diabetes and Endocrinology [address] [place] [phone] ProviderMarcello MD 10/26/2024 Telephone [facility] Medical [facility] Diabetes and Endocrinology [address] [place] [phone] Sisi Guevara NP Med Management (Huyen Cares - Basaglar) 10/26/2024 11:30 AM SHELLFISH BED WORKER Office Visit [facility] Medical Group Diabetes and Endocrinology [address] [place] [phone] Sisi Guevara NP Type 2 diabetes mellitus with hyperglycemia, with long-term current use of insulin (HCC) (Primary Dx); CKD stage 4 due to type 2 diabetes mellitus (HCC); Hyperlipidemia associated with type 2 diabetes mellitus (HCC); Diabetic neuropathy associated with type 2 diabetes mellitus (HCC) 10/19/2024 [facility]phone [facility] [address], [place] [address] Sisi Guevara NP Med Refill [...] of insulin ([facility]) Continuous glucose monitoring. Change every 10 days. 9 each 3 3 Active blood-glucose meter,continuo us (Dexcom G7 Healthcare Consulting Manager) miscIndication s:Type 2 diabetes mellitus with hyperglycemia, with long-term current use of insulin ([facility]) Continuous glucose monitor 1 each 3 Active [...] 1 tablet (112 mcg total) by mouth reel repairer before breakfast 4 Active pen needle, diabetic [...] 06/20 Assessment & Plan (10/26/2024 12:09 PM SHELLFISH BED WORKER): Chronic problem. Managed by Dr Marr at [place]. Next appt 12/29/24 Nephropathy: On GWEN-I / ARB s : Yes. Lisinopril 5mg. Last MA: 12/25/23 (36 calc). Last creat/GFR: 03/31/24 GFR=27, CR=1.96. Assessment & Plan (06/29/2024 11:48 AM CDT): Chronic problem. Managed by Dr Marr at [place]. Next appt 06/30/24. Nephropathy: On GWEN-I / ARB s : Yes. Lisinopril 5mg. Last MA: 12/25/23 (36 calc). Last creat/GFR: 03/31/24 GFR=27, CR=1.96. Diabetic neuropathy associat ed with type 2 diabetes mellitus 01/30/2023 Assessment & Plan (10/26/2024 11:56 AM SHELLFISH BED WORKER): Chronic problem. Gabapentin Gabapentin 300-600mg at HS. [...] barefoot. Assessment & Plan (12/25/2023 10:41 AM SHELLFISH BED WORKER): Foot care discussed Continue gabapentin Assessment & [...] 10/31/2022 Assessment & Plan (10/31/2022 12:56 PM SHELLFISH BED WORKER): Encouraged Mrs Trujillo to walk in home if weather not conducive to walking outside. Discussed healthy diet and importance of regular physical activity (20- 30min/day, 150min/wk). Hyperlipidemia associated with type 2 diabetes latanya brown 07/25/2022 Assessment & Plan (10/26/2024 11:30 AM SHELLFISH BED WORKER): Chronic problem, at goal on Atorvastatin 10mg & fenofibrate 160mg daily Last lipid panel: 12/25/23 LDL=98, HV=401. Assessment & Plan (06/29/2024 11:46 AM CDT): Chronic problem, at goal on Atorvastatin 10mg & fenofibrate 160mg daily Last lipid panel: 12/25/23 LDL=98, TB=148. Assessment & Plan (12/25/2023 10:41 AM SHELLFISH BED WORKER): Chronic, stable Continue Atorvastatin 10 mg daily UDT lipid profile Assessment & Plan (05/08/2023 11:12 AM CDT): Chronic problem, at goal on Atorvastatin 10mg & fenofibrate 160mg daily Last lipid panel: 07/25/22 LDL=74, EF=994. No changes at this time. Assessment & Plan (01/30/2023 11:08 AM CDT): Chronic problem, at goal on Atorvastatin 10mg. Last lipid panel: 07/25/22 LDL=74, WN=555. No changes at this time. Assessment & Plan (10/31/2022 8:59 AM SHELLFISH BED WORKER): Chronic problem, near goal. LDL=74 07/2022. Atorvastatin 10mg daily. No changes at this time. Assessment & Plan (07/25/2022 12:50 PM CDT): Continue atorvastastin Check lipid profile LDL goal under 70 Type 2 diabetes mellitus wit h hyperglycemia, with long-term current use of insulin 05/28/2022 Assessment & Plan (10/26/2024 11:56 AM SHELLFISH BED WORKER): Chronic problem, stable/controlled. A1c stable at 5.8%. [...] infection. Assessment & Plan (12/25/2023 10:40 AM SHELLFISH BED WORKER): Chronic, stable Contiue current regimen including Basaglar, Glimepiride 1 mg daily, Metformin 500 mg bid and Januvia Diet and exercise were discussed Assessment & Plan (09/09/2023 11:37 AM SHELLFISH BED WORKER): Hba1c was Lab Results Component Value Date [...] 7.8% Phone not compatible with dexcom nor [employer] haseeb. Sent in Dexcom 7 & reader. [...] evening Had DM eye exam 01/2023 at [facility] in [place]. Letter sent to get copy of results. [...] infection. Assessment & Plan (10/31/2022 12:55 PM SHELLFISH BED WORKER): Chronic problem, at goal. No changes. Continue [...] (04/20/2020): Added automatically from request for surgery [id number] Immunizations Immunization Administration Dates Next Due Influenza, [...] on file Legal Sex Female 6:42 PM SHELLFISH BED WORKER Gender Identity Not on file Sexual Orientation [...] on file Medical Devices Implanted Type Area Flower Cheniller Device Identifier Shelf Expiration Date Model / Serial / Lot Depuy Orthopaed[employer] Inc [id number] Attune Cruciate Retain Cementless Knee Left 6 Narrow Component - [id number] Implanted:Qty: 1 on 05/02/2020 by Go Lazaro MD at [facility] Left: Knee [employer]uy [employer] Inc 10/19/2029 [id number] / / [id number] Depuy [employer] [id number] Attune 5mm Cruciate Retaining Rotate Platform Knee 6 Insert - [id number] Implanted:Qty: 1 on 05/02/2020 by Go Lazaro MD at [facility] Left: Knee [employer] 08/19/2024 [id number] / / [id number] Attune Knee System, Tibial Base Rotating Platform Implanted:Qty: 1 on 05/02/2020 by Go Lazaro MD at [facility] Left: Knee [employer]uy [employer] Inc [id number] 05/19/2028 [id number] / / [id number] [employer] [id number] Palacos R+G High Viscosity Cement Bone Gentamicin Arthroplasty - [id number] Implanted:Qty: 1 on 05/02/2020 by Go Lazaro MD at [facility] Left: Knee [employer] 02/16/2022 [id number] / / [id number] [employer] [id number] Palacos R+G High Viscosity Cement Bone Gentamicin Arthroplasty - [id number] Implanted:Qty: 1 on 09/05/2020 by Go Lazaro MD at [facility] Right: Knee [employer] 08/19/2022 [id number] / / [id number] Depuy Orthopaedics Inc [id number] Baseplate Tibial Attune 6 Knee Cement Rotate Platform Sterile - [id number] Implanted:Qty: 1 on 09/05/2020 by Go Lazaro MD at [facility] Right: Knee [employer] 03/19/2030 [id number] / / [id number] Dep[employer] [id number] Attune 7mm Cruciate Retaining Rotate Platform Knee 6 Insert - [id number] Implanted:Qty: 1 on 09/05/2020 by Go Lazaro MD at [facility] Right: Knee [employer] 08/19/2024 [id number] / / [id number] Dep[employer] Inc [id number] Attune Cruciate Retain Cementless Knee Right 6 Component Femoral - [id number] Implanted:Qty: 1 on 09/05/2020 by Go Lazaro MD at [facility] Right: Knee [employer]ed[employer] Inc 07/19/2028 [id number] / / [id number] Medtronic Inc Specify Surescan 65cm 3 Column 16 Electrode Lead Nerve Stimulator [id number] - [id number] Implanted:Qty: 1 on 12/27/2024 by Vivi Johansen MD at [facility] N/A: Back Med[employer] Inc 09/24/2028 [id number] / / [id number] Med[employer]onic Inc Generator Pulse Inceptiv Sys Stm Electrcl Analges Implant [id number] - [id number] - [id number] Implanted:Qty: 1 on 12/27/2024 by Vivi Johansen MD at [facility] Right: Back Med[employer] Inc [id number] 11/02/2025 [id number] / [id number] / Biocomposites Stimulan Rapid Cure Kit Paste Batch And Furnace Operator 5cc 12.5cc Bone Void 620-005 - [id number] Implanted:Qty: 1 on 12/27/2024 by Vivi Johansen MD at [facility] N/A: Back [employer] [id number] 06/19/2027 [id number] / / [id number] Procedures Procedure Name Priority Date/Time Associated Diagnosis [...] VIEWS IP Routine 12/27/2024 9:19 AM CDT MN AN PROCEDURE PLACEHOLDER Routine 12/27/2024 8:03 AM CDT MN AN ELECTIVE ENDOTRACHEAL AIRWAY Routine 12/27/2024 8:03 AM CDT INSERTION SPINAL CORD STIMULATOR 12/27/2024 7:35 AM CDT Diabetic polyneuropathy associated with other specified diabetes mellitus (HCC) EGFR STAT 12/27/2024 6:52 AM CDT BASIC METABOLIC PANEL STAT 12/27/2024 6:52 AM CDT POCT GLUCOSE DEVICE Routine 12/27/2024 6 :38 AM CDT EGFR Routine 11/08/2024 12:06 PM SHELLFISH BED WORKER Preoperative evaluation to rule out surgical contraindication APTT Routine 11/08/2024 12:06 PM SHELLFISH BED WORKER Other specified pre-operative examination care home current use of anticoagulant BASIC METABOLIC PANEL Routine 11/08/2024 12:06 PM SHELLFISH BED WORKER Preoperative evaluation to rule out surgical contraindication POCT HEMOGLOBIN A1C Routine 10/26/2024 1 1:17 AM SHELLFISH BED WORKER Type 2 diabetes mellitus with hyperglycemia, with long-term current use of insulin (HCC) POCT GLUCOSE Routine 10/26/2024 11:17 AM SHELLFISH BED WORKER Type 2 diabetes mellitus with hyperglycemia, with long-term current use of insulin (HCC) HM DIABETES EYE EXAM Routine 09/07/2024 7:29 AM SHELLFISH BED WORKER LIPID PANEL Routine 12/25/2023 10:51 AM SHELLFISH BED WORKER Type 2 diabetes mellitus with hyperglycemia, with long-term current use of insulin (HCC) ALBUMIN CREATININE RATIO, URINE Routine 12/25/2023 10:51 AM SHELLFISH BED WORKER Type 2 diabetes mellitus with hyperglycemia, with long-term current use of insulin ([facility]) from Last 3 Months or Most Recently Relevant to Health Maintenance Results * (ABNORMAL) EGFR (01/12/2025 9:14 AM CDT) SCRIBED eGFR in NonAfrican Citizen Of [place] 20 >=60 - NA EXTERNAL LAB 01/12/2025 9:14 AM CDT us Historical Provider HEALTH MAINTENANCE Edited Result - Final Performing Organization Address City/[facility]/ZIP Co de Phone Number EXTERNAL LAB * (ABNORMAL) HM CREATININE (01/12/2025 9:14 AM CDT) SCRIBED Creatinine 2.14(A) 0.7 - 1.0 mg/dl EXTERNAL LAB SCRIBED eGFR in NonAfrican Citizen Of [place] 20 >=60 - NA EXTERNAL LAB Blood 01/12/2025 9:14 AM CDT us Historical Provider HEALTH MAINTENANCE Edited Result - Final EXTERNAL LAB * (ABNORMAL) Parathyroid Hormone-Intact (01/12/2025 9:14 AM CDT) 01/12/2025 9:14 AM CDT Impressions EXTERNAL LAB - 01/12/2025 9:58 AM CDT Result: <14.5 (14.5-75.2) [facility] Provider LAB BLOOD ORDERABLES Edit ed Result - Final Performing Organization Address City/[facility] Co de Phone Number EXTERNAL LAB * [...] DE VICE Final Result Performing Organization Address [facility] Co de Phone Number [facility] [address] [place] [address] * POCT glucose (12/27/2024 9:06 PM CDT) [...] DE VICE Final Result Performing Organization Address [facility] Co de Phone Number [facility] [address] [place] [address] * POCT glucose (12/27/2024 10:20 AM CDT) [...] DE VICE Final Result Performing Organization Address [facility]/ZIP Co de Phone Number [facility] [address] Department [place] [address] * FL Fluoroscopy < 1 Hour (12/27/2024 9:19 AM CDT) Narrative [facility] - 12/27/2024 9:20 AM CDT The images from this study are not interpreted by Radiology. Please refer to the physician's procedure / OR operative note. Vivi Johansen MD IMG FLUOROSCOPY PROCEDUR ES Final Result Performing Organization Address [facility] Co de Phone Number RAD[facility] * XR Spine Thoracolumbar Junction 2 or [...] MD IMG XR PROCEDURES Final Result * MN AN ELECTIVE ENDOTRACHEAL AIRWAY, MN AN PROCEDURE PLACEHOLDER (12/27/2024 8:03 AM CDT) Narrative Deshawn Mera CRNA - 12/27/2024 8:03 AM CDT Deshawn Mera CRNA 12/27/2024 8:04 AM Airway Patient location: OR Urgency: elective Indications for airway management: anesthesia and airway protection Difficult airway: no Staff: Supervising provider: Carson Yee MD Placed by: LEAD PRESSER: Deshawn Mera CRNA Emergent airway documentation: Risks [...] BLOOD ORDERABLES Final R esult [facility] [address] Department [place] [address] * (ABNORMAL) Basic metabolic panel [...] Calcium 9.5 8.5 - 10.3 mg/dL [facility] Blood 12/27/2024 6:52 AM CDT 12/27/2024 6:57 AM CDT us Carson Yee MD LAB BLOOD ORDERABLES Final R esult Performing Organization Address City/[facility]/ZIP Co de Phone Number [facility] [address] Department [place] [address] * POCT glucose (12/27/2024 6:38 AM CDT) [...] DE VICE Final Result Performing Organization Address City/[facility]/ZIP Co de Phone Number [facility] [address] Department [place] [address] * (ABNORMAL) eGFR (11/08/2024 12:06 PM SHELLFISH BED WORKER) eGFR 33(L) >=60 mL/min/1. 73 m2 Comment: [...] reviewed 2021. Blood 11/08/2024 12:0 6 PM SHELLFISH BED WORKER 11/08/2024 12:06 PM SHELLFISH BED WORKER Dinora Matthew NP LAB BLOOD ORDERABLES Fin al Result Performing Organization Address [facility] Co de Phone Number [facility] [address] Department of Res[employer]ergy [place], [place] [id number] * aPTT (11/08/2024 12:06 PM SHELLFISH BED WORKER) Pathologist [facility] aPTT 30 28 - 38 sec Comment: Interpretive Data Heparin therapeutic range: 66.0 - 100.0 seconds. Range based on correlation with therapeutic heparin activity range of 0.3 - 0.7 Units/mL. Current interpretive data was last revised on 2023. Blood 11/08/2024 12:0 6 PM SHELLFISH BED WORKER 11/08/2024 12:06 PM SHELLFISH BED WORKER Vivi Johansen MD LAB BLOOD ORDERABLES Fin al Result Performing Organization Address [facility]/ZIP Co de Phone Number [facility] [address] [place] [address] * (ABNORMAL) Basic metabolic panel (11/08/2024 12:06 PM SHELLFISH BED WORKER) Pathologist [facility] Sodium 141 135 - 145 mmol/L Potassium, [...] [facility] Blood 11/08/2024 12:0 6 PM SHELLFISH BED WORKER 11/08/2024 12:06 PM SHELLFISH BED WORKER us Dinora Matthew NP LAB BLOOD ORDERABLES Fin al Result [facility] [address] Department [place] [address] * (ABNORMAL) POCT hemoglobin A1c (10/26/2024 11:17 AM SHELLFISH BED WORKER) Hemoglobin A1C, POC 5.8 4.0 - 5.6 % Blood 10/26/2024 11:1 7 AM SHELLFISH BED WORKER us Sisi Guevara NP POINT OF CARE TEST ORDERA BLES Final Result * (ABNORMAL) POCT glucose (10/26/2024 11:17 AM SHELLFISH BED WORKER) Glucose Blood, POC 184 mg/dL Blood 10/26/2024 11:1 7 AM SHELLFISH BED WORKER us Sisi Guevara NP POINT OF CARE TEST ORDERA BLES Final Result * HM DIABETES EYE EXAM (09/07/2024 7:29 AM SHELLFISH BED WORKER) Historical Provider HEALTH MAINTENANCE Final Result * Albumin Creatinine Ratio, Urine (12/25/2023 10:51 AM SHELLFISH BED WORKER) Albumin Ur <12.0 mg/L Comment: Interpretive Data No reference range established. Current interpretive data was last revised 2019. Creatinine Ur 33.6 mg/dL [facility] Comment: Interpretive Data No reference range established. Current interpretive data was last revised 2019. Albumin Creatinine Ratio, Ur See Comment 1 - 29 [facility] Comment:Unable to calculate Urine 12/25/2023 10:5 1 AM SHELLFISH BED WORKER 12/25/2023 4:20 PM SHELLFISH BED WORKER Charan Hopper MD LAB URINE ORDERABLES Final Resul t [facility] [address] Department [place] [address] * (ABNORMAL) Lipid panel (12/25/2023 10:51 AM SHELLFISH BED WORKER) Cholesterol 179 30 - 199 mg/dL Comment: [...] [facility] Blood 12/25/2023 10:5 1 AM SHELLFISH BED WORKER 12/25/2023 4:20 PM SHELLFISH BED WORKER us Charan Hopper MD LAB BLOOD ORDERABLES Final Resul t [facility] [address] Department [place] [address] from Last 3 Months or Most Recently Relevant to Health Maintenance Insurance [employer] INSURANCE [employer] MEDICARE [facility] MEDICARE [facility] MEDIC[facility] Address: [address] [address] [place] [address] [facility] MEDICARE ADVANTAGE [facility]IC[facility] Address: [address] [address] [place] [address] [address] Advance Directives For more information, please contact: [phone] * Full Code (Latest Code Status on File) Date Activated Date Inactivated Comments 12/27/2024 12:45 PM 12/29/2024 7:57 PM * Full Code Date Activated Date Inactivated Comments 09/05/2020 1:54 PM 09/06/2020 6:34 PM * Full Code Date Activated Date Inactivated Comments 05/02/2020 2:11 PM 05/03/2020 8:18 PM Care Teams Double Ending Machine Operator Relationship Specialty Start Date End Date Osman Malcolm MD [address] [place], [place] [id number] PCP - General Family Medicine 09/18/22 Rey Hinton PA [address] [place] [address] [address], [place] [address] Physician Sap Trainer Orthopedic Surgery 05/03/20 Reina Jimenes PA [address] [place] [address] [address] [facility] [place] [address] Physician Sap Trainer Orthopedic Surgery 09/06/20
--- OUTSIDE RECORDS SUMMARY | 2025-01-14 12:19 | XMS_ITS | Clinical Summary ---
Author Organization [facility] Helena camacho Address [address] [place] [phone] Phone Care Team Providers Care Merchandise Presentation Manager Name Role Phone Osman Malcolm MD Primary Care Provider [phone] Allergies No known active allergies Medications Medication [...] DAILY 08/14/2022 Active Lancets (OneTouch Delica Plus [id number]) misc USE TO CHECK GLUCOSE TWICE DAILY [...] Comments Blood Pressure 124/60 10/02/2022 11:11 AM EAR MOLD LABORATORY TECHNICIAN Pulse 72 10/02/2022 11:11 AM EAR MOLD LABORATORY TECHNICIAN Temperature 36.2 C (97.2 F) 10/02/2022 11:11 AM EAR MOLD LABORATORY TECHNICIAN Respiratory Rate - - Oxygen Saturation - - Inhaled Oxygen Concentration - - Weight 97.5 kg (215 lb) 10/02/2022 11:11 AM EAR MOLD LABORATORY TECHNICIAN Height 170.2 cm (5' 7 ) 10/02/2022 11:11 AM EAR MOLD LABORATORY TECHNICIAN Body Mass Index 33.67 10/02/2022 11:11 AM EAR MOLD LABORATORY TECHNICIAN Plan of Treatment Health Maintenance Due Date Last Done Comments Pneumococcal PPSV23/PCV13 65 + Years / High and Highest Risk (1 of 4 - PCV) 1960 Diabetic Foot Exam 1964 Ophthalmology Exam 1964 Influenza Vaccine (#1) 2024 08/03/2022, 2019 Care Teams Merchandise Presentation Manager Relationship Specialty Start Date End Date Osman Malcolm MD [address] [place] [address] PCP - General Family Medicine 08/28/22
--- OUTSIDE RECORDS SUMMARY | 2025-01-14 12:19 | XMS_ITS | Encounter Summary ---
Author Organization [facility] Healthcare Address [address] [place] [address] Care Team Providers Care Polisher Numeral Name Role Phone Rey Hinton Unavailable [phone] Reina Jimenes Unavailable [phone] Osman Malcolm MD Primary Care Provider [phone] Reason for Visit * Reason Onset Date Comments Med Management 01/12/2025 Encounter Details Date Type Department Care Team (Late st Contact Info) Description 01/12/2025 Telephone [facility] Medical Group Diabetes and Endocrinology [address] [place] [phone] Sisi Guevara, PATIENT CARE DIRECTOR [address] [facility] [address] [address] Med Management Social History Tobacco Use Types [...] on file Legal Sex Female 6:42 PM SURFACE BOSS Gender Identity Not on file Sexual Orientation Not on file documented as of this encounter Miscellaneous Notes * Telephone Encounter - Sisi Guevara NP - 01/13/2025 12:11 PM CDT [phone] Spoke w/Mrs Trujillo. Had neurostimlator placed 12/28/24; [...] network. Can you call Dr Marr's office ([facility]) to get copy of last note & most recent labs? thanks * Telephone Encounter - Kathie Hook LPN - 01/12/2025 3:58 PM CDT Pt states that the Suction Dredge Dumping Supervisor told pt to stop taking her metformin because of pts lab/ pt kidney function test was too low (done on 12/27/24). Pt would like to know your opinion. documented in this encounter Plan of Treatment Not on file documented as of this encounter Visit Diagnoses Not on filedocumented in this encounter Care Teams Polisher Numeral Relationship Specialty Start Date End Date Osman Malcolm MD [address] [place] [address] PCP - General Family Medicine 09/18/22 Rey Hinotn PA [address] [place] [address] Physician Yard Assistant Orthopedic Surgery 05/03/20 Reina Jimenes PA [address] [place] [address] Physician Yard Assistant Orthopedic Surgery 09/06/20 documented as of this encounter
--- NOTE | 2025-01-14 12:38 | ED.RECABL ---
HPI - Recheck/Abnormal Lab/Rx General Chief Complaint: Recheck/Abnormal Lab/Rx Stated Complaint: high calcium level, sent by Dr. Marr Time Seen by Provider: 01/14/25 11:15 Source: patient Mode of arrival: ambulatory Limitations: no limitations History of Present Illness HPI narrative: Patient is a 69-year-old female who presents the ED with report of abnormal outpatient labs. Patient reports she had routine outpatient labs drawn on Friday for an upcoming appointment with Dr. Marr who she sees for CKD. Was notified today that her calcium level was abnormally high and to come to the ED for further evaluation. Per records, calcium level was 12.4 on Friday. Patient reports she had a spinal stimulator implanted by Dr. Johansen around 2 weeks ago. Since then, she has been having intermittent lower abdominal and lower back pain. She also reports small void urines. Denies dysuria or hematuria. Also reports mild constipation. Was able to pass a small amount of stool today, but otherwise has not had a large bowel movement in the few days. Denies bowel or bladder incontinence. Denies saddle anesthesia. Denies fevers. Denies nausea, vomiting. Patient has been worked up for a recent abnormal mammogram. She reports that biopsies have resulted benign. Related Data Home Medications ?Medication ?Instructions ?Recorded ?Confirmed ?Last Taken ?Type aspirin 81 mg tablet,delayed 81 mg PO DAILY 08/10/20 07/06/24 Unknown History release (Adult Low Dose Aspirin) atorvastatin 10 mg tablet 10 mg PO DAILY 08/10/20 07/06/24 Unknown History furosemide 20 mg tablet 20 mg PO QAM 08/10/20 07/06/24 Unknown History allopurinol 100 mg tablet 100 mg PO BID 10/05/20 07/06/24 Unknown History cephalexin 500 mg capsule 500 mg PO DAILY 03/25/23 07/06/24 Unknown History fenofibrate 160 mg tablet 160 mg PO DAILY 03/25/23 07/06/24 Unknown History gabapentin 300 mg capsule 300 mg PO DAILY 03/25/23 07/06/24 Unknown History (Neurontin) sitagliptin phosphate 100 mg 100 mg PO DAILY 03/25/23 07/06/24 Unknown History tablet (Januvia) tramadol 50 mg tablet 50 mg PO Q6H PRN 03/25/23 07/06/24 Unknown History glimepiride 2 mg tablet 0.5 mg PO BID 07/09/23 07/06/24 Unknown History insulin glargine 100 unit/mL (3 18 unit subcut .before bed 06/30/24 07/06/24 Unknown History mL) subcutaneous pen (Basaglar KwikPen U-100 Insulin) levothyroxine 112 mcg capsule 112 mcg PO DAILY 06/30/24 07/06/24 Unknown History metformin 500 mg tablet 500 mg PO BID 06/30/24 07/06/24 Unknown History Allergies Allergy/AdvReac Type Severity Reaction Status Date / Time No Known Allergies Allergy Verified 01/14/25 12:11 Review of Systems Review of Systems: All systems reviewed & are unremarkable except as noted in HPI. All systems reviewed & are unremarkable except as noted in HPI and below PMFSH Past Medical History Medical History Chronic kidney disease, stage 3a GERD (gastroesophageal reflux disease) Hyperlipidemia Dysphagia Chronic pancreatitis History of colon polyps Diabetes 1.5, managed as type 2 Family History Family History Mother Family history of diabetes mellitus in first degree relative Family history of heart disease in male family member before age 55 Family history of kidney disease, Onset Age: 84 Father Family history of heart disease in male family member before age 55 Grandparent Family history of heart disease in male family member before age 55 Social History Social History Smoking packs per day: 2.5 Smoking cigarettes per day: 50.0 Years smoked: 24 Smoking pack-years: 60.00 Smoking status: Former smoker Tobacco type: cigarettes Second hand tobacco smoke exposure: No Smoking end date: 10/20/99 Alcohol intake: current Alcohol use details: NO DRINKS 1 YEAR Substance use: never Substance use type: does not use Do You Feel Safe in your Home?: Yes Lack of Transportation: No Lack of Food: Never True Current Housing: I Have Housing Concerned About Future Housing: No Difficulty Paying Gas/Electric Bills: No Difficulty Paying for Meds: YES Currently Unemployed: No Education: High School Diploma/GED Difficulty w/ Childcare or Family Care: No Living arrangements: with family Gender identity (if verbalized by the patient): Female Spiritual care concerns: No Exam Narrative: GENERAL: Well appearing, well-nourished, non-toxic, in no acute distress. HEAD: Normocephalic, atraumatic. RESPIRATORY: Airway patent, respirations nonlabored. Clear to auscultation bilaterally, no rales, rhonchi, wheezing. CARDIOVASCULAR: Regular rate and rhythm without murmurs, rubs, or gallops. ABDOMINAL: Soft, minimal tenderness throughout lower abdomen. Nondistended. Normoactive BS. MUSCULOSKELETAL: Moves all extremities. No gross deformities. Surgical incision in right lower back appears to be well healing, no surrounding erythema, fluctuance, induration. SKIN: Warm, dry, normal color. NEURO: A&O X3. Speech clear. Cranial nerves II-XII grossly intact. Steady gait. No ataxic movements. No focal deficits. PSYCHIATRIC: Appropriate mood and affect. Normal interaction. Course Vital Signs Vital signs: Vital Signs Temperature 97.6 F 01/14/25 09:51 Pulse Rate 98 01/14/25 09:51 Respiratory Rate 16 01/14/25 09:51 Blood Pressure 122/69 01/14/25 09:51 Pulse Oximetry 100 01/14/25 09:51 Temperature 97.6 F 01/14/25 09:51 Pulse Rate 85 01/14/25 16:46 Respiratory Rate 19 01/14/25 16:46 Blood Pressure 119/75 01/14/25 16:45 Pulse Oximetry 100 01/14/25 16:45 MDM - Recheck/Abnormal Lab/Rx MDM Narrative Medical decision making narrative: Patient presented to ED with abnormal outpatient labs. Recent spinal cord stimulator implantation. Denying any issues with this. Hx CKD. Calcium 2 days ago was 12.4. Advised to come to the ED by stator connector. Vital signs are stable upon arrival. Patient reporting some vague complaints, some lower abdominal pain, some constipation. Overall in no acute distress. Laboratory studies today do appear improved. Creatinine 2.04. Baseline per records around 1.4-1.6. This is improved from labs 2 days ago at which time creatinine was 2.4. Calcium down to 11 today. Otherwise stable electrolytes. UA is clear. Chest x-ray is clear. CT scan of abdomen/pelvis was fairly unremarkable. Showing several incidental findings, but no explanation to pain. No abnormalities related to previous surgery/spinal stimulator. Patient has a follow-up appointment with Dr. Marr next week. Discussed with Dr. García, nephrology today, advised likely related to dehydration. Can hydrate patient, recheck labs, and if improved, can have patient follow-up as outpatient next week. Otherwise can admit if patient uncomfortable going home. Discussed this with patient. She would like to try going home. Patient given 2 L of fluid in the ED. Repeat labs are again reassuring. Creatinine 1.9. Calcium is now within normal range at 9.9. With such rapid correction of calcium, suspicious for dehydration. Feel she is safe for d/c home with close OP f/u next week. Advised to call [facility] office first thing Friday to discuss ED visit and determine if she will need repeat labs before visit. Discussed very strict return precautions. Patient is in agreement with plan. She feels comfortable going home. Discharged in stable condition. Medical Records Attestation: I reviewed the patient's medical records. Lab Data Attestation: I reviewed the patient's lab results. 01/14/25 11:34 01/14/25 16:20 Labs: Lab Results 01/14/25 01/14/25 01/14/25 Range/Units 11:33 11:34 12:51 WBC 7.1 (4.5-10.0) K/mm3 RBC 3.35 L (4.2-5.4) M/mm3 Hgb 11.1 L (12.0-15.0) g/dL Hct 34.2 L (37.0-47.0) % MCV 102.1 H (80-100) fl MCH 33.1 (26-34) pg MCHC 32.5 (32-36) g/dl RDW 13.4 (11.5-14.5) % Plt Count 221 (150-375) k/mm3 MPV 9.8 (7.4-10.4) fl Immature Gran % (Auto) 0.6 H (0-0.5) % Neut % (Auto) 64.3 (45.5-73.1) % Lymph % (Auto) 19.1 (18.3-44.2) % [place] % (Auto) 9.2 H (2.6-8.5) % Eos % (Auto) 6.1 H (0-4.4) % Baso % (Auto) 0.7 (0.2-1.2) % Lymph # (Auto) 1.35 (0.9-3.2) K/mm3 [place] # (Auto) 0.7 H (0.1-0.6) K/mm3 Eos # (Auto) 0.4 H (0-0.3) K/mm3 Baso # (Auto) 0.1 (0.0-0.1) K/mm3 Abs Immat Gran (auto) 0.04 H (0.00-0.031) K/mm3 Absolute Neuts (auto) 4.6 (1.3-6.7) K/mm3 Absolute Nucleated RBC 0.000 (0.0-0.012) K/mm3 Nucleated RBC % 0.0 (0.0-0.2) % Sodium 141 (137-145) mmol/L Potassium 5.0 (3.4-5.0) mmol/L Chloride 105 (98-107) mmol/L Carbon Dioxide 23 (22-30) mmol/L Anion Gap 13 H (4-12) mmol/L BUN 51 H (7-17) mg/dL Creatinine 2.01 H (0.7-1.0) mg/dL Estim Creat Clear Calc 23 ml/min Estimated GFR 24 L (59 - ) Glucose 128 H (65-110) mg/dL Calcium 11.0 H (8.4-10.2) mg/dL Magnesium 2.0 (1.6-2.3) mg/dL Total Bilirubin 0.3 (0.2-1.3) mg/dL AST 26 (14-36) U/L ALT 17 (6-35) U/L Alkaline Phosphatase 32 L (38-126) U/L Total Protein 7.0 (6.3-8.2) g/dL Albumin 4.4 (3.5-5.1) g/dL Vitamin D 25-Hydroxy 78.0 ng/mL Urine Color Yellow (Yellow) Urine Appearance Clear (Clear) Urine pH 5.5 (5.0-9.0) Ur Specific Devers 1.010 (1.001-1.035) Urine Protein Negative (Negative) mg/dL Urine Glucose (UA) Negative (Negative) mg/dL Urine Ketones Negative (Negative) mg/dL Ur Blood (Man) Negative (Negative) Urine Nitrate Negative (Negative) Urine Bilirubin Negative (Negative) Urine Urobilinogen 0.2 (<2.0) mg/dL Leukocyte Esterase Rfl Negative (Negative) JOSE ELIAS/UL 01/14/25 Range/Units 16:20 WBC (4.5-10.0) K/mm3 RBC (4.2-5.4) M/mm3 Hgb (12.0-15.0) g/dL Hct (37.0-47.0) % MCV (80-100) fl MCH (26-34) pg MCHC (32-36) g/dl RDW (11.5-14.5) % Plt Count (150-375) k/mm3 MPV (7.4-10.4) fl Immature Gran % (Auto) (0-0.5) % Neut % (Auto) (45.5-73.1) % Lymph % (Auto) (18.3-44.2) % [place] % (Auto) (2.6-8.5) % Eos % (Auto) (0-4.4) % Baso % (Auto) (0.2-1.2) % Lymph # (Auto) (0.9-3.2) K/mm3 [place] # (Auto) (0.1-0.6) K/mm3 Eos # (Auto) (0-0.3) K/mm3 Baso # (Auto) (0.0-0.1) K/mm3 Abs Immat Gran (auto) (0.00-0.031) K/mm3 Absolute Neuts (auto) (1.3-6.7) K/mm3 Absolute Nucleated RBC (0.0-0.012) K/mm3 Nucleated RBC % (0.0-0.2) % Sodium 142 (137-145) mmol/L Potassium 4.2 (3.4-5.0) mmol/L Chloride 109 H (98-107) mmol/L Carbon Dioxide 22 (22-30) mmol/L Anion Gap 11 (4-12) mmol/L BUN 43 H (7-17) mg/dL Creatinine 1.97 H (0.7-1.0) mg/dL Estim Creat Clear Calc 24 ml/min Estimated GFR 25 L (59 - ) Glucose 87 (65-110) mg/dL Calcium 9.9 (8.4-10.2) mg/dL Magnesium (1.6-2.3) mg/dL Total Bilirubin 0.2 (0.2-1.3) mg/dL AST 21 (14-36) U/L ALT 16 (6-35) U/L Alkaline Phosphatase 39 (38-126) U/L Total Protein 6.0 L (6.3-8.2) g/dL Albumin 3.7 (3.5-5.1) g/dL Vitamin D 25-Hydroxy ng/mL Urine Color (Yellow) Urine Appearance (Clear) Urine pH (5.0-9.0) Ur Specific Devers (1.001-1.035) Urine Protein (Negative) mg/dL Urine Glucose (UA) (Negative) mg/dL Urine Ketones (Negative) mg/dL Ur Blood (Man) (Negative) Urine Nitrate (Negative) Urine Bilirubin (Negative) Urine Urobilinogen (<2.0) mg/dL Leukocyte Esterase Rfl (Negative) JOSE ELIAS/UL Imaging Data Attestation: I personally reviewed and interpreted this imaging study as follows: Radiologist's impression: ITS Impressions Chest X-Ray 01/14/25 12:26 IMPRESSION: No focal infiltrate or effusion. Miscellaneous CT Procedure 01/14/25 12:57 IMPRESSION: 1. No acute intra-abdominal/pelvic process. 2. Dystrophic calcifications at the tail of pancreas consistent with sequela of chronic pancreatitis 3. Small sliding-type hiatal hernia. 4. Fibroid uterus. 5. Small to moderate-sized fat-containing umbilical hernia. 6. Diverticulosis. 7. Mild to moderate lumbar spondylosis with partial T8 and T9 laminectomies and thoracic spinal stimulator lead placement. Discharge Plan Discharge Clinical Impression: Hypercalcemia CKD (chronic kidney disease) Qualifiers: Chronic kidney disease stage: unspecified stage Qualified Code(s): N18.9 - Chronic kidney disease, unspecified Patient Disposition: Home, Self-Care Condition: Stable Instructions: Antibiotic Form, Chronic Kidney Disease (ED), Hypercalcemia (ED), Impaired Kidney Function (ED) Additional Instructions: Your laboratory studies improved with fluids. Stay very well hydrated at home. Follow-up closely with Dr. Marr at your appointment next week. You will likely need your laboratory studies repeated next week again. Call office first thing Friday morning. Return to the ED if you experience worsening or severe pain, severe constipation, severe fatigue, severe bone or muscle pain, unable to keep down food or drink, persistent fevers, or any other symptoms of concern. Patient Language: Romansh Prescriptions: No Action atorvastatin 10 mg tablet 10 mg PO DAILY furosemide 20 mg tablet 20 mg PO QAM aspirin [Adult Low Dose Aspirin] 81 mg tablet,delayed release (DR/EC) 81 mg PO DAILY glimepiride 2 mg tablet 0.5 mg PO BID fenofibrate 160 mg tablet 160 mg PO DAILY Januvia 100 mg tablet 100 mg PO DAILY tramadol 50 mg tablet 50 mg PO Q6H PRN cephalexin 500 mg capsule 500 mg PO DAILY insulin glargine [Basaglar KwikPen U-100 Insulin] 100 unit/mL (3 mL) insulin pen 18 unit subcut .before bed levothyroxine 112 mcg capsule 112 mcg PO DAILY metformin 500 mg tablet 500 mg PO BID allopurinol 100 mg tablet 100 mg PO BID gabapentin [Neurontin] 300 mg capsule 300 mg PO DAILY Follow-up/Referrals: Osman Malcolm MD [Primary Care Provider] - Michoacano Marr MD [Physician] - (NEPHROLOGY) Time of Disposition: 16:51
[2025-01-14 13:00] LABS: Add Urine Microscopic? NO; Appearance Urine Clear (Clear); Bilirubin Urine Negative (Negative); Blood Urine Negative (Negative); Color Urine Yellow (Yellow); Glucose Urine UA Negative (Negative); Ketones Urine Negative (Negative); Leukocyte Esterase Ur Negative LEU/UL (Negative); Nitrate Urine Negative (Negative); Protein Urine Negative (Negative); Urobilinogen Urine 0.2 mg/dL (<2.0); pH Urine 5.5 (5.0-9.0)
[2025-01-14 16:35] LABS: Alanine Aminotransferase 16 U/L (6-35); Albumin Level 3.7 g/dL (3.5-5.1); Alkaline Phosphatase 39 U/L (38-126); Anion Gap 11 mmol/L (4-12); Aspartate Amino Transferase 21 U/L (14-36); Bilirubin,Total 0.2 mg/dL (0.2-1.3); Blood Urea Nitrogen 43 mg/dL (7-17); Calcium 9.9 mg/dL (8.4-10.2); Carbon Dioxide 22 mmol/L (22-30); Chloride 109 mmol/L (98-107); Estimated CRCL calculation 24 ml/min; Estimated Glomerular Filt Rate 25; Glucose 87 mg/dL (65-110); Potassium 4.2 mmol/L (3.4-5.0); Sodium 142 mmol/L (137-145)
== END 2025-01-14 17:06 | disposition home or self-care (01) ==
PROVIDERS: Emergency Provider Physician Assistant; PCP Emergency Medicine
DX: E83.52 Hypercalcemia (principal); E13.22 Other specified diabetes mellitus with diabetic chronic kidney disease; N18.31 Chronic kidney disease, stage 3a; Z87.891 Personal history of nicotine dependence
CPT/HCPCS: 36415; 71046; 72131; 74176; 80053; 81003; 82306; 83735; 85025; 96360; 96361; 99284; J7030

== ENCOUNTER 2025-01-17 11:32 | Outpatient (CLI) | payer MEDICARE, SELFPAY ==
[2025-01-17 12:16] LABS: Albumin Level 4.4 g/dL (3.5-5.1); Anion Gap 12 mmol/L (4-12); Blood Urea Nitrogen 30 mg/dL (7-17); Calcium 10.1 mg/dL (8.4-10.2); Carbon Dioxide 27 mmol/L (22-30); Chloride 103 mmol/L (98-107); Estimated Glomerular Filt Rate 30; Glucose 173 mg/dL (65-110); Phosphorus 4.3 mg/dL (2.5-4.5); Potassium 4.1 mmol/L (3.4-5.0); Sodium 142 mmol/L (137-145)
[2025-01-17 12:23] LABS: Hematocrit 33.7 % (37.0-47.0); Hemoglobin 10.7 g/dL (12.0-15.0); Mean Corpuscular HGB Conc 31.8 g/dl (32-36); Mean Corpuscular Hemoglobin 31.8 pg (26-34); Mean Corpuscular Volume 100.3 fl (80-100); Mean Platelet Volume 9.9 fl (7.4-10.4); Platelet Count Result 201 k/mm3 (150-375); Red Blood Count 3.36 M/mm3 (4.2-5.4); White Blood Count 6.5 K/mm3 (4.5-10.0)
[2025-01-17 12:26] LABS: Parathyroid Intact 22.9 pg/mL (14.5-75.2)
[2025-01-17 13:00] LABS: Creatinine Urine 13.8 mg/dL; Total Protein Urine Random 13 mg/dL; Ur Ttl Prot Creatinine Ratio 0.94 mg/mg (0-0.20)
--- OUTSIDE RECORDS SUMMARY | 2025-01-17 13:06 | XMS_ITS | Clinical Summary ---
Author Organization [facility] Address [address] [place] [id number] Phone Care Team Providers Care Retention Representative Name Role Phone Osman Malcolm MD Primary Care Provider [phone] Allergies No known active allergies Medications Medication [...] DAILY 08/14/2022 Active Lancets (OneTouch Delica Plus [id number]) misc USE TO CHECK GLUCOSE TWICE DAILY [...] Comments Blood Pressure 124/60 10/02/2022 11:11 AM CONTOUR GRINDER Pulse 72 10/02/2022 11:11 AM CONTOUR GRINDER Temperature 36.2 C (97.2 F) 10/02/2022 11:11 AM CONTOUR GRINDER Respiratory Rate - - Oxygen Saturation - - Inhaled Oxygen Concentration - - Weight 97.5 kg (215 lb) 10/02/2022 11:11 AM CONTOUR GRINDER Height 170.2 cm (5' 7 ) 10/02/2022 11:11 AM CONTOUR GRINDER Body Mass Index 33.67 10/02/2022 11:11 AM CONTOUR GRINDER Plan of Treatment Health Maintenance Due Date Last Done Comments Pneumococcal PPSV23/PCV13 65 + Years / High and Highest Risk (1 of 4 - PCV) 1960 Diabetic Foot Exam 1964 Ophthalmology Exam 1964 Influenza Vaccine (#1) 2024 08/03/2022, 2019 Care Teams Retention Representative Relationship Specialty Start Date End Date Osman Malcolm MD [address] [place] [address] PCP - General Family Medicine 08/28/22
--- OUTSIDE RECORDS SUMMARY | 2025-01-17 13:06 | XMS_ITS | Encounter Summary ---
Author Organization [facility] Healthcare Address [address] [place] [id number] Care Team Providers Care Photolithographic Stripper Name Role Phone Rey Hinton Unavailable [phone] Reina Jimenes Unavailable [phone] Osman Malcolm MD Primary Care Provider [phone] Encounter Details Date Type Department Care Team (Late st Contact Info) Description 01/13/2025 Orders Only [facility] Medical Group Diabetes and Endocrinology [facility] [place] [address] Provider, MD Marcello [address] [place], [place] [id number] Social History Tobacco Use Types Packs/Day Years [...] on file 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 Gender Identity Not on file Sexual Orientation [...] 9:14 AM CDT) SCRIBED eGFR in NonAfric Vietnamese 20 >=60 - NA EXTERNAL LAB 01/12/2025 9:14 AM CDT us Historical Provider HEALTH MAINTENANCE Edited Result - Final EXTERNAL LAB * (ABNORMAL) HM CREATININE (01/12/2025 9:14 AM CDT) SCRIBED Creatinine 2.14(A) 0.7 - 1.0 mg/dl EXTERNAL LAB SCRIBED eGFR in NonAfrican Vietnamese 20 >=60 - NA EXTERNAL LAB Blood 01/12/2025 9:14 AM CDT us Historical Provider HEALTH MAINTENANCE Edited Result - Final EXTERNAL LAB documented in this encounter Visit Diagnoses Not on filedocumented in this encounter Care Teams Photolithographic Stripper Relationship Specialty Start Date End Date Osman Malcolm MD [address] [place] [address] PCP - General Family Medicine 09/18/22 Rey Hinton PA [address] [place] [address] Physician Demo Specialist Orthopedic Surgery 05/03/20 Reina Jimenes PA [address] [place] [address] Physician Demo Specialist Orthopedic Surgery 09/06/20 documented as of this encounter
--- OUTSIDE RECORDS SUMMARY | 2025-01-17 13:06 | XMS_ITS | Clinical Summary ---
Author Organization [facility] Address [address] [place] [address] Care Team Providers Care Electrical Prospecting Observer Name Role Phone Osman Malcolm MD Primary Care Provider [phone] Allergies No known active allergies Medications LASIX [...] drink = 0.6 oz pur e alcohol) [facility] Utilities Answer Date Recorded In the past 12 months has [facility] [employer], oil, or water [employer] threatened to shut off services in your [...] any time in the past 12 m [facility], were you homeless or living in a jail (including now)? No 08/04/2024 Comments No Sex and Gender Information Value Date Recorded Sex Assigned at Not on file Legal Sex Female 12:57 PM CDT Gender Identity Not on file Sexual Orientation Not on file Last Filed Vital Signs Vital Sign Reading Time Taken Comments Blood Pressure 89/60 09/07/2024 10:35 AM WATER PURIFICATION CHEMIST Pulse 88 09/07/2024 10:35 AM WATER PURIFICATION CHEMIST Temperature 36.5 C (97.7 F) 09/07/2024 10:35 AM WATER PURIFICATION CHEMIST Respiratory Rate 16 09/07/2024 10:35 AM WATER PURIFICATION CHEMIST Oxygen Saturation 98% 09/07/2024 10:35 AM WATER PURIFICATION CHEMIST Inhaled Oxygen Concentration - - Weight 76.7 kg (169 lb) 09/07/2024 10:35 AM WATER PURIFICATION CHEMIST Height 170.2 cm (5' 7 ) 09/07/2024 10:35 AM WATER PURIFICATION CHEMIST Body Mass Index 26.47 09/07/2024 10:35 AM WATER PURIFICATION CHEMIST Plan of Treatment Health Maintenance Due Date [...] 08/04/2022, 01/22/2022, Additional history exists PHQ-2 (Physician [place]) 10/20/2024 09/07/2024 Zoster Vaccines Completed 04/30/2021, 02/21/2021 RSV Immunization or 60+ Years Completed 08/13/2023 Meningococcal B Vaccine Aged Out No l [...] to perform ADLs independently Lifestyle No Yina Briscoe RN Medical Devices Implanted Type Area Asphalt Heater Operator Device Identifier Shelf Expiration Date Model / Serial / Lot Stimulator Lead Implant(2 Leads)-11/30/19 16 Implanted:Qty: 2 on 11/30/2015 Lead Implant Spine Thoracic [employer] [id number] / / Stimulator Implant- 024 Implanted:Qty: 1 on 04/16/2024 Stimulator Implant Back [employer] [id number] / [id number] / Description:MR CONDITIONAL A T 1.5 T ONLY, NEED REMOTE TO TURN OFF STIMULATION, SHOULD BE FULL BODY ELIGIBLE , NORMAL MODE NATALIIA , MAX 30 MINUTES TOTAL SCAN TIME IN 90 MINUTE WINDOW Insurance [facility] Advance Directives * Full Code (Latest Code Status on File) Date Activated Date Inactivated Comments 08/04/2024 1:00 AM 08/10/2024 2:07 PM Care Teams Electrical Prospecting Observer Relationship Specialty Start Date End Date Osman Malcolm MD PCP - General FAMILY PRACTICE 05/09/22
--- OUTSIDE RECORDS SUMMARY | 2025-01-17 13:06 | XMS_ITS | Clinical Summary ---
Author Organization [facility] Address [address] [place] [address] Phone Care Team Providers Care Clothing Sales Assistant Name Role Phone Osman Malcolm Primary Care Provider [phone] Robert Corbett MD Unavailable [phone] Adrien Cerrato MD Unavailable [phone] Allergies No known active allergies Medications furosemide [...] Tablet by mouth. 08/21/2022 Active ReliOn Pen Esko 32G X 4 MM Misc 12/24/2022 Active [...] Department Care Team Description 11/04/2024 9:30 AM BUCKLE STRINGER Clinical Support [facility] [address] [address] Anemia in stage 3a chronic kidney disease (HCC) (Primary Dx); Anemia, iron deficiency, inadequate dietary intake 11/04/2024 9:00 AM BUCKLE STRINGER Office Visit [facility] [address] [address] [place] [phone] Mayda Torres, MOOSE, FLATBED OWNER OPERATOR Anemia in stage 3a chronic kidney disease (HCC) (Primary Dx); Anemia, iron deficiency, inadequate dietary intake 11/04/2024 Travel 10/29/2024 Results Follow-Up [facility] [address] [place] [address] Mayda Torres, SUPERVISOR TREE TRIMMING, FLATBED OWNER OPERATOR 10/28/2024 9:00 AM BUCKLE STRINGER Lab [facility] [address] [address] Nurse, [facility] [place] Anemia, iron deficiency, inadequate dietary intake (Primary [...] Comments Blood Pressure 142/82 11/04/2024 9:15 AM BUCKLE STRINGER Pulse 88 11/04/2024 9:15 AM BUCKLE STRINGER Temperature 36 C (96.8 F) 11/04/2024 9:15 AM BUCKLE STRINGER Respiratory Rate 18 11/04/2024 9:15 AM BUCKLE STRINGER Oxygen Saturation 99% 11/04/2024 9:15 AM BUCKLE STRINGER Inhaled Oxygen Concentration - - Weight 77.1 kg (169 lb 14.4 oz) 11/04/2024 9:15 AM BUCKLE STRINGER Height 170.2 cm (5' 7 ) 11/04/2024 9:15 AM BUCKLE STRINGER Body Mass Index 26.61 11/04/2024 9:15 AM BUCKLE STRINGER Plan of Treatment Upcoming Encounters Date Type Department Care Team (Late st Contact Info) Description 02/03/2025 9:00 AM CDT Office Visit [facility] [address] [address] [address] Adrien Cerrato MD [address] [place] [address] Health Maintenance Due Date Last [...] AUTO DIFF [place] Routine 10/28/2024 8:55 AM BUCKLE STRINGER CMP (COMPREHENSIVE METABOLIC PANEL) Routine 10/28/2024 8:55 AM BUCKLE STRINGER Anemia in stage 3a chronic kidney disease (HCC) VITAMIN B12 Routine 10/28/2024 8:55 AM BUCKLE STRINGER Anemia in stage 3a chronic kidney disease (HCC) FOLIC ACID (FOLATE) Routine 10/28/2024 8 :55 AM BUCKLE STRINGER Anemia in stage 3a chronic kidney disease (HCC) FERRITIN Routine 10/28/2024 8:55 AM BUCKLE STRINGER Anemia in stage 3a chronic kidney disease (HCC) IRON W/ IRON BINDING CAPACITY OH Routine 10/28/2024 8:55 AM BUCKLE STRINGER Anemia in stage 3a chronic kidney disease (HCC) from Last 3 Months Results * (ABNORMAL) IRON W/ IRON BINDING CAPACITY [place] (10/28/2024 8:55 AM BUCKLE STRINGER) IRON 69 50 - 212 ug/dL [facility] UIBC 440(H) 155 - 355 ug/dL [facility] TIBC 509(H) 261 - 478 ug/dl [facility] % Saturation 14(L) 20 - 50 % [facility] 10/28/2024 8:55 AM BUCKLE STRINGER Narrative [facility] - 10/29/2024 10:21 AM BUCKLE STRINGER Release to patient->Immediate Mayda Torres SUPERVISOR TREE TRIMMING, FLATBED OWNER OPERATOR LAB SEND OUTS Final Result [facility] [place] [address], * (ABNORMAL) CBC WITH AUTO DIFF [place] (10/28/2024 8:55 AM BUCKLE STRINGER) WBC 5.2 4.0 - 10.0 10*3/uL [facility] HGB 9.7(L) 11.2 - 15.7 g/dL [facility] HCT 31.2(L) 34.1 - 44.9 % [facility] PLT 209 163 - 369 10*3/uL [facility] MPV 10.3 9.4 - 12.4 fL [facility] RBC 3.08(L) 3.93 - 5.22 10*6/uL [facility] MCV 101(H) 79 - 95 fL [facility] MCH 31.5 25.6 - 32.2 pg [facility] MCHC 31.1(L) 32.2 - 36.5 g/dL [facility] RDW 14.9(H) 11.6 - 14.4 % [facility] Neutrophils % 65.3 36.0 - 66.0 % [facility] Lymphocytes % 15.6(L) 19.0 - 40.0 % [facility] Monocytes % 10.6 4.1 - 12.1 % [facility] Eosinophils % 5.8(H) 0.0 - 3.5 % [facility] Basophils % 1.0 0.0 - 1.0 % [facility] Absolute Neutrophils 3.4 1.4 - 6.6 10*3/uL [facility] Absolute Lymphocytes 0.8 0.8 - 4.0 10*3/uL [facility] Absolute Monocytes 0.6 0.2 - 1.2 10*3/uL [facility] Absolute Eosinophils 0.3 0.0 - 0.4 10*3/uL [facility] Absolute Basophils 0.1 0.0 - 0.1 10*3/uL [facility] 10/28/2024 8:55 AM BUCKLE STRINGER us Mayda Torres APRN, FLATBED OWNER OPERATOR LAB SEND OUTS Final Result Performing Organization Address [facility]/ZIP Co de Phone Number [facility] [address] [place] [address], [place] [phone] * VITAMIN B12 (10/28/2024 8:55 AM BUCKLE STRINGER) Vitamin B12 222 180 - 914 pg/mL [facility] Blood 10/28/2024 8:55 AM BUCKLE STRINGER Narrative [facility] - 10/29/2024 3:15 PM BUCKLE STRINGER Release to patient->Immediate us Mayda Torres APRN, FLATBED OWNER OPERATOR CHEMISTRY ORDERABLES Final Result Performing Organization Address [facility] Co de Phone Number [facility] [address] [place] [address], [place] [phone] * FOLIC ACID (FOLATE) (10/28/2024 8:55 AM BUCKLE STRINGER) Folate 8.69 >=5.90 ng/mL [facility] Blood 10/28/2024 8:55 AM BUCKLE STRINGER Narrative [facility] - 10/29/2024 3:15 PM BUCKLE STRINGER Release to patient->Immediate IS THE PATIENT REQUIRED TO BE FASTING FOR 12 HOURS?->No us Mayda Torres APRN, FLATBED OWNER OPERATOR CHEMISTRY ORDERABLES Final Result Performing Organization Address City/[facility]/ZIP Co de Phone Number [facility] [address] [address], [place] [phone] * (ABNORMAL) FERRITIN (10/28/2024 8:55 AM BUCKLE STRINGER) Ferritin 365(H) 11 - 307 ng/mL [facility] Blood 10/28/2024 8:55 AM BUCKLE STRINGER Narrative [facility] - 10/29/2024 3:15 PM BUCKLE STRINGER Release to patient->Immediate Mayda Torres SUPERVISOR TREE TRIMMING, FLATBED OWNER OPERATOR CHEMISTRY ORDERABLES Final Result [facility] [address] [address], [place] [phone] * (ABNORMAL) CMP (COMPREHENSIVE METABOLIC PANEL) (10/28/2024 8:55 AM BUCKLE STRINGER) Glucose 205(H) 70 - 105 mg/dL [facility] Blood Urea Nitrogen 43(H) 7 - 25 mg/dL [facility] Creatinine 1.8(H) 0.6 - 1.2 mg/dL [facility] Sodium 142 136 - 145 mEq/L [facility] Potassium 4.0 3.5 - 5.1 mEq/L [facility] Chloride 101 98 - 107 mEq/L [facility] Bicarbonate 29 21 - 31 mEq/L [facility] Total Bilirubin 0.4 0.3 - 1.0 mg/dL [facility] Alk. Phosphatase 26(L) 34 - 104 U/L [facility] Aspartate Aminotransferase 29 13 - 39 U/L [facility] Alanine Aminotransferase 22 7 - 52 U/L [facility] Total Protein 6.7 6.4 - 8.9 g/dL [facility] Albumin 4.4 3.5 - 5.7 g/dL [facility] Calcium 9.6 8.6 - 10.3 mg/dL [facility] Anion Gap 16.0(H) 7.0 - 15.0 mEq/L [facility] Globulin 2.3 2.0 - 3.5 g/dL [facility] EGFR 30(L) >60 ml/min/1. 73m2 [facility] Comment: This eGFR is calculated using 2020 CKD-EPI Creatinine equation without race modifier based on the NKF-ASN task force recommendations Blood 10/28/2024 8:55 AM BUCKLE STRINGER Narrative [facility] - 10/29/2024 10:21 AM BUCKLE STRINGER Release to patient->Immediate IS THE PATIENT REQUIRED TO BE FASTING FOR 8 HOURS?->No Mayda Torres APRN, FLATBED OWNER OPERATOR CHEMISTRY ORDERABLES Final Result [facility] [place] [address], from Last 3 Months Insurance MEDICARE C [employer] MEDICARE C [facility] [place] [address] Care Teams Clothing Sales Assistant Relationship Specialty Start Date End Date Osman Malcolm [address] [place] [id number] PCP - General Family Medicine 03/08/20 Robert Corbett MD [address] [place] [address] Consulting Physician Oncology 04/18/22 Adrien Cerrato MD [address] [place] [address] Consulting Physician Oncology 05/14/22
--- OUTSIDE RECORDS SUMMARY | 2025-01-17 13:06 | XMS_ITS | Referral Summary ---
Author Organization [facility] Building B Address [address] [place] [address] Care Team Providers Care Commodity Supervisor Name Role Phone Bettinachristin Ery Milagros PA Unavailable [phone] Jalil Reina Redi PA Unavailable [phone] Osman Malcolm MD Primary Care Provider [phone] Encounters Date Type Department Care Team Description 01/13/2025 Orders Only [facility] Diabetes and Endocrinology [address] [place] [phone] ProviderMarcello MD 01/12/2025 Telephone [facility] Medical [facility] Diabetes and Endocrinology [address] [place] [phone] Sisi Guevara, GRUBBER Med Management 12/27/2024 5:11 AM CDT - 12/29/2024 3:52 PM CDT Hospital Encounter [facility] [address] [place] [phone] Vivi Johansen MD Discharge Disposition: Discharge to home or self care 12/27/2024 7:30 AM CDT - 12/27/2024 10:30 AM CDT Surgery [facility] Operating Room [address] [place] [phone] Vivi Johansen MD T10 Laminotomy for Placement of Spinal Cord Stimulator 12/27/2024 7:33 AM CDT Anesthesia Event [facility] Operating Room [address] [place] [phone] Carson Yee MD [place], Justin Kyle, CRNA 11/05/2024 11:59 PM DRIER TRANSFER CAR OPERATOR Anesthesia Event [facility] Operating Room [facility] [place] [address] Dinora Matthew NP 11/08/2024 11:45 AM DRIER TRANSFER CAR OPERATOR Pre-Admission Testing [facility] Pre Anesthesia Testing [address] [place] [phone] Preoperative evaluation to rule out surgical contraindication (Primary Dx); Other specified pre-operative examination; superintendent terminal current use of anticoagulant 11/04/2024 Telephone [facility] Pre Anesthesia Testing [address] [place] [phone] Khushi Gresham 11/03/2024 Orders Only [facility] Diabetes and Endocrinology [address] [place] [phone] ProviderMarcello MD 10/26/2024 Telephone [facility] Medical [facility] Diabetes and Endocrinology [address] [place] [phone] Sisi Guevara NP Med Management (Huyen Cares - Basaglar) 10/26/2024 11:30 AM DRIER TRANSFER CAR OPERATOR Office Visit [facility] Diabetes and Endocrinology [address] [place] [phone] Sisi Guevara NP Type 2 diabetes mellitus with hyperglycemia, with long-term current use of insulin (HCC) (Primary Dx); CKD stage 4 due to type 2 diabetes mellitus (HCC); Hyperlipidemia associated with type 2 diabetes mellitus (HCC); Diabetic neuropathy associated with type 2 diabetes mellitus (HCC) 10/19/2024 [facility]phone [facility] [address], [place] [address] Sisi Guevara NP Med Refill [...] 3 Active blood-glucose meter,continuo us (Dexcom G7 Production Line Manager) miscIndication s:Type 2 diabetes mellitus with [...] 1 tablet (112 mcg total) by mouth supervisor hardboard before breakfast 4 Active pen needle, diabetic [...] 06/20 Assessment & Plan (10/26/2024 12:09 PM DRIER TRANSFER CAR OPERATOR): Chronic problem. Managed by Dr Marr at [place]. Next appt 12/29/24 Nephropathy: On GWEN-I / ARB s : Yes. Lisinopril 5mg. Last MA: 12/25/23 (36 calc). Last creat/GFR: 03/31/24 GFR=27, CR=1.96. Assessment & Plan (06/29/2024 11:48 AM CDT): Chronic problem. Managed by Dr Marr at [place]. Next appt 06/30/24. Nephropathy: On GWEN-I / ARB s : Yes. Lisinopril 5mg. Last MA: 12/25/23 (36 calc). Last creat/GFR: 03/31/24 GFR=27, CR=1.96. Diabetic neuropathy associat ed with type 2 diabetes mellitus 01/30/2023 Assessment & Plan (10/26/2024 11:56 AM DRIER TRANSFER CAR OPERATOR): Chronic problem. Gabapentin Gabapentin 300-600mg at HS. [...] barefoot. Assessment & Plan (12/25/2023 10:41 AM DRIER TRANSFER CAR OPERATOR): Foot care discussed Continue gabapentin Assessment & [...] 10/31/2022 Assessment & Plan (10/31/2022 12:56 PM DRIER TRANSFER CAR OPERATOR): Encouraged Mrs Trujillo to walk in home if weather not conducive to walking outside. Discussed healthy diet and importance of regular physical activity (20- 30min/day, 150min/wk). Hyperlipidemia associated with type 2 diabetes latanya brown 07/25/2022 Assessment & Plan (10/26/2024 11:30 AM DRIER TRANSFER CAR OPERATOR): Chronic problem, at goal on Atorvastatin 10mg & fenofibrate 160mg daily Last lipid panel: 12/25/23 LDL=98, ZN=794. Assessment & Plan (06/29/2024 11:46 AM CDT): Chronic problem, at goal on Atorvastatin 10mg & fenofibrate 160mg daily Last lipid panel: 12/25/23 LDL=98, JG=730. Assessment & Plan (12/25/2023 10:41 AM DRIER TRANSFER CAR OPERATOR): Chronic, stable Continue Atorvastatin 10 mg daily UDT lipid profile Assessment & Plan (05/08/2023 11:12 AM CDT): Chronic problem, at goal on Atorvastatin 10mg & fenofibrate 160mg daily Last lipid panel: 07/25/22 LDL=74, CW=654. No changes at this time. Assessment & Plan (01/30/2023 11:08 AM CDT): Chronic problem, at goal on Atorvastatin 10mg. Last lipid panel: 07/25/22 LDL=74, AL=045. No changes at this time. Assessment & Plan (10/31/2022 8:59 AM DRIER TRANSFER CAR OPERATOR): Chronic problem, near goal. LDL=74 07/2022. Atorvastatin 10mg daily. No changes at this time. Assessment & Plan (07/25/2022 12:50 PM CDT): Continue atorvastastin Check lipid profile LDL goal under 70 Type 2 diabetes mellitus wit h hyperglycemia, with long-term current use of insulin 05/28/2022 Assessment & Plan (10/26/2024 11:56 AM DRIER TRANSFER CAR OPERATOR): Chronic problem, stable/controlled. A1c stable at 5.8%. Current medications: Metformin XR 500mg twice daily before meals Januvia 100 mg daily (PAP) Basaglar 14 units every evening (PAP) Cannot trial GLP1a d/t h/o pancreatitis UTD on labs DM eye exam (2023 at [facility]). 2nd request letter sent. Strive [...] infection. Assessment & Plan (12/25/2023 10:40 AM DRIER TRANSFER CAR OPERATOR): Chronic, stable Contiue current regimen including Basaglar, Glimepiride 1 mg daily, Metformin 500 mg bid and Januvia Diet and exercise were discussed Assessment & Plan (09/09/2023 11:37 AM DRIER TRANSFER CAR OPERATOR): Hba1c was Lab Results Component Value Date [...] 7.8% Phone not compatible with dexcom nor [employer] haseeb. Sent in Dexcom 7 & reader. [...] Had DM eye exam 01/2023 at [facility] [place]. Letter sent to get copy of results. [...] infection. Assessment & Plan (10/31/2022 12:55 PM DRIER TRANSFER CAR OPERATOR): Chronic problem, at goal. No changes. Continue [...] (04/20/2020): Added automatically from request for surgery [id number] Immunizations Immunization Administration Dates Next Due Influenza, [...] on file Legal Sex Female 6:42 PM DRIER TRANSFER CAR OPERATOR Gender Identity Not on file Sexual [...] on file Medical Devices Implanted Type Area Records Management Clerk Device Identifier Shelf Expiration Date Model / Serial / Lot Depuy Orthopaed[employer] Inc [id number] Attune Cruciate Retain Cementless Knee Left 6 Narrow Component - [id number] Implanted:Qty: 1 on 05/02/2020 by Go Lazaro MD at [facility] Left: Knee [employer] 10/19/2029 [id number] / / [id number] [employer] [id number] Attune 5mm Cruciate Retaining Rotate Platform Knee 6 Insert - [id number] Implanted:Qty: 1 on 05/02/2020 by Go Lazaro MD at [facility] Left: Knee [employer] 08/19/2024 [id number] / / [id number] Attune Knee System, Tibial Base Rotating Platform Implanted:Qty: 1 on 05/02/2020 by Go Lazaro MD at [facility] Left: Knee [employer] [id number] 05/19/2028 [id number] / / [id number] [employer] [id number] Palacos R+G High Viscosity Cement Bone Gentamicin Arthroplasty - [id number] Implanted:Qty: 1 on 05/02/2020 by Go Lazaro MD at [facility] Left: Knee [employer] 02/16/2022 [id number] / / [id number] [employer] [id number] Palacos R+G High Viscosity Cement Bone Gentamicin Arthroplasty - [id number] Implanted:Qty: 1 on 09/05/2020 by Go Lazaro MD at [facility] Right: Knee [employer] 08/19/2022 [id number] / / [id number] Dep[employer] [id number] Baseplate Tibial Attune 6 Knee Cement Rotate Platform Sterile - [id number] Implanted:Qty: 1 on 09/05/2020 by Go Lazaro MD at [facility] Right: Knee [employer] 03/19/2030 [id number] / / [id number] [employer] [id number] Attune 7mm Cruciate Retaining Rotate Platform Knee 6 Insert - [id number] Implanted:Qty: 1 on 09/05/2020 by Go Lazaro MD at [facility] Right: Knee [employer] 08/19/2024 [id number] / / [id number] [employer] [id number] Attune Cruciate Retain Cementless Knee Right 6 Component Femoral - [id number] Implanted:Qty: 1 on 09/05/2020 by Go Lazaro MD at [facility] Right: Knee [employer] 07/19/2028 [id number] / / [id number] Medtronic Inc Specify Surescan 65cm 3 Column 16 Electrode Lead Nerve Stimulator [id number] - [id number] Implanted:Qty: 1 on 12/27/2024 by Vivi Johansen MD at [facility] N/A: Back [employer] Inc 09/24/2028 [id number] / / [id number] Med[employer] Inc Generator Pulse Inceptiv Sys Stm Electrcl Analges Implant [id number] - [id number] - [id number] Implanted:Qty: 1 on 12/27/2024 by Vivi Johansen MD at [facility] Right: Back [employer] Inc [id number] 11/02/2025 [id number] / [id number] / Biocom[employer]ites Stimulan Rapid Cure Kit Paste Separating Machine Operator 5cc 12.5cc Bone Void 620-005 - [id number] Implanted:Qty: 1 on 12/27/2024 by Vivi Johansen MD at [facility] N/A: Back [employer] [id number] 06/19/2027 620-005 / / [id number] Procedures Procedure Name Priority Date/Time Associated Diagnosis [...] VIEWS IP Routine 12/27/2024 9:19 AM CDT ID AN PROCEDURE PLACEHOLDER Routine 12/27/2024 8:03 AM CDT ID AN ELECTIVE ENDOTRACHEAL AIRWAY Routine 12/27/2024 8:03 AM CDT INSERTION SPINAL CORD STIMULATOR 12/27/2024 7:35 AM CDT Diabetic polyneuropathy associated with other specified diabetes mellitus (HCC) EGFR STAT 12/27/2024 6:52 AM CDT BASIC METABOLIC PANEL STAT 12/27/2024 6:52 AM CDT POCT GLUCOSE DEVICE Routine 12/27/2024 6 :38 AM CDT EGFR Routine 11/08/2024 12:06 PM DRIER TRANSFER CAR OPERATOR Preoperative evaluation to rule out surgical contraindication APTT Routine 11/08/2024 12:06 PM DRIER TRANSFER CAR OPERATOR Other specified pre-operative examination FPC current use of anticoagulant BASIC METABOLIC PANEL Routine 11/08/2024 12:06 PM DRIER TRANSFER CAR OPERATOR Preoperative evaluation to rule out surgical contraindication POCT HEMOGLOBIN A1C Routine 10/26/2024 1 1:17 AM DRIER TRANSFER CAR OPERATOR Type 2 diabetes mellitus with hyperglycemia, with long-term current use of insulin (HCC) POCT GLUCOSE Routine 10/26/2024 11:17 AM DRIER TRANSFER CAR OPERATOR Type 2 diabetes mellitus with hyperglycemia, with long-term current use of insulin (HCC) HM DIABETES EYE EXAM Routine 09/07/2024 7:29 AM DRIER TRANSFER CAR OPERATOR LIPID PANEL Routine 12/25/2023 10:51 AM DRIER TRANSFER CAR OPERATOR Type 2 diabetes mellitus with hyperglycemia, with long-term current use of insulin (HCC) ALBUMIN CREATININE RATIO, URINE Routine 12/25/2023 10:51 AM DRIER TRANSFER CAR OPERATOR Type 2 diabetes mellitus with hyperglycemia, with long-term current use of insulin ([facility]) from Last 3 Months or Most Recently Relevant to Health Maintenance Results * (ABNORMAL) EGFR (01/12/2025 9:14 AM CDT) SCRIBED eGFR in NonAfrican Andorran 20 >=60 - NA EXTERNAL LAB 01/12/2025 9:14 AM CDT us Historical Provider HEALTH MAINTENANCE Edited Result - Final Performing Organization Address City/[facility]/ZIP Co de Phone Number EXTERNAL LAB * (ABNORMAL) HM CREATININE (01/12/2025 9:14 AM CDT) SCRIBED Creatinine 2.14(A) 0.7 - 1.0 mg/dl EXTERNAL LAB SCRIBED eGFR in NonAfrican Andorran 20 >=60 - NA EXTERNAL LAB Blood 01/12/2025 9:14 AM CDT us Historical Provider HEALTH MAINTENANCE Edited Result - Final EXTERNAL LAB * (ABNORMAL) Parathyroid Hormone-Intact (01/12/2025 9:14 AM CDT) 01/12/2025 9:14 AM CDT Impressions EXTERNAL LAB - 01/12/2025 9:58 AM CDT Result: <14.5 (14.5-75.2) [facility] Provider LAB BLOOD ORDERABLES Edit ed Result - Final Performing Organization Address City/[facility] Co de Phone Number EXTERNAL LAB * [...] Final Result Performing Organization Address [facility] Co de Phone Number [facility] [address] [place] [address] * POCT glucose (12/27/2024 9:06 PM CDT) [...] Final Result Performing Organization Address [facility] Co de Phone Number [facility] [address] Department [place] [address] * POCT glucose (12/27/2024 10:20 AM CDT) [...] Final Result Performing Organization Address [facility]/ZIP Co de Phone Number [facility] [address] [place] [address] * [place] Fluoroscopy < 1 Hour (12/27/2024 9:19 AM CDT) Narrative [facility] - 12/27/2024 9:20 AM CDT The images from this study are not interpreted by Radiology. Please refer to the physician's procedure / OR operative note. Vivi Johansen MD IMG FLUOROSCOPY PROCEDUR ES Final Result Performing Organization Address [facility] Co de Phone Number [facility] * XR Spine Thoracolumbar [place]unction 2 [...] MD IMG XR PROCEDURES Final Result * ID AN ELECTIVE ENDOTRACHEAL AIRWAY, ID AN PROCEDURE PLACEHOLDER (12/27/2024 8:03 AM CDT) Narrative Deshawn Mera CRNA - 12/27/2024 8:03 AM CDT Deshawn Mera CRNA 12/27/2024 8:04 AM Airway Patient location: OR Urgency: elective Indications for airway management: anesthesia and airway protection Difficult airway: no Staff: Supervising provider: Carson Yee MD Placed by: MECHANICAL DEVELOPMENT ENGINEER: Deshawn Mera CRNA Emergent airway documentation: Risks [...] MD LAB BLOOD ORDERABLES Final R esult [facility] [address] Department [place] [address] * (ABNORMAL) Basic metabolic panel (12/27/2024 6:52 AM CDT) Sodium 140 135 - 145 mmol/L Potassium, pl 4.7 3.3 - 4.9 mmol/L [facility] Chloride 105 97 - 110 mmol/L [facility] CO2 23 22 - 32 mmol/L [facility] Anion gap 12 2 - 15 mmol/L [facility] BUN 41(H) 6 - 25 mg/dL [facility] Creatinine 1.36(H) 0.60 - 1.10 mg/dL [facility] Glucose 110 70 - 199 mg/dL [facility] Comment: Interpretive Data Fasting glucose [...] Calcium 9.5 8.5 - 10.3 mg/dL [facility] Blood 12/27/2024 6:52 AM CDT 12/27/2024 6:57 AM CDT us Carson Yee MD LAB BLOOD ORDERABLES Final R esult Performing Organization Address City/[facility]/ZIP Co de Phone Number [facility] [address] Department [place] [address] * POCT glucose (12/27/2024 6:38 AM CDT) [...] DE VICE Final Result Performing Organization Address City/[facility]/ZIP Co de Phone Number [facility] [address] Department [place] [address] * (ABNORMAL) eGFR (11/08/2024 12:06 PM DRIER TRANSFER CAR OPERATOR) eGFR 33(L) >=60 mL/min/1. 73 m2 Comment: [...] reviewed 2021. Blood 11/08/2024 12:0 6 PM DRIER TRANSFER CAR OPERATOR 11/08/2024 12:06 PM DRIER TRANSFER CAR OPERATOR Dinora Matthew NP LAB BLOOD ORDERABLES Fin al Result Performing Organization Address [facility] Co de Phone Number [facility] [address] Department of [employer] [facility] [place], [place] [id number] * aPTT (11/08/2024 12:06 PM DRIER TRANSFER CAR OPERATOR) Pathologist [facility] aPTT 30 28 - 38 sec Comment: Interpretive Data Heparin therapeutic range: 66.0 - 100.0 seconds. Range based on correlation with therapeutic heparin activity range of 0.3 - 0.7 Units/mL. Current interpretive data was last revised on 2023. Blood 11/08/2024 12:0 6 PM DRIER TRANSFER CAR OPERATOR 11/08/2024 12:06 PM DRIER TRANSFER CAR OPERATOR Vivi Johansen MD LAB BLOOD ORDERABLES Fin al Result Performing Organization Address [facility]/ZIP Co de Phone Number [facility] [address] Department [place] [address] * (ABNORMAL) Basic metabolic panel (11/08/2024 12:06 PM DRIER TRANSFER CAR OPERATOR) Pathologist [facility] Sodium 141 135 - 145 mmol/L Potassium, pl 4.9 3.3 - 4.9 mmol/L [facility] Chloride 103 97 - 110 mmol/L [facility] CO2 25 22 - 32 mmol/L [facility] Anion gap 13 2 - 15 mmol/L [facility] BUN 47(H) 6 - 25 mg/dL [facility] Creatinine 1.67(H) 0.60 - 1.10 mg/dL [facility] Glucose 129 70 - 199 mg/dL [facility] Comment: Interpretive Data Fasting glucose [...] 2022. Calcium 10.0 8.5 - 10.3 mg/dL [facility] Blood 11/08/2024 12:0 6 PM DRIER TRANSFER CAR OPERATOR 11/08/2024 12:06 PM DRIER TRANSFER CAR OPERATOR us Dinora Matthew NP LAB BLOOD ORDERABLES Fin al Result [facility] [address] Department [place] [address] * (ABNORMAL) POCT hemoglobin A1c (10/26/2024 11:17 AM DRIER TRANSFER CAR OPERATOR) Hemoglobin A1C, POC 5.8 4.0 - 5.6 % Blood 10/26/2024 11:1 7 AM DRIER TRANSFER CAR OPERATOR us Sisi Guevara NP POINT OF CARE TEST ORDERA BLES Final Result * (ABNORMAL) POCT glucose (10/26/2024 11:17 AM DRIER TRANSFER CAR OPERATOR) Glucose Blood, POC 184 mg/dL Blood 10/26/2024 11:1 7 AM DRIER TRANSFER CAR OPERATOR us Sisi Guevara NP POINT OF CARE TEST ORDERA BLES Final Result * HM DIABETES EYE EXAM (09/07/2024 7:29 AM DRIER TRANSFER CAR OPERATOR) Historical Provider HEALTH MAINTENANCE Final Result * Albumin Creatinine Ratio, Urine (12/25/2023 10:51 AM DRIER TRANSFER CAR OPERATOR) Albumin Ur <12.0 mg/L Comment: Interpretive Data No reference range established. Current interpretive data was last revised 2019. Creatinine Ur 33.6 mg/dL [facility] Comment: Interpretive Data No reference range established. Current interpretive data was last revised 2019. Albumin Creatinine Ratio, Ur See Comment 1 - 29 [facility] Comment:Unable to calculate Urine 12/25/2023 10:5 1 AM DRIER TRANSFER CAR OPERATOR 12/25/2023 4:20 PM DRIER TRANSFER CAR OPERATOR Charan Hopper MD LAB URINE ORDERABLES Final Resul t [facility] [address] Department [place] [address] * (ABNORMAL) Lipid panel (12/25/2023 10:51 AM DRIER TRANSFER CAR OPERATOR) Cholesterol 179 30 - 199 mg/dL Comment: [...] [facility] Blood 12/25/2023 10:5 1 AM DRIER TRANSFER CAR OPERATOR 12/25/2023 4:20 PM DRIER TRANSFER CAR OPERATOR us Charan Hopper MD LAB BLOOD ORDERABLES Final Resul t [facility] [address] [place] [address] from Last 3 Months or Most Recently Relevant to Health Maintenance Insurance [employer] INSURANCE [employer] MEDICARE [facility] MEDICARE [facility] Address: [address] [address] [place] [address] [facility] MEDICARE [facility] Address: [address] [address] [place] [address] [address] Advance Directives For more information, please contact: [phone] * Full Code (Latest Code Status on File) Date Activated Date Inactivated Comments 12/27/2024 12:45 PM 12/29/2024 7:57 PM * Full Code Date Activated Date Inactivated Comments 09/05/2020 1:54 PM 09/06/2020 6:34 PM * Full Code Date Activated Date Inactivated Comments 05/02/2020 2:11 PM 05/03/2020 8:18 PM Care Teams Commodity Supervisor Relationship Specialty Start Date End Date Osman Malcolm MD [address] [place], [place] [id number] PCP - General Family Medicine 09/18/22 Rey Hinton PA [address] [place] [address] [address], [place] [address] Physician Cad Detailer Orthopedic Surgery 05/03/20 Reina Jimenes PA [address] [place] [address] DR TREVIÑO [facility] [place] [address] Physician Cad Detailer Orthopedic Surgery 09/06/20
--- OUTSIDE RECORDS SUMMARY | 2025-01-17 13:06 | XMS_ITS | Clinical Summary ---
Author Organization [facility] Building B Address [address] [place] [address] Care Team Providers Care Gas Appliance Installer Name Role Phone Rey Hinton PA Unavailable [phone] Reina Jimenes Unavailable [phone] Osman Malcolm MD Primary Care Provider [phone] Allergies Active Allergy Reactions Criticality Noted Date [...] with long-term current use of insulin ([facility]) Continuous glucose monitoring. Change every 10 days. 9 each 3 3 Active blood-glucose meter,continuo us (Dexcom G7 Deboning Team Leader) miscIndication s:Type 2 diabetes mellitus with hyperglycemia, with long-term current use of insulin ([facility]) Continuous glucose monitor 1 each 3 [...] 1 tablet (112 mcg total) by mouth physiology teacher before breakfast 4 Active pen needle, diabetic 32 gauge x /32 needleIndicati ons:Type 2 diabetes mellitus with hyperglycemia, with long-term current use of insulin ([facility]) USE TO INJECT INSULIN DAILY 100 [...] 06/20 Assessment & Plan (10/26/2024 12:09 PM CUSTOMER CARE VOICE CONSULTANT): Chronic problem. Managed by Dr Marr at [facility]. Next appt 12/29/24 Nephropathy: On GWEN-I / ARB s : Yes. Lisinopril 5mg. Last MA: 12/25/23 (36 calc). Last creat/GFR: 03/31/24 GFR=27, CR=1.96. Assessment & Plan (06/29/2024 11:48 AM CDT): Chronic problem. Managed by Dr Tejinder mcconnell [facility]. Next appt 06/30/24. Nephropathy: On GWEN-I / ARB s : Yes. Lisinopril 5mg. Last MA: 12/25/23 (36 calc). Last creat/GFR: 03/31/24 GFR=27, CR=1.96. Diabetic neuropathy associat ed with type 2 diabetes mellitus 01/30/2023 Assessment & Plan (10/26/2024 11:56 AM CUSTOMER CARE VOICE CONSULTANT): Chronic problem. Gabapentin Gabapentin 300-600mg at HS. [...] barefoot. Assessment & Plan (12/25/2023 10:41 AM CUSTOMER CARE VOICE CONSULTANT): Foot care discussed Continue gabapentin Assessment & [...] 10/31/2022 Assessment & Plan (10/31/2022 12:56 PM CUSTOMER CARE VOICE CONSULTANT): Encouraged Mrs Trujillo to walk in home if weather not conducive to walking outside. Discussed healthy diet and importance of regular physical activity (20- 30min/day, 150min/wk). Hyperlipidemia associated with type 2 diabetes latanya brown 07/25/2022 Assessment & Plan (10/26/2024 11:30 AM CUSTOMER CARE VOICE CONSULTANT): Chronic problem, at goal on Atorvastatin 10mg & fenofibrate 160mg daily Last lipid panel: 12/25/23 LDL=98, HZ=747. Assessment & Plan (06/29/2024 11:46 AM CDT): Chronic problem, at goal on Atorvastatin 10mg & fenofibrate 160mg daily Last lipid panel: 12/25/23 LDL=98, KN=498. Assessment & Plan (12/25/2023 10:41 AM CUSTOMER CARE VOICE CONSULTANT): Chronic, stable Continue Atorvastatin 10 mg daily UDT lipid profile Assessment & Plan (05/08/2023 11:12 AM CDT): Chronic problem, at goal on Atorvastatin 10mg & fenofibrate 160mg daily Last lipid panel: 07/25/22 LDL=74, IS=283. No changes at this time. Assessment & Plan (01/30/2023 11:08 AM CDT): Chronic problem, at goal on Atorvastatin 10mg. Last lipid panel: 07/25/22 LDL=74, CY=604. No changes at this time. Assessment & Plan (10/31/2022 8:59 AM CUSTOMER CARE VOICE CONSULTANT): Chronic problem, near goal. LDL=74 07/2022. Atorvastatin 10mg daily. No changes at this time. Assessment & Plan (07/25/2022 12:50 PM CDT): Continue atorvastastin Check lipid profile LDL goal under 70 Type 2 diabetes mellitus wit h hyperglycemia, with long-term current use of insulin 05/28/2022 Assessment & Plan (10/26/2024 11:56 AM CUSTOMER CARE VOICE CONSULTANT): Chronic problem, stable/controlled. A1c stable at 5.8%. Current medications: Metformin XR 500mg twice daily before meals Januvia 100 mg daily (PAP) Basaglar 14 units every evening (PAP) Cannot trial GLP1a d/t h/o pancreatitis UTD on labs DM eye exam (2023 at [facility]). 2nd request letter sent. Strive [...] infection. Assessment & Plan (12/25/2023 10:40 AM CUSTOMER CARE VOICE CONSULTANT): Chronic, stable Contiue current regimen including Basaglar, Glimepiride 1 mg daily, Metformin 500 mg bid and Januvia Diet and exercise were discussed Assessment & Plan (09/09/2023 11:37 AM CUSTOMER CARE VOICE CONSULTANT): Hba1c was Lab Results Component Value Date [...] 7.8% Phone not compatible with dexcom nor [email or web address].tv haseeb. Sent in Dexcom 7 & reader. [...] evening Had DM eye exam 01/2023 at [facility] in [place]. Letter sent to get copy of results. [...] infection. Assessment & Plan (10/31/2022 12:55 PM CUSTOMER CARE VOICE CONSULTANT): Chronic problem, at goal. No changes. Continue [...] (04/20/2020): Added automatically from request for surgery [id number] Encounters Date Type Department Care Team Description 01/13/2025 Orders Only [facility] Diabetes and Endocrinology [address] [place] [phone] ProviderMarcello MD 01/12/2025 Telephone [facility] Diabetes and Endocrinology [address] [place] [phone] Sisi Guevara, NURSING HOME MANAGER Med Management 12/27/2024 7:33 AM CDT Anesthesia Event [facility] Operating Room [address] [place] [phone] Carson Yee MD [place], Justin Kyle, CRNA 12/27/2024 7:30 AM CDT - 12/27/2024 10:30 AM CDT Surgery [facility] Operating Room [address] [place] [phone] Vivi Johansen MD T10 Laminotomy for Placement of Spinal Cord Stimulator 12/27/2024 5:11 AM CDT - 12/29/2024 3:52 PM CDT Hospital Encounter [facility] [address] [place] [phone] Vivi Johansen MD Discharge Disposition: Discharge to home or self care 11/08/2024 11:45 AM CUSTOMER CARE VOICE CONSULTANT Pre-Admission Testing [facility] Pre Anesthesia Testing [address] [place] [phone] Preoperative evaluation to rule out surgical contraindication (Primary Dx); Other specified pre-operative examination; USP current use of anticoagulant 11/05/2024 11:59 PM CUSTOMER CARE VOICE CONSULTANT Anesthesia Event [facility] Operating Room [address] [place] [phone] Dinora Matthew NP 11/04/2024 Telephone [facility] Pre Anesthesia Testing [address] [place] [phone] Khushi Gresham 11/03/2024 Orders Only [facility] Diabetes [facility] Endocrinology [address] [place] [phone] Marcello Barajas MD 10/26/2024 11:30 AM CUSTOMER CARE VOICE CONSULTANT Office Visit [facility] Diabetes [facility] Endocrinology [address] [place] [phone] Sisi Guevara, GRACE Type 2 diabetes mellitus with hyperglycemia, with long-term current use of insulin (HCC) (Primary Dx); CKD stage 4 due to type 2 diabetes mellitus (HCC); Hyperlipidemia associated with type 2 diabetes mellitus (HCC); Diabetic neuropathy associated with type 2 diabetes mellitus (HCC) 10/26/2024 Telephone [facility] Diabetes and Endocrinology [address] [place] [phone] Sisi Guevara, GRACE Med Management (Huyen Cares - Basaglar) 10/19/2024 Telephone [facility] [id number] [place] [address] [address], [place] [address] Sisi Guevara, GRACE Med Refill [...] on file Legal Sex Female 6:42 PM CUSTOMER CARE VOICE CONSULTANT Gender Identity Not on file Sexual Orientation [...] history exists Medical Devices Implanted Type Area Therapeutic Strategy Lead Device Identifier Shelf Expiration Date Model / Serial / Lot Depuy Orthopaedics Inc [id number] Attune Cruciate Retain Cementless Knee Left 6 Narrow Component - [id number] Implanted:Qty: 1 on 05/02/2020 by Go Lazaro MD at [facility] Left: Knee [employer] 10/19/2029 [id number] / / [id number] Depuy [employer] [id number] Attune 5mm Cruciate Retaining Rotate Platform Knee 6 Insert - [id number] Implanted:Qty: 1 on 05/02/2020 by Go Lazaro MD at [facility] Left: Knee [employer] 08/19/2024 [id number] / / [id number] Attune Knee System, Tibial Base Rotating Platform Implanted:Qty: 1 on 05/02/2020 by Go Lazaro MD at [facility] Left: Knee Depuy [employer] Inc [id number] 05/19/2028 [id number] / / [id number] [employer] [id number] Palacos R+G High Viscosity Cement Bone Gentamicin Arthroplasty - [id number] Implanted:Qty: 1 on 05/02/2020 by Go Lazaro MD at [facility] Left: Knee [employer] 02/16/2022 [id number] / / [id number] [employer] [id number] Palacos R+G High Viscosity Cement Bone Gentamicin Arthroplasty - [id number] Implanted:Qty: 1 on 09/05/2020 by Go Lazaro MD at [facility] Right: Knee [employer] 08/19/2022 [id number] / / [id number] Depuy Orthopaed[employer] Inc [id number] Baseplate Tibial Attune 6 Knee Cement Rotate Platform Sterile - [id number] Implanted:Qty: 1 on 09/05/2020 by Go Lazaro MD at [facility] Right: Knee [employer] 03/19/2030 [id number] / / [id number] Dep[employer] [id number] Attune 7mm Cruciate Retaining Rotate Platform Knee 6 Insert - [id number] Implanted:Qty: 1 on 09/05/2020 by Go Lazaro MD at [facility] Right: Knee [employer] 08/19/2024 [id number] / / [id number] Dep[employer] [id number] Attune Cruciate Retain Cementless Knee Right 6 Component Femoral - [id number] Implanted:Qty: 1 on 09/05/2020 by Go Lazaro MD at [facility] Right: Knee [employer] 07/19/2028 [id number] / / [id number] Medtronic Inc Specify Surescan 65cm 3 Column 16 Electrode Lead Nerve Stimulator 032x366 - [id number] Implanted:Qty: 1 on 12/27/2024 by Vivi Johansen MD at [facility] N/A: Back Med[employer] Inc 09/24/2028 [id number] / / [id number] Med[employer]onic Inc Generator Pulse Inceptiv Sys Stm Electrcl Analges Implant [id number] - [id number] - [id number] Implanted:Qty: 1 on 12/27/2024 by Vivi Johansen MD at [facility] Right: Back [employer] Inc [id number] 11/02/2025 [id number] / [id number] / Biocomposites Stimulan Rapid Cure Kit Paste Dope Worker 5cc 12.5cc Bone Void 620-005 - [id number] Implanted:Qty: 1 on 12/27/2024 by Vivi Johansen MD at [facility] N/A: Back [employer] [id number] 06/19/2027 620-005 / / [id number] Procedures Procedure Name Priority Date/Time Associated Diagnosis [...] VIEWS IP Routine 12/27/2024 9:19 AM CDT DC AN PROCEDURE PLACEHOLDER Routine 12/27/2024 8:03 AM CDT DC AN ELECTIVE ENDOTRACHEAL AIRWAY Routine 12/27/2024 8:03 AM CDT INSERTION SPINAL CORD STIMULATOR 12/27/2024 7:35 AM CDT Diabetic polyneuropathy associated with other specified diabetes mellitus (HCC) EGFR STAT 12/27/2024 6:52 AM CDT BASIC METABOLIC PANEL STAT 12/27/2024 6:52 AM CDT POCT GLUCOSE DEVICE Routine 12/27/2024 6 :38 AM CDT EGFR Routine 11/08/2024 12:06 PM CUSTOMER CARE VOICE CONSULTANT Preoperative evaluation to rule out surgical contraindication APTT Routine 11/08/2024 12:06 PM CUSTOMER CARE VOICE CONSULTANT Other specified pre-operative examination USP current use of anticoagulant BASIC METABOLIC PANEL Routine 11/08/2024 12:06 PM CUSTOMER CARE VOICE CONSULTANT Preoperative evaluation to rule out surgical contraindication POCT HEMOGLOBIN A1C Routine 10/26/2024 1 1:17 AM CUSTOMER CARE VOICE CONSULTANT Type 2 diabetes mellitus with hyperglycemia, with long-term current use of insulin (HCC) POCT GLUCOSE Routine 10/26/2024 11:17 AM CUSTOMER CARE VOICE CONSULTANT Type 2 diabetes mellitus with hyperglycemia, with long-term current use of insulin (HCC) HM DIABETES EYE EXAM Routine 09/07/2024 7:29 AM CUSTOMER CARE VOICE CONSULTANT LIPID PANEL Routine 12/25/2023 10:51 AM CUSTOMER CARE VOICE CONSULTANT Type 2 diabetes mellitus with hyperglycemia, with long-term current use of insulin (HCC) ALBUMIN CREATININE RATIO, URINE Routine 12/25/2023 10:51 AM CUSTOMER CARE VOICE CONSULTANT Type 2 diabetes mellitus with hyperglycemia, with long-term current use of insulin (HCC) from Last 3 Months or Most Recently Relevant to Health Maintenance Results * (ABNORMAL) EGFR (01/12/2025 9:14 AM CDT) SCRIBED eGFR in NonAfrican Estonian 20 >=60 - NA EXTERNAL LAB 01/12/2025 9:14 AM CDT Historical Provider HEALTH MAINTENANCE Edited Result - Final EXTERNAL LAB * (ABNORMAL) HM CREATININE (01/12/2025 9:14 AM CDT) SCRIBED Creatinine 2.14(A) 0.7 - 1.0 mg/dl EXTERNAL LAB SCRIBED eGFR in NonAfrican Estonian 20 >=60 - NA EXTERNAL LAB Blood [...] DE VICE Final Result Performing Organization Address [facility] Co de Phone Number [facility] [address] [email or web address] [place], [place] [phone] * POCT glucose (12/27/2024 9:06 PM CDT) [...] DE VICE Final Result Performing Organization Address [facility] Co de Phone Number [facility] [address] [place] [address] * POCT glucose (12/27/2024 10:20 AM CDT) [...] DE VICE Final Result Performing Organization Address City/[facility]/ZIP Co de Phone Number [facility] [address] Department [place] [address] * FL Fluoroscopy < 1 Hour (12/27/2024 9:19 AM CDT) Narrative [facility] - 12/27/2024 9:20 AM CDT The images from this study are not interpreted by Radiology. Please refer to the physician's procedure / OR operative note. Vivi Johansen MD IMG FLUOROSCOPY PROCEDUR ES Final Result Performing Organization Address [facility] Co de Phone Number [facility] * XR Spine Thoracolumbar Junction [...] MD IMG XR PROCEDURES Final Result * DC AN ELECTIVE ENDOTRACHEAL AIRWAY, DC AN PROCEDURE PLACEHOLDER (12/27/2024 8:03 AM CDT) Narrative Deshawn Mera CRNA - 12/27/2024 8:03 AM CDT Deshawn Mera CRNA 12/27/2024 8:04 AM Airway Patient location: OR Urgency: elective Indications for airway management: anesthesia and airway protection Difficult airway: no Staff: Supervising provider: Carson Yee MD Placed by: ORACLE ANALYST: Deshawn Mera CRNA Emergent airway documentation: Risks [...] MD LAB BLOOD ORDERABLES Final R esult [facility] [address] [place] [address] * (ABNORMAL) Basic metabolic panel (12/27/2024 6:52 AM CDT) [facility] Sodium 140 135 - 145 mmol/L Potassium, pl 4.7 3.3 - 4.9 mmol/L [facility] Chloride 105 97 - 110 mmol/L [facility] CO2 23 22 - 32 mmol/L [facility] Anion gap 12 2 - 15 mmol/L [facility] BUN 41(H) 6 - 25 mg/dL [facility] Creatinine 1.36(H) 0.60 - 1.10 mg/dL [facility] Glucose 110 70 - 199 mg/dL [facility] Comment: [...] 2022. Calcium 9.5 8.5 - 10.3 mg/dL [facility] Blood 12/27/2024 6:52 AM CDT 12/27/2024 6:57 AM CDT us Carson Yee MD LAB BLOOD ORDERABLES Final R esult Performing Organization Address City/[facility]/ZIP Co de Phone Number [facility] [address] Department of Laboratories [place], [place] [phone] * POCT glucose (12/27/2024 6:38 AM CDT) [facility] Glucose, POC 111 70 - 199 mg/dL Comment: For Glucose values <35 mg/dl when Hematocrit is >60 mg/dl,the test may not accurately detect significant hypoglycemia,and testing in the Laboratory should be considered if clinically indicated. Blood 12/27/2024 6:38 AM CDT 12/27/2024 6:38 AM CDT Vivi Johansen MD LAB POCT ORDERABLES - DE VICE Final Result Performing Organization Address City/[facility] Co de Phone Number [facility] [address] Department [place] [address] * (ABNORMAL) eGFR (11/08/2024 12:06 PM CUSTOMER CARE VOICE CONSULTANT) [facility] eGFR 33(L) >=60 mL/min/1. 73 m2 [...] reviewed 2021. Blood 11/08/2024 12:0 6 PM CUSTOMER CARE VOICE CONSULTANT 11/08/2024 12:06 PM CUSTOMER CARE VOICE CONSULTANT us Dinora Matthew NP LAB BLOOD ORDERABLES Fin al Result Performing Organization Address City/[facility]/ZIP Co de Phone Number [facility] [address] [email or web address] [place], [place] [id number] * aPTT (11/08/2024 12:06 PM CUSTOMER CARE VOICE CONSULTANT) aPTT 30 28 - 38 sec Comment: Interpretive Data Heparin therapeutic range: 66.0 - 100.0 seconds. Range based on correlation with therapeutic heparin activity range of 0.3 - 0.7 Units/mL. Current interpretive data was last revised on 2023. Blood 11/08/2024 12:0 6 PM CUSTOMER CARE VOICE CONSULTANT 11/08/2024 12:06 PM CUSTOMER CARE VOICE CONSULTANT us Vivi Johansen MD LAB BLOOD ORDERABLES Fin al Result [facility] [address] [facility] [place] [address] * (ABNORMAL) Basic metabolic panel (11/08/2024 12:06 PM CUSTOMER CARE VOICE CONSULTANT) Sodium 141 135 - 145 mmol/L Potassium, pl 4.9 3.3 - 4.9 mmol/L [facility] Chloride 103 97 - 110 mmol/L [facility] [...] [facility] Blood 11/08/2024 12:0 6 PM CUSTOMER CARE VOICE CONSULTANT 11/08/2024 12:06 PM CUSTOMER CARE VOICE CONSULTANT us Dinora Matthew NP LAB BLOOD ORDERABLES Fin al Result [facility] [address] Department [place] [address] * (ABNORMAL) POCT hemoglobin A1c (10/26/2024 11:17 AM CUSTOMER CARE VOICE CONSULTANT) Hemoglobin A1C, POC 5.8 4.0 - 5.6 % Blood 10/26/2024 11:1 7 AM CUSTOMER CARE VOICE CONSULTANT us Sisi Guevara NURSING HOME MANAGER POINT OF CARE TEST ORDERA BLES Final Result * (ABNORMAL) POCT glucose (10/26/2024 11:17 AM CUSTOMER CARE VOICE CONSULTANT) Glucose Blood, POC 184 mg/dL Blood 10/26/2024 11:1 7 AM CUSTOMER CARE VOICE CONSULTANT Sisi Guevara NURSING HOME MANAGER POINT OF CARE TEST ORDERA BLES Final Result * HM DIABETES EYE EXAM (09/07/2024 7:29 AM CUSTOMER CARE VOICE CONSULTANT) Historical Provider HEALTH MAINTENANCE Final Result * Albumin Creatinine Ratio, Urine (12/25/2023 10:51 AM CUSTOMER CARE VOICE CONSULTANT) Albumin Ur <12.0 mg/L Comment: Interpretive Data No reference range established. Current interpretive data was last revised 2019. Creatinine Ur 33.6 mg/dL [facility] Comment: Interpretive Data No reference range established. Current interpretive data was last revised 2019. Albumin Creatinine Ratio, Ur See Comment 1 - [facility] Comment:Unable to calculate Urine 12/25/2023 10:5 1 AM CUSTOMER CARE VOICE CONSULTANT 12/25/2023 4:20 PM CUSTOMER CARE VOICE CONSULTANT Charan Hopper MD LAB URINE ORDERABLES Final Resul t [facility] [address] Department of Laboratories [place], [place] [id number] * (ABNORMAL) Lipid panel (12/25/2023 10:51 AM CUSTOMER CARE VOICE CONSULTANT) Cholesterol 179 30 - 199 mg/dL Comment: [...] [facility] Blood 12/25/2023 10:5 1 AM CUSTOMER CARE VOICE CONSULTANT 12/25/2023 4:20 PM CUSTOMER CARE VOICE CONSULTANT us Charan Hopper MD LAB BLOOD ORDERABLES Final Resul t [facility] [address] [place] [address] from Last 3 Months or Most Recently Relevant to Health Maintenance Insurance [employer] INSURANCE [employer] [facility] MEDICARE [facility] MEDICARE ADVANTAGE [place] [id number] Advance Directives For more information, please contact: [phone] * Full Code (Latest Code Status on File) Date Activated Date Inactivated Comments 12/27/2024 12:45 PM 12/29/2024 7:57 PM * Full Code Date Activated Date Inactivated Comments 09/05/2020 1:54 PM 09/06/2020 6:34 PM * Full Code Date Activated Date Inactivated Comments 05/02/2020 2:11 PM 05/03/2020 8:18 PM Care Teams Gas Appliance Installer Relationship Specialty Start Date End Date Osman Malcolm MD [address] [place] [id number] PCP - General Family Medicine 09/18/22 Rey Hinton PA [address] [place] [address] [address] [place] [address] Physician Disability Insurance Claim Examiner Orthopedic Surgery 05/03/20 Reina Jimenes PA [address] [place] [address] [address] [place] [address] Physician Disability Insurance Claim Examiner Orthopedic Surgery 09/06/20
== END 2025-01-17 11:33 | disposition home or self-care (01) ==
LOC: ANHLAB 11:34
PROVIDERS: PCP Emergency Medicine; Visit Provider Internal Medicine Nephrology
DX: N18.31 Chronic kidney disease, stage 3a (principal); N18.32 Chronic kidney disease, stage 3b; E13.9 Other specified diabetes mellitus without complications
CPT/HCPCS: 36415; 80069; 82570; 83970; 84156; 85027

== ENCOUNTER 2025-02-02 07:40 | Outpatient (CLI) | payer MEDICARE, SELFPAY ==
--- OUTSIDE RECORDS SUMMARY | 2025-02-02 07:44 | XMS_ITS | Clinical Summary ---
Author Organization [facility] Medical Office Building B Address [address] [place] [address] Care Team Providers Care Computer Science Instructor Name Role Phone Rey Hinton PA Unavailable [phone] Reina Jimenes Unavailable [phone] Osman Malcolm MD Primary Care Provider [phone] Allergies Active Allergy Reactions Criticality Noted Date Comments Duloxetine Other (See comments) Medium 01/30/2023 Pt states she felt like she was itching from the inside out Medications atorvastatin (LIPITOR) 10 mg tablet Take 1 tablet (10 mg total) by mouth every morning 08/24/20 19 Active blood glucose diagnostic strip test bid 01/18/20 19 Active furosemide (LASIX) 20 mg tablet Take 1 tablet (20 mg total) by mouth every morning 08/24/20 19 Active lancets 33 gauge misc use BID 12/04/19 19 Active allopurinoL (ZYLOPRIM) 100 mg tablet Take 1 tablet (100 mg total) by mouth 2 (two) times a day Active lisinopriL (PRINIVIL,ZEST RIL) 5 mg tablet Take 1 tablet (5 mg total) by mouth every morning 07/11/20 21 Active famotidine (PEPCID) 20 mg tablet Take 1 tablet (20 mg total) by mouth 2 (two) times a day 10/29/19 23 Active fenofibrate (TRIGLIDE) 160 mg tablet Take 1 tablet (160 mg total) by mouth every morning 01/02/20 23 Active cephalexin (KEFLEX) 500 mg capsule Take 1 capsule (500 mg total) by mouth daily Active blood-glucose sensor (Dexcom G7 Sensor) deviceIndicati ons:Type 2 diabetes mellitus with hyperglycemia, with long-term current use of insulin ([facility]) Continuous glucose monitoring. Change every 10 days. 9 each 3 05/08/20 23 Active blood-glucose meter,continuo us (Dexcom G7 Anaesthetic Technician) miscIndication s:Type 2 diabetes mellitus with hyperglycemia, with long-term current use of insulin ([facility]) Continuous glucose monitor 1 each 05/08/20 23 Active gabapentin (NEURONTIN) 300 mg capsuleIndicat ions:Diabetic Peripheral Neuropathy Take 1 capsule (300 mg total) by mouth 3 (three) times a day 90 capsule 11 12/25/19 24 Active metFORMIN XR (GLUCOPHAGE XR) 500 mg 24 hr tablet Take 1 tablet (500 mg total) by mouth 2 (two) times a day before breakfast and dinner 180 tablet 2 12/25/19 24 Active levothyroxine (SYNTHROID) 112 mcg tablet Take 1 tablet (112 mcg total) by mouth 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 chemical plant before breakfast 05/10/20 24 Active insulin glargine 100 unit/mL (3 mL) [...] hours as needed for pain 28 tablet 12/28/19 25 Active cyclobenzaprin e (FLEXERIL) 10 mg tablet Take 1 tablet (10 mg total) by mouth 3 (three) times a day as needed for muscle spasms 30 tablet 12/28/19 25 Active senna-docusate (PERICOLACE) 8.6-50 mgIndications: constipation Take 1 tablet by mouth 2 (two) times a day 14 tablet 12/30/19 25 Active pen needle, diabetic 32 gauge x 5/32 needleIndicati ons:Type 2 diabetes mellitus with hyperglycemia, with long-term current use of insulin ([facility]) USE TO INJECT INSULIN DAILY 100 each 02/02/20 25 Active pen needle, diabetic 32 gauge x 5/32 needleIndicati ons:Type 2 diabetes mellitus with hyperglycemia, with long-term current use of insulin ([facility]) USE TO INJECT INSULIN DAILY 100 each 10/29/19 025 Discontinued methylPREDNISo lone (MEDROL DOSEPACK) 4 mg Dosepack Take as directed on package 1 packet 12/30/19 025 Active Problems Problem Noted Date Diagnosed Date Diabetic neuropathy with neurologic complication 12/27/2024 Diabetic neuropathy 11/16/2024 Diabetic mononeuropathy asso ciated with type 2 diabetes mellitus 11/01/2024 CKD stage 4 due to type 2 diabetes mellitus 06/20 Assessment & Plan (10/26/2024 12:09 PM COLLEGE ADMINISTRATOR): Chronic problem. Managed by Dr Marr at [facility]. Next appt 12/29/24 Nephropathy: On GWEN-I / ARB s : Yes. Lisinopril 5mg. Last MA: 12/25/23 (36 calc). Last creat/GFR: 03/31/24 GFR=27, CR=1.96. Assessment & Plan (06/29/2024 11:48 AM CDT): Chronic problem. Managed by Dr Marr at [facility]. Next appt 06/30/24. Nephropathy: On GWEN-I / ARB s : Yes. Lisinopril 5mg. Last MA: 12/25/23 (36 calc). Last creat/GFR: 03/31/24 GFR=27, CR=1.96. Diabetic neuropathy associat ed with type 2 diabetes mellitus 01/30/2023 Assessment & Plan (10/26/2024 11:56 AM COLLEGE ADMINISTRATOR): Chronic problem. Gabapentin Gabapentin 300-600mg at HS. [...] barefoot. Assessment & Plan (12/25/2023 10:41 AM COLLEGE ADMINISTRATOR): Foot care discussed Continue gabapentin Assessment & [...] 10/31/2022 Assessment & Plan (10/31/2022 12:56 PM COLLEGE ADMINISTRATOR): Encouraged Mrs Trujillo to walk in home if weather not conducive to walking outside. Discussed healthy diet and importance of regular physical activity (20- 30min/day, 150min/wk). Hyperlipidemia associated with type 2 diabetes latanya brown 07/25/2022 Assessment & Plan (10/26/2024 11:30 AM COLLEGE ADMINISTRATOR): Chronic problem, at goal on Atorvastatin 10mg & fenofibrate 160mg daily Last lipid panel: 12/25/23 LDL=98, WK=712. Assessment & Plan (06/29/2024 11:46 AM CDT): Chronic problem, at goal on Atorvastatin 10mg & fenofibrate 160mg daily Last lipid panel: 12/25/23 LDL=98, SH=681. Assessment & Plan (12/25/2023 10:41 AM COLLEGE ADMINISTRATOR): Chronic, stable Continue Atorvastatin 10 mg daily UDT lipid profile Assessment & Plan (05/08/2023 11:12 AM CDT): Chronic problem, at goal on Atorvastatin 10mg & fenofibrate 160mg daily Last lipid panel: 07/25/22 LDL=74, RF=918. No changes at this time. Assessment & Plan (01/30/2023 11:08 AM CDT): Chronic problem, at goal on Atorvastatin 10mg. Last lipid panel: 07/25/22 LDL=74, PJ=064. No changes at this time. Assessment & Plan (10/31/2022 8:59 AM COLLEGE ADMINISTRATOR): Chronic problem, near goal. LDL=74 07/2022. Atorvastatin 10mg daily. No changes at this time. Assessment & Plan (07/25/2022 12:50 PM CDT): Continue atorvastastin Check lipid profile LDL goal under 70 Type 2 diabetes mellitus wit h hyperglycemia, with long-term current use of insulin 05/28/2022 Assessment & Plan (10/26/2024 11:56 AM COLLEGE ADMINISTRATOR): Chronic problem, stable/controlled. A1c stable at 5.8%. Current medications: Metformin XR 500mg twice daily before meals Januvia 100 mg daily (PAP) Basaglar 14 units every evening (PAP) Cannot trial GLP1a d/t h/o pancreatitis UTD on labs DM eye exam (2023 at [facility]). 2nd request letter sent. Strive for [...] infection. Assessment & Plan (12/25/2023 10:40 AM COLLEGE ADMINISTRATOR): Chronic, stable Contiue current regimen including Basaglar, Glimepiride 1 mg daily, Metformin 500 mg bid and Januvia Diet and exercise were discussed Assessment & Plan (09/09/2023 11:37 AM COLLEGE ADMINISTRATOR): Hba1c was Lab Results Component Value Date [...] 7.8% Phone not compatible with dexcom nor [employer] haseeb. Sent in Dexcom 7 & reader. [...] evening Had DM eye exam 01/2023 at [facility] in [place]. Letter sent to get copy of results. [...] infection. Assessment & Plan (10/31/2022 12:55 PM COLLEGE ADMINISTRATOR): Chronic problem, at goal. No changes. Continue [...] (04/20/2020): Added automatically from request for surgery [id number] Encounters Date Type Department Care Team Description 01/13/2025 Orders Only [facility] Diabetes and Endocrinology [address] [place] [phone] ProviderMarcello MD 01/12/2025 Telephone [facility] Diabetes and Endocrinology [address] [place] [phone] Sisi Guevara NP Med Management 12/27/2024 7:33 AM CDT Anesthesia Event [facility] Operating Room [facility] [place] [address] Carson Yee MD [place], Justin Kyle, CRNA 12/27/2024 7:30 AM CDT - 12/27/2024 10:30 AM CDT Surgery [facility] Operating Room [address] [place] [phone] Vivi Johansen MD T10 Laminotomy for Placement of Spinal Cord Stimulator 12/27/2024 5:11 AM CDT - 12/29/2024 3:52 PM CDT Hospital Encounter [facility] [address] [place] [phone] Vivi Johansen MD Discharge Disposition: Discharge to home or self care 11/08/2024 11:45 AM COLLEGE ADMINISTRATOR Pre-Admission Testing [facility] Pre Anesthesia Testing [address] [place] [phone] Preoperative evaluation to rule out surgical contraindication (Primary Dx); Other specified pre-operative examination; [facility] current use of anticoagulant 11/05/2024 11:59 PM COLLEGE ADMINISTRATOR Anesthesia Event [facility] Operating Room [address] [place] [phone] Dinora Matthew, STOCK UNLOADER 11/04/2024 Telephone [facility] Pre Anesthesia Testing [address] [place] [phone] Khushi Gresham from Last 3 Months Immunizations Immunization Administration [...] on file Legal Sex Female 6:42 PM COLLEGE ADMINISTRATOR Gender Identity Not on file Sexual Orientation [...] history exists Albumin Creatinine Ratio, Urine 12/24/2024 4, 07/25/2022 Lipid Panel 12/24/2024 12/25/2023, 07/25/2022 Hemoglobin A1C 04/25/2025 10/26/2024, 06/20, 12/25/2023, Additional history exists Foot Exam 06/29/2025 06/29/2024, 01/18, 10/31/2022 Dilated Eye Exam 09/07/2025 09/07/2024, 10/22/2021 Fall Risk Assessment 12/29/2025 12/29/2024, 09/09/20 23 eGFR 01/12/2026 01/12/2025, 12/19, 12/27/2024, Additional history exists Zoster Vaccine Completed 04/30/2021, 02/21/2021 Influenza Vaccine Completed 08/10/2024, , 07/20/2020, Additional history exists Medical Devices Implanted Type Area Casket Liner Device Identifier Shelf Expiration Date Model / Serial / Lot Depuy [employer]opaed[employer] Inc [id number] Attune Cruciate Retain Cementless Knee Left 6 Narrow Component - [id number] Implanted:Qty: 1 on 05/02/2020 by Go Lazaro MD at [facility] Left: Knee [employer] 10/19/2029 [id number] / / [id number] [employer] [id number] Attune 5mm Cruciate Retaining Rotate Platform Knee 6 Insert - [id number] Implanted:Qty: 1 on 05/02/2020 by Go Lazaro MD at [facility] Left: Knee [employer] 08/19/2024 [id number] / / [id number] Attune Knee System, Tibial Base Rotating Platform Implanted:Qty: 1 on 05/02/2020 by Go Lazaro MD at [facility] Left: Knee [employer] Inc [id number] 05/19/2028 [id number] / / [id number] [employer] [id number] Palacos R+G High Viscosity Cement Bone Gentamicin Arthroplasty - [id number] Implanted:Qty: 1 on 05/02/2020 by Go Lazaro MD at [facility] Left: Knee [employer] 02/16/2022 [id number] / / [id number] [employer] [id number] Palacos R+G High Viscosity Cement Bone Gentamicin Arthroplasty - [id number] Implanted:Qty: 1 on 09/05/2020 by Go Lazaro MD at [facility] Right: Knee [employer] 08/19/2022 [id number] / / [id number] Dep[employer] [id number] Baseplate Tibial Attune 6 Knee Cement Rotate Platform Sterile - [id number] Implanted:Qty: 1 on 09/05/2020 by Go Lazaro MD at [facility] Right: Knee [employer] 03/19/2030 [id number] / / [id number] [employer] [id number] Attune 7mm Cruciate Retaining Rotate Platform Knee 6 Insert - [id number] Implanted:Qty: 1 on 09/05/2020 by Go Lazaro MD at [facility] Right: Knee [employer] 08/19/2024 [id number] / / [id number] [employer] [id number] Attune Cruciate Retain Cementless Knee Right 6 Component Femoral - [id number] Implanted:Qty: 1 on 09/05/2020 by Go Lazaro MD at [facility] Right: Knee [employer] 07/19/2028 [id number] / / [id number] Med[employer] Inc Specify Surescan 65cm 3 Column 16 Electrode Lead Nerve Stimulator [id number] - [id number] Implanted:Qty: 1 on 12/27/2024 by Vivi Johansen MD at [facility] N/A: Back [employer] Inc 09/24/2028 [id number] / / [id number] Med[employer]onic Inc Generator Pulse Inceptiv Sys Stm Electrcl Analges Implant [id number] - [id number] - [id number] Implanted:Qty: 1 on 12/27/2024 by Vivi Johansen MD at [facility] Right: Back [employer] Inc [id number] 11/02/2025 [id number] / [id number] / Biocomposites Stimulan Rapid Cure Kit Paste Academic Guidance Specialist 5cc 12.5cc Bone Void 620-005 - [id number] Implanted:Qty: 1 on 12/27/2024 by Vivi Johansen MD at [facility] N/A: Back [employer] [id number] 06/19/2027 [id number] / / [id number] Procedures Procedure Name Priority Date/Time Associated Diagnosis [...] VIEWS IP Routine 12/27/2024 9:19 AM CDT VT AN PROCEDURE PLACEHOLDER Routine 12/27/2024 8:03 AM CDT VT AN ELECTIVE ENDOTRACHEAL AIRWAY Routine 12/27/2024 8:03 AM CDT INSERTION SPINAL CORD STIMULATOR 12/27/2024 7:35 AM CDT Diabetic polyneuropathy associated with other specified diabetes mellitus (HCC) EGFR STAT 12/27/2024 6:52 AM CDT BASIC METABOLIC PANEL STAT 12/27/2024 6:52 AM CDT POCT GLUCOSE DEVICE Routine 12/27/2024 6 :38 AM CDT EGFR Routine 11/08/2024 12:06 PM COLLEGE ADMINISTRATOR Preoperative evaluation to rule out surgical contraindication APTT Routine 11/08/2024 12:06 PM COLLEGE ADMINISTRATOR Other specified 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 current use of anticoagulant BASIC METABOLIC PANEL Routine 11/08/2024 12:06 PM COLLEGE ADMINISTRATOR Preoperative evaluation to rule out surgical contraindication POCT HEMOGLOBIN A1C Routine 10/26/2024 1 1:17 AM COLLEGE ADMINISTRATOR Type 2 diabetes mellitus with hyperglycemia, with long-term current use of insulin (HCC) HM DIABETES EYE EXAM Routine 09/07/2024 7:29 AM COLLEGE ADMINISTRATOR LIPID PANEL Routine 12/25/2023 10:51 AM COLLEGE ADMINISTRATOR Type 2 diabetes mellitus with hyperglycemia, with long-term current use of insulin (HCC) ALBUMIN CREATININE RATIO, URINE Routine 12/25/2023 10:51 AM COLLEGE ADMINISTRATOR Type 2 diabetes mellitus with hyperglycemia, with long-term current use of insulin (HCC) from Last 3 Months or Most Recently Relevant to Health Maintenance Results * (ABNORMAL) EGFR (01/12/2025 9:14 AM CDT) SCRIBED eGFR in NonAfrican [place]ankan 20 >=60 - NA EXTERNAL LAB 01/12/2025 9:14 AM CDT us Historical Provider HEALTH MAINTENANCE Edited Result - Final EXTERNAL LAB * (ABNORMAL) HM CREATININE (01/12/2025 9:14 AM CDT) SCRIBED Creatinine 2.14(A) 0.7 - 1.0 mg/dl EXTERNAL LAB SCRIBED eGFR in NonAfrican [place] 20 >=60 - NA EXTERNAL LAB Blood 01/12/2025 9:14 AM CDT Historical Provider HEALTH MAINTENANCE Edited Result - Final EXTERNAL LAB * (ABNORMAL) Parathyroid Hormone-Intact (01/12/2025 9:14 AM CDT) 01/12/2025 9:14 AM CDT Impressions EXTERNAL LAB - 01/12/2025 9:58 AM CDT Result: <14.5 (14.5-75.2) Historical Provider LAB BLOOD ORDERABLES Edit ed Result - Final Performing Organization Address City/[facility]/ZIP Co de Phone Number EXTERNAL LAB * [...] POCT ORDERABLES - DE VICE Final Result [facility] [address] Department [place] [address] * POCT glucose (12/27/2024 9:06 PM CDT) [...] DE VICE Final Result Performing Organization Address [facility] Co de Phone Number [facility] [address] [facility] [employer] [place], [place] [id number] * POCT glucose (12/27/2024 10:20 AM CDT) [facility] Signature Glucose, POC 176 70 - 199 mg/dL Comment: For Glucose values <35 mg/dl when Hematocrit is >60 mg/dl,the test may not accurately detect significant hypoglycemia,and testing in the Laboratory should be considered if clinically indicated. Blood 12/27/2024 10:2 0 AM CDT 12/27/2024 10:20 AM CDT Vivi Johansen MD LAB POCT ORDERABLES - DE VICE Final Result Performing Organization Address [facility] de Phone Number [facility] [address] [facility] [place] [address] * [place] Fluoroscopy < 1 Hour (12/27/2024 9:19 AM CDT) Narrative RAD_PACS_YARA - 12/27/2024 9:20 AM CDT The images from this study are not interpreted by Radiology. Please refer to the physician's procedure / OR operative note. Vivi Johansen MD IMG FLUOROSCOPY PROCEDUR ES Final Result Performing Organization Address [facility] Co de Phone Number RAD_PACS_[facility] * XR Spine Thoracolumbar Junction 2 [...] MD IMG XR PROCEDURES Final Result * VT AN ELECTIVE ENDOTRACHEAL AIRWAY, VT AN PROCEDURE PLACEHOLDER (12/27/2024 8:03 AM CDT) Narrative Deshawn Mera CRNA - 12/27/2024 8:03 AM CDT Deshawn Mera CRNA 12/27/2024 8:04 AM Airway Patient location: OR Urgency: elective Indications for airway management: anesthesia and airway protection Difficult airway: no Staff: Supervising provider: aCrson Yee MD Placed by: CLINICAL NURSING COORDINATOR: Deshawn Mera CRNA Emergent airway documentation: Risks [...] with: silk tape Number of attempts: 1 Carson Yee MD ANESTHESIA ORDERABLES Final Result [...] MD LAB BLOOD ORDERABLES Final R esult [facility] [address] Department [place] [address] * (ABNORMAL) Basic metabolic panel (12/27/2024 6:52 AM CDT) Sodium 140 135 - 145 mmol/L Potassium, pl 4.7 3.3 - 4.9 mmol/L [facility] Chloride 105 97 - 110 mmol/L [facility] CO2 23 22 - 32 mmol/L [facility] Anion gap 12 2 - 15 mmol/L [facility] BUN 41(H) 6 - 25 mg/dL [facility] Creatinine 1.36(H) 0.60 - 1.10 mg/dL [facility] Glucose 110 70 - 199 mg/dL [facility] Comment: Interpretive Data Fasting glucose >/= 126 [...] 2022. Calcium 9.5 8.5 - 10.3 mg/dL [facility] Blood 12/27/2024 6:52 AM CDT 12/27/2024 6:57 AM CDT us Carson Yee MD LAB BLOOD ORDERABLES Final R esult [facility] [address] Department [place] [address] * POCT glucose (12/27/2024 6:38 AM CDT) [facility] Signature Glucose, POC 111 70 - 199 mg/dL Comment: For Glucose values <35 mg/dl when Hematocrit is >60 mg/dl,the test may not accurately detect significant hypoglycemia,and testing in the Laboratory should be considered if clinically indicated. Blood 12/27/2024 6:38 AM CDT 12/27/2024 6:38 AM CDT us Vivi Johansen MD LAB POCT ORDERABLES - DE VICE Final Result [facility] [address] Department [place] [address] * (ABNORMAL) eGFR (11/08/2024 12:06 PM COLLEGE ADMINISTRATOR) eGFR 33(L) >=60 mL/min/1. 73 m2 Comment: [...] reviewed 2021. Blood 11/08/2024 12:0 6 PM COLLEGE ADMINISTRATOR 11/08/2024 12:06 PM COLLEGE ADMINISTRATOR Dinora Matthew NP LAB BLOOD ORDERABLES [facility] al Result [facility] [address] Department [place] [address] * aPTT (11/08/2024 12:06 PM COLLEGE ADMINISTRATOR) aPTT 30 28 - 38 sec Comment: Interpretive Data Heparin therapeutic range: 66.0 - 100.0 seconds. Range based on correlation with therapeutic heparin activity range of 0.3 - 0.7 Units/mL. Current interpretive data was last revised on 2023. Blood 11/08/2024 12:0 6 PM COLLEGE ADMINISTRATOR 11/08/2024 12:06 PM COLLEGE ADMINISTRATOR us Vivi Johansen MD LAB BLOOD ORDERABLES Fin al Result Performing Organization Address City/[facility]/ZIP Co de Phone Number [facility] [address] [employer] [place] [address] * (ABNORMAL) Basic metabolic panel (11/08/2024 12:06 PM COLLEGE ADMINISTRATOR) [facility] Sodium 141 135 - 145 mmol/L Potassium, pl 4.9 3.3 - 4.9 mmol/L [facility] Chloride 103 97 - 110 mmol/L [facility] CO2 25 22 - 32 mmol/L [facility] Anion gap 13 2 - 15 mmol/L [facility] BUN 47(H) 6 - 25 mg/dL [facility] Creatinine 1.67(H) 0.60 - 1.10 mg/dL [facility] Glucose 129 70 - 199 mg/dL [facility] Comment: Interpretive Data Fasting glucose >/= 126 [...] 2022. Calcium 10.0 8.5 - 10.3 mg/dL [facility] Blood 11/08/2024 12:0 6 PM COLLEGE ADMINISTRATOR 11/08/2024 12:06 PM COLLEGE ADMINISTRATOR us Dinora Matthew NP LAB BLOOD ORDERABLES Fin al Result Performing Organization Address [facility]/ZIP Co de Phone Number [facility] [address] [place] [address] * (ABNORMAL) POCT hemoglobin A1c (10/26/2024 11:17 AM COLLEGE ADMINISTRATOR) [facility] Hemoglobin A1C, POC 5.8 4.0 - 5.6 % Blood 10/26/2024 11:1 7 AM COLLEGE ADMINISTRATOR Sisi Guevara STOCK UNLOADER POINT OF CARE TEST ORDERA BLES Final Result * HM DIABETES EYE EXAM (09/07/2024 7:29 AM COLLEGE ADMINISTRATOR) Historical Provider HEALTH MAINTENANCE Final Result * Albumin Creatinine Ratio, Urine (12/25/2023 10:51 AM COLLEGE ADMINISTRATOR) Albumin Ur <12.0 mg/L Comment: Interpretive Data No reference range established. Current interpretive data was last revised 2019. Creatinine Ur 33.6 mg/dL [facility] Comment: Interpretive Data No reference range established. Current interpretive data was last revised 2019. Albumin Creatinine Ratio, Ur See Comment 1 - 29 [facility] Comment:Unable to calculate Urine 12/25/2023 10:5 1 AM COLLEGE ADMINISTRATOR 12/25/2023 4:20 PM COLLEGE ADMINISTRATOR Charan Hopper MD LAB URINE ORDERABLES Final Resul t [facility] [address] Department [place] [address] * (ABNORMAL) Lipid panel (12/25/2023 10:51 AM COLLEGE ADMINISTRATOR) Cholesterol 179 30 - 199 mg/dL Comment: [...] [facility] Blood 12/25/2023 10:5 1 AM COLLEGE ADMINISTRATOR 12/25/2023 4:20 PM COLLEGE ADMINISTRATOR us Charan Hopper MD LAB BLOOD ORDERABLES Final Resul t [facility] [address] Department of Laboratories [place] [phone] from Last 3 Months or Most Recently Relevant to Health Maintenance Insurance [employer] T MEDICARE [facility] MEDICARE ADVANTAGE [place] [id number] [facility] MEDICARE ADVANTAGE Advance Directives For more information, please contact: [phone] * Full Code (Latest Code Status on File) Date Activated Date Inactivated Comments 12/27/2024 12:45 PM 12/29/2024 7:57 PM * Full Code Date Activated Date Inactivated Comments 09/05/2020 1:54 PM 09/06/2020 6:34 PM * Full Code Date Activated Date Inactivated Comments 05/02/2020 2:11 PM 05/03/2020 8:18 PM Care Teams Computer Science Instructor Relationship Specialty Start Date End Date Osman Malcolm MD [address] [facility] [address] [place], [place] [id number] PCP - General Family Medicine 09/18/22 Rey Hinton PA [address] [place] [address] [address] [place] [address] Physician Substitute Teacher Orthopedic Surgery 05/03/20 Reina Jimenes PA [address] [place] [address] [address] [place] [address] Physician Substitute Teacher Orthopedic Surgery 09/06/20
--- OUTSIDE RECORDS SUMMARY | 2025-02-02 07:44 | XMS_ITS | Continuity of Care Document ---
Author Organization [facility] Address [address] [place] [address] [address] [place] [address] Phone Care Team Providers Care Wood Boatbuilder Name Role Phone Elda Powers Unavailable Unavailable Procedures Procedure Date Eye Exam & Treatment Dilated Retinal Exam W Interpretation Se AREDS Formula Prescribed/Recommended May Eye Exam, New Patient Dilated Macular Exam Performed 07 Advance Directives Directive Yes / No Effective Date File Name No Information Encounters Encounter Description Practice Location Reason(s) For Visit Diagnoses Date Provider Providers Copied on Encounter [facility], [address], [place], [place], [id number], tel:[phone] [facility] No Information [address] Priya Schroeder. [address] [facility] , [address], [place], [place], [facility], . tel:[phone] Referring Provider: Avery Ye, [address] [facility] [address], [place], [place], [facility]. tel:[phone] [facility], [address], [place], [place], [id number], tel:[phone] [facility] No Information [address] Priya Schroeder. [address] [facility] , [address], [place], [place], [facility], . tel:[phone] Referring Provider: Avery Ye, [address], [place], [place], [facility]. tel:[phone] Family History Family Member Type Diagnosis Age At Onset No Information Payers Payer name Insurance type Covered alliance party ID Authoriza tifrederick(s) Medicare [facility] [id number] Social History Type Description Quantity Date Captured [...]
--- OUTSIDE RECORDS SUMMARY | 2025-02-02 07:44 | XMS_ITS | Referral Summary ---
Author Organization [facility] Medical Office Building B Address [address] [place] [address] Care Team Providers Care Bureau Director Name Role Phone Bettinachristin Rey Milagros PA Unavailable [phone] Jalil Reina Reid PA Unavailable [phone] Osman Malcolm MD Primary Care Provider [phone] Encounters Date Type Department Care Team Description 01/13/2025 Orders Only [facility] Medical Group Diabetes and Endocrinology [address] [place] [phone] ProviderMarcello MD 01/12/2025 Telephone [facility] Medical [facility] Diabetes and Endocrinology [address] [place] [phone] Sisi Guevara, LEGAL MANAGER Med Management 12/27/2024 5:11 AM CDT - 12/29/2024 3:52 PM CDT Hospital Encounter [facility] [address] [place] [phone] Vivi Johansen MD Discharge Disposition: Discharge to home or self care 12/27/2024 7:30 AM CDT - 12/27/2024 10:30 AM CDT Surgery [facility] Operating Room [address] [place] [phone] Vivi Johansen MD T10 Laminotomy for Placement of Spinal Cord Stimulator 12/27/2024 7:33 AM CDT Anesthesia Event [facility] Operating Room [facility] [place] [phone] Carson Yee, Deshawn Bojorquez, WU 11/05/2024 11:59 PM DIAMOND PICKER Anesthesia Event [facility] Operating Room [address] [place] [phone] Dinora Matthew NP 11/08/2024 11:45 AM DIAMOND PICKER Pre-Admission Testing [facility] Pre Anesthesia Testing [address] [place] [phone] Preoperative evaluation to rule out surgical contraindication (Primary Dx); Other specified pre-operative examination; 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 Change every 10 days. 9 each 3 05/08/20 23 Active blood-glucose meter,continuo us (Dexcom G7 Instructional Support Specialist) miscIndication s:Type 2 diabetes mellitus with hyperglycemia, with long-term current use of insulin ([facility]) Continuous glucose monitor 1 each 05/08/20 23 [...] 1 tablet (112 mcg total) by mouth charm filter operator helper before breakfast 05/10/20 24 Active insulin glargine [...] hyperglycemia, with long-term current use of insulin ([facility]) USE TO INJECT INSULIN DAILY 100 [...] 06/20 Assessment & Plan (10/26/2024 12:09 PM DIAMOND PICKER): Chronic problem. Managed by Dr Marr at [place]. Next appt 12/29/24 Nephropathy: On GWEN-I / ARB s : Yes. Lisinopril 5mg. Last MA: 12/25/23 (36 calc). Last creat/GFR: 03/31/24 GFR=27, CR=1.96. Assessment & Plan (06/29/2024 11:48 AM CDT): Chronic problem. Managed by Dr Marr at [place]. Next appt 06/30/24. Nephropathy: On GWEN-I / ARB s : Yes. Lisinopril 5mg. Last MA: 12/25/23 (36 calc). Last creat/GFR: 03/31/24 GFR=27, CR=1.96. Diabetic neuropathy associat ed with type 2 diabetes mellitus 01/30/2023 Assessment & Plan (10/26/2024 11:56 AM DIAMOND PICKER): Chronic problem. Gabapentin Gabapentin 300-600mg at HS. [...] barefoot. Assessment & Plan (12/25/2023 10:41 AM DIAMOND PICKER): Foot care discussed Continue gabapentin Assessment & [...] 10/31/2022 Assessment & Plan (10/31/2022 12:56 PM DIAMOND PICKER): Encouraged Mrs Trujillo to walk in home if weather not conducive to walking outside. Discussed healthy diet and importance of regular physical activity (20- 30min/day, 150min/wk). Hyperlipidemia associated with type 2 diabetes latanya brown 07/25/2022 Assessment & Plan (10/26/2024 11:30 AM DIAMOND PICKER): Chronic problem, at goal on Atorvastatin 10mg & fenofibrate 160mg daily Last lipid panel: 12/25/23 LDL=98, GC=736. Assessment & Plan (06/29/2024 11:46 AM CDT): Chronic problem, at goal on Atorvastatin 10mg & fenofibrate 160mg daily Last lipid panel: 12/25/23 LDL=98, WV=549. Assessment & Plan (12/25/2023 10:41 AM DIAMOND PICKER): Chronic, stable Continue Atorvastatin 10 mg daily UDT lipid profile Assessment & Plan (05/08/2023 11:12 AM CDT): Chronic problem, at goal on Atorvastatin 10mg & fenofibrate 160mg daily Last lipid panel: 07/25/22 LDL=74, MC=345. No changes at this time. Assessment & Plan (01/30/2023 11:08 AM CDT): Chronic problem, at goal on Atorvastatin 10mg. Last lipid panel: 07/25/22 LDL=74, WC=093. No changes at this time. Assessment & Plan (10/31/2022 8:59 AM DIAMOND PICKER): Chronic problem, near goal. LDL=74 07/2022. Atorvastatin 10mg daily. No changes at this time. Assessment & Plan (07/25/2022 12:50 PM CDT): Continue atorvastastin Check lipid profile LDL goal under 70 Type 2 diabetes mellitus wit h hyperglycemia, with long-term current use of insulin 05/28/2022 Assessment & Plan (10/26/2024 11:56 AM DIAMOND PICKER): Chronic problem, stable/controlled. A1c stable at 5.8%. Current medications: Metformin XR 500mg twice daily before meals Januvia 100 mg daily (PAP) Basaglar 14 units every evening (PAP) Cannot trial GLP1a d/t h/o pancreatitis UTD on labs DM eye exam (2023 at [facility]). 2nd request letter sent. Strive for regular [...] infection. Assessment & Plan (12/25/2023 10:40 AM DIAMOND PICKER): Chronic, stable Contiue current regimen including Basaglar, Glimepiride 1 mg daily, Metformin 500 mg bid and Januvia Diet and exercise were discussed Assessment & Plan (09/09/2023 11:37 AM DIAMOND PICKER): Hba1c was Lab Results Component Value Date [...] 7.8% Phone not compatible with dexcom nor SMCprose. Sent in Dexcom 7 & reader. Current [...] Had DM eye exam 01/2023 at [facility] in [place]. Letter sent to get copy of results. [...] infection. Assessment & Plan (10/31/2022 12:55 PM DIAMOND PICKER): Chronic problem, at goal. No changes. Continue [...] (04/20/2020): Added automatically from request for surgery [id number] Immunizations Immunization Administration Dates Next Due Influenza, [...] on file Legal Sex Female 6:42 PM DIAMOND PICKER Gender Identity Not on file Sexual Orientation [...] on file Medical Devices Implanted Type Area Director Of Counseling Device Identifier Shelf Expiration Date Model / Serial / Lot Depuy Orthopaed[employer] Inc [id number] Attune Cruciate Retain Cementless Knee Left 6 Narrow Component - [id number] Implanted:Qty: 1 on 05/02/2020 by Go Lazaro MD at [facility] Left: Knee [employer]uy [employer] 10/19/2029 [id number] / / [id number] Depuy [employer] [id number] Attune 5mm Cruciate Retaining Rotate Platform Knee 6 Insert - [id number] Implanted:Qty: 1 on 05/02/2020 by Go Lazaro MD at [facility] Left: Knee [employer] 08/19/2024 [id number] / / [id number] Attune Knee System, Tibial Base Rotating Platform Implanted:Qty: 1 on 05/02/2020 by Go Lazaro MD at [facility] Left: Knee Depuy [employer] Inc [id number] 05/19/2028 [id number] / / [id number] [employer] [id number] Palacos R+G High Viscosity Cement Bone Gentamicin Arthroplasty - [id number] Implanted:Qty: 1 on 05/02/2020 by Go Lazaro MD at [facility] Left: Knee [employer] 02/16/2022 [id number] / / [id number] [employer] [id number] Palacos R+G High Viscosity Cement Bone Gentamicin Arthroplasty - [id number] Implanted:Qty: 1 on 09/05/2020 by Go Lazaro MD at [facility] Right: Knee [employer] 08/19/2022 [id number] / / [id number] Depuy Orthopaed[employer] [id number] Baseplate Tibial Attune 6 Knee Cement Rotate Platform Sterile - [id number] Implanted:Qty: 1 on 09/05/2020 by Go Lazaro MD at [facility] Right: Knee [employer] 03/19/2030 [id number] / / [id number] Dep[employer] [id number] Attune 7mm Cruciate Retaining Rotate Platform Knee 6 Insert - [id number] Implanted:Qty: 1 on 09/05/2020 by Go Lazaro MD at [facility] Right: Knee [employer] 08/19/2024 [id number] / / [id number] Dep[employer] [id number] Attune Cruciate Retain Cementless Knee Right 6 Component Femoral - [id number] Implanted:Qty: 1 on 09/05/2020 by Go Lazaro MD at [facility] Right: Knee [employer] 07/19/2028 [id number] / / [id number] Medtronic Inc Specify Surescan 65cm 3 Column 16 Electrode Lead Nerve Stimulator [id number] - [id number] Implanted:Qty: 1 on 12/27/2024 by Vivi Johansen MD at [facility] N/A: Back Med[employer] Inc 09/24/2028 [id number] / / [id number] Med[employer] Inc Generator Pulse Inceptiv Sys Stm Electrcl Analges Implant [id number] - [id number] - [id number] Implanted:Qty: 1 on 12/27/2024 by Vivi Johansen MD at [facility] Right: Back [employer] Inc [id number] 11/02/2025 [id number] / [id number] / Biocomposites Stimulan Rapid Cure Kit Paste Area Sales Manager 5cc 12.5cc Bone Void 620-005 - [id number] Implanted:Qty: 1 on 12/27/2024 by Vivi Johansen MD at [facility] N/A: Back [employer] [id number] 06/19/2027 [id number] / / [id number] Procedures Procedure Name Priority Date/Time Associated Diagnosis [...] VIEWS IP Routine 12/27/2024 9:19 AM CDT NH AN PROCEDURE PLACEHOLDER Routine 12/27/2024 8:03 AM CDT NH AN ELECTIVE ENDOTRACHEAL AIRWAY Routine 12/27/2024 8:03 AM CDT INSERTION SPINAL CORD STIMULATOR 12/27/2024 7:35 AM CDT Diabetic polyneuropathy associated with other specified diabetes mellitus (HCC) EGFR STAT 12/27/2024 6:52 AM CDT BASIC METABOLIC PANEL STAT 12/27/2024 6:52 AM CDT POCT GLUCOSE DEVICE Routine 12/27/2024 6 :38 AM CDT EGFR Routine 11/08/2024 12:06 PM DIAMOND PICKER Preoperative evaluation to rule out surgical contraindication APTT Routine 11/08/2024 12:06 PM DIAMOND PICKER Other specified pre-operative examination halfway current use of anticoagulant BASIC METABOLIC PANEL Routine 11/08/2024 12:06 PM DIAMOND PICKER Preoperative evaluation to rule out surgical contraindication POCT HEMOGLOBIN A1C Routine 10/26/2024 1 1:17 AM DIAMOND PICKER Type 2 diabetes mellitus with hyperglycemia, with long-term current use of insulin (HCC) DIABETES EYE EXAM Routine 09/07/2024 7:29 AM DIAMOND PICKER LIPID PANEL Routine 12/25/2023 10:51 AM DIAMOND PICKER Type 2 diabetes mellitus with hyperglycemia, with long-term current use of insulin (HCC) ALBUMIN CREATININE RATIO, URINE Routine 12/25/2023 10:51 AM DIAMOND PICKER Type 2 diabetes mellitus with hyperglycemia, with long-term current use of insulin (HCC) from Last 3 Months or Most Recently Relevant to Health Maintenance Results * (ABNORMAL) EGFR (01/12/2025 9:14 AM CDT) SCRIBED eGFR in NonAfrican Tanzanian 20 >=60 - NA EXTERNAL LAB 01/12/2025 9:14 AM CDT us Historical Provider HEALTH MAINTENANCE Edited Result - Final EXTERNAL LAB * (ABNORMAL) CREATININE (01/12/2025 9:14 AM CDT) SCRIBED Creatinine 2.14(A) 0.7 - 1.0 mg/dl EXTERNAL LAB SCRIBED eGFR in NonAfrican Tanzanian 20 >=60 - NA EXTERNAL LAB Blood 01/12/2025 9:14 AM CDT Historical Provider HEALTH MAINTENANCE Edited Result - Final Performing Organization Address City/[facility]/ZIP Co de Phone Number EXTERNAL LAB * (ABNORMAL) Parathyroid Hormone-Intact (01/12/2025 9:14 AM CDT) 01/12/2025 9:14 AM CDT Impressions EXTERNAL LAB - 01/12/2025 9:58 AM CDT Result: <14.5 (14.5-75.2) Historical Provider LAB BLOOD ORDERABLES Edit ed Result - Final Performing Organization Address [facility]/ZIP Co de Phone Number EXTERNAL LAB [...] ORDERABLES - DE VICE Final Result [facility] [address] Department [place] [address] * POCT glucose (12/27/2024 9:06 PM CDT) [...] DE VICE Final Result Performing Organization Address [facility] Phone Number [facility] [address] [facility] [place] [address] * POCT glucose (12/27/2024 10:20 AM CDT) [facility] Glucose, POC 176 70 - 199 mg/dL Comment: For Glucose values <35 mg/dl when Hematocrit is >60 mg/dl,the test may not accurately detect significant hypoglycemia,and testing in the Laboratory should be considered if clinically indicated. Blood 12/27/2024 10:2 0 AM CDT 12/27/2024 10:20 AM CDT Vivi Johansen MD LAB POCT ORDERABLES - DE VICE Final Result Performing Organization Address [facility] Phone Number [facility] [address] Department [place] [address] * [place] Fluoroscopy < 1 Hour (12/27/2024 9:19 AM CDT) Narrative RAD_PACS_YARA - 12/27/2024 9:20 AM CDT The images from this study are not interpreted by Radiology. Please refer to the physician's procedure / OR operative note. Vivi Johansen MD IMG FLUOROSCOPY PROCEDUR ES Final Result Performing Organization Address [facility] Co de Phone Number RAD_PACS_[facility] * XR Spine Thoracolumbar Junction [...] MD IMG XR PROCEDURES Final Result * NH AN ELECTIVE ENDOTRACHEAL AIRWAY, NH AN PROCEDURE PLACEHOLDER (12/27/2024 8:03 AM CDT) Narrative Deshawn Mera CRNA - 12/27/2024 8:03 AM CDT Deshawn Mera CRNA 12/27/2024 8:04 AM Airway Patient location: OR Urgency: elective Indications for airway management: anesthesia and airway protection Difficult airway: no Staff: Supervising provider: Carson Yee MD Placed by: ROUTE PROCESS ADMINISTRATOR: Deshawn Mera CRNA Emergent airway documentation: Risks [...] 6:52 AM CDT 12/27/2024 6:57 AM CDT Carson Yee MD LAB BLOOD ORDERABLES Final R esult [facility] [address] Department [place] [address] * (ABNORMAL) Basic metabolic panel (12/27/2024 6:52 AM CDT) Sodium 140 135 - 145 mmol/L Potassium, pl 4.7 3.3 - 4.9 mmol/L [facility] Chloride 105 97 - 110 mmol/L [facility] CO2 23 22 - 32 mmol/L [facility] Anion gap 12 2 - 15 mmol/L [facility] BUN 41(H) 6 - 25 mg/dL [facility] Creatinine 1.36(H) 0.60 - 1.10 mg/dL [facility] Glucose 110 70 - 199 mg/dL [facility] Comment: Interpretive Data Fasting glucose [...] Calcium 9.5 8.5 - 10.3 mg/dL [facility] Blood 12/27/2024 6:52 AM CDT 12/27/2024 6:57 AM CDT us Carson Yee MD LAB BLOOD ORDERABLES Final R esult [facility] [address] [place] [address] * POCT glucose (12/27/2024 6:38 AM CDT) [facility] Glucose, POC 111 70 - 199 mg/dL Comment: For Glucose values <35 mg/dl when Hematocrit is >60 mg/dl,the test may not accurately detect significant hypoglycemia,and testing in the Laboratory should be considered if clinically indicated. Blood 12/27/2024 6:38 AM CDT 12/27/2024 6:38 AM CDT us Vivi Johansen MD LAB POCT ORDERABLES - DE VICE Final Result [facility] [address] [place] [address] * (ABNORMAL) eGFR (11/08/2024 12:06 PM DIAMOND PICKER) eGFR 33(L) >=60 mL/min/1. 73 m2 Comment: [...] reviewed 2021. Blood 11/08/2024 12:0 6 PM DIAMOND PICKER 11/08/2024 12:06 PM DIAMOND PICKER us Dinora Matthew NP LAB BLOOD ORDERABLES Fin al Result [facility] [address] Department [place] [address] * aPTT (11/08/2024 12:06 PM DIAMOND PICKER) aPTT 30 28 - 38 sec Comment: Interpretive Data Heparin therapeutic range: 66.0 - 100.0 seconds. Range based on correlation with therapeutic heparin activity range of 0.3 - 0.7 Units/mL. Current interpretive data was last revised on 2023. Blood 11/08/2024 12:0 6 PM DIAMOND PICKER 11/08/2024 12:06 PM DIAMOND PICKER us Vivi Johansen MD LAB BLOOD ORDERABLES Fin al Result Performing Organization Address City/[facility]/ZIP Co de Phone Number [facility] [address] [place] [address] * (ABNORMAL) Basic metabolic panel (11/08/2024 12:06 PM DIAMOND PICKER) [facility] Sodium 141 135 - 145 mmol/L Potassium, pl 4.9 3.3 - 4.9 mmol/L [facility] Chloride 103 97 - 110 mmol/L [facility] CO2 25 22 - 32 mmol/L [facility] Anion gap 13 2 - 15 mmol/L [facility] BUN 47(H) 6 - 25 mg/dL [facility] Creatinine 1.67(H) 0.60 - 1.10 mg/dL [facility] Glucose 129 70 - 199 mg/dL [facility] Comment: Interpretive Data Fasting glucose [...] Calcium 10.0 8.5 - 10.3 mg/dL [facility] Blood 11/08/2024 12:0 6 PM DIAMOND PICKER 11/08/2024 12:06 PM DIAMOND PICKER Dinora Matthew NP LAB BLOOD ORDERABLES Fin al Result Performing Organization Address City/[facility]/ZIP Co de Phone Number [facility] [address] Department [employer] [place] [address] * (ABNORMAL) POCT hemoglobin A1c (10/26/2024 11:17 AM DIAMOND PICKER) [facility] Hemoglobin A1C, POC 5.8 4.0 - 5.6 % Blood 10/26/2024 11:1 7 AM DIAMOND PICKER Sisi Guevara LEGAL MANAGER POINT OF CARE TEST ORDERA BLES Final Result * HM DIABETES EYE EXAM (09/07/2024 7:29 AM DIAMOND PICKER) Historical Provider HEALTH MAINTENANCE Final Result * Albumin Creatinine Ratio, Urine (12/25/2023 10:51 AM DIAMOND PICKER) Albumin Ur <12.0 mg/L Comment: Interpretive Data No reference range established. Current interpretive data was last revised 2019. Creatinine Ur 33.6 mg/dL [facility] Comment: Interpretive Data No reference range established. Current interpretive data was last revised 2019. Albumin Creatinine Ratio, Ur See Comment 1 - [facility] Comment:Unable to calculate Urine 12/25/2023 10:5 1 AM DIAMOND PICKER 12/25/2023 4:20 PM DIAMOND PICKER Charan Hopper MD LAB URINE ORDERABLES Final Resul t [facility] [address] Department [place] [address] * (ABNORMAL) Lipid panel (12/25/2023 10:51 AM DIAMOND PICKER) Cholesterol 179 30 - 199 mg/dL Comment: [...] [facility] Blood 12/25/2023 10:5 1 AM DIAMOND PICKER 12/25/2023 4:20 PM DIAMOND PICKER us Charan Hopper MD LAB BLOOD ORDERABLES Final Resul t [facility] [address] Department [place] [address] from Last 3 Months or Most Recently Relevant to Health Maintenance Insurance [employer] [facility] MEDICARE [facility] MEDICARE ADVANTAGE [facility] ADVANTAGE Advance Directives For more information, please contact: [phone] * Full Code (Latest Code Status on File) Date Activated Date Inactivated Comments 12/27/2024 12:45 PM 12/29/2024 7:57 PM * Full Code Date Activated Date Inactivated Comments 09/05/2020 1:54 PM 09/06/2020 6:34 PM * Full Code Date Activated Date Inactivated Comments 05/02/2020 2:11 PM 05/03/2020 8:18 PM Care Teams Bureau Director Relationship Specialty Start Date End Date Osman Malcolm MD [address] [place] [id number] PCP - General Family Medicine 09/18/22 Rey Hinton PA [address] [place] [address] Physician Chain Mortiser Operator Orthopedic Surgery 05/03/20 Reina Jimenes PA [address] [place] [address] Physician Chain Mortiser Operator Orthopedic Surgery 09/06/20
--- OUTSIDE RECORDS SUMMARY | 2025-02-02 07:44 | XMS_ITS | Continuity of Care Document ---
Author Organization [facility] Address [address] [place] [address] Phone Care Team Providers Care Supervisor Logging Name Role Phone Osman Malcolm MD Unavailable [...] Providers Copied on Encounter OFFICE/OUTPA TIENT VISIT, [facility], [place], [address], [place], [place], [address], [place] tel:[phone] [facility] sleep apnea1 (chief complaint)br east1 (chief complaint) Obstructive sleep apnea hypopneaLump in the left breast 5 Gold Brewer. [address], [place], [place], [address] , [place]. tel:[phone] OFFICE/OUTPA TIENT VISIT, [facility], [place], [address], [place], [place], [address], [place] tel:[phone] [facility] breast1 (chief complaint) Lump in the left breast 5 Gold Osman. [address], [place], [place], [address] , [place]. tel:[phone] OFFICE/OUTPA TIENT VISIT, [facility], [place], [address], [place], [place], [address], [place] tel:[phone] [facility] back pain1 (chief complaint) Chronic pain syndrome 5 Malcolm Osman. [address], [place], [place], [address] , [place]. tel:[phone] OFFICE/OUTPA TIENT VISIT, [facility], [place], [address], [place], [place], [address], [place] tel:[phone] [facility] mammo (chief complaint) Lump in the left breast 4 Malcolm Osman. [address], [place], [place], [address] , [place]. tel:[phone] OFFICE/OUTPA TIENT VISIT, [facility], [place], [address], [place], [place], [address], [place] tel:[phone] [facility] infection1 (chief complaint)re nal (chief complaint)ba ck pain1 (chief complaint) Iron deficiency anemiaType 2 diabetes mellitus with diabetic mononeuropathySta ge III chronic renal diseaseCellulitis of abdominal wall 4 Gold Brewer. [address], [place], [place], [address] , [place]. tel:[phone] OFFICE/OUTPA TIENT VISIT, [facility], [place], [address], [place], [place], [address], [place] tel:[phone] [facility] thyroid1 (chief complaint)HT N (chief complaint)go ut1 (chief complaint)ed ema1 (chief complaint) Encntr screen mammogram for malignant neoplasm of breastHypothyroid ismEssential (primary) hypertensionGoutE rafat 4 Gold Brewer. [address], [place], [place], [address] , [place]. tel:[phone] OFFICE/OUTPA TIENT VISIT, [facility], [place], [address], [place], [place], [address], [place] tel:[phone] [facility] back pain1 (chief complaint) Chronic pain syndromeNeuropath y 4 Gold Osman. [address], [place], [place], [address] , [place]. tel:[phone] OFFICE/OUTPA TIENT VISIT, [facility], [place], [address], [place], [place], [address], [place] tel:[phone] [facility] hypothyroidi sm1 (chief complaint)ir on (chief complaint)HL P (chief complaint)DM (chief complaint)GE RD1 (chief complaint) Mixed hyperlipidemiaHyp othyroidismIron deficiency anemiaType 2 diabetes mellitus with diabetic mononeuropathyGER D w/o esophagitis 4 Gold Brewer. [address], [place], [place], [address] , [place]. tel:[phone] OFFICE/OUTPA TIENT VISIT, [facility], [place], [address], [place], [place], [address], [place] tel:[phone] [facility] PVD1 (chief complaint)HL P (chief complaint)HT N (chief complaint) Peripheral vascular disease, unspecifiedEssent ial (primary) hypertensionMixed hyperlipidemia 4 Gold Brewer. [address], [place], [place], [address] , [place]. tel:[phone] OFFICE/OUTPA TIENT VISIT, [facility], [place], [address], [place], [place], [address], [place] tel:[phone] [facility] GERD1 (chief complaint)PV D (chief complaint) Peripheral vascular disease, unspecifiedGERD w/o esophagitis 4 Gold Brewer. [address], [place], [place], [address] , [place]. tel:[phone] OFFICE/OUTPA TIENT VISIT, [facility], [place], [address], [place], [place], [address], [place] tel:[phone] [facility] thyroid1 (chief complaint)re nal (chief complaint)HL P (chief complaint)ir on deficiency1 (chief complaint)DM (chief complaint)go ut1 (chief complaint) HypothyroidismMix ed hyperlipidemiaGou tIron deficiency anemiaType 2 diabetes mellitus with diabetic mononeuropathy 3 Gold Brewer. [address], [place], [place], [address] , [place]. tel:[phone] PREV VISIT, EST, 65 & OVER [facility], [address], [place], [place], [address], [place] tel:[phone] [facility] physical (chief complaint) Encounter for general adult medical exam w abnormal findingsIron deficiency anemiaMixed hyperlipidemiaSta ge III chronic renal diseaseType 2 diabetes mellitus with diabetic mononeuropathyGou tHypothyroidism 3 Gold Brewer. [address], [place], [place], [address] , [place]. tel:[phone] OFFICE/OUTPA TIENT VISIT, [facility], [place], [address] [place], [address], [place] tel:[phone] [facility] renal disease1 (chief complaint)th yroid1 (chief complaint)DM (chief complaint)os teopenia1 (chief complaint)ir on defificnecy (chief complaint)we ight loss1 (chief complaint) HypothyroidismSta ge III chronic renal diseaseIron deficiency anemiaOth disrd of bone density and structure, unspecified siteAbnormal weight lossMixed hyperlipidemia Raoul- 3 Gold Eduardo [address], [place], [place], [address] , [place]. tel:[phone] OFFICE/OUTPA TIENT VISIT, [facility], [place], [address] [place], [place], [address], tel:[phone] [facility] DM (chief complaint)GE RD1 (chief complaint)HL P (chief complaint)th yroid1 (chief complaint) HypothyroidismTyp e 2 diabetes mellitus with diabetic mononeuropathyMix ed hyperlipidemiaGER D w/o esophagitis 3 Gold Eduardo [address], [place], [place], [address] , [place]. tel:[phone] OFFICE/OUTPA TIENT VISIT, [facility], [place], [address] [place], [address], [place] tel:[phone] [facility] foot pain1 (chief complaint) Pain in right footType 2 diabetes mellitus with diabetic mononeuropathy 3 Gold Eduardo [address], [place], [place], [address] , [place]. tel:[phone] OFFICE/OUTPA TIENT VISIT, [facility], [place], [address] [place], [address], [place] tel:[phone] [facility] anemia1 (chief complaint)HL P (chief complaint)re nal1 (chief complaint)DM (chief complaint)th yroid1 (chief complaint)ra sh1 (chief complaint) Iron deficiency anemiaType 2 diabetes mellitus with diabetic mononeuropathyMix ed hyperlipidemiaHyp othyroidismStage III chronic renal diseaseTinea corporis 3 Gold Eduardo [address], [place], [place], [address] , [place]. tel:[phone] OFFICE/OUTPA TIENT VISIT, [facility], [place], [address], [place], [place], [address], [place] tel:[phone] [facility] DM (chief complaint)he maturia1 (chief complaint)ir on deficiency 1 (chief complaint)HL P (chief complaint)fa tty liver1 (chief complaint)th ryoid1 (chief complaint) Type 2 diabetes mellitus with diabetic nephropathyIron deficiency anemiaMixed hyperlipidemiaFat ty liverHypothyroidi smOther specified disorder of bone densityGERD w/o esophagitis 2 Gold Eduardo [address], [place], [place], [address] , [place]. tel:[phone] [facility], [address], [place], [place], [address], [place] tel:[phone] [facility] No Information 2 Gold Eduardo [address], [place], [place], [address] , [place]. tel:[phone] OFFICE/OUTPA TIENT VISIT, [facility], [place], [address], [place], [place], [address], [place] tel:[phone] [facility] back pain1 (chief complaint)an emia1 (chief complaint)DM (chief complaint) Chronic pain syndromeOther spondylosis, lumbar regionIron deficiency anemiaType 2 diabetes mellitus with diabetic mononeuropathy 2 Gold Eduardo [address], [place], [place], [address] , [place]. tel:[phone] PREV VISIT, EST, 65 & OVER [facility], [address], [place], [place], [address], tel:[phone] [facility] physical (chief complaint) Encounter for general adult medical exam w abnormal findingsHypothyro idismIron deficiency anemiaAsymptomati c microscopic hematuriaMixed hyperlipidemiaOth disrd of bone density and structure, unspecified siteSleep apneaGoutType 2 diabetes mellitus with diabetic mononeuropathyGER D w/o esophagitis 2 Gold Eduardo [address], [place], [place], [address] , [place]. tel:[phone] [facility], [address], [place], [place], [address], [place] tel:[phone] [facility] No Information 2 Gold Eduardo [address], [place], [place], [address] , [place]. tel:[phone] OFFICE/OUTPA TIENT VISIT, [facility], [place], [address] [place], [address], [place] tel:[phone] [facility] DM (chief complaint)HL P (chief complaint)an emia1 (chief complaint)re nal1 (chief complaint)go ut1 (chief complaint) HematuriaRenal diseaseHyperlipid emiaType 2 diabetes mellitus with diabetic nephropathyHypoth yroidismAnemia 2 Gold Eduardo [address], [place], [place], [address] , [place]. tel:[phone] OFFICE/OUTPA TIENT VISIT, [facility], [place], [address], [place], [place], [address], [place] tel:[phone] [facility] DM (chief complaint)UT I1 (chief complaint)os teopenia1 (chief complaint)re nal (chief complaint)go ut1 (chief complaint) Urinary tract infectionHematuri aType 2 diabetes mellitus with diabetic nephropathyHyperk alemiaOth disrd of bone density and structure, unspecified siteRenal diseaseGout 1 Gold Eduardo [address], [place], [place], [address] , [place]. tel:[phone] OFFICE/OUTPA TIENT VISIT, [facility], [place], [address] [place], [address], [place] tel:[phone] [facility] osteopenia1 (chief complaint)re nal (chief complaint)DM (chief complaint)Tati L (chief complaint)he maturia1 (chief complaint) Type 2 diabetes mellitus with diabetic nephropathyHyperk alemiaHematuriaOt her specified disorder of bone density Jun- 1 Gold Brewer. [address], [place], [place], [address] , [place]. tel:[phone] PREV VISIT, EST, 65 & OVER [facility], [address], [place], [place], [address], [place] tel:[phone] [facility] physical (chief complaint) Encounter for general adult medical exam w abnormal findingsHypothyro idismGERD w/o esophagitisHyperl ipidemiaGoutType 2 diabetes mellitus w/ diabetic neuropathySleep apneaOth disrd of bone density and structure, unspecified siteAnemiaFatty liver 1 Gold Brewer. [address], [place], [place], [address] , [place]. tel:[phone] OFFICE/OUTPA TIENT VISIT, [facility], [place], [address] [place], [address], [place] tel:[phone] [facility] DM (chief complaint)GE RD1 (chief complaint)go ut1 (chief complaint)HL P (chief complaint) Type 2 diabetes mellitus w/ diabetic neuropathyHypothy roidismHyperlipid emiaGERD w/o esophagitisGout 1 Gold Brewer. [address], [place], [place], [address] , [place]. tel:[phone] OFFICE/OUTPA TIENT VISIT, [facility], [place], [address] [place] [place], [place], [address], [place] tel:[phone] [facility] knee pain1 (chief complaint)sl eep apnea1 (chief complaint)hy pothyroidism 1 (chief complaint)ed ema1 (chief complaint)DM (chief complaint)HL P (chief complaint) Osteoarthritis of knee, unspecifiedSleep apneaType 2 diabetes mellitus without complicationsEdem aHypothyroidismHy perlipidemia 0 Malcolm Osman. [address], [place], [place], [address] , [place]. tel:[phone] OFFICE/OUTPA TIENT VISIT, [facility], [place], [address], [place], [place], [address], [place] tel:[phone] [facility] LFT (chief complaint)re nal (chief complaint)go ut1 (chief complaint)GE RD1 (chief complaint) Fatty liverRenal diseaseGoutType 2 diabetes mellitus without complicationsGERD w/o esophagitisPolyp of colon 0 Malcolm Osman. [address], [place], [place], [address] , [place]. [phone] OFFICE/OUTPA TIENT VISIT, [facility], [place], [address], [place], [place], [address], [place] tel:[phone] [facility] knee pain1 (chief complaint) Pain in left kneeOsteoarthriti s of knee, unspecified 0 Malcolm Osman. [address], [place], [place], [address] , [place]. tel:[phone] PREV VISIT, EST, 65 & OVER [facility], [address], [place], [place], [address], [place] tel:[phone] [facility] PHysical (chief complaint) Encounter for general adult medical exam w abnormal findingsGoutType 2 diabetes mellitus without complicationsGERD w/o esophagitisFatty liverHypothyroidi sm 0 Malcolm Osman. [address], [place], [place], [address] , [place]. tel:[phone] OFFICE/OUTPA TIENT VISIT, [facility], [place], [address], [place], [place], [address], [place] tel:[phone] [facility] knee pain1 (chief complaint)he maturia1 (chief complaint)pa ncreatitis1 (chief complaint)GE RD1 (chief complaint)DM (chief complaint) Chronic pancreatitisHemat uriaGERD w/o esophagitisType 2 diabetes mellitus without complicationsAnem ia 0 Gold Brewer. [address], [place], [place], [address] , [place]. tel:[phone] OFFICE/OUTPA TIENT VISIT, [facility], [place], [address], [place], [place], [address], [place] tel:[phone] [facility] anemia1 (chief complaint)UT I1 (chief complaint)kn ee pain1 (chief complaint)go ut1 (chief complaint) HematuriaAnemiaOs teoarthritis of knee, unspecifiedGout 0 Gold Brewer. [address], [place], [place], [address] , [place]. tel:[phone] Referring Provider: Brittany Moreno [address], [place], [place], [address]. tel:[phone] OFFICE/OUTPA TIENT VISIT, [facility], [place], [address], [place], [place], [address], [place] tel:[phone] [facility] fatty liver1 (chief complaint)th yroid (chief complaint)si ck1 (chief complaint) HypothyroidismFat ty liverUrinary frequencyPain in unspecified lower legVaricose veins of unspecified lower extremity with painSleep apnea 9 Gold Brewer. [address], [place], [place], [address] , [place]. tel:[phone] Referring Provider: Brittany Moreno [address], [place], [place], [address]. tel:[phone] OFFICE/OUTPA TIENT VISIT, [facility], [place], [address], [place], [place], [address], [place] tel:[phone] [facility] LFT (chief complaint)DM (chief complaint)UT I1 (chief complaint)hy opthyroidism 1 (chief complaint)ba ck pain1 (chief complaint)ed ema1 (chief complaint) HypothyroidismUri nary tract infectionType 2 diabetes mellitus w/ diabetic neuropathyLiver diseaseOth disrd of bone density and structure, unspecified siteEdemaHyperlip idemiaMotion sickness, initial encounter 9 Gold Brewer. [address], [place], [place], [address] , [place]. [phone] Referring Provider: Brittany Moreno [facility] [address], [place], [place], [address]. tel:[phone] OFFICE/OUTPA TIENT VISIT, EST [facility], [address] [place], [address], tel:[phone] [facility] DM (chief complaint)UT I1 (chief complaint)HL P (chief complaint)ba ck pain1 (chief complaint) GoutHyperlipidemi aType 2 diabetes mellitus w/ diabetic neuropathyUrinary tract infectionLiver diseaseEdema 9 Gold Eduardo [address] [facility] [address], [place], [place], [address] , [place]. tel:[phone] Referring Provider: Brittany Moreno [facility] [address], [place], [place], [address]. tel:[phone] PREV VISIT, NEW, AGE 40-64 [facility], [address] [place], [address], [place] tel:[phone] [facility] Physical (chief complaint) Encounter for general adult medical exam w abnormal findingsSleep apneaHyperlipidem iaGoutType 2 diabetes mellitus w/ diabetic neuropathy 9 Gold Eduardo [address], [place], [place], [address] , [place]. [phone] Referring Provider: Brittany Moreno, [place], [place], [address]. tel:[phone] Family History Family Member Type Diagnosis Age At Onset Mother Problem (finding) Diabetes janine miller type 2 (Cause Of ) 82 Father Problem (finding) lung CA 67 Sister Problem (finding) breast CA 50 Brother Problem (finding) Alive and well Payers Payer name Insurance type Covered republican ID Daija bautista[id number] Social History Type Description Quantity Date Captured [...] Referral Referred To: Alexander George MD, [place], [id number] Ordered: Referrals: Allopathic & Osteopathic Physicians : [...] nephropathy) ordered Referral Referred To: Genaro Escalante [id number] [facility]
[address], [place] [id number] Ordered: Referrals: Allopathic & Osteopathic Physicians : [...] unspecified) ordered Referral Referred To: Go Lazaro [address] [place] [address] DR CERVANTES B [address] [phone] Ordered: Referrals: Allopathic & Osteopathic Physicians : Orthopaedic Surgery. Go Lazaro. Evaluate and treat ordered Referral Ordered: CT ABDOMEN&PELVIS W/CONTRAST ordered Referral Ordered: US THYROID ordered Referral Ordered: US VENOUS DOPPLER ordered Referral Ordered: US EXAM, ABDOM, COMPLETE ordered History Of Present Illness Encounter Date Complaint History Of Prese nt Illness breast1 pt had left kaylene st biopsy with benign nodule recently sleep apnea1 pt has severe sl eep apnea Pt uses cpap nightly. pt states that the machine is over 5 years and the motor error msg pop up recently and she thinks the machines is about to break down. Pt uses cpap machine nightly and she feels more energy and better rest during sleep and the next day breast1 Pt has suspiciou s clusters left [...] been havi ng GERD recently and her engine tester started her on pepcid 3 months ago which works well for her. Pt has been off omeprazole per nephrology due to potential renal damage from omeprazole. Pt does have HH and gastritis Pt denies any abd pain renal Pt has chronic r enal disease .Pt sees nephrology and is stable Pt has normal UO HLP Pt has HLP pt ta kes [...] bearing exercise. Pt denies any new complaints weight loss1 Pt has been work ing on diet and exercise and she lost some weight Pt denies any nausea, vomiting ,appetite loss, early satiety, change of bowel, blood in stool, abd pain, GERD. ETc DM Pt sees endo Pt states that [...] Pt has not done fecal globin yet renal disease1 Pt has worsening renal function Pt has normal UO Pt sees nephrology and she just saw nephrology this morning . Pt has proteinuria. thyroid1 Pt has hypothyro idism. Pt takes synthroid and is over replaced Pt denies any dysphagia or neck pain HLP pt has HLP Pt ta kes lipitor and feno. Pt denie sany myalgia thyroid1 Pt has hypothyro idism Pt takes synthroid Pt needs it refilled GERD1 Pt has chronic G ERD. pt is off omeprazole by nephrology and she is on pepcid now. 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 Pt is seeing hematology and will get iron infusion. Pt denies any bleeding. Pt has not done pelvic ultrasound yet . DM Pt has DM Pt jeaneth es metformin and amaryl and Januvia. Pt states that her glucose is around 150s. Pt has francisca with endo next month back pain1 pt has chronic l ow [...] ultram refilled. Pt takes lyrica as well physical Pt needs annual physical pt has [...] in May. Pt denies any other complaints anemia1 Pt has worsening anemia Pt has intermittent hematuria Pt. She denies any urinary symptoms Pt denies any GI bleeding renal1 Pt has boderline stable renal function. Pt has normal UO gout1 Pt takes allopur inol and her uric acid is ok Pt denies any gout flare up DM Pt has DM Pt jeaneth es metformin, januvia and amaryl and her glucose is 186 and A1c is 7.9, which is slightly worse than last time. pt does have neuropathy Pt denies any polyuria, polydipsia. HLP Pt has HLP. take s lipitor and her TG is high. Pt denies any myalgia. Her TG is high gout1 Pt takes allopur inol and she [...] t akes lipitor pt denies any myalgia edema1 Pt has LE edema. Pt takes lasix and KCL and doing ok Pt denies any edema DM Pt has DM. Pt ta kes metformin and amaryl and her glucose is around 120s .Pt denies any polyuria, polydipsia. Pt has neuropathy Pt takes neurontin as well. 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 Her [email or web address] Provider [employer] is sending me paper work to complete hypothyroidism1 Pt has hypothyro idism. Pt takes synthroid Pt needs refill LFT Pt has fatty helen er. PT [...] years .Pt told me she [facility] who told her no records of [...] or sob pt denies any recent travel hyopthyroidism1 Pt has hypothyro idism. Pt takes synthroid Pt needs refill back pain1 Pt has chronic l ow back pain pt sees pain management Pt has sciatica and neuropathy symptoms pt needs neurontin refilled. Pt denies any loss of bladder control edema1 Pt has chronic L E edema. Pt takes lasix and KCL pt needs refilled. LFT Pt has high LFT. pt denies any abd pain or jaundice DM Patient has diab etes. Patient take metformin and amaryl. Her A1c is 6.3. Patient denies any polyuria polydipsia. Pt has neuropathy symptoms and she takes neurontin and doing ok UTI1 Pt has persisten t UTI, Pt denies any symptoms Pt denies any fever, chill, flank pain HLP Pt has mildly hi gh TG. [...] Mental Status Date Cognitive Assessment Orientation - [place] ed to time, place, person, situation.
--- OUTSIDE RECORDS SUMMARY | 2025-02-02 07:44 | XMS_ITS | Clinical Summary ---
Author Organization [facility] Address [address] [place] [address] Care Team Providers Care Oil Pipeline Operator Name Role Phone Osman Malcolm MD Primary Care Provider [phone] Allergies No known active allergies Medications LASIX [...] Infection of spinal cord stimulator 08/04/2024 Immunizations Immunization Administration Dates Next Due Fluzone (IIV3, Trivalent, 0.5 ML Prefilled Syrin ge) 08/10/2024 Social History Tobacco Use Types Packs/Day Years Used Date Smoking Tobacco: Never Smokeless Tobacco: Never Tobacco Cessation:Counseling Given: No Alcohol Use Standard Drinks/Week Comments Never 0 (1 standard drink = 0.6 oz pur e alcohol) [facility] Utilities Answer Date Recorded In the past 12 months has [facility] [employer], oil, or water [employer] threatened to shut off services in your [...] any time in the past 12 m [facility], were you homeless or living in a nursing home (including now)? No 08/04/2024 Comments No Sex and Gender Information Value Date Recorded Sex Assigned at Not on file Legal Sex Female 12:57 PM CDT Gender Identity Not on file Sexual Orientation Not on file Last Filed Vital Signs Vital Sign Reading Time Taken Comments Blood Pressure 89/60 09/07/2024 10:35 AM CAMERA CONTROL OPERATOR Pulse 88 09/07/2024 10:35 AM CAMERA CONTROL OPERATOR Temperature 36.5 C (97.7 F) 09/07/2024 10:35 AM CAMERA CONTROL OPERATOR Respiratory Rate 16 09/07/2024 10:35 AM CAMERA CONTROL OPERATOR Oxygen Saturation 98% 09/07/2024 10:35 AM CAMERA CONTROL OPERATOR Inhaled Oxygen Concentration - - Weight 76.7 kg (169 lb) 09/07/2024 10:35 AM CAMERA CONTROL OPERATOR Height 170.2 cm (5' 7 ) 09/07/2024 10:35 AM CAMERA CONTROL OPERATOR Body Mass Index 26.47 09/07/2024 10:35 AM CAMERA CONTROL OPERATOR Plan of Treatment Health Maintenance Due Date Last Done Comments Colorectal Cancer Screening Colonoscopy (10 Years) 1954 Hepatitis C 1972 DTaP, Tdap and Td Vaccines (1 - Tdap) 1973 Mammogram Screening 1994 Annual Medicare Wellness Visit 2019 Dexa Scan (General) 2019 Pneumococcal Vaccine: 50+ Years (2 of 2 - PPSV23 or PCV20) 07/18/2021 07/18/2020, 06/20/2020 COVID-19 Vaccine ( season) 2024 07/31/2023, 08/04/2022, 01/22/2022, Additional history exists PHQ-2 (Physician Alutiiq) 10/20/2024 09/07/2024 Zoster Vaccines Completed 04/30/2021, 02/21/2021 [...] Briscoe RN Medical Devices Implanted Type Area Electrical Assembly Supervisor Device Identifier Shelf Expiration Date Model / Serial / Lot Stimulator Lead Implant(2 Leads)-11/30/19 16 Implanted:Qty: 2 on 11/30/2015 Lead Implant Spine Thoracic [employer] [id number] / / Stimulator Implant- 024 Implanted:Qty: 1 on 04/16/2024 Stimulator Implant Back [employer] [id number] / [id number] / Description:MR CONDITIONAL A T 1.5 T ONLY, NEED REMOTE TO TURN OFF STIMULATION, SHOULD BE FULL BODY ELIGIBLE , NORMAL MODE NATALIIA , MAX 30 MINUTES TOTAL SCAN TIME IN 90 MINUTE WINDOW Insurance [facility] Advance Directives * Full Code (Latest Code Status on File) Date Activated Date Inactivated Comments 08/04/2024 1:00 AM 08/10/2024 2:07 PM Care Teams Oil Pipeline Operator Relationship Specialty Start Date End Date Osman Malcolm MD PCP - General FAMILY PRACTICE 05/09/22
--- OUTSIDE RECORDS SUMMARY | 2025-02-02 07:44 | XMS_ITS | Clinical Summary ---
Author Organization [facility] Address [address] [place] [address] Phone Care Team Providers Care Clinical Review Specialist Name Role Phone Osman Malcolm Primary Care Provider [phone] Robert Corbett MD Unavailable [phone] Adrien Cerrato MD Unavailable [phone] Allergies No known active allergies Medications furosemide [...] Tablet by mouth. 08/21/2022 Active ReliOn Pen [place] 32G X 4 MM Misc 12/24/2022 Active [...] Encounters Date Type Department Care Team Description 01/27/2025 9:00 AM CDT Lab [facility] [address] [address] Nurse, [facility] Iron deficiency (Primary Dx); Anemia in stage 3a chronic kidney disease (HCC); Anemia, iron deficiency, inadequate dietary intake 01/27/2025 Travel 11/04/2024 9:30 AM AUTO PARTS DELIVERY DRIVER Clinical Support [facility] [address] [address] [address] Anemia in stage 3a chronic kidney disease (HCC) (Primary Dx); Anemia, iron deficiency, inadequate dietary intake 11/04/2024 9:00 AM AUTO PARTS DELIVERY DRIVER Office Visit [facility] [address] [address] [place] [address] Mayda Torres, SONAR TECHNICIAN, PROFESSOR OF PSYCHOLOGY Anemia in stage 3a chronic kidney disease (HCC) (Primary Dx); Anemia, iron deficiency, inadequate dietary intake 11/04/2024 Travel from Last 3 Months Immunizations Immunization [...] Comments Blood Pressure 142/82 11/04/2024 9:15 AM AUTO PARTS DELIVERY DRIVER Pulse 88 11/04/2024 9:15 AM AUTO PARTS DELIVERY DRIVER Temperature 36 C (96.8 F) 11/04/2024 9:15 AM AUTO PARTS DELIVERY DRIVER Respiratory Rate 18 11/04/2024 9:15 AM AUTO PARTS DELIVERY DRIVER Oxygen Saturation 99% 11/04/2024 9:15 AM AUTO PARTS DELIVERY DRIVER Inhaled Oxygen Concentration - - Weight 77.1 kg (169 lb 14.4 oz) 11/04/2024 9:15 AM AUTO PARTS DELIVERY DRIVER Height 170.2 cm (5' 7 ) 11/04/2024 9:15 AM AUTO PARTS DELIVERY DRIVER Body Mass Index 26.61 11/04/2024 9:15 AM AUTO PARTS DELIVERY DRIVER Plan of Treatment Upcoming Encounters Date Type Department Care Team (Late st Contact Info) Description 02/03/2025 9:00 AM CDT Office Visit [facility] [address] [facility] [address] [place] [address] Adrien Cerrato MD [address] [place] [address] Health Maintenance Due Date Last [...] Comments CBC WITH AUTO DIFF OH Routine 01/27/2025 1:30 PM CDT IRON W/ IRON BINDING CAPACITY OH Routine 01/27/2025 1:30 PM CDT Anemia in stage 3a chronic kidney disease (HCC) Anemia, iron deficiency, inadequate dietary intake FERRITIN Routine 01/27/2025 1:30 PM CDT Anemia in stage 3a chronic kidney disease (HCC) Anemia, iron deficiency, inadequate dietary intake FOLIC ACID (FOLATE) Routine 01/27/2025 1 :30 PM CDT Anemia in stage 3a chronic kidney disease (HCC) Anemia, iron deficiency, inadequate dietary intake VITAMIN B12 Routine 01/27/2025 1:30 PM CDT Anemia in stage 3a chronic kidney disease (HCC) Anemia, iron deficiency, inadequate dietary intake CMP (COMPREHENSIVE METABOLIC PANEL) Routine 10/28/2024 8:55 AM AUTO PARTS DELIVERY DRIVER Anemia in stage 3a chronic kidney disease (HCC) from Last 3 Months or Most Recently Relevant to Health Maintenance Results * IRON W/ IRON BINDING CAPACITY OH (01/27/2025 1:30 PM CDT) IRON 91 50 - 212 ug/dL [facility] [place] [facility]PER[facility] UIBC 346 155 - 355 ug/dL [facility] [place] [facility]PER[facility] TIBC 437 261 - 478 ug/dl [facility] [place] [facility]PER[facility] % Saturation 21 20 - 50 % [facility] [place] [facility]ACH[facility] OPERATOR [facility] 01/27/2025 1:30 PM CDT Narrative [facility] [place] [facility] OPERATOR [facility] - 01/27/2025 2:25 PM CDT Release to patient->Immediate Mayda Torres SONAR TECHNICIAN, PROFESSOR OF PSYCHOLOGY LAB SEND OUTS Final Result [facility] [place] [facility]ACH[facility] OPERATOR [facility] [place] [address], * (ABNORMAL) CBC WITH AUTO DIFF [place] (01/27/2025 1:30 PM CDT) WBC 4.3 4.0 - 10.0 10*3/uL [facility] [place] [facility]ACH[facility] OPERATOR [facility] HGB 10.5(L) 11.2 - 15.7 g/dL [facility] [place] [facility]ACH[facility] OPERATOR [facility] HCT 33.4(L) 34.1 - 44.9 % [facility] [place] MACH[facility] OPERATOR [facility] PLT 222 163 - 369 10*3/uL [facility] [place] MACH[facility] OPERATOR [facility] MPV 10.1 9.4 - 12.4 fL [facility] [place] [facility] OPER[facility] RBC 3.29(L) 3.93 - 5.22 10*6/uL [facility] [place] MACH[facility] OPERATOR [facility] MCV 102(H) 79 - 95 fL [facility] [place] MACHINE OPERATOR [facility] MCH 31.9 25.6 - 32.2 pg [facility] [place] MACH[facility] OPERATOR [facility] MCHC 31.4(L) 32.2 - 36.5 g/dL [facility] [place] [facility]ACH[facility] OPERATOR [facility] RDW 14.0 11.6 - 14.4 % [facility] [place] [facility] OPER[facility] Neutrophils % 52.9 36.0 - 66.0 % [facility] [place] [facility]PER[facility] Lymphocytes % 25.3 19.0 - 40.0 % [facility] [place] [facility]PER[facility] Monocytes % 11.1 4.1 - 12.1 % [facility] [place] [facility]ACH[facility] OPERATOR [facility] Eosinophils % 9.3(H) 0.0 - 3.5 % [facility] [place] [facility]ACH[facility] OPERATOR [facility] Basophils % 0.9 0.0 - 1.0 % [facility] [place] [facility]ACH[facility] OPERATOR [facility] Absolute Neutrophils 2.3 1.4 - 6.6 10*3/uL [facility] [place] [facility] OPERATOR [facility] Absolute Lymphocytes 1.1 0.8 - 4.0 10*3/uL [facility] [place] [facility] OPERATOR [facility] Absolute Monocytes 0.5 0.2 - 1.2 10*3/uL [facility] [place] [facility] OPERATOR [facility] Absolute Eosinophils 0.4 0.0 - 0.4 10*3/uL [facility] [place] [facility] OPERATOR [facility] Absolute Basophils 0.0 0.0 - 0.1 10*3/uL [facility] [place] [facility]PER[facility] 01/27/2025 1:30 PM CDT us Mayda Torres APRN, PROFESSOR OF PSYCHOLOGY LAB SEND OUTS Final Result [facility] [place] [facility]PERATOR [facility] [address] [place] [address], [place] [phone] * VITAMIN B12 (01/27/2025 1:30 PM CDT) Vitamin B12 313 180 - 914 pg/mL [facility] Blood 01/27/2025 1:30 PM CDT Narrative [facility] - 01/28/2025 2:38 PM CDT Release to patient->Immediate us Mayda Torres APRN, PROFESSOR OF PSYCHOLOGY CHEMISTRY ORDERABLES Final Result Performing Organization Address [facility]/ZIP Co de Phone Number [facility] [place] MACHINE OPERATOR [facility] [address] [place] [address], [place] [phone] * FOLIC ACID (FOLATE) (01/27/2025 1:30 PM CDT) Folate 7.84 >=5.90 ng/mL [facility] [place] [facility] OPERATOR [facility] Blood 01/27/2025 1:30 PM CDT Narrative [facility] [place] [facility]PER[facility] - 01/28/2025 2:38 PM CDT Release to patient->Immediate us Mayda Torres SONAR TECHNICIAN, PROFESSOR OF PSYCHOLOGY CHEMISTRY ORDERABLES Final Result Performing Organization Address City/[facility]/ZIP Co de Phone Number [facility] [place] [facility] OPERATOR [facility] [place] [address] [place] [address], [place] [phone] * (ABNORMAL) FERRITIN (01/27/2025 1:30 PM CDT) Ferritin 434(H) 11 - 307 ng/mL [facility] Blood 01/27/2025 1:30 PM CDT Narrative [facility] [place] MACH[facility] OPERATOR [facility] - 01/28/2025 2:16 PM CDT Release to patient->Immediate IS THE PATIENT REQUIRED TO BE FASTING FOR 12 HOURS?->No Mayda Torres SONAR TECHNICIAN, PROFESSOR OF PSYCHOLOGY CHEMISTRY ORDERABLES Final Result [facility] [place] [facility] OPERATOR [facility] [address] [place] [address], [place] [phone] * (ABNORMAL) CMP (COMPREHENSIVE METABOLIC PANEL) (10/28/2024 8:55 AM AUTO PARTS DELIVERY DRIVER) Glucose 205(H) 70 - 105 mg/dL [facility] Blood Urea Nitrogen 43(H) 7 - 25 mg/dL [facility] Creatinine 1.8(H) 0.6 - 1.2 mg/dL [facility] Sodium 142 136 - 145 mEq/L [facility] Potassium 4.0 3.5 - 5.1 mEq/L [facility] Chloride 101 98 - 107 mEq/L [facility] Bicarbonate 29 21 - 31 mEq/L [facility] Total Bilirubin 0.4 0.3 - 1.0 mg/dL [facility] Alk. Phosphatase 26(L) 34 - 104 U/L [facility] Aspartate Aminotransferase 29 13 - 39 U/L [facility] Alanine Aminotransferase 22 7 - 52 U/L [facility] Total Protein 6.7 6.4 - 8.9 g/dL [facility] Albumin 4.4 3.5 - 5.7 g/dL [facility] Calcium 9.6 8.6 - 10.3 mg/dL [facility] Anion Gap 16.0(H) 7.0 - 15.0 mEq/L [facility] [place] [facility] OPERATOR [facility] Globulin 2.3 2.0 - 3.5 g/dL [facility] [place] MACH[facility] OPERATOR [facility] EGFR 30(L) >60 ml/min/1. 73m2 [facility] [place] MACHINE OPERATOR [facility] Comment: This eGFR is calculated using 2020 CKD-EPI Creatinine equation without race modifier based on the NKF-ASN task force recommendations Blood 10/28/2024 8:55 AM AUTO PARTS DELIVERY DRIVER Narrative [facility] [place] MACH[facility] OPERATOR [facility] - 10/29/2024 10:21 AM AUTO PARTS DELIVERY DRIVER Release to patient->Immediate IS THE PATIENT REQUIRED TO BE FASTING FOR 8 HOURS?->No Mayda Torres APRN, PROFESSOR OF PSYCHOLOGY CHEMISTRY ORDERABLES Final Result [facility] [place] MACHINE OPERATOR [facility] [place] [address], from Last 3 Months or Most Recently Relevant to Health Maintenance Insurance [facility] Care Teams Clinical Review Specialist Relationship Specialty Start Date End Date Osman Malcolm [address] [facility] [place] [address] PCP - General Family Medicine 03/08/20 Robert Corbett MD [address] [place] [address] Consulting Physician Oncology 04/18/22 Adrien Cerrato MD [address] [place] [address] Consulting Physician Oncology 05/14/22
--- OUTSIDE RECORDS SUMMARY | 2025-02-02 07:44 | XMS_ITS | Clinical Summary ---
Author Organization [facility] Address [address] [place] [address] Phone Care Team Providers Care Dip Unit Operator Name Role Phone Osman Malcolm MD Primary Care Provider [phone] Allergies No known active allergies Medications alendronate (FOSAMAX) 35 MG tablet TAKE 1 TABLET BY MOUTH ONCE A WEEK. TAKE IN THE MORNING AT LEAST 30 MINUTES BEFORE FIRST FOOD, BEVERAGE, OR MEDICATION OF THE DAY 2 Active allopurinol (ZYLOPRIM) 100 MG tablet Take 100 mg by mouth in the morning and 100 mg before bedtime. 2 Active atorvastatin (LIPITOR) 10 MG tablet Take 10 mg by mouth 1 (one) time each day 2 Active cholecalciferol (VITAMIN D-3 SUPER STRENGTH) 50 MCG (1999) tablet Take by mouth Activ e fenofibrate (TRIGLIDE) 160 MG tablet 2 Active furosemide (LASIX) 20 MG tablet Take 20 mg by mouth 1 (one) time each day 2 Active glimepiride (AMARYL) 2 MG tablet Take 1 mg by mouth in the morning. 2 Active OneTouch Verio test strip USE TO TEST BLOOD SUGAR TWICE DAILY 2 Active insulin glargine (Basaglar KwikPen) 100 UNIT/ML injection Inject 20 Units under the skin in the morning. 2 Active pen needle, diabetic 31G X 8 MM misc USE TO INJECT INSULIN DAILY 2 Active Lancets (OneTouch Delica Plus [id number]) misc USE TO CHECK GLUCOSE TWICE DAILY 2 Active levothyroxine (SYNTHROID) 137 MCG tablet Take 1 tablet by mouth 1 (one) time each day 9 Active lisinopril (PRINIVIL) 5 MG tablet 2 Active metFORMIN (GLUCOPHAGE) 1000 MG tablet TAKE 1 TABLET BY MOUTH TWICE DAILY WITH MORNING MEAL AND WITH EVENING MEAL 2 Active pregabalin (LYRICA) 100 MG capsule Take 100 mg by mouth in the morning and 100 mg at noon and 100 mg in the evening. 2 Active SITagliptin (JANUVIA) 100 MG tablet Take 100 mg by mouth in the morning. 2 Active traMADol (ULTRAM) 50 MG tablet TAKE 1 TABLET BY MOUTH EVERY 6 HOURS NEEDED FOR PAIN , AVOID DRIVING OR OPERATE MACHINES 2 Active aspirin (ASPIR) 81 MG EC tablet Take 81 mg by mouth in the morning. Active calcium carbonate (OS-ALTON) 1250 (500 Ca) MG chewable tablet Chew 1 tablet 1 (one) time each day Active Multiple Vitamins-Minera ls (ICAPS AREDS 2 PO) Take by mouth Active Active Problems No known active problems Immunizations Immunization Administration Dates Next Due Influenza TIV (IM) 08/03/2022 Influenza, Unspecified 07/20/2020 Pneumococcal Conjugate 06/20/2020 Social History Tobacco Use Types Packs/Day Years Used Date Smoking Tobacco: Former Cigarettes Smokeless Tobacco: Never Tobacco Cessation:Counseling Given: Not Answered Alcohol Use Standard Drinks/Week Comments Yes 0 (1 standard drink = 0.6 oz pur e alcohol) rare Comments Unknown Sex and Gender Information Value Date Recorded Sex Assigned at Not on file Legal Sex Female 9:35 AM [facility] Gender Identity Not on file Sexual Orientation Not on file Last Filed Vital Signs Vital Sign Reading Time Taken Comments Blood Pressure 124/60 10/02/2022 11:11 AM SURVEILLANCE OFFICER Pulse 72 10/02/2022 11:11 AM SURVEILLANCE OFFICER Temperature 36.2 C (97.2 F) 10/02/2022 11:11 AM SURVEILLANCE OFFICER Respiratory Rate - - Oxygen Saturation - - Inhaled Oxygen Concentration - - Weight 97.5 kg (215 lb) 10/02/2022 11:11 AM SURVEILLANCE OFFICER Height 170.2 cm (5' 7 ) 10/02/2022 11:11 AM SURVEILLANCE OFFICER Body Mass Index 33.67 10/02/2022 11:11 AM SURVEILLANCE OFFICER Plan of Treatment Health Maintenance Due Date Last Done Comments Diabetic Foot Exam 1965 Ophthalmology Exam 1965 Pneumococcal PPSV23/PCV13 65 + Years / High and Highest Risk (1 of 5 - PCV) 1973 Influenza Vaccine (Season Ended) 2025 08/03/20, 07/20/2020 Insurance [employer] MEDICARE Care Teams Dip Unit Operator Relationship Specialty Start Date End Date Osman Malcolm MD [address] [place] [address] PCP - General Family Medicine 08/28/22
[2025-02-02 08:36] LABS: Anion Gap 7 mmol/L (4-12); Blood Urea Nitrogen 30 mg/dL (7-17); Calcium 9.8 mg/dL (8.4-10.2); Carbon Dioxide 28 mmol/L (22-30); Chloride 105 mmol/L (98-107); Estimated Glomerular Filt Rate 35; Glucose 100 mg/dL (65-110); Sodium 140 mmol/L (137-145)
[2025-02-02 09:18] LABS: Parathyroid Intact 16.5 pg/mL (14.5-75.2)
[2025-02-02 09:22] LABS: Vitamin D 25 Hydroxy 73.2 ng/mL
[2025-02-04 10:58] LABS: Calcium/Creatinine Ratio, Ur 84 mg/g creat (10-320); Urine Calcium, Random 4.1 mg/dL; Urine Creatinine, Random 49 mg/dL (20-275)
[2025-02-04 14:33] LABS: Angiotensin Converting Enzyme 6 U/L (9-67)
[2025-02-05 09:03] LABS: Vitamin A 78 mcg/dL (38-98)
[2025-02-06 08:54] LABS: Vitamin D 1,25 (OH)2 Total 15 pg/mL (18-72); Vitamin D2 1,25 (OH)2 <8 pg/mL; Vitamin D3 1,25 (OH)2 15 pg/mL
[2025-02-08 02:43] LABS: Parathyroid Hormone Related Pr 17 pg/mL (11-20)
== END 2025-02-02 07:41 | disposition home or self-care (01) ==
PROVIDERS: PCP Emergency Medicine; Visit Provider Internal Medicine Nephrology
DX: N18.32 Chronic kidney disease, stage 3b (principal); E83.52 Hypercalcemia
CPT/HCPCS: 36415; 80048; 82164; 82306; 82310; 82570; 82652; 83519; 83970; 84590

== ENCOUNTER 2025-05-10 10:58 | Outpatient (CLI) | payer MEDICARE, SELFPAY ==
--- NOTE | ~2025-05-10 | US_ITS ---
US venous doppler LE RT - 05/10/2025 12:07 CDT History: 69 years old Female with right lower extremity pain and swelling. Real-time sonographic images of the right lower extremity venous system were obtained. Color Doppler sonography and spectral waveform analysis were performed. No prior studies for comparison. The right sapheno-femoral junctions are patent. The right common femoral, superficial femoral, popl iteal and posterior tibial veins are compressible and without evidence of echogenic thrombus. Impression: No evidence of deep venous thrombosis Reviewed, dictated and finalized at location A. Impression: No evidence of deep venous thrombosis
--- OUTSIDE RECORDS SUMMARY | 2025-05-10 11:04 | XMS_ITS | Continuity of Care Document ---
Author Organization [facility] Address [address] [place] [address] [address] [place] [address] Phone Care Team Providers Care Non Acoustic Operator Name Role Phone Elda Powers Unavailable Unavailable Procedures Procedure Date Eye Exam & Treatment Dilated Retinal Exam W Interpretation Se AREDS Formula Prescribed/Recommended May Eye Exam, New Patient Dilated Macular Exam Performed 07 Advance Directives Directive Yes / No Effective Date File Name No Information Encounters Encounter Description Practice Location Reason(s) For Visit Diagnoses Date Provider Providers Copied on Encounter [facility], [address], [place], [place], [id number], tel:[phone] [facility] No Information [address]. [address] [facility] , [address], [place], [place], [facility], . tel:[phone] Referring Provider: Avery Ye, [address] [facility] [address], [place], [place], [facility]. tel:[phone] [facility], [address], [place], [place], [id number], tel:[phone] [facility] No Information [address]. [address] [facility] , [address], [place], [place], [facility], . tel:[phone] Referring Provider: Avery Ye, [address], [place], [place], [facility]. tel:[phone] Family History Family Member Type Diagnosis Age At Onset No Information Payers Payer name Insurance type Covered republican ID Authoriza tifrederick(s) Medicare [facility] [id number] Social History Type Description Quantity Date Captured [...]
--- OUTSIDE RECORDS SUMMARY | 2025-05-10 11:04 | XMS_ITS | Clinical Summary ---
Author Organization [facility] Address [address] [place] [address] Phone Care Team Providers Care Lawnmower Repair Mechanic Name Role Phone Osman Malcolm MD Primary Care Provider [phone] Allergies No known active allergies Medications alendronate [...] DAILY 2 Active Lancets (OneTouch Delica Plus [id number]) misc USE TO CHECK GLUCOSE TWICE DAILY [...] on file Legal Sex Female 9:35 AM [facility] Gender Identity Not on file Sexual Orientation Not on file Last Filed Vital Signs Vital Sign Reading Time Taken Comments Blood Pressure 124/60 10/02/2022 11:11 AM SPA ASSOCIATE Pulse 72 10/02/2022 11:11 AM SPA ASSOCIATE Temperature 36.2 C (97.2 F) 10/02/2022 11:11 AM SPA ASSOCIATE Respiratory Rate - - Oxygen Saturation - - Inhaled Oxygen Concentration - - Weight 97.5 kg (215 lb) 10/02/2022 11:11 AM SPA ASSOCIATE Height 170.2 cm (5' 7) 10/02/2022 11:11 AM SPA ASSOCIATE Body Mass Index 33.67 10/02/2022 11:11 AM SPA ASSOCIATE Plan of Treatment Health Maintenance Due Date Last Done Comments Diabetic Foot Exam 1965 Ophthalmology Exam 1964 Pneumococcal PPSV23/PCV13 65 + Years / High and Highest Risk (1 of 5 - PCV) 1973 Influenza Vaccine (#1) 2025 08/03/2022, 2019 Insurance [place] [address] Care Teams Lawnmower Repair Mechanic Relationship Specialty Start Date End Date Osman Malcolm MD [address] [place] [address] PCP - General Family Medicine 08/28/22
--- OUTSIDE RECORDS SUMMARY | 2025-05-10 11:04 | XMS_ITS | Continuity of Care Document ---
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 Clerk Name Role Phone Osman Malcolm MD Unavailable Unavailable Allergies, Adverse Reactions, Alerts Substance Reaction Status Criticality No Known Allergies Active No Inform ation Medications Medication Instructions Dosage Effective Dates (start - stop) Status Comments tramadol 50 mg tablet take 1 tablet by oral route every 6 hours as needed as needed 50 MG - Active PRN for pain, avoid driving or operate machines atorvastatin 10 mg tablet take 1 tablet by oral route every day 10 MG - Active Pepcid 20 mg tablet take 1 tablet by oral route 2 times every day 20 MG - Active fenofibrate 160 mg tablet take 1 tablet by oral route every day 160 MG - Active allopurinol 100 mg tablet [...] route every day 112 MCG - Active Neurontin 300 mg capsule take 1 capsule by oral route 3 times every day 300 MG - Active Basaglar KwikPen U-100 Insulin 100 unit/mL (3 mL) subcutaneous inject by subcutaneous route as per insulin protocol 0.00 - Active 14 units daily OneTouch Verio test strips test bid - Active e11.9 Octuvia 100 mg tablet take 1 tablet by [...] Diagnoses Date Provider Providers Copied on Encounter [facility], [address], [place], [place], [address], [place] tel:[phone] [facility] leg pain1 (chief complaint) Chronic venous insufficiencyVari cose veins of right lower extremity with pain 5 Gold Eduardo [address], [place], [place], [address] , [place]. tel:[phone] OFFICE/OUTPA TIENT VISIT, [facility], [address] [place], [address], [place] tel:[phone] [facility] HLP (chief complaint)GE RD1 (chief complaint) Mixed hyperlipidemiaGER D w/o esophagitis 5 Gold Brewer. [address], [place], [place], [address] , [place]. tel:[phone] OFFICE/OUTPA TIENT VISIT, [facility], [address], [place], [place], [address], [place] tel:[phone] [facility] sleep apnea1 (chief complaint)br east1 (chief complaint) Obstructive sleep apnea hypopneaLump in the left breast 5 Gold Brewer. [address], [place], [place], [address] , [place]. tel:[phone] OFFICE/OUTPA TIENT VISIT, EST [facility], [address], [place], [place], [address], [place] tel:[phone] [facility] breast1 (chief complaint) Lump in the left breast 5 Gold Brewer. [address], [place], [place], [address] , [place]. tel:[phone] OFFICE/OUTPA TIENT VISIT, [facility], [address], [place], [place], [address], [place] tel:[phone] [facility] back pain1 (chief complaint) Chronic pain syndrome 5 Gold Brewer. [address], [place], [place], [address] , [place]. tel:[phone] OFFICE/OUTPA TIENT VISIT, [facility], [address], [place], [place], [address], [place] tel:[phone] [facility] mammo (chief complaint) Lump in the left breast 4 Gold Brewer. [address], [place], [place], [address] , [place]. tel:[phone] OFFICE/OUTPA TIENT VISIT, [facility], [address], [place], [place], [address], [place] tel:[phone] [facility] infection1 (chief complaint)re nal (chief complaint)ba ck pain1 (chief complaint) Iron deficiency anemiaType 2 diabetes mellitus with diabetic mononeuropathySta ge III chronic renal diseaseCellulitis of abdominal wall 4 Gold Brewer. [address], [place], [place], [address] , [place]. tel:[phone] OFFICE/OUTPA TIENT VISIT, [facility], [address], [place], [place], [address], [place] tel:[phone] [facility] thyroid1 (chief complaint)HT N (chief complaint)go ut1 (chief complaint)ed ema1 (chief complaint) Encntr screen mammogram for malignant neoplasm of breastHypothyroid ismEssential (primary) hypertensionGoutE rafat 4 Gold Brewer. [address], [place], [place], [address] , [place]. tel:[phone] OFFICE/OUTPA TIENT VISIT, [facility], [address], [place], [place], [address], [place] tel:[phone] [facility] back pain1 (chief complaint) Chronic pain syndromeNeuropath y 4 Gold Brewer. [address], [place], [place], [address] , [place]. tel:[phone] OFFICE/OUTPA TIENT VISIT, [facility], [address], [place], [place], [address], [place] tel:[phone] [facility] hypothyroidi sm1 (chief complaint)ir on (chief complaint)HL P (chief complaint)DM (chief complaint)GE RD1 (chief complaint) Mixed hyperlipidemiaHyp othyroidismIron deficiency anemiaType 2 diabetes mellitus with diabetic mononeuropathyGER D w/o esophagitis 4 Gold Eduardo [address], [place], [place], [address] , [place]. tel:[phone] OFFICE/OUTPA TIENT VISIT, [facility], [address] [place], [address], [place] tel:[phone] [facility] PVD1 (chief complaint)HL P (chief complaint)HT N (chief complaint) Peripheral vascular disease, unspecifiedEssent ial (primary) hypertensionMixed hyperlipidemia 4 Godl Brewer. [address], [place], [place], [address] , [place]. tel:[phone] OFFICE/OUTPA TIENT VISIT, [facility], [address] [place], [address], [place] tel:[phone] [facility] GERD1 (chief complaint)PV D (chief complaint) Peripheral vascular disease, unspecifiedGERD w/o esophagitis 4 Gold Brewer. [address], [place], [place], [address] , [place]. tel:[phone] OFFICE/OUTPA TIENT VISIT, [facility], [address], [place], [place], [address], [place] tel:[phone] [facility] thyroid1 (chief complaint)re nal (chief complaint)HL P (chief complaint)ir on deficiency1 (chief complaint)DM (chief complaint)go ut1 (chief complaint) HypothyroidismMix ed hyperlipidemiaGou tIron deficiency anemiaType 2 diabetes mellitus with diabetic mononeuropathy 3 Gold Eduardo [address], [place], [place], [address] , [place]. tel:[phone] PREV VISIT, EST, 65 & OVER [facility], [address] [facility] [place], [address], [place] tel:[phone] [facility] physical (chief complaint) Encounter for general adult medical exam w abnormal findingsIron deficiency anemiaMixed hyperlipidemiaSta ge III chronic renal diseaseType 2 diabetes mellitus with diabetic mononeuropathyGou tHypothyroidism 3 Gold Eduardo [address] [facility] [address], [place], [place], [address] , [place]. [phone] OFFICE/OUTPA TIENT VISIT, [facility], [address] [place], [address], [place] tel:[phone] [facility] renal disease1 (chief complaint)th yroid1 (chief complaint)DM (chief complaint)os teopenia1 (chief complaint)ir on defificnecy (chief complaint)we ight loss1 (chief complaint) HypothyroidismSta ge III chronic renal diseaseIron deficiency anemiaOth disrd of bone density and structure, unspecified siteAbnormal weight lossMixed hyperlipidemia Raoul- 3 Gold Eduardo [address], [place], [place], [address] , [place]. tel:[phone] OFFICE/OUTPA TIENT VISIT, [facility], [address] [place], [address], [place] tel:[phone] [facility] DM (chief complaint)GE RD1 (chief complaint)HL P (chief complaint)th yroid1 (chief complaint) HypothyroidismTyp e 2 diabetes mellitus with diabetic mononeuropathyMix ed hyperlipidemiaGER D w/o esophagitis 3 Gold Eduardo [address], [place], [place], [address] , [place]. tel:[phone] OFFICE/OUTPA TIENT VISIT, [facility], [address] [place], [address], [place] tel:[phone] [facility] foot pain1 (chief complaint) Pain in right footType 2 diabetes mellitus with diabetic mononeuropathy 3 Gold Brewer. [address], [place], [place], [address] , [place]. tel:[phone] OFFICE/OUTPA TIENT VISIT, [facility], [address] [place], [address], [place] tel:[phone] [facility] anemia1 (chief complaint)HL P (chief complaint)re nal1 (chief complaint)DM (chief complaint)th yroid1 (chief complaint)ra sh1 (chief complaint) Iron deficiency anemiaType 2 diabetes mellitus with diabetic mononeuropathyMix ed hyperlipidemiaHyp othyroidismStage III chronic renal diseaseTinea corporis 3 Gold Brewer. [address], [place], [place], [address] , [place]. tel:[phone] OFFICE/OUTPA TIENT VISIT, [facility], [address] [place], [address], [place] tel:[phone] [facility] DM (chief complaint)he maturia1 (chief complaint)ir on deficiency 1 (chief complaint)HL P (chief complaint)fa tty liver1 (chief complaint)th ryoid1 (chief complaint) Type 2 diabetes mellitus with diabetic nephropathyIron deficiency anemiaMixed hyperlipidemiaFat ty liverHypothyroidi smOther specified disorder of bone densityGERD w/o esophagitis 2 Gold Eduardo [address], [place], [place], [address] , [place]. tel:[phone] [facility], [address], [place], [place], [address], [place] tel:[phone] [facility] No Information 2 Malcolm Osman. [address], [place], [place], [address] , [place]. tel:[phone] OFFICE/OUTPA TIENT VISIT, [facility], [address], [place], [place], [address], [place] tel:[phone] [facility] back pain1 (chief complaint)an emia1 (chief complaint)DM (chief complaint) Chronic pain syndromeOther spondylosis, lumbar regionIron deficiency anemiaType 2 diabetes mellitus with diabetic mononeuropathy 2 Gold Brewer. [address], [place], [place], [address] , [place]. tel:[phone] PREV VISIT, EST, 65 & OVER [facility], [address], [place], [place], [address], [place] tel:[phone] [facility] physical (chief complaint) Encounter for general adult medical exam w abnormal findingsHypothyro idismIron deficiency anemiaAsymptomati c microscopic hematuriaMixed hyperlipidemiaOth disrd of bone density and structure, unspecified siteSleep apneaGoutType 2 diabetes mellitus with diabetic mononeuropathyGER D w/o esophagitis 2 Gold Brewer. [address], [place], [place], [address] , [place]. tel:[phone] [facility], [address] [place], [address], [place] tel:[phone] [facility] No Information 2 Gold Brewer. [address], [place], [place], [address] , [place]. tel:[phone] OFFICE/OUTPA TIENT VISIT, [facility], [address] [place], [address], [place] tel:[phone] [facility] DM (chief complaint)HL P (chief complaint)an emia1 (chief complaint)re nal1 (chief complaint)go ut1 (chief complaint) HematuriaRenal diseaseHyperlipid emiaType 2 diabetes mellitus with diabetic nephropathyHypoth yroidismAnemia Dec- 2 Gold Brewer. [address], [place], [place], [address] , [place]. tel:[phone] OFFICE/OUTPA TIENT VISIT, [facility], [address], [place], [place], [address], [place] tel:[phone] [facility] DM (chief complaint)UT I1 (chief complaint)os teopenia1 (chief complaint)re nal (chief complaint)go ut1 (chief complaint) Urinary tract infectionHematuri aType 2 diabetes mellitus with diabetic nephropathyHyperk alemiaOth disrd of bone density and structure, unspecified siteRenal diseaseGout 1 Gold Eduardo [address], [place], [place], [address] , [place]. tel:[phone] OFFICE/OUTPA TIENT VISIT, [facility], [address], [place], [place], [address], [place] tel:[phone] [facility] osteopenia1 (chief complaint)re nal (chief complaint)DM (chief complaint)Tati L (chief complaint)he maturia1 (chief complaint) Type 2 diabetes mellitus with diabetic nephropathyHyperk alemiaHematuriaOt her specified disorder of bone density 1 Gold Brewer. [address], [place], [place], [address] , [place]. tel:[phone] PREV VISIT, EST, 65 & OVER [facility], [address], [place], [place], [address], [place] tel:[phone] [facility] physical (chief complaint) Encounter for general adult medical exam w abnormal findingsHypothyro idismGERD w/o esophagitisHyperl ipidemiaGoutType 2 diabetes mellitus w/ diabetic neuropathySleep apneaOth disrd of bone density and structure, unspecified siteAnemiaFatty liver Mar- 1 Gold Eduardo [address], [place], [place], [address] , [place]. tel:[phone] OFFICE/OUTPA TIENT VISIT, [facility], [address], [place], [place], [address], [place] [phone] [facility] DM (chief complaint)GE RD1 (chief complaint)go ut1 (chief complaint)HL P (chief complaint) Type 2 diabetes mellitus w/ diabetic neuropathyHypothy roidismHyperlipid emiaGERD w/o esophagitisGout 1 Gold Brewer. [address], [place], [place], [address] , [place]. tel:[phone] OFFICE/OUTPA TIENT VISIT, [facility], [address], [place], [place], [address], [place] [phone] [facility] knee pain1 (chief complaint)sl eep apnea1 (chief complaint)hy pothyroidism 1 (chief complaint)ed ema1 (chief complaint)DM (chief complaint)HL P (chief complaint) Osteoarthritis of knee, unspecifiedSleep apneaType 2 diabetes mellitus without complicationsEdem aHypothyroidismHy perlipidemia 0 Gold Brewer. [address], [place], [place], [address] , [place]. tel:[phone] OFFICE/OUTPA TIENT VISIT, [facility], [address], [place], [place], [address], [place] [phone] [facility] LFT (chief complaint)re nal (chief complaint)go ut1 (chief complaint)GE RD1 (chief complaint) Fatty liverRenal diseaseGoutType 2 diabetes mellitus without complicationsGERD w/o esophagitisPolyp of colon 0 Gold Brewer. [address], [place], [place], [address] , [place]. tel:[phone] OFFICE/OUTPA TIENT VISIT, [facility], [address], [place], [place], [address], [place] tel:[phone] [facility] knee pain1 (chief complaint) Pain in left kneeOsteoarthriti s of knee, unspecified Mar- 0 Gold Eduardo [address], [place], [place], [address] , [place]. tel:[phone] PREV VISIT, EST, 65 & OVER [facility], [address], [place], [place], [address], [place] [phone] [facility] PHysical (chief complaint) Encounter for general adult medical exam w abnormal findingsGoutType 2 diabetes mellitus without complicationsGERD w/o esophagitisFatty liverHypothyroidi sm February-0 0 Gold Brewer. [address], [place], [place], [address] , [place]. tel:[phone] OFFICE/OUTPA TIENT VISIT, [facility], [address], [place], [place], [address], [place] [phone] [facility] knee pain1 (chief complaint)he maturia1 (chief complaint)pa ncreatitis1 (chief complaint)GE RD1 (chief complaint)DM (chief complaint) Chronic pancreatitisHemat uriaGERD w/o esophagitisType 2 diabetes mellitus without complicationsAnem ia Dec- 0 Gold Eduardo [address], [place], [place], [address] , [place]. tel:[phone] OFFICE/OUTPA TIENT VISIT, [facility], [address], [place], [place], [address], [place] [phone] [facility] anemia1 (chief complaint)UT I1 (chief complaint)kn ee pain1 (chief complaint)go ut1 (chief complaint) HematuriaAnemiaOs teoarthritis of knee, unspecifiedGout 0 Gold Eduardo [address], [place], [place], [address] , [place]. tel:[phone] Referring Provider: Osman Malcolm [address], [place], [place], [address]. tel:[phone] OFFICE/OUTPA TIENT VISIT, [facility], [address], [place], [place], [address], [place] tel:[phone] [facility] fatty liver1 (chief complaint)th yroid (chief complaint)si ck1 (chief complaint) HypothyroidismFat ty liverUrinary frequencyPain in unspecified lower legVaricose veins of unspecified lower extremity with painSleep apnea 9 Gold Brewer. [address] [facility] [place], [address] , [place]. tel:[phone] Referring Provider: Brittany Moreno [place], [address]. tel:[phone] OFFICE/OUTPA TIENT VISIT, [facility], [address] [facility] [place], [address], tel:[phone] [facility] LFT (chief complaint)DM (chief complaint)UT I1 (chief complaint)hy opthyroidism 1 (chief complaint)ba ck pain1 (chief complaint)ed ema1 (chief complaint) HypothyroidismUri nary tract infectionType 2 diabetes mellitus w/ diabetic neuropathyLiver diseaseOth disrd of bone density and structure, unspecified siteEdemaHyperlip idemiaMotion sickness, initial encounter 9 Gold Brewer. [address], [place], [address] , [place]. tel:[phone] Referring Provider: Brittany Moreno [place], [address]. tel:[phone] OFFICE/OUTPA TIENT VISIT, [facility], [address] [place], [address], [place] tel:[phone] [facility] DM (chief complaint)UT I1 (chief complaint)HL P (chief complaint)ba ck pain1 (chief complaint) GoutHyperlipidemi aType 2 diabetes mellitus w/ diabetic neuropathyUrinary tract infectionLiver diseaseEdema 9 Gold Eduardo [address] [facility] [address], [place], [place], [address] , [place]. tel:[phone] Referring Provider: Brittany [address], [place], [place], [address]. tel:[phone] PREV VISIT, NEW, AGE 40-64 [facility], [address], [place], [place], [address], tel:[phone] [facility] Physical (chief complaint) Encounter for general adult medical exam w abnormal findingsSleep apneaHyperlipidem iaGoutType 2 diabetes mellitus w/ diabetic neuropathy 9 Gold Brewer. [address], [place], [place], [address] , [place]. tel:[phone] Referring Provider: Osman Malcolm, Brittany Gottlieb [facility] A, [place], [place], [address]. tel:[phone] Family History Family Member Type Diagnosis Age At Onset Mother Problem (finding) Diabetes melli tus type 2 (Cause Of ) 82 Father Problem (finding) lung CA 67 Sister Problem (finding) breast CA 50 Brother Problem (finding) Alive and well Payers Payer name Insurance type Covered democrat ID Authoriza tion(s) [facility] CI [id number] Social History Type Description Quantity Date Captured Comments Alcohol Use Details Caffeine Use Details Unknown Tobacco Use Status Ex-cigarette smoker 025 Smoking Status Former smoker Sex Female Vital Signs Date / Time: Height Weight BMI Pulse Rate Blood Pressure Temperature Respiratory Rate Body Surface Area Head Circumference BMI percentile Pulse Ox Inhaled Ox 10:13 AM 67.00 in 173.60 lbs 27.1 9 kg/m eter (2) 76 /min 120/60 mm[Hg] 97.3 F 16 /min 98 21 Chief Complaint And Reason For Visit From encounter dated '05/10/2025 10:03'. leg pain1 (chief complaint). Description: Pt c/o acute onset of diffuse right leg pain and right ankle pain with sudden onset of bleeding from lateral right ankle since 4-5 days ago. Pt [place] [facility] [facility] she started to notice right ankle burning pain and then she noticed blood squirting out from right lateral ankle area. She then notice pain radiating to right leg and leg as well .Pt notices right leg swelling as well and diffuse pain ,Pt denies any claudication Pt has been walking with walker due to right leg pain Pt denies any sob or chest pain. Pt denies any recent travel or bedrest Plan Of Treatment Date Type Action Status [...] treat ordered Referral Referred To: Alexander George MD [address] [place] [address] [place], [place], [phone] Ordered: Referrals: Allopathic & Osteopathic Physicians : [...] nephropathy) ordered Referral Referred To: Genaro Escalante [id number] [facility]
[address] [place], [place] [id number] Ordered: Referrals: Allopathic & Osteopathic Physicians : [...] unspecified) ordered Referral Referred To: Go Lazaro [address] [place] [address] DR CERV[address]ES [address] [phone] Ordered: Referrals: Allopathic & Osteopathic Physicians : Orthopaedic Surgery. Go Lazaro. Evaluate and treat ordered Referral Ordered: CT ABDOMEN&PELVIS W/CONTRAST ordered Referral Ordered: US THYROID ordered Referral Ordered: US VENOUS DOPPLER ordered Referral Ordered: US EXAM, ABDOM, COMPLETE ordered Appointment Lee Ann Trujillo BOOKED History Of Present Illness Encounter Date Complaint History Of Prese nt Illness leg pain1 Pt c/o acute ons et of diffuse right leg pain and right ankle pain with sudden onset of bleeding from lateral right ankle since 4-5 days ago. [facility] [employer] and she started to notice right ankle burning pain and then she noticed blood squirting out from right lateral ankle area. She then notice pain radiating to right leg and leg as well .Pt notices right leg swelling as well and diffuse pain ,Pt denies any claudication Pt has been walking with walker due to right leg pain Pt denies any sob or chest pain. Pt denies any recent travel or bedrest HLP Pt has HLP Pt ta kes feno and lipitor Pt denies any myalgia GERD1 Pt has chronic G ERD. Pt doing ok wit pepcid. Pt denies any abd pain sleep apnea1 pt has severe sl eep [...] been havi ng GERD recently and her concrete pointer started her on pepcid 3 months ago [...] to elevated a1c per pt by endo thyroid1 Pt has hypothyro idism. Pt takes 125 mcg of synthroid Pt denies any dysphagia or neck pain renal Pt has chronic r enal disease .Pt sees nephrology and is stable Pt has normal UO gout1 Pt has gout Pt t akes allopurinol .Pt denies any gout attacks physical Pt needs annual physical pt has [...] blood in stool, abd pain, GERD. ETc renal disease1 Pt has worsening renal function [...] Pt has not done fecal globin yet GERD1 Pt has chronic G ERD. 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 Her [employer] Provider [employer] is sending me paper work to complete [...] years .Pt told me she spoke with [facility] who told her no [...] 32.0-32.9, adult Assessments Type Assessment Date assessment Chronic venous insufficiency Apr assessment Varicose veins of right lower ex tremity with pain Mental Status Date Cognitive Assessment Orientation - [place] ed to time, place, person, situation.
--- OUTSIDE RECORDS SUMMARY | 2025-05-10 11:04 | XMS_ITS | Clinical Summary ---
Author Organization [facility] Address [address] [place] [address] Care Team Providers Care Patient Services Clerk Name Role Phone Osman Malcolm MD Primary Care Provider [phone] Allergies No known active allergies Medications LASIX [...] drink = 0.6 oz pur e alcohol) [facility] Utilities Answer Date Recorded In the past 12 months has [facility] [employer], oil, or water [employer]Social threatened to shut off services in your [...] time in the past 12 m [facility], were you homeless or living in a fpc (including now)? No 08/04/2024 Comments No Sex and Gender Information Value Date Recorded Sex Assigned at Not on file Legal Sex Female 12:57 PM CDT Gender Identity Not on file Sexual Orientation Not on file Last Filed Vital Signs Vital Sign Reading Time Taken Comments Blood Pressure 89/60 09/07/2024 10:35 AM VOYAGE MANAGEMENT SYSTEM OPERATOR Pulse 88 09/07/2024 10:35 AM VOYAGE MANAGEMENT SYSTEM OPERATOR Temperature 36.5 C (97.7 F) 09/07/2024 10:35 AM VOYAGE MANAGEMENT SYSTEM OPERATOR Respiratory Rate 16 09/07/2024 10:35 AM VOYAGE MANAGEMENT SYSTEM OPERATOR Oxygen Saturation 98% 09/07/2024 10:35 AM VOYAGE MANAGEMENT SYSTEM OPERATOR Inhaled Oxygen Concentration - - Weight 76.7 kg (169 lb) 09/07/2024 10:35 AM VOYAGE MANAGEMENT SYSTEM OPERATOR Height 170.2 cm (5' 7) 09/07/2024 10:35 AM VOYAGE MANAGEMENT SYSTEM OPERATOR Body Mass Index 26.47 09/07/2024 10:35 AM VOYAGE MANAGEMENT SYSTEM OPERATOR Plan of Treatment Health Maintenance Due Date Last Done Comments Colorectal Cancer Screening Colonoscopy (10 Years) 1954 Hepatitis C 1972 DTaP, Tdap and Td Vaccines (1 - Tdap) 1973 Mammogram Screening 1994 Annual Medicare Wellness Visit 2019 Dexa Scan (General) 2019 Pneumococcal Vaccine: 50+ Years (2 of 2 - PPSV23) 07/18/2021 07/18/2020, 06/20/2020 COVID-19 Vaccine ( season) 2024 07/31/2023, 08/04/2022, 01/22/2022, Additional history exists PHQ-2 (Physician [place]) 10/20/2024 09/07/2024 Zoster Vaccines Completed 04/30/2021, 02/21/2021 [...] Briscoe RN Medical Devices Implanted Type Area Clarifier Operator Helper Device Identifier Shelf Expiration Date Model / Serial / Lot Stimulator Lead Implant(2 Leads)-11/30/19 16 Implanted:Qty: 2 on 11/30/2015 Lead Implant Spine Thoracic [employer] [id number] / / Stimulator Implant- [id number] Implanted:Qty: 1 on 04/16/2024 Stimulator Implant Back [employer] [id number] / [id number] / Description:MR CONDITIONAL A T 1.5 T ONLY, NEED REMOTE TO TURN OFF STIMULATION, SHOULD BE FULL BODY ELIGIBLE , NORMAL MODE NATALIIA , MAX 30 MINUTES TOTAL SCAN TIME IN 90 MINUTE WINDOW Insurance [facility] Advance Directives * Full Code (Latest Code Status on File) Date Activated Date Inactivated Comments 08/04/2024 1:00 AM 08/10/2024 2:07 PM Care Teams Patient Services Clerk Relationship Specialty Start Date End Date Osman Malcolm MD PCP - General FAMILY PRACTICE 05/09/22
--- OUTSIDE RECORDS SUMMARY | 2025-05-10 11:04 | XMS_ITS | Referral Summary ---
Author Organization [facility] Building [facility] Address [address] [place] [address] Care Team Providers Care Securities And Real Estate Director Name Role Phone Rey Hinton Unavailable [phone] Reina Jimenes Unavailable Osman Malcolm MD Primary Care Provider [phone] Encounters Date Type Department Care Team Description 03/08/2025 Orders Only [facility] Medical [facility] Diabetes [facility] Endocrinology [address] [place] [phone] ProviderMarcello MD 03/04/2025 Results Follow-Up [facility] Diabetes and Endocrinology [address] [place] [phone] Sisi Guevara NP Albumin Creatinine Ratio, Urine, Lipid panel 03/03/2025 12:03 PM CDT - 03/03/2025 11:59 PM CDT Hospital Encounter [address] [address] Type 2 diabetes mellitus with hyperglycemia, with long-term current use of insulin (HCC) Discharge Disposition: Discharge to home or self care 03/03/2025 12:00 PM CDT Lab [facility] Outpatient Lab at [address] [phone] Acquired hypothyroidism (Primary Dx); Type 2 diabetes mellitus with hyperglycemia, with long-term current use of insulin (HCC) 03/03/2025 Telephone [facility] Diabetes and Endocrinology [address] [place] [phone] Sisi Guevara NP Med Management (Basaglar) 03/03/2025 11:30 AM CDT Office Visit [facility] Diabetes and Endocrinology [address] [place] [address] Sisi Guevara NP Type 2 diabetes mellitus with hyperglycemia, with long-term current use of insulin (HCC) (Primary Dx); Hyperlipidemia associated with type 2 diabetes mellitus (HCC); Diabetic neuropathy associated with type 2 diabetes mellitus ([facility]); CKD stage 4 due to type 2 diabetes mellitus ([facility]) from Last 3 Months Allergies Active Allergy [...] 23 Active blood-glucose meter,continuo us (Dexcom G7 Marking Machine Operator) miscIndication s:Type 2 diabetes mellitus with hyperglycemia, with long-term current use of insulin ([facility]) Continuous glucose monitor 1 each 05/08/20 23 Active levothyroxine (SYNTHROID) 112 mcg tablet Take 1 tablet (112 mcg total) by mouth 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 05/10/20 24 Active insulin glargine 100 unit/mL (3 mL) pen for injection Inject 14 Units under the skin nightly Max daily dose is 20 units Active SITagliptin phosphate (JANUVIA) 100 mg tabletIndicati ons:type 2 diabetes mellitus Take 1 tablet (100 mg total) by mouth every morning Active pen needle, diabetic 32 gauge x needleIndicati ons:Type 2 diabetes mellitus with hyperglycemia, with long-term current use of insulin ([facility]) USE TO INJECT INSULIN DAILY 100 each 02/02/20 25 Active cholecalcifero l (VITAMIN D-3) 5,000 unit tablet Take 125 mcg by mouth Active traMADoL (ULTRAM) 50 mg tablet Active SITagliptin phosphate (Januvia) 100 mg tablet Active BASAGLAR 100 unit/mL (3 mL) pen for injection Inject 23 Units under the skin nightly 30 mL 2 03/03/20 25 026 Active gabapentin (NEURONTIN) 300 mg capsuleIndicat ions:Diabetic neuropathy associated with type 2 diabetes mellitus ([facility]) TAKE 1 CAPSULE BY MOUTH THREE TIMES DAILY 90 capsule 05/03/20 25 Active gabapentin (NEURONTIN) 300 mg capsuleIndicat ions:Diabetic Peripheral Neuropathy Take 1 capsule (300 mg total) by mouth 3 (three) times a day 90 capsule 11 12/25/19 24 025 Discontinued Active Problems Problem Noted Date Diagnosed Date CKD stage 4 due to type 2 diabetes mellitus 06/20 Assessment & Plan (03/03/2025 11:52 AM CDT): Chronic problem. Managed by Dr Marr at [facility] Renal: Dr Marr at [facility]; saw him 01/2025 Dr Marr wants her to stop the Metformin . Her calcium was elevated at 12.4 & he sent her to the ER. Was given IVF. Has f/u appt in [address] Marr (08/2025) Nephropathy: On GWEN-I / ARB s : Yes. Lisinopril 5mg. Last MA: 12/25/23 (36 calc). Last creat/GFR: 01/12/25 GFR=20, CR=2.14. Will update MA/Cr. Verified that she uses mychart. Aware to check results/results letter in [employer]. Will contact by phone if needed. Assessment & Plan (10/26/2024 12:09 PM MUD ANALYSIS OPERATOR): Chronic problem. Managed by Dr Marr at [facility]. Next appt 12/29/24 Nephropathy: On GWEN-I / ARB s : Yes. Lisinopril 5mg. Last MA: 12/25/23 (36 calc). Last creat/GFR: 03/31/24 GFR=27, CR=1.96. Assessment & Plan (06/29/2024 11:48 AM CDT): Chronic problem. Managed by Dr Marr at [facility]. Next appt 06/30/24. Nephropathy: On GWEN-I / ARB s : Yes. Lisinopril 5mg. Last MA: 12/25/23 (36 calc). Last creat/GFR: 03/31/24 GFR=27, CR=1.96. Diabetic neuropathy associat ed with type 2 diabetes mellitus 01/30/2023 Assessment & Plan (03/03/2025 11:54 AM CDT): Chronic problem. Gabapentin Gabapentin 300 mg bid. H/o foot ulcers. Reviewed foot care; needs to lotion daily. Aware to check feet nightly & not go barefoot.Aware to check feet nightly, not to go barefoot. Assessment & Plan (10/26/2024 11:56 AM MUD ANALYSIS OPERATOR): Chronic problem. Gabapentin Gabapentin 300-600mg at [...] barefoot. Assessment & Plan (12/25/2023 10:41 AM MUD ANALYSIS OPERATOR): Foot care discussed Continue gabapentin Assessment [...] 10/31/2022 Assessment & Plan (10/31/2022 12:56 PM MUD ANALYSIS OPERATOR): Encouraged Mrs Trujillo to walk in home if weather not conducive to walking outside. Discussed healthy diet and importance of regular physical activity (20- 30min/day, 150min/wk). Hyperlipidemia associated with type 2 diabetes latanya brown 07/25/2022 Assessment & Plan (03/03/2025 11:43 AM CDT): Chronic problem, at goal on Atorvastatin 10mg & fenofibrate 160mg daily Last lipid panel: 12/25/23 LDL=98, UZ=320. Will update lipid panel. Verified that she uses [employer]. Aware to check results/results letter in mychart. Will contact by phone if needed. Assessment & Plan (10/26/2024 11:30 AM MUD ANALYSIS OPERATOR): Chronic problem, at goal on Atorvastatin 10mg & fenofibrate 160mg daily Last lipid panel: 12/25/23 LDL=98, WR=809. Assessment & Plan (06/29/2024 11:46 AM CDT): Chronic problem, at goal on Atorvastatin 10mg & fenofibrate 160mg daily Last lipid panel: 12/25/23 LDL=98, NK=505. Assessment & Plan (12/25/2023 10:41 AM MUD ANALYSIS OPERATOR): Chronic, stable Continue Atorvastatin 10 mg daily UDT lipid profile Assessment & Plan (05/08/2023 11:12 AM CDT): Chronic problem, at goal on Atorvastatin 10mg & fenofibrate 160mg daily Last lipid panel: 07/25/22 LDL=74, AT=537. No changes at this time. Assessment & Plan (01/30/2023 11:08 AM CDT): Chronic problem, at goal on Atorvastatin 10mg. Last lipid panel: 07/25/22 LDL=74, QZ=703. No changes at this time. Assessment & Plan (10/31/2022 8:59 AM MUD ANALYSIS OPERATOR): Chronic problem, near goal. LDL=74 07/2022. Atorvastatin 10mg daily. No changes at this time. Assessment & Plan (07/25/2022 12:50 PM CDT): Continue atorvastastin Check lipid profile LDL goal under 70 Type 2 diabetes mellitus wit h hyperglycemia, with long-term current use of insulin 05/28/2022 Assessment & Plan (03/03/2025 12:08 PM CDT): Chronic problem, stable/controlled. A1c stable at 6.3% metformin stopped by renal d/t renal insufficiency. Current medications: Januvia 100 mg daily (PAP) Basaglar 23 units every evening (PAP) Cannot trial GLP1a d/t h/o pancreatitis Will update lipid & MA/Cr. Verified that she uses mychart. Aware to check results/results letter in [employer]. Will contact by phone if needed. DM eye exam (09/07/24 no DMR [facility] [place]). Had appt 2 wks ago at [facility] in [place]. Letter sent to get copy of report. Strive for regular exercise (30min most days) and diet (get at least 4-5 servings of fruit and veggies daily, avoid processed foods, increase lean protein intake and decrease carb portions as well as fruit juices, regular soda & desserts). Watch carbs and simple sugars. Check the blood sugar: Dexcom G7 Check the feet daily for skin breakdown and infection. Assessment & Plan (10/26/2024 11:56 AM MUD ANALYSIS OPERATOR): Chronic problem, stable/controlled. A1c stable at 5.8%. Current medications: Metformin XR 500mg twice daily before meals Januvia 100 mg daily (PAP) Basaglar 14 units every evening (PAP) Cannot trial GLP1a d/t h/o pancreatitis UTD on labs DM eye exam (2023 at [facility]). 2nd request letter sent. Strive for [...] infection. Assessment & Plan (12/25/2023 10:40 AM MUD ANALYSIS OPERATOR): Chronic, stable Contiue current regimen including Basaglar, Glimepiride 1 mg daily, Metformin 500 mg bid and Januvia Diet and exercise were discussed Assessment & Plan (09/09/2023 11:37 AM MUD ANALYSIS OPERATOR): Hba1c was Lab Results Component Value [...] 7.8% Phone not compatible with dexcom nor Oon[employer] haseeb. Sent in Dexcom 7 & reader. [...] evening Had DM eye exam 01/2023 at [facility] in [place]. Letter sent to get copy of results. [...] infection. Assessment & Plan (10/31/2022 12:55 PM MUD ANALYSIS OPERATOR): Chronic problem, at goal. No changes. [...] Problem Noted Date Diagnosed Date Resolved Date Diabetic neuropathy with lyn rologic complication 12/27/2024 03/03/2025 Diabetic neuropathy 11/16/2024 03/03/20 Diabetic mononeuropathy asso ciated with type 2 diabetes mellitus 11/01/2024 03/03/2025 Aftercare following left kne e joint replacement surgery 05/03/2020 10/31/2022 Primary osteoarthritis of both knees 04/20/2020 09/15/2020 Overview (04/20/2020): Added automatically from request for surgery [id number] Immunizations Immunization Administration Dates Next Due Influenza, [...] on file Legal Sex Female 6:42 PM MUD ANALYSIS OPERATOR Gender Identity Not on file Sexual Orientation Not on file Last Filed Vital Signs Vital Sign Reading Time Taken Comments Blood Pressure 114/74 03/03/2025 11:22 AM CDT Pulse 87 03/03/2025 11:22 AM CDT Temperature 36.9 C (98.4 F) 12/29/2024 7:49 AM CDT Respiratory Rate 18 03/03/2025 11:22 AM CDT Oxygen Saturation 95% 12/29/2024 7:49 AM CDT Inhaled Oxygen Concentration - - Weight 75.3 kg (166 lb) 03/03/2025 11:22 AM CDT Height 170.2 cm (5' 7.01) 03/03/2025 11:22 AM C DT Body Mass Index 25.99 03/03/2025 11:22 AM CDT Plan of Treatment Not on file Medical Devices Implanted Type Area Cured 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 Device Identifier Shelf Expiration Date Model / Serial / Lot Depuy Orthopaed[employer] Inc [id number] Attune Cruciate Retain Cementless Knee Left 6 Narrow Component - [id number] Implanted:Qty: 1 on 05/02/2020 by Go Lazaro MD at [facility] Left: Knee [employer] Inc 10/19/2029 [id number] / / [id number] Depuy Orthopaed[employer] Inc [id number] Attune 5mm Cruciate Retaining Rotate Platform Knee 6 Insert - [id number] Implanted:Qty: 1 on 05/02/2020 by Go Lazaro MD at [facility] Left: Knee [employer] 08/19/2024 [id number] / / [id number] Attune Knee System, Tibial Base Rotating Platform Implanted:Qty: 1 on 05/02/2020 by Go Lazaro MD at [facility] Left: Knee Depuy Orth[employer]ed[employer] Inc [id number] 05/19/2028 [id number] / / [id number] [employer] [id number] Palacos R+G High Viscosity Cement Bone Gentamicin Arthroplasty - [id number] Implanted:Qty: 1 on 05/02/2020 by Go Lazaro MD at [facility] Left: Knee [employer] 02/16/2022 [id number] / / [id number] [employer] [id number] Palacos R+G High Viscosity Cement Bone Gentamicin Arthroplasty - [id number] Implanted:Qty: 1 on 09/05/2020 by Go Lazaro MD at [facility] Right: Knee [employer] 08/19/2022 [id number] / / [id number] Depuy Orthopaed[employer] Inc [id number] Baseplate Tibial Attune 6 Knee Cement Rotate Platform Sterile - [id number] Implanted:Qty: 1 on 09/05/2020 by Go Lazaro MD at [facility] Right: Knee [employer] 03/19/2030 [id number] / / [id number] Dep[employer] [id number] Attune 7mm Cruciate Retaining Rotate Platform Knee 6 Insert - [id number] Implanted:Qty: 1 on 09/05/2020 by Go Lazaro MD at [facility] Right: Knee [employer] 08/19/2024 [id number] / / [id number] Depuy Orth[employer]ed[employer] Inc [id number] Attune Cruciate Retain Cementless Knee Right 6 Component Femoral - [id number] Implanted:Qty: 1 on 09/05/2020 by Go Lazaro MD at [facility] Right: Knee Depuy Orthopaed[employer] Inc 07/19/2028 [id number] / / [id number] Medtronic Inc Specify Surescan 65cm 3 Column 16 Electrode Lead Nerve Stimulator [id number] - [id number] Implanted:Qty: 1 on 12/27/2024 by Vivi Johansen MD at [facility] N/A: Back [employer] Inc 09/24/2028 [id number] / / [id number] Med[employer]onic Inc Generator Pulse Inceptiv Sys Stm Electrcl Analges Implant [id number] - [id number] - [id number] Implanted:Qty: 1 on 12/27/2024 by Vivi Johansen MD at [facility] Right: Back [employer] Inc [id number] 11/02/2025 [id number] / [id number] / Biocomposites Stimulan Rapid Cure Kit Paste Community Service Technician 5cc 12.5cc Bone Void 620-005 - [id number] Implanted:Qty: 1 on 12/27/2024 by Vivi Johansen MD at [facility] N/A: Back [employer] [id number] 06/19/2027 620-005 / / [id number] Procedures Procedure Name Priority Date/Time Associated Diagnosis Comments LIPID PANEL Routine 03/03/2025 12:03 PM CDT Type 2 diabetes mellitus with hyperglycemia, with long-term current use of insulin (HCC) ALBUMIN CREATININE RATIO, URINE Routine 03/03/2025 12:03 PM CDT Type 2 diabetes mellitus with hyperglycemia, with long-term current use of insulin (HCC) POCT HEMOGLOBIN A1C Routine 03/03/2025 1 1:26 AM CDT Type 2 diabetes mellitus with hyperglycemia, with long-term current use of insulin ([facility]) POCT GLUCOSE Routine 03/03/2025 11:26 AM CDT Type 2 diabetes mellitus with hyperglycemia, with long-term current use of insulin ([facility]) DIABETES EYE EXAM Routine 02/15/2025 7:29 AM CDT HM CREATININE Routine 01/12/2025 9:14 AM CDT from Last 3 Months or Most Recently Relevant to Health Maintenance Results * (ABNORMAL) Albumin Creatinine Ratio, Urine (03/03/2025 12:03 PM CDT) Albumin Ur 12.2 mg/L Comment: Interpretive Data No reference range established. Current interpretive data was last revised 2019. Creatinine Ur 22.8 mg/dL [facility] Comment: Interpretive Data No reference range established. Current interpretive data was last revised 2019. Albumin Creatinine Ratio, Ur 54(H) 1 - 29 mg/g [facility] Urine 03/03/2025 12:0 3 PM CDT 03/03/2025 10:38 PM CDT us Sisi Guevara NP LAB URINE ORDERABLES Ban l Result [facility] [address] [address] Department [place] [address] * (ABNORMAL) Lipid panel (03/03/2025 12:03 PM CDT) Cholesterol 175 30 - 199 mg/dL Comment: Interpretive Data [...] Data was last revised on 2018. Triglycerides 217(H) <=149 mg/dL [facility] Comment: Interpretive Data [...] Data was last revised on 2018. HDL 48 >=40 mg/dL [facility] Comment: Interpretive Data [...] was last revised on 2018. LDL, calculated 90 <=129 mg/dL [facility] Comment: Interpretive Data Ages < or = 19 years Acceptable: <110 mg/dL Borderline high: 110-129 mg/dL High: >or= 130 mg/dL Ages > or = 20 years Optimal: <100 mg/dL Near optimal: 100-129 mg/dL Borderline high: 130-159 mg/dL High: >160 mg/dL Calculated using the Cleve LDL-C estimating equation. This equation was implemented on 2024. Prior to this date LDL-C was estimated using the Friedewald equation. Literature References: 1. Expert Panel on Integrated Guidelines for Cardiovascular Health and Risk Reduction in Children and Adolescents. Pediatrics 2011;128:S213 2. NCEP Expert Panel. Circulation 2004;110:227 3. Cleve M et al. HALEY Cardiol. 2020 February 17;5(5):540-548. doi: 10.1001/jamacardio.2020.0013 Current Interpretive Data was last revised on 2024. Non-HDL Cholesterol 127 mg/dL [facility] Comment: Interpretive Data Ages [...] 2018. Chol/HDL ratio 4 [facility] Blood 03/03/2025 12:0 3 PM CDT 03/03/2025 10:38 PM CDT us Sisi Guevara NP LAB BLOOD ORDERABLES Ban ruiz Result [facility] [address] [address] Department [place] [address] * (ABNORMAL) POCT hemoglobin A1c (03/03/2025 11:26 AM CDT) Hemoglobin A1C, POC 6.3(A) 4.0 - 5.6 % Blood 03/03/2025 11:2 6 AM CDT Sisi Guevara PULP TESTER POINT OF CARE TEST ORDERA BLES Final Result * (ABNORMAL) POCT glucose (03/03/2025 11:26 AM CDT) Glucose Blood, POC 129 Normal Fasting 70 - 100, Random <200 mg/dL Blood 03/03/2025 11:2 6 AM CDT Sisi Guevara PULP TESTER POINT OF CARE TEST ORDERA BLES Final Result * DIABETES EYE EXAM (02/15/2025 7:29 AM CDT) Historical Provider HEALTH MAINTENANCE Final Result * (ABNORMAL) CREATININE (01/12/2025 9:14 AM CDT) SCRIBED Creatinine 2.14(A) 0.7 - 1.0 mg/dl EXTERNAL LAB SCRIBED eGFR in NonAfrican Mongolian 20 >=60 - NA EXTERNAL LAB Blood 01/12/2025 9:14 AM CDT Historical Provider HEALTH MAINTENANCE Edited Result - Final EXTERNAL LAB from Last 3 Months or Most Recently Relevant to Health Maintenance Insurance [employer] [facility] MEDICARE [facility]IC[facility] Address: [address] [address] [place] [address] [facility] ADVANTAGE [facility] Address: [address] [address] [place] [address] [facility] Address: [address] [address] [place] [address] Advance Directives For more information, please contact: [phone] * Full Code (Latest Code Status on File) Date Activated Date Inactivated Comments 12/27/2024 12:45 PM 12/29/2024 7:57 PM * Full Code Date Activated Date Inactivated Comments 09/05/2020 1:54 PM 09/06/2020 6:34 PM * Full Code Date Activated Date Inactivated Comments 05/02/2020 2:11 PM 05/03/2020 8:18 PM Care Teams Securities And Real Estate Director Relationship Specialty Start Date End Date Osman Malcolm MD [address] [facility] [address] [place] [address] PCP - General Family Medicine 09/18/22 Rey Hinton PA [address] [place] [address] [address] [place] [address] Physician Clerk Operator Orthopedic Surgery 05/03/20 Reina Jimenes PA [address] [place] [address] [address] [place] [address] Physician Clerk Operator Orthopedic Surgery 09/06/20
--- OUTSIDE RECORDS SUMMARY | 2025-05-10 11:04 | XMS_ITS | Clinical Summary ---
Author Organization [facility] Address [address], [address] [place] [address] Phone Care Team Providers Care Corporate Counselor Name Role Phone Osman Malcolm Primary Care Provider [phone] Robert Corbett MD Unavailable [phone] Adrien Cerrato MD Unavailable [phone] Allergies No known active allergies Medications furosemide [...] Active Januvia 100 MG Tablet 04/30/2022 Active fenofibrate 160 MG Tablet Take 1 Tablet by mouth. 08/21/2022 Active ReliOn Pen Scott 32G X 4 MM Misc 12/24/2022 Active [...] 500 mg by mouth daily. 06/07/2024 Active insulin glargine (Basaglar KwikPen) 100 UNIT/ML Solution Pen-injector 22 Units. Active Vitamin D3 (CHOLECALCIFERO L) 125 MCG Tablet Take 125 mcg by mouth. Active Multiple Vitamins-Minera ls (PreserVision AREDS 2) Capsule Take 1 Capful by mouth 2 times daily. Active doxycycline hyclate (VIBRAMYCIN) 100 MG Capsule take 1 capsule by mouth every 12 hours 09/04/2024 Active Active Problems Problem Noted Date Diagnosed Date HTN (hypertension) 02/03/2025 Elevated blood pressure reading 11/04/2024 Anemia in [...] Encounters Date Type Department Care Team Description 05/05/2025 9:30 AM CDT Office Visit [facility] [address] [address] Adrien Cerrato MD B12 deficiency (Primary Dx); Iron deficiency; Anemia, iron deficiency, inadequate dietary intake 05/05/2025 Travel 04/28/2025 9:30 AM CDT Lab [facility] [address] [place] [address] Iron deficiency (Primary Dx); Anemia in stage 3a chronic kidney disease (HCC) 04/28/2025 Travel from Last 3 Months Immunizations Immunization [...] Sign Reading Time Taken Comments Blood Pressure 148/64 05/05/2025 9:50 AM CDT Pulse 78 05/05/2025 9:50 AM CDT Temperature 36.3 C (97.4 F) 05/05/2025 9:50 AM CDT Respiratory Rate 18 05/05/2025 9:50 AM CDT Oxygen Saturation 97% 05/05/2025 9:50 AM CDT Inhaled Oxygen Concentration - - Weight 79 kg (174 lb 3.2 oz) 05/05/2025 9:50 AM CDT Height 172.7 cm (5' 8) 05/05/2025 9:50 AM CDT Body Mass Index 26.49 05/05/2025 9:50 AM CDT Plan of Treatment Upcoming Encounters Date Type Department Care Team (Late st Contact Info) Description 09/29/2025 9:30 AM BEHAVIORAL HEALTH ASSOCIATE Office Visit [facility] [address] [place] [address] Adrien Cerrato MD [address] [place] [address] Health Maintenance Due Date Last Done Comments DEXA Bone Density 1954 Diabetes: Eye Exam 1954 Diabetes: Foot Exam 1954 Hepatitis C Virus (HCV) Screening 1954 Mammogram 1954 TdaP Immunization 1954 Cologuard 1999 Colonoscopy 1999 Colorectal Cancer Screening 1999 Immunochemical Fecal Occult Blood 1999 Pneumococcal Immunization (50+ years) (2 of 2 - PPSV23) 09/12/2020 07/18/2020, 06/20/2020 SARS-COV-2 Immunization ( season) 2025 08/12/2024, 07/31/2023, 08/04/2022, Additional history exists Influenza Immunization (#1) 06/20/202507/21, 07/31/2023, 08/05/2022, Additional history exists Diabetes: Hemoglobin A1c 09/03/2025 025, 10/26/2024, 06/29/2024, Additional history exists Diabetes: Nephropathy Screening 04/28/2026 04/28/2025, 10/28/2024, 07/22/2024, Additional history exists Pneumococcal Immunization Combined Discontinued 07/18/2020, 06/20/2020 Zoster Immunization Completed 04/30/2021, Respiratory Syncytial Virus (RSV) Immunization (Adult) Completed 08/13/2023 Hepatitis B Immunization Aged Out No longer eligible based on patient's age to complete this topic Human Papillomavirus (HPV) Immunization Aged Out No longer eligible based on patient's age to complete this topic Meningococcal Immunization (ACWY) Aged Out No longer eligible based on patient's age to complete this topic Rotavirus Immunization Aged Out No lo nger eligible based on patient's age to complete this topic Procedures Procedure Name Priority Date/Time Associated Diagnosis Comments CBC WITH AUTO DIFF OH Routine 04/28/2025 9:27 AM CDT CMP (COMPREHENSIVE METABOLIC PANEL) Routine 04/28/2025 9:27 AM CDT Iron deficiency Anemia in stage 3a chronic kidney disease (HCC) VITAMIN B12 Routine 04/28/2025 9:27 AM CDT Iron deficiency Anemia in stage 3a chronic kidney disease (HCC) FOLIC ACID (FOLATE) Routine 04/28/2025 9 :27 AM CDT Iron deficiency Anemia in stage 3a chronic kidney disease (HCC) FERRITIN Routine 04/28/2025 9:27 AM CDT Iron deficiency Anemia in stage 3a chronic kidney disease (HCC) IRON W/ IRON BINDING CAPACITY OH Routine 04/28/2025 9:27 AM CDT Iron deficiency Anemia in stage 3a chronic kidney disease (HCC) from Last 3 Months Results * IRON W/ IRON BINDING CAPACITY OH (04/28/2025 9:27 AM CDT) IRON 119 50 - 212 ug/dL [facility] UIBC 313 155 - 355 ug/dL [facility] TIBC 432 261 - 478 ug/dl [facility] % Saturation 28 20 - 50 % [facility] 04/28/2025 9:27 AM CDT Narrative [facility] - 04/29/2025 9:56 AM CDT Release to patient->Immediate us Mayda Torres BARREL DRUM CUTTER, ACCOUNT RESOLUTION ANALYST LAB SEND OUTS Final Result [facility] [place] [address], * (ABNORMAL) CBC WITH AUTO DIFF [place] (04/28/2025 9:27 AM CDT) WBC 5.4 4.0 - 10.0 10*3/uL [facility] HGB 10.6(L) 11.2 - 15.7 g/dL [facility] HCT 33.8(L) 34.1 - 44.9 % [facility] PLT 222 163 - 369 10*3/uL [facility] MPV 10.3 9.4 - 12.4 fL [facility] RBC 3.26(L) 3.93 - 5.22 10*6/uL [facility] MCV 104(H) 79 - 95 fL [facility] MCH 32.5(H) 25.6 - 32.2 pg [facility] MCHC 31.4(L) 32.2 - 36.5 g/dL [facility] RDW 13.0 11.6 - 14.4 % [facility] Neutrophils % 56.3 36.0 - 66.0 % [facility] Lymphocytes % 25.0 19.0 - 40.0 % [facility] Monocytes % 10.2 4.1 - 12.1 % [facility] Eosinophils % 6.3(H) 0.0 - 3.5 % [facility] Basophils % 1.3(H) 0.0 - 1.0 % [facility] Absolute Neutrophils 3.0 1.4 - 6.6 10*3/uL [facility] Absolute Lymphocytes 1.4 0.8 - 4.0 10*3/uL [facility] Absolute Monocytes 0.6 0.2 - 1.2 10*3/uL [facility] Absolute Eosinophils 0.3 0.0 - 0.4 10*3/uL [facility] Absolute Basophils 0.1 0.0 - 0.1 10*3/uL [facility] 04/28/2025 9:27 AM CDT us Mayda Torres APRN, ACCOUNT RESOLUTION ANALYST LAB SEND OUTS Final Result Performing Organization Address City/[facility]/ZIP Co de Phone Number [facility] [address] [place] [address], [place] [phone] * VITAMIN B12 (04/28/2025 9:27 AM CDT) Vitamin B12 392 180 - 914 pg/mL [facility] Blood 04/28/2025 9:27 AM CDT Narrative [facility] - 04/29/2025 2:03 PM CDT Release to patient->Immediate IS THE PATIENT REQUIRED TO BE FASTING FOR 12 HOURS?->No us Mayda Torres APRN, ACCOUNT RESOLUTION ANALYST CHEMISTRY ORDERABLES Final Result Performing Organization Address [facility] Co de Phone Number [facility] Cancer [facility] [address] [place] [address], [place] [phone] * FOLIC ACID (FOLATE) (04/28/2025 9:27 AM CDT) Folate 10.92 >=5.90 ng/mL [facility] Blood 04/28/2025 9:27 AM CDT Narrative [facility] - 04/29/2025 2:15 PM CDT Release to patient->Immediate us Mayda Torres APRN, ACCOUNT RESOLUTION ANALYST CHEMISTRY ORDERABLES Final Result Performing Organization Address [facility]/ZIP Co de Phone Number [facility] [address] [place] [address], [place] [phone] * FERRITIN (04/28/2025 9:27 AM CDT) Ferritin 283 11 - 307 ng/mL [facility] Blood 04/28/2025 9:27 AM CDT Narrative [facility] - 04/29/2025 2:03 PM CDT Release to patient->Immediate Mayda Torres APRN, CNP CHEMISTRY ORDERABLES Final Result [facility] [place] [address], * (ABNORMAL) CMP (COMPREHENSIVE METABOLIC PANEL) (04/28/2025 9:27 AM CDT) Glucose 175(H) 70 - 105 mg/dL [facility] Blood Urea Nitrogen 54(H) 7 - 25 mg/dL [facility] Creatinine 1.8(H) 0.6 - 1.2 mg/dL [facility] Sodium 140 136 - 145 mEq/L [facility] Potassium 5.1 3.5 - 5.1 mEq/L [facility] Chloride 107 98 - 107 mEq/L [facility] Bicarbonate 28 21 - 31 mEq/L [facility] Total Bilirubin 0.4 0.3 - 1.0 mg/dL [facility] Alk. Phosphatase 33(L) 34 - 104 U/L [facility] Aspartate Aminotransferase 26 13 - 39 U/L [facility] Alanine Aminotransferase 22 7 - 52 U/L [facility] Total Protein 6.6 6.4 - 8.9 g/dL [facility] Albumin 4.6 3.5 - 5.7 g/dL [facility] Calcium 9.3 8.6 - 10.3 mg/dL [facility] Anion Gap 10.1 7.0 - 15.0 mEq/L [facility] Globulin 2.0 2.0 - 3.5 g/dL [facility] EGFR 30(L) >60 ml/min/1. 73m2 [facility] Comment: This eGFR is calculated using 2020 CKD-EPI Creatinine equation without race modifier based on the NKF-ASN task force recommendations Equation: cMCK=152*min(SCr/k,1)a*max(SCr/k,1)-1.200*0.9938Age*1.012 (if female), where SCr is serum creatinine, k is 0.7 for females and 0.9 for males, and a is -0.241 for females and -0.302 for males Blood 04/28/2025 9:27 AM CDT Narrative [facility] - 04/29/2025 9:56 AM CDT Release to patient->Immediate IS THE PATIENT REQUIRED TO BE FASTING FOR 8 HOURS?->No us Mayda Torres APRN, ACCOUNT RESOLUTION ANALYST CHEMISTRY ORDERABLES Final Result [facility] [place] [address], from Last 3 Months Insurance MEDICARE C [facility] MEDICARE C [facility] Care Teams Corporate Counselor Relationship Specialty Start Date End Date Osman Malcolm [address] [place] [address] PCP - General Family Medicine 03/08/20 Robert Corbett MD [address] [place] [address] Consulting Physician Oncology 04/18/22 Adrien Cerrato MD [address] [place] [address] Consulting Physician Oncology 05/14/22
--- OUTSIDE RECORDS SUMMARY | 2025-05-10 11:04 | XMS_ITS | Clinical Summary ---
Author Organization [facility] Medical Office Building B Address [address] [place] [address] Care Team Providers Care Spud Sorter Name Role Phone Rey Hinton PA Unavailable Reina Jimenes Unavailable Osman Malcolm MD Primary Care Provider [phone] Allergies Active Allergy Reactions Criticality Noted Date [...] long-term current use of insulin ([facility]) Continuous glucose monitoring. Change every 10 days. 9 each 3 05/08/20 23 Active blood-glucose meter,continuo us (Dexcom G7 Land Degradation Analyst) miscIndication s:Type 2 diabetes mellitus with hyperglycemia, with long-term current use of insulin ([facility]) Continuous glucose monitor 1 each 05/08/20 23 Active levothyroxine (SYNTHROID) 112 mcg tablet Take 1 tablet (112 mcg total) by mouth superintendent gas distribution before breakfast 05/10/20 24 Active insulin glargine [...] long-term current use of insulin ([facility]) USE TO INJECT INSULIN DAILY 100 each [...] associated with type 2 diabetes mellitus (HCC) TAKE 1 CAPSULE BY MOUTH THREE TIMES [...] Chronic problem. Managed by Dr Marr at [place]. Renal: Dr Marr at [place]; saw him 01/2025 Dr Marr wants her [...] mychart. Aware to check results/results letter in [facility]. Will contact by phone if needed. Assessment & Plan (10/26/2024 12:09 PM CARE MANAGEMENT COORDINATOR): Chronic problem. Managed by Dr Marr at [place]. Next appt 12/29/24 Nephropathy: On GWEN-I / ARB s : Yes. Lisinopril 5mg. Last MA: 12/25/23 (36 calc). Last creat/GFR: 03/31/24 GFR=27, CR=1.96. Assessment & Plan (06/29/2024 11:48 AM CDT): Chronic problem. Managed by Dr Marr at [place]. Next appt 06/30/24. Nephropathy: On GWEN-I / [...] barefoot. Assessment & Plan (10/26/2024 11:56 AM CARE MANAGEMENT COORDINATOR): Chronic problem. Gabapentin Gabapentin 300-600mg at HS. [...] barefoot. Assessment & Plan (12/25/2023 10:41 AM CARE MANAGEMENT COORDINATOR): Foot care discussed Continue gabapentin Assessment & [...] 10/31/2022 Assessment & Plan (10/31/2022 12:56 PM CARE MANAGEMENT COORDINATOR): Encouraged Mrs Trujillo to walk in home if weather not conducive to walking outside. Discussed healthy diet and importance of regular physical activity (20- 30min/day, 150min/wk). Hyperlipidemia associated with type 2 diabetes latanya brown 07/25/2022 Assessment & Plan (03/03/2025 11:43 AM CDT): Chronic problem, at goal on Atorvastatin 10mg & fenofibrate 160mg daily Last lipid panel: 12/25/23 LDL=98, NL=210. Will update lipid panel. Verified that she uses [facility] [employer] [facility]. Aware to check results/results letter in [employer]. Will contact by phone if needed. Assessment & Plan (10/26/2024 11:30 AM CARE MANAGEMENT COORDINATOR): Chronic problem, at goal on Atorvastatin 10mg & fenofibrate 160mg daily Last lipid panel: 12/25/23 LDL=98, EX=539. Assessment & Plan (06/29/2024 11:46 AM CDT): Chronic problem, at goal on Atorvastatin 10mg & fenofibrate 160mg daily Last lipid panel: 12/25/23 LDL=98, TE=942. Assessment & Plan (12/25/2023 10:41 AM CARE MANAGEMENT COORDINATOR): Chronic, stable Continue Atorvastatin 10 mg daily UDT lipid profile Assessment & Plan (05/08/2023 11:12 AM CDT): Chronic problem, at goal on Atorvastatin 10mg & fenofibrate 160mg daily Last lipid panel: 07/25/22 LDL=74, MX=277. No changes at this time. Assessment & Plan (01/30/2023 11:08 AM CDT): Chronic problem, at goal on Atorvastatin 10mg. Last lipid panel: 07/25/22 LDL=74, LC=923. No changes at this time. Assessment & Plan (10/31/2022 8:59 AM CARE MANAGEMENT COORDINATOR): Chronic problem, near goal. LDL=74 07/2022. Atorvastatin [...] mychart. Aware to check results/results letter in [employer]. Will contact by phone if needed. DM eye exam (09/07/24 no DMR [facility]). Had appt 2 wks ago at [facility] in [place]. Letter sent to get copy of report. [...] infection. Assessment & Plan (10/26/2024 11:56 AM CARE MANAGEMENT COORDINATOR): Chronic problem, stable/controlled. A1c stable at 5.8%. Current medications: Metformin XR 500mg twice daily before meals Januvia 100 mg daily (PAP) Basaglar 14 units every evening (PAP) Cannot trial GLP1a d/t h/o pancreatitis UTD on labs DM eye exam ([address] [facility]). 2nd request letter sent. Strive for [...] infection. Assessment & Plan (12/25/2023 10:40 AM CARE MANAGEMENT COORDINATOR): Chronic, stable Contiue current regimen including Basaglar, Glimepiride 1 mg daily, Metformin 500 mg bid and Januvia Diet and exercise were discussed Assessment & Plan (09/09/2023 11:37 AM CARE MANAGEMENT COORDINATOR): Hba1c was Lab Results Component Value Date [...] Phone not compatible with dexcom nor freestyle haseeb. Sent in Dexcom 7 & reader. [...] evening Had DM eye exam 01/2023 at [facility] in [place]. Letter sent to get copy of results. [...] infection. Assessment & Plan (10/31/2022 12:55 PM CARE MANAGEMENT COORDINATOR): Chronic problem, at goal. No changes. Continue [...] complication 12/27/2024 03/03/2025 Diabetic neuropathy 11/16/2024 03/03/20 25 Diabetic mononeuropathy asso ciated with type 2 diabetes mellitus 11/01/2024 03/03/2025 Aftercare following left kne e joint replacement surgery 05/03/2020 10/31/2022 Primary osteoarthritis of both knees 04/20/2020 09/15/2020 Overview (04/20/2020): Added automatically from request for surgery [id number] Encounters Date Type Department Care Team Description 03/08/2025 Orders Only [facility] Medical Group Diabetes and Endocrinology [address] [place] [phone] ProviderMarcello MD 03/04/2025 Results Follow-Up [facility] Medical Group Diabetes and Endocrinology [address] [place] [phone] Sisi Guevara, ASPHALT DISTRIBUTOR TENDER Albumin Creatinine Ratio, Urine, Lipid panel 03/03/2025 12:03 PM CDT - 03/03/2025 11:59 PM CDT Hospital Encounter [address] [address] Type 2 diabetes mellitus with hyperglycemia, with long-term current use of insulin (HCC) Discharge Disposition: Discharge to home or self care 03/03/2025 12:00 PM CDT Lab [facility] Medical [facility] Outpatient Lab at [address] [phone] Acquired hypothyroidism (Primary Dx); Type 2 diabetes mellitus with hyperglycemia, with long-term current use of insulin (HCC) 03/03/2025 11:30 AM CDT Office Visit [facility] Diabetes and Endocrinology [address] [place] [phone] Sisi Guevara NP Type 2 diabetes mellitus with hyperglycemia, with long-term current use of insulin (HCC) (Primary Dx); Hyperlipidemia associated with type 2 diabetes mellitus (HCC); Diabetic neuropathy associated with type 2 diabetes mellitus (HCC); CKD stage 4 due to type 2 diabetes mellitus (HCC) 03/03/2025 Telephone [facility] Diabetes and Endocrinology [address] [place] [phone] Sisi Guevara NP Med Management ([facility]) from Last 3 Months Immunizations Immunization Administration [...] on file Legal Sex Female 6:42 PM CARE MANAGEMENT COORDINATOR Gender Identity Not on file Sexual Orientation [...] 03/03/2025 11:22 AM CDT Plan of Treatment Health Maintenance Due Date Last Done Comments Breast Cancer Screening-Mammogram 1955 Colon Cancer Screening-Colonoscopy 1955 Hepatitis C Screening 1955 Osteoporosis Screening-Bone Density Scan 1954 DTaP/Tdap/Td Vaccine (1 - Tdap) 1965 Hepatitis B Screening 1972 Well Visit 65+ 2019 Pneumococcal vaccine 65+ (2 of 2 - PPSV23) 09/12/2020 07/18/2020, 06/20/2020 Depression Screening 05/08/2024 05/08/2023, 07/25/2022, 05/28/2022, Additional history exists Influenza Vaccine (#1) 2025 4, 08/03/2022, 07/20/2020, Additional history exists Hemoglobin A1C 09/03/2025 03/03/2025, 0 04/2025, 06/29/2024, Additional history exists Fall Risk Assessment 12/29/2025 12/29/2024, 09/09/20 23 eGFR 01/12/2026 01/12/2025, 03/2 03/2025, 12/27/2024, Additional history exists Albumin Creatinine Ratio, Urine 03/03/2026 03/03/2025, 12/25/2023, 07/25/2022 Foot Exam 03/03/2026 03/03/2025, 06/20, 01/30/2023, Additional history exists Lipid Panel 03/03/2026 03/03/2025, 04/2024, 07/25/2022 Dilated Eye Exam 02/15/2027 02/15/2025, , 10/22/2021 Zoster Vaccine Completed 04/30/2021, 02/21/2021 Medical Devices Implanted Type Area Fire Tender Device Identifier Shelf Expiration Date Model / Serial / Lot Depuy Orthopaedics Inc [id number] Attune Cruciate Retain Cementless Knee Left 6 Narrow Component - [id number] Implanted:Qty: 1 on 05/02/2020 by Go Lazaro MD at [facility] Left: Knee Depuy [employer]ed[employer] Inc 10/19/2029 [id number] / / [id number] Depuy Orthopaed[employer] Inc [id number] Attune 5mm Cruciate Retaining Rotate Platform Knee 6 Insert - [id number] Implanted:Qty: 1 on 05/02/2020 by Go Lazaro MD at [facility] Left: Knee [employer]uy [employer] Inc 08/19/2024 [id number] / / [id number] Attune Knee System, Tibial Base Rotating Platform Implanted:Qty: 1 on 05/02/2020 by Go Lazaro MD at [facility] Left: Knee Depuy [employer]ed[employer] Inc [id number] 05/19/2028 [id number] / / [id number] [employer] [id number] Palacos R+G High Viscosity Cement Bone Gentamicin Arthroplasty - [id number] Implanted:Qty: 1 on 05/02/2020 by Go Lazaro MD at [facility] Left: Knee [employer] 02/16/2022 [id number] / / [id number] [employer] [id number] Palacos R+G High Viscosity Cement Bone Gentamicin Arthroplasty - [id number] Implanted:Qty: 1 on 09/05/2020 by Go Lazaro MD at [facility] Right: Knee [employer] 08/19/2022 [id number] / / [id number] Depuy Orthopaedics Inc [id number] Baseplate Tibial Attune 6 Knee Cement Rotate Platform Sterile - [id number] Implanted:Qty: 1 on 09/05/2020 by oG Lazaro MD at [facility] Right: Knee [employer] Inc 03/19/2030 [id number] / / [id number] Depuy Orth[employer] Inc [id number] Attune 7mm Cruciate Retaining Rotate Platform Knee 6 Insert - [id number] Implanted:Qty: 1 on 09/05/2020 by Go Lazaro MD at [facility] Right: Knee [employer] Inc 08/19/2024 [id number] / / [id number] Depuy [employer] Inc [id number] Attune Cruciate Retain Cementless Knee Right 6 Component Femoral - [id number] Implanted:Qty: 1 on 09/05/2020 by Go Lazaro MD at [facility] Right: Knee [employer]uy [employer]ed[employer] Inc 07/19/2028 [id number] / / [id number] Medtronic Inc Specify Surescan 65cm 3 Column 16 Electrode Lead Nerve Stimulator [id number] - [id number] Implanted:Qty: 1 on 12/27/2024 by Vivi Johansen MD at [facility] N/A: Back Med[employer] Inc 09/24/2028 [id number] / / [id number] Medtronic Inc Generator Pulse Inceptiv Sys Stm Electrcl Analges Implant [id number] - [id number] - [id number] Implanted:Qty: 1 on 12/27/2024 by Vivi Johansen MD at [facility] Right: Back Med[employer] Inc [id number] 11/02/2025 [id number] / [id number] / Biocomposites Stimulan Rapid Cure Kit Paste Public Service Administrator 5cc 12.5cc Bone Void 620-005 - [id number] Implanted:Qty: 1 on 12/27/2024 by Vivi Johansen MD at [facility] N/A: Back [employer]ocom[employer]ites [id number] 06/19/2027 620-005 / / [id number] Procedures Procedure Name Priority Date/Time Associated Diagnosis Comments LIPID PANEL Routine 03/03/2025 12:03 PM CDT Type 2 diabetes mellitus with hyperglycemia, with long-term current use of insulin ([facility]) ALBUMIN CREATININE RATIO, URINE Routine 03/03/2025 12:03 PM CDT Type 2 diabetes mellitus with hyperglycemia, with long-term current use of insulin ([facility]) POCT HEMOGLOBIN A1C Routine 03/03/2025 1 1:26 AM CDT Type 2 diabetes mellitus with hyperglycemia, with long-term current use of insulin ([facility]) POCT GLUCOSE Routine 03/03/2025 11:26 AM CDT Type 2 diabetes mellitus with hyperglycemia, with long-term current use of insulin ([facility]) DIABETES EYE EXAM Routine 02/15/2025 7:29 AM CDT HM CREATININE Routine 01/12/2025 9:14 AM CDT from Last 3 Months or Most Recently Relevant to Health Maintenance Results * (ABNORMAL) Albumin Creatinine Ratio, Urine (03/03/2025 12:03 PM CDT) Albumin Ur 12.2 mg/L Comment: Interpretive Data No reference range established. Current interpretive data was last revised 2019. Creatinine Ur 22.8 mg/dL [facility] Comment: Interpretive Data No reference range established. Current interpretive data was last revised 2019. Albumin Creatinine Ratio, Ur 54(H) 1 - 29 mg/g [facility] Urine 03/03/2025 12:0 3 PM CDT 03/03/2025 10:38 PM CDT us Sisi Guevara NP LAB URINE ORDERABLES Ban ruiz Result [facility] [address] Department [place] [address] * (ABNORMAL) Lipid panel (03/03/2025 12:03 PM [...] NCEP Expert Panel. Circulation 2004;110:227 3. Cleve Mancini et al. HALEY Cardiol. 2019February 17;5(5):540-548. doi: [email or web address] Current Interpretive Data was [...] BLOOD ORDERABLES Ban ruiz Result [facility] [address] Department [place] [address] * (ABNORMAL) POCT hemoglobin A1c (03/03/2025 11:26 AM CDT) Hemoglobin A1C, POC 6.3(A) 4.0 - 5.6 % Blood 03/03/2025 11:2 6 AM CDT Sisi Guevara NP POINT OF CARE TEST ORDERA BLES Final Result * (ABNORMAL) POCT glucose (03/03/2025 11:26 AM CDT) Glucose Blood, POC 129 Normal Fasting 70 - 100, Random <200 mg/dL Blood 03/03/2025 11:2 6 AM CDT Sisi Guevara NP POINT OF CARE TEST ORDERA BLES Final Result * HM DIABETES EYE EXAM (02/15/2025 7:29 AM CDT) Historical Provider HEALTH MAINTENANCE Final Result * (ABNORMAL) HM CREATININE (01/12/2025 9:14 AM CDT) SCRIBED Creatinine 2.14(A) 0.7 - 1.0 mg/dl EXTERNAL LAB SCRIBED eGFR in NonAfrican Citizen Of [place] 20 >=60 - NA EXTERNAL LAB Blood 01/12/2025 9:14 AM CDT Historical Provider HEALTH MAINTENANCE Edited Result - Final EXTERNAL LAB from Last 3 Months or Most Recently Relevant to Health Maintenance Insurance [employer] [facility] Address: [address] [place] [address] [employer] Advance Directives For more information, please contact: [phone] * Full Code (Latest Code Status on File) Date Activated Date Inactivated Comments 12/27/2024 12:45 PM 12/29/2024 7:57 PM * Full Code Date Activated Date Inactivated Comments 09/05/2020 1:54 PM 09/06/2020 6:34 PM * Full Code Date Activated Date Inactivated Comments 05/02/2020 2:11 PM 05/03/2020 8:18 PM Care Teams Spud Sorter Relationship Specialty Start Date End Date Osman Malcolm MD [address] [facility] [address] [facility] [address] [place] [address] PCP - General Family Medicine 09/18/22 Rey Hinton PA [address] [place] [address] [address] [address] Physician Principal Librarian Orthopedic Surgery 05/03/20 Reina Jimenes PA [address] [place] [address] [address] [address] Physician Principal Librarian Orthopedic Surgery 09/06/20
== END 2025-05-10 10:59 | disposition home or self-care (01) ==
PROVIDERS: PCP Emergency Medicine; Visit Provider Emergency Medicine
DX: M79.661 Pain in right lower leg (principal)
CPT/HCPCS: 93971

== ENCOUNTER 2025-07-18 10:03 | Outpatient (CLI) | payer MEDICARE, SELFPAY ==
--- OUTSIDE RECORDS SUMMARY | 2008-06-21 08:43 | XMS_ITS | Continuity of Care Document ---
Author Organization [facility] Address [id number] [place] [address] [address] [place] [address] Phone Care Team Providers Care Patternmaker Pressure Cast Name Role Phone Elda Powers Unavailable Unavailable Procedures Procedure Date Eye Exam & Treatment Dilated Retinal Exam W Interpretation Se AREDS Formula Prescribed/Recommended May Eye Exam, New Patient Dilated Macular Exam Performed 07 Advance Directives Directive Yes / No Effective Date File Name No Information Encounters Encounter Description Practice Location Reason(s) For Visit Diagnoses Date Provider Providers Copied on Encounter [facility], [address], [place], [place], [id number], tel:[phone] [facility] No Information [address] Priya Schroeder. [address] [facility] , [address], [place], [place], [facility], . tel:[phone] Referring Provider: Avery Ye, [address] [facility] [address], [place], [place], [facility]. tel:[phone] [facility], [address], [place], [place], [id number], tel:[phone] [facility] No Information [address] Priya Schroeder. [address] [facility] [address] , [address], [place], [place], [facility], . tel:[phone] Referring Provider: Avery Ye, [address], [place], [place], [facility]. tel:[phone] Family History Family Member Type Diagnosis Age At Onset No Information Payers Payer name Insurance type Covered libertarian ID Authoriza tifrederick(s) Medicare [facility] [id number] Social History Type Description Quantity Date Captured Comments Sex Female Smoking Status No Information Chief Complaint And Reason For Visit No Information Reason For Referral Reason For Referral No Information History Of Present Illness Encounter Date Complaint History Of Prese nt Illness No Information Functional Status Date Functional Assessmen t No Information Instructions Date Instruction Additional Infor mation No Information Assessments Type Assessment Date No Information Patient Care Teams Name Effective Dates (start - stop) Status Members No Information
--- OUTSIDE RECORDS SUMMARY | 2025-07-18 10:42 | XMS_ITS | Clinical Summary ---
Author Organization [facility] Address [address] [place] [address] Phone Care Team Providers Care Performance Tester Name Role Phone Osman Malcolm MD Primary Care Provider [phone] Allergies No known active allergies Medications alendronate [...] DAILY 2 Active Lancets (OneTouch Delica Plus [id number]) misc USE TO CHECK GLUCOSE TWICE DAILY [...] file Legal Sex Female 9:35 AM [facility] Gender Identity Not on file Sexual Orientation Not on file Last Filed Vital Signs Vital Sign Reading Time Taken Comments Blood Pressure 124/60 10/02/2022 11:11 AM MACHINE FEEDER Pulse 72 10/02/2022 11:11 AM MACHINE FEEDER Temperature 36.2 C (97.2 F) 10/02/2022 11:11 AM MACHINE FEEDER Respiratory Rate - - Oxygen Saturation - - Inhaled Oxygen Concentration - - Weight 97.5 kg (215 lb) 10/02/2022 11:11 AM MACHINE FEEDER Height 170.2 cm (5' 7) 10/02/2022 11:11 AM MACHINE FEEDER Body Mass Index 33.67 10/02/2022 11:11 AM MACHINE FEEDER Plan of Treatment Health Maintenance Due Date Last Done Comments Diabetic Foot Exam 1964 Ophthalmology Exam 1964 Pneumococcal PPSV23/PCV13 65 + Years / High and Highest Risk (1 of 5 - PCV) 1973 Influenza Vaccine (#1) 2025 08/03/2022, 2019 Insurance [place] [address] Care Teams Performance Tester Relationship Specialty Start Date End Date Osman Malcolm MD [address] [place] [address] PCP - General Family Medicine 08/28/22
--- OUTSIDE RECORDS SUMMARY | 2025-07-18 10:42 | XMS_ITS | Encounter Summary ---
Author Organization [facility] Healthcare Address [address] [place] [address] Care Team Providers Care Mechanical Striper Name Role Phone Rey Hinton Unavailable [phone] Reina Jimenes Unavailable [phone] Osman Malcolm MD Primary Care Provider [phone] Encounter Details Date Type Department Care Team (Late st Contact Info) Description 07/13/2025 Orders Only [facility] Medical Group Diabetes and Endocrinology [address] [place] [phone] Sisi Guevara, DIE ASSEMBLER [address] [address] Social History Tobacco Use Types Packs/Day Years [...] feel afraid or unsafe? 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 Gender Identity Not on file Sexual Orientation Not on file documented as of this encounter Plan of Treatment Not on file documented as of this encounter Visit Diagnoses Not on filedocumented in this encounter Care Teams Mechanical Striper Relationship Specialty Start Date End Date Osman Malcolm MD [address] [facility] [address] [place] [address] PCP - General Family Medicine 09/18/22 Rey Hinton PA [address] [place] [address] [address] [place] [address] Physician Export Traffic Department Manager Orthopedic Surgery 05/03/20 Reina Jimenes PA [address] [place] [address] [address] [place] [address] Physician Export Traffic Department Manager Orthopedic Surgery 09/06/20 documented as of this encounter
--- OUTSIDE RECORDS SUMMARY | 2025-07-18 10:42 | XMS_ITS | Clinical Summary ---
Author Organization [facility] Address [address] [place] [address] Care Team Providers Care Dietary Service Aide Name Role Phone Osman Malcolm MD Primary Care Provider [phone] Allergies No known active allergies Medications LASIX [...] drink = 0.6 oz pur e alcohol) [place] Utilities Answer Date Recorded In the past 12 months has [facility] Normal, oil, or water [facility] threatened to shut off services in your [...] any time in the past 12 m [facility], were you homeless or living in a fpc (including now)? No 08/04/2024 Comments No Sex and Gender Information Value Date Recorded Sex Assigned at Not on file Legal Sex Female 12:57 PM CDT Gender Identity Not on file Sexual Orientation Not on file Last Filed Vital Signs Vital Sign Reading Time Taken Comments Blood Pressure 89/60 09/07/2024 10:35 AM MUSIC WORKER Pulse 88 09/07/2024 10:35 AM MUSIC WORKER Temperature 36.5 C (97.7 F) 09/07/2024 10:35 AM MUSIC WORKER Respiratory Rate 16 09/07/2024 10:35 AM MUSIC WORKER Oxygen Saturation 98% 09/07/2024 10:35 AM MUSIC WORKER Inhaled Oxygen Concentration - - Weight 76.7 kg (169 lb) 09/07/2024 10:35 AM MUSIC WORKER Height 170.2 cm (5' 7) 09/07/2024 10:35 AM MUSIC WORKER Body Mass Index 26.47 09/07/2024 10:35 AM MUSIC WORKER Plan of Treatment Health Maintenance Due Date Last Done Comments Colorectal Cancer Screening Colonoscopy (10 Years) 1954 Hepatitis C 1972 DTaP, Tdap and Td Vaccines (1 - Tdap) 1973 Mammogram Screening 1994 Annual Medicare Wellness Visit 2019 Dexa Scan (General) 2019 Pneumococcal Vaccine: 50+ Years (2 of 2 - PPSV23) 07/18/2021 07/18/2020, 06/20/2020 PHQ-2 (Physician [place]) 10/20/2024 09/07/2024 COVID-19 Vaccine ( season) 2025 07/31/2023, 08/04/2022, 01/22/2022, Additional history exists Zoster Vaccines Completed 04/30/2021, 02/21/2021 RSV Immunization [...] Briscoe RN Medical Devices Implanted Type Area Processing Assistant Device Identifier Shelf Expiration Date Model / Serial / Lot Stimulator Lead Implant(2 Leads)-11/30/19 16 Implanted:Qty: 2 on 11/30/2015 Lead Implant Spine Thoracic [employer] [id number] / / Stimulator Implant- [id number] Implanted:Qty: 1 on 04/16/2024 Stimulator Implant Back [employer] [id number] / [id number] / Description:MR CONDITIONAL A T 1.5 T ONLY, NEED REMOTE TO TURN OFF STIMULATION, SHOULD BE FULL BODY ELIGIBLE , NORMAL MODE NATALIIA , MAX 30 MINUTES TOTAL SCAN TIME IN 90 MINUTE WINDOW Insurance [facility] [address] Advance Directives * Full Code (Latest Code Status on File) Date Activated Date Inactivated Comments 08/04/2024 1:00 AM 08/10/2024 2:07 PM Care Teams Dietary Service Aide Relationship Specialty Start Date End Date Osman Malcolm MD PCP - General FAMILY PRACTICE 05/09/22
--- OUTSIDE RECORDS SUMMARY | 2025-07-18 10:42 | XMS_ITS | Encounter Summary ---
Author Organization [facility] Healthcare Address [address] [place] [address] Care Team Providers Care Cleat Layer Name Role Phone Rey Hinton Unavailable [phone] Reina Jimenes Unavailable [phone] Osman Malcolm MD Primary Care Provider [phone] Encounter Details Date Type Department Care Team (Late st Contact Info) Description 07/15/2025 Orders Only [facility] Medical Group Diabetes and Endocrinology [address] [place] [id number] Provider, MD Marcello [address] [place], [place] [id number] Social History Tobacco Use Types Packs/Day Years [...] on file 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 Gender Identity Not on file Sexual Orientation Not on file documented as of this encounter Plan of Treatment Not on file documented as of this encounter Procedures Procedure Name Priority Date/Time Associated Diagnosis Comments COMPREHENSIVE METABOLIC PANEL Routine 04/29/2025 9:56 AM CDT documented in this encounter Results * (ABNORMAL) Comprehensive metabolic panel (04/29/2025 9:56 AM CDT) SCRIBED Sodium 140 135 - 145 mmol/L EXTERNAL LAB SCRIBED Potassium 5.1 3.3 - 5.2 mmol/L EXTERNAL LAB SCRIBED Chloride 107 97 - 110 mmol/L EXTERNAL LAB SCRIBED Carbon Dioxide 28 22 - 32 mmol/L EXTERNAL LAB SCRIBED Anion Gap 10.1 2 - 15 mmol/L EXTERNAL LAB SCRIBED Urea Nitrogen (BUN) 54(A) 6 - 25 mg/dL EXTERNAL LAB SCRIBED Creatinine 1.8(A) 0.60 - 1.10 mg/dL EXTERNAL LAB SCRIBED Glucose 175 70 - 199 mg/dL EXTERNAL LAB SCRIBED Calcium 9.3 8.5 - 10.3 mg/dL EXTERNAL LAB SCRIBED Bilirubin 0.4 0.1 - 1.2 mg/dL EXTERNAL LAB SCRIBED Plasma Protein 6.6 6.5 - 8.5 g/dL EXTERNAL LAB SCRIBED Albumin 4.6 3.5 - 5.0 g/dL EXTERNAL LAB SCRIBED Alkaline Phosphatase 33(A) 40 - 130 Units/L EXTERNAL LAB SCRIBED Alanine Transaminase (ALT) 22 7 - 45 Units/L EXTERNAL LAB SCRIBED Aspartate Transaminase (AST) 26 10 - 45 Units/L EXTERNAL LAB SCRIBED eGFR 0 >60 mL/min/1.7 3 m2 EXTERNAL LAB SCRIBED eGFR 30 >60 mL/min/1.7 3 m2 EXTERNAL LAB Blood us Historical Provider LAB BLOOD ORDERABLES Edit ed Result - Final EXTERNAL LAB documented in this encounter Visit Diagnoses Not on filedocumented in this encounter Care Teams Cleat Layer Relationship Specialty Start Date End Date Osman Malcolm MD [address] [facility] [address] [place] [address] PCP - General Family Medicine 09/18/22 Rey Hinton PA 4 [facility] [address] [place] [address] Physician Pyroglazer Orthopedic Surgery 05/03/20 Reina Jimenes PA 4 [facility] [address] [place] [address] Physician [facility]roglazer Orthopedic Surgery 09/06/20 documented as of this encounter
--- OUTSIDE RECORDS SUMMARY | 2025-07-18 10:42 | XMS_ITS | Clinical Summary ---
Author Organization [facility] Medical Office Building B Address [address] [place] [address] Care Team Providers Care Turner Machine Operator Name Role Phone Rey Hinton PA Unavailable [phone] Reina Jimenes Unavailable Osman Malcolm MD Primary Care Provider [phone] Allergies Active Allergy Reactions Criticality Noted Date [...] 2 (two) times a day Active lisinopriL (PRINIVIL,ZES TRIL) 5 mg tablet Take 1 tablet (5 [...] daily Active blood-glucose sensor (Dexcom G7 Sensor) deviceIndicat ions:Type 2 diabetes mellitus with hyperglycemia , with long-term current use of insulin ([facility]) Continuous glucose monitoring. Change every 10 days. 9 each 3 05/08/20 23 Active blood-glucose meter,continu ous (Dexcom G7 Office Support) miscIndicatio ns:Type 2 diabetes mellitus with hyperglycemia , with long-term current use of insulin ([facility]) Continuous glucose monitor 1 each 05/08/20 23 Active levothyroxine (SYNTHROID) 112 mcg tablet Take 1 tablet (112 mcg total) by mouth manager coding before breakfast 05/10/20 24 Active SITagliptin phosphate (JANUVIA) 100 mg tabletIndicat ions:type 2 diabetes mellitus Take 1 tablet (100 mg total) by mouth every morning Active cholecalcifer ol (VITAMIN D-3) 5,000 unit tablet Take 125 mcg by mouth Active traMADoL (ULTRAM) 50 mg tablet Active BASAGLAR 100 unit/mL (3 mL) pen for injection Inject 23 Units under the skin nightly 30 mL 2 03/03/20 25 026 Active Additional Information Patient taking differently: 24 Unitssubcutaneous Nightly, Reported on 07/13/2025 pen needle, diabetic 32 gauge x 5/32 needleIndicat ions:Type 2 diabetes mellitus with hyperglycemia , with long-term current use of insulin ([facility]) USE TO INJECT INSULIN DAILY 100 each 05/10/20 25 Active gabapentin (NEURONTIN) 300 mg capsuleIndica tions:Diabeti c neuropathy associated with type 2 diabetes mellitus (HCC) TAKE 1 CAPSULE BY MOUTH THREE TIMES DAILY 90 capsule 1 05/31/20 25 Active aspirin 81 mg capsule Take 81 mg by mouth 08/10/20 20 Active insulin glargine 100 unit/mL (3 mL) pen for injection Inject 14 Units under the skin nightly Max daily dose is 20 units 025 Discontin ued(No longer taking - Do not display on AVS) SITagliptin phosphate (Januvia) 100 mg tablet 025 Discontin ued(Dupli fredis order) glimepiride (AMARYL) 2 mg tablet Take 0.5 mg by mouth 0 23 09/24/2 025 Discontin ued(No longer taking - Do not display on AVS) metFORMIN (GLUCOPHAGE) 500 mg tablet Take 1 tablet (500 mg total) by mouth 06/30/20 025 Discontin ued(No longer taking - Do not display on AVS) Active Problems Problem Noted Date Diagnosed Date Varicose veins of right lower extremity with tawny n 05/27/2025 Assessment & Plan (05/27/2025 12:26 PM CDT): Episode of bleeding from a spider vein on the foot stopped after holding pressure. Has some varicosities to the medial calf however overall are asymptomatic. Recommend compression therapy and can follow up me as needed. CKD stage 4 due to type 2 diabetes mellitus 06/20 Assessment & Plan (07/13/2025 11:47 AM CDT): Chronic problem. Managed by Dr Marr at [facility]; saw him 04/2025. Does not have to see him until 6 mos. Nephropathy: On GWEN-I / ARB s : Yes. Lisinopril 5mg. Last MA: 01/01/25 (54). Last creat/GFR: 04/28/25 GFR=30 (out of 60), CR=1.8. Assessment & Plan (03/03/2025 11:52 AM CDT): Chronic problem. Managed by Dr Marr at [facility]. Renal: Dr Marr at [facility]; saw him 01/2025 Dr Marr wants her [...] mychart. Aware to check results/results letter in [employer]. Will contact by phone if needed. Assessment & Plan (10/26/2024 12:09 PM WOOD TOOL MAKER): Chronic problem. Managed by Dr Marr at [facility]. Next appt 12/29/24 Nephropathy: On GWEN-I / ARB s : Yes. Lisinopril 5mg. Last MA: 12/25/23 (36 calc). Last creat/GFR: 03/31/24 GFR=27, CR=1.96. Assessment & Plan (06/29/2024 11:48 AM CDT): Chronic problem. Managed by Dr Marr at [facility]. Next appt 06/30/24. Nephropathy: On GWEN-I / ARB s : Yes. Lisinopril 5mg. Last MA: 12/25/23 (36 calc). Last creat/GFR: 03/31/24 GFR=27, CR=1.96. Diabetic neuropathy associat ed with type 2 diabetes mellitus 01/30/2023 Assessment & Plan (07/13/2025 11:42 AM CDT): Chronic problem. Gabapentin Gabapentin 300 mg bid. H/o foot ulcers. Reviewed foot care; needs to lotion daily. Aware to check feet nightly & not go barefoot.Aware to check feet nightly, not to go barefoot. Assessment & Plan (03/03/2025 11:54 AM CDT): Chronic problem. Gabapentin Gabapentin 300 mg bid. H/o foot ulcers. Reviewed foot care; needs to lotion daily. Aware to check feet nightly & not go barefoot.Aware to check feet nightly, not to go barefoot. Assessment & Plan (10/26/2024 11:56 AM WOOD TOOL MAKER): Chronic problem. Gabapentin Gabapentin 300-600mg at [...] barefoot. Assessment & Plan (12/25/2023 10:41 AM WOOD TOOL MAKER): Foot care discussed Continue gabapentin Assessment [...] 10/31/2022 Assessment & Plan (10/31/2022 12:56 PM WOOD TOOL MAKER): Encouraged Mrs Trujillo to walk in home if weather not conducive to walking outside. Discussed healthy diet and importance of regular physical activity (20- 30min/day, 150min/wk). Hyperlipidemia associated with type 2 diabetes latanya brown 07/25/2022 Assessment & Plan (07/13/2025 11:42 AM CDT): Chronic problem, at goal on Atorvastatin 10mg & fenofibrate 160mg daily Last lipid panel: 03/03/25 LDL=90, HZ=117. Assessment & Plan (05/27/2025 12:27 PM CDT): Stable continue Lipitor Assessment & Plan (03/03/2025 11:43 AM CDT): Chronic problem, at goal on Atorvastatin 10mg & fenofibrate 160mg daily Last lipid panel: 12/25/23 LDL=98, OF=660. Will update lipid panel. Verified that she uses mychart. Aware to check results/results letter in [employer]. Will contact by phone if needed. Assessment & Plan (10/26/2024 11:30 AM WOOD TOOL MAKER): Chronic problem, at goal on Atorvastatin 10mg & fenofibrate 160mg daily Last lipid panel: 12/25/23 LDL=98, PN=107. Assessment & Plan (06/29/2024 11:46 AM CDT): Chronic problem, at goal on Atorvastatin 10mg & fenofibrate 160mg daily Last lipid panel: 12/25/23 LDL=98, VD=845. Assessment & Plan (12/25/2023 10:41 AM WOOD TOOL MAKER): Chronic, stable Continue Atorvastatin 10 mg daily UDT lipid profile Assessment & Plan (05/08/2023 11:12 AM CDT): Chronic problem, at goal on Atorvastatin 10mg & fenofibrate 160mg daily Last lipid panel: 07/25/22 LDL=74, ND=932. No changes at this time. Assessment & Plan (01/30/2023 11:08 AM CDT): Chronic problem, at goal on Atorvastatin 10mg. Last lipid panel: 07/25/22 LDL=74, AI=129. No changes at this time. Assessment & Plan (10/31/2022 8:59 AM WOOD TOOL MAKER): Chronic problem, near goal. LDL=74 07/2022. Atorvastatin 10mg daily. No changes at this time. Assessment & Plan (07/25/2022 12:50 PM CDT): Continue atorvastastin Check lipid profile LDL goal under 70 Type 2 diabetes mellitus wit h hyperglycemia, with long-term current use of insulin 05/28/2022 Assessment & Plan (07/13/2025 11:53 AM CDT): Chronic problem, at goal but A1c connor from 6.3% 03/03/25 to now 6.9%. Renal stopped metformin d/t renal insufficiency. -will increase basaglar from 24 to 26 units. Watch your carbs at meals. Current medications: Januvia 100 mg daily (PAP) Basaglar 23 units every evening (PAP) Cannot trial GLP1a d/t h/o pancreatitis UTD on labs. DM eye exam (02/15/25 no [facility] in [place] ) Strive for regular exercise (30min most days) and diet (get at least 4-5 servings of fruit and veggies daily, avoid processed foods, increase lean protein intake and decrease carb portions as well as fruit juices, regular soda & desserts). Watch carbs and simple sugars. Check the blood sugar: Dexcom G7 Check the feet daily for skin breakdown and infection. Assessment & Plan (03/03/2025 12:08 PM CDT): Chronic problem, stable/controlled. A1c stable at 6.3% metformin stopped by renal d/t renal insufficiency. Current medications: Januvia 100 mg daily (PAP) Basaglar 23 units every evening (PAP) Cannot trial GLP1a d/t h/o pancreatitis Will update lipid & MA/Cr. Verified that she uses mychart. Aware to check results/results letter in [employer]. Will contact by phone if needed. DM eye exam (09/07/24 no [facility]). Had appt 2 wks ago at [facility] in [place]. Letter sent to get copy of report. [...] infection. Assessment & Plan (10/26/2024 11:56 AM WOOD TOOL MAKER): Chronic problem, stable/controlled. A1c stable at 5.8%. Current medications: Metformin XR 500mg twice daily before meals Januvia 100 mg daily (PAP) Basaglar 14 units every evening (PAP) Cannot trial GLP1a d/t h/o pancreatitis UTD on labs DM eye exam (2023 at [facility]). 2nd request letter sent. Strive for [...] infection. Assessment & Plan (12/25/2023 10:40 AM WOOD TOOL MAKER): Chronic, stable Contiue current regimen including Basaglar, Glimepiride 1 mg daily, Metformin 500 mg bid and Januvia Diet and exercise were discussed Assessment & Plan (09/09/2023 11:37 AM WOOD TOOL MAKER): Hba1c was Lab Results Component Value [...] 7.8% Phone not compatible with dexcom nor [employer] haseeb. Sent in [employer] 7 & reader. Current medications: Glimepiride 2mg [...] DM eye exam 01/2023 at [facility] in [place]. Letter sent to get copy of results. [...] infection. Assessment & Plan (10/31/2022 12:55 PM WOOD TOOL MAKER): Chronic problem, at goal. No changes. [...] (04/20/2020): Added automatically from request for surgery [id number] Encounters Date Type Department Care Team Description 07/15/[address] [facility] Medical Group Diabetes and Endocrinology [address] [place], [place] [id number] ProviderMarcello MD 07/13/2025 11:30 AM CDT Office Visit [facility] Medical [facility] Diabetes and Endocrinology [address] [place], [place] [phone] Sisi Guevara NP Type 2 diabetes mellitus with hyperglycemia, with long-term current use of insulin (HCC) (Primary Dx); Hyperlipidemia associated with type 2 diabetes mellitus (HCC); CKD stage 4 due to type 2 diabetes mellitus (HCC); Diabetic neuropathy associated with type 2 diabetes mellitus (HCC) 07/13/2025 Orders Only [facility] Diabetes and Endocrinology [address] [place], [place] [phone] Sisi Guevara NP 05/25/2025 10:15 AM CDT Office Visit [facility] Medical Group Vascular at [address] [place] [address] Merlin Garcia MD Varicose veins of right lower extremity with pain (Primary Dx); Hyperlipidemia associated with type 2 diabetes mellitus (HCC) from Last 3 Months Immunizations Immunization Administration Dates Next Due Influenza, Unspecified 07/20/2020 Surgical History Surgery Date Site/Laterality Comments TRACHEOSTOMY and closure SPINAL CORD STIMULATOR IMPLANT (has had 3 SCS) THYROIDECTOMY CHOLECYSTECTOMY SPINAL CORD STIMULATOR REMOVAL 07/20/2024 - 08/19/2024 for infection DILATION AND CURETTAGE, DIAGNOSTIC / THERAPEUTIC TOTAL KNEE ARTHROPLASTY Bilateral Medical History Medical History Date Comments Diabetes mellitus History of nephrolithiasis Esophagus perforation Gout ABDIRAHMAN [...] on file Legal Sex Female 6:42 PM WOOD TOOL MAKER Gender Identity Not on file Sexual Orientation Not on file Obstetrics History Last Filed Vital Signs Vital Sign Reading Time Taken Comments Blood Pressure 124/64 07/13/2025 11:07 AM CDT Pulse 74 07/13/2025 11:07 AM CDT Temperature 36.9 C (98.4 F) 12/29/2024 7:49 AM CDT Respiratory Rate 18 07/13/2025 11:07 AM CDT Oxygen Saturation 100% 05/25/2025 10:30 AM CDT Inhaled Oxygen Concentration - - Weight 78.5 kg (173 lb 1.6 oz) 07/13/2025 11:07 AM CDT Height 170.2 cm (5' 7.01) 07/13/2025 11:07 AM C DT Body Mass Index 27.1 07/13/2025 11:07 AM CDT Plan of Treatment Health Maintenance Due Date Last Done Comments Breast Cancer Screening-Mammogram 1954 Colon Cancer Screening-Colonoscopy 1955 Hepatitis C Screening 1954 Osteoporosis Screening-Bone Density Scan 1954 DTaP/Tdap/Td Vaccine (1 - Tdap) 1965 Hepatitis B Screening 1972 Well Visit 65+ 2019 Pneumococcal vaccine 65+ (2 of 2 - PPSV23, PCV20, or PCV21) 09/12/2020 07/18/2020, 06/20/2020 Depression Screening 05/08/2024 05/08/2023, 07/25/2022, 05/28/2022, Additional history exists Influenza Vaccine (#1) 2025 , 08/03/2022, 07/20/2020, Additional history exists Fall Risk Assessment 12/29/2025 12/29/2024, 09/09/20 23 Hemoglobin A1C 01/10/2026 07/13/2025, 02/17, 10/26/2024, Additional history exists Albumin Creatinine Ratio, Urine 03/03/2026 03/03/2025, 12/25/2023, 07/25/2022 Foot Exam 03/03/2026 03/03/2025, 06/20, 01/30/2023, Additional history exists Lipid Panel 03/03/2026 03/03/2025, 03/0 04/2024, 07/25/2022 eGFR 04/29/2026 04/29/2025, 03/2 03/2025, 01/12/2025, Additional history exists Dilated Eye Exam 02/15/2027 02/15/2025, , 10/22/2021 Zoster Vaccine Completed 04/30/2021, 02/21/2021 Medical Devices Implanted Type Area Service Center Representative Device Identifier Shelf Expiration Date Model / Serial / Lot Depuy [employer]opaed[employer] Inc [id number] Attune Cruciate Retain Cementless Knee Left 6 Narrow Component - [id number] Implanted:Qty: 1 on 05/02/2020 by Go Lazaro MD at [facility] Left: Knee [employer] 10/19/2029 [id number] / / [id number] Depuy [employer] [id number] Attune 5mm Cruciate Retaining Rotate Platform Knee 6 Insert - [id number] Implanted:Qty: 1 on 05/02/2020 by Go Lazaro MD at [facility] Left: Knee [employer] 08/19/2024 [id number] / / [id number] Attune Knee System, Tibial Base Rotating Platform Implanted:Qty: 1 on 05/02/2020 by Go Lazaro MD at [facility] Left: Knee [employer] [id number] 05/19/2028 [id number] / / [id number] [employer] [id number] Palacos R+G High Viscosity Cement Bone Gentamicin Arthroplasty - [id number] Implanted:Qty: 1 on 05/02/2020 by Go Lazaro MD at [facility] Left: Knee [employer] 02/16/2022 [id number] / / [id number] [employer] [id number] Palacos R+G High Viscosity Cement Bone Gentamicin Arthroplasty - [id number] Implanted:Qty: 1 on 09/05/2020 by Go Lazaro MD at [facility] Right: Knee [employer] 08/19/2022 [id number] / / [id number] Depuy [employer]opa[employer] [id number] Baseplate Tibial Attune 6 Knee Cement Rotate Platform Sterile - [id number] Implanted:Qty: 1 on 09/05/2020 by Go Lazaro MD at [facility] Right: Knee [employer] 03/19/2030 [id number] / / [id number] Dep[employer] [id number] Attune 7mm Cruciate Retaining Rotate Platform Knee 6 Insert - [id number] Implanted:Qty: 1 on 09/05/2020 by Go Lazaro MD at [facility] Right: Knee [employer] 08/19/2024 [id number] / / [id number] Dep[employer] [id number] Attune Cruciate Retain Cementless Knee Right 6 Component Femoral - [id number] Implanted:Qty: 1 on 09/05/2020 by Go Lazaro MD at [facility] Right: Knee [employer] 07/19/2028 [id number] / / [id number] Med[employer]onic Inc Specify Surescan 65cm 3 Column 16 Electrode Lead Nerve Stimulator [id number] - [id number] Implanted:Qty: 1 on 12/27/2024 by Vivi Johansen MD at [facility] N/A: Back [employer] Inc 09/24/2028 [id number] / / [id number] Med[employer] Inc Generator Pulse Inceptiv Sys Stm Electrcl Analges Implant [id number] - [id number] - [id number] Implanted:Qty: 1 on 12/27/2024 by Vivi Johansen MD at [facility] Right: Back [employer] Inc [id number] 11/02/2025 [id number] / [id number] / Biocomposites Stimulan Rapid Cure Kit Paste Shoulder Joiner 5cc 12.5cc Bone Void 620-005 - [id number] Implanted:Qty: 1 on 12/27/2024 by Vivi Johansen MD at [facility] N/A: Back [employer] [id number] 06/19/2027 [id number] / / [id number] Procedures Procedure Name Priority Date/Time Associated Diagnosis Comments POCT HEMOGLOBIN A1C Routine 07/13/2025 1 1:25 AM CDT Type 2 diabetes mellitus with hyperglycemia, with long-term current use of insulin ([facility]) POCT GLUCOSE Routine 07/13/2025 11:19 AM CDT Type 2 diabetes mellitus with hyperglycemia, with long-term current use of insulin ([facility]) COMPREHENSIVE METABOLIC PANEL Routine 04/29/2025 9:56 AM CDT LIPID PANEL Routine 03/03/2025 12:03 PM CDT Type 2 diabetes mellitus with hyperglycemia, with long-term current use of insulin ([facility]) ALBUMIN CREATININE RATIO, URINE Routine 03/03/2025 12:03 PM CDT Type 2 diabetes mellitus with hyperglycemia, with long-term current use of insulin ([facility]) DIABETES EYE EXAM Routine 02/15/2025 from Last 3 Months or Most Recently Relevant to Health Maintenance Results * (ABNORMAL) POCT hemoglobin A1c (07/13/2025 11:25 AM CDT) Hemoglobin A1C, POC 6.9(A) 4.0 - 5.6 % Blood 07/13/2025 11:2 5 AM CDT us Sisi Guevara WOOD BUCKER POINT OF CARE TEST ORDERA BLES Final Result * POCT glucose (07/13/2025 11:19 AM CDT) Pathologist [facility] Glucose Blood, POC 223 Normal Fasting 70 - 100, Random <200 mg/dL Blood 07/13/2025 11:1 9 AM CDT us Sisi Guevara WOOD BUCKER POINT OF CARE TEST ORDERA BLES Final Result * (ABNORMAL) Comprehensive metabolic panel (04/29/2025 9:56 [...] >60 mL/min/1.7 3 m2 EXTERNAL LAB Blood Historical Provider MD LAB BLOOD ORDERABLES Edit ed Result - Final EXTERNAL LAB * (ABNORMAL) Albumin Creatinine Ratio, Urine (03/03/2025 12:03 PM CDT) Albumin Ur 12.2 mg/L Comment: Interpretive Data No reference range established. Current interpretive data was last revised 2019. Creatinine Ur 22.8 mg/dL [facility] Comment: Interpretive Data No reference range established. Current interpretive data was last revised 2019. Albumin Creatinine Ratio, Ur 54(H) 1 - 29 mg/g [facility] Urine 03/03/2025 12:0 3 PM CDT 03/03/2025 10:38 PM CDT Sisi Guevara WOOD BUCKER LAB URINE ORDERABLES Ban l Result Performing Organization Address [facility] Co de Phone Number [facility] [address] [address] Department [place] [address] * (ABNORMAL) Lipid panel (03/03/2025 12:03 PM [...] revised on 2018. Triglycerides 217(H) <=149 mg/dL [facility] Comment: Interpretive Data Ages < or = [...] on 2018. HDL 48 >=40 mg/dL [facility] Comment: Interpretive Data Ages [...] 2018. LDL, calculated 90 <=129 mg/dL [facility] Comment: Interpretive Data Ages [...] NCEP Expert Panel. Circulation 2004;110:227 3. Cleve Oneill al. HALEY Cardiol. 2020 February 17;5(5):540-548. doi: [email or web address].2020.0013 Current Interpretive Data was last revised on 2024. Non-HDL Cholesterol 127 mg/dL [facility] Comment: Interpretive Data Ages < [...] last revised on 2018. Chol/HDL ratio 4 [facility]ERNER [facility] Blood 03/03/2025 12:0 3 PM CDT 03/03/2025 10:38 PM CDT Sisi Guevara NP LAB BLOOD ORDERABLES Ban ruiz Result [facility] [address] [address] Department of Laboratories [place] [id number] * DIABETES EYE EXAM (02/15/2025) SCRIBED DIABETIC DILATED EYE EXAM Normal 02/15/2025 Historical Provider HEALTH MAINTENANCE Edited Result - Final from Last 3 Months or Most Recently Relevant to Health Maintenance Insurance [employer] [address] [employer] MEDICARE [facility] MEDICARE ADVANTAGE [facility] MEDICARE ADVANTAGE [facility] MEDICARE ADVANTAGE Advance Directives For more information, please contact: [phone] * Full Code (Latest Code Status on File) Date Activated Date Inactivated Comments 12/27/2024 12:45 PM 12/29/2024 7:57 PM * Full Code Date Activated Date Inactivated Comments 09/05/2020 1:54 PM 09/06/2020 6:34 PM * Full Code Date Activated Date Inactivated Comments 05/02/2020 2:11 PM 05/03/2020 8:18 PM Care Teams Turner Machine Operator Relationship Specialty Start Date End Date Osman Malcolm MD [address] [address] PCP - General Family Medicine 09/18/22 Rey Hinton PA [address] [place] [address] [address] [place] [address] Physician [facility] Orthopedic Surgery 05/03/20 Reina Jimenes PA [address] [place] [address] [address] [place] [address] Physician [facility] Orthopedic Surgery 09/06/20
--- OUTSIDE RECORDS SUMMARY | 2025-07-18 10:42 | XMS_ITS | Clinical Summary ---
Author Organization [facility] Address [address] [place] [address] Phone Care Team Providers Care Headlight Assembler Name Role Phone Osman Malcolm Primary Care Provider [phone] Robert Corbett MD Unavailable [phone] Adrien Cerrato MD Unavailable [phone] Allergies No known active allergies Medications furosemide [...] Tablet by mouth. 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 Office Visit [facility] [address] [place] [address] Adrien Cerrato MD [address] [place] [address] Health Maintenance Due Date Last Done Comments DEXA Bone Density 1954 Diabetes: Eye Exam 1954 Diabetes: Foot Exam 1955 Hepatitis C Virus (HCV) Screening 1955 Mammogram 1954 TdaP Immunization 1954 Cologuard 1999 Colonoscopy 1999 Colorectal Cancer Screening 1999 Immunochemical Fecal Occult Blood 1999 Medicare Initial AWV [id number] 10/20/2019 Pneumococcal Immunization (50+ years) (2 of 2 - PPSV23, PCV20, or PCV21) 09/12/2020 07/18/2020, 06/20/2020 Influenza Immunization (#1) 06/20/202507/21, 07/31/2023, 08/05/2022, Additional history exists SARS-COV-2 Immunization ( season) 2025 08/12/2024, 07/31/2023, 08/04/2022, Additional history exists Diabetes: Hemoglobin A1c 09/03/2025 [...] IRON 119 50 - 212 ug/dL [employer] [employer] [facility] UIBC 313 155 - 355 ug/dL [employer] [facility] TIBC 432 261 - 478 ug/dl [employer] [facility] % Saturation 28 20 - 50 % [employer] [facility] 04/28/2025 9:27 AM CDT Narrative [employer] [facility] - 04/29/2025 9:56 AM CDT Release to patient->Immediate Mayda Torres EMERGENCY MANAGEMENT SPECIALIST, DIRECTOR OF SEARCH ENGINE MARKETING LAB SEND OUTS Final Result [employer] [facility] [place] [address], * (ABNORMAL) CBC WITH AUTO DIFF [place] (04/28/2025 9:27 AM CDT) WBC 5.4 4.0 - 10.0 10*3/uL [employer] [facility] HGB 10.6(L) 11.2 - 15.7 g/dL [employer] [facility] HCT 33.8(L) 34.1 - 44.9 % [employer] [facility] PLT 222 163 - 369 10*3/uL [employer] [facility] MPV 10.3 9.4 - 12.4 fL [employer] [facility] RBC 3.26(L) 3.93 - 5.22 10*6/uL [employer] [facility] MCV 104(H) 79 - 95 fL [facility] [employer] [facility] MCH 32.5(H) 25.6 - 32.2 pg [employer] [employer] [facility] MCHC 31.4(L) 32.2 - 36.5 g/dL [facility] [employer] [facility] RDW 13.0 11.6 - 14.4 % [employer] [facility] Neutrophils % 56.3 36.0 - 66.0 % [facility] [employer] [facility] Lymphocytes % 25.0 19.0 - 40.0 % [facility] [employer] [facility] Monocytes % 10.2 4.1 - 12.1 % [facility] [employer] Eosinophils % 6.3(H) 0.0 - 3.5 % [employer] [facility] Basophils % 1.3(H) 0.0 - 1.0 % [facility] [employer] [facility] Absolute Neutrophils 3.0 1.4 - 6.6 10*3/uL [facility] [employer] Absolute Lymphocytes 1.4 0.8 - 4.0 10*3/uL [facility] [employer] Absolute Monocytes 0.6 0.2 - 1.2 10*3/uL [facility] [employer] Absolute Eosinophils 0.3 0.0 - 0.4 10*3/uL [facility] [employer] Absolute Basophils 0.1 0.0 - 0.1 10*3/uL [facility] [employer] [facility] 04/28/2025 9:27 AM CDT us Mayda Torres APRN, DIRECTOR OF SEARCH ENGINE MARKETING LAB SEND OUTS Final Result Performing Organization Address [facility] Co de Phone Number [employer] [facility] [place] [address], [place] [phone] * VITAMIN B12 (04/28/2025 9:27 AM CDT) Vitamin B12 392 180 - 914 pg/mL [facility] [employer] Blood 04/28/2025 9:27 AM CDT Narrative [facility] 04/29/2025 2:03 PM CDT Release to patient->Immediate IS THE PATIENT REQUIRED TO BE FASTING FOR 12 HOURS?->No us Mayda Torres APRN, DIRECTOR OF SEARCH ENGINE MARKETING CHEMISTRY ORDERABLES Final Result Performing Organization Address [facility] Co de Phone Number [employer] [facility] [place] [address], [place] [phone] * FOLIC ACID (FOLATE) (04/28/2025 9:27 AM CDT) Folate 10.92 >=5.90 ng/mL [facility] Blood 04/28/2025 9:27 AM CDT Narrative [facility] - 04/29/2025 2:15 PM CDT Release to patient->Immediate us Mayda Torres APRN, DIRECTOR OF SEARCH ENGINE MARKETING CHEMISTRY ORDERABLES Final Result Performing Organization Address [facility] Co de Phone Number [employer] [facility] [place] [address], [place] [phone] * FERRITIN (04/28/2025 9:27 AM CDT) Ferritin 283 11 - 307 ng/mL [facility] [employer] Blood 04/28/2025 9:27 AM CDT Narrative [facility] - 04/29/2025 2:03 PM CDT Release to patient->Immediate Mayda Torres APRN, PAMELA CHEMISTRY ORDERABLES Final Result [facility] [employer] [place] [address], * (ABNORMAL) CMP (COMPREHENSIVE METABOLIC PANEL) (04/28/2025 9:27 AM CDT) Glucose 175(H) 70 - 105 mg/dL [facility] Blood Urea Nitrogen 54(H) 7 - 25 mg/dL [facility] Creatinine 1.8(H) 0.6 - 1.2 mg/dL [facility] Sodium 140 136 - 145 mEq/L [facility] Potassium 5.1 3.5 - 5.1 mEq/L [facility] Chloride 107 98 - 107 mEq/L [facility] Bicarbonate 28 21 - 31 mEq/L [facility] Total Bilirubin 0.4 0.3 - 1.0 mg/dL [facility] Alk. Phosphatase 33(L) 34 - 104 U/L [facility] Aspartate Aminotransferase 26 13 - 39 U/L [facility] Alanine Aminotransferase 22 7 - 52 U/L [facility] Total Protein 6.6 6.4 - 8.9 g/dL [facility] Albumin 4.6 3.5 - 5.7 g/dL [facility] Calcium 9.3 8.6 - 10.3 mg/dL [facility] Anion Gap 10.1 7.0 - 15.0 mEq/L [facility] Globulin 2.0 2.0 - 3.5 g/dL [facility] EGFR 30(L) >60 ml/min/1. 73m2 [facility] WICK AND BASE ASSEMBLER [facility] Comment: This eGFR is calculated using 2020 CKD-EPI Creatinine equation without race modifier based on the NKF-ASN task force recommendations Equation: zYAQ=753*min(SCr/k,1)a*max(SCr/k,1)-1.200*0.9938Age*1.012 (if female), where SCr is serum creatinine, k is 0.7 for females and 0.9 for males, and a is -0.241 for females and -0.302 for males Blood 04/28/2025 9:27 AM CDT Narrative [employer] [facility] - 04/29/2025 9:56 AM CDT Release to patient->Immediate IS THE PATIENT REQUIRED TO BE FASTING FOR 8 HOURS?->No Mayda Torres APRN, DIRECTOR OF SEARCH ENGINE MARKETING CHEMISTRY ORDERABLES Final Result [facility] [employer] [address] [address], from Last 3 Months Insurance MEDICARE C AET MEDICARE C [facility] Care Teams Headlight Assembler Relationship Specialty Start Date End Date Osman Malcolm [address] [facility] [place] [address] PCP - General Family Medicine 03/08/20 Robert Corbett MD [address] [facility] [place] [address] Consulting Physician Oncology 04/18/22 Adrien Cerrato MD [address] [facility] [place] [address] Consulting Physician Oncology 05/14/22
[2025-07-18 10:45] LABS: Hematocrit 32.0 % (37.0-47.0); Hemoglobin 10.2 g/dL (12.0-15.0); Mean Corpuscular HGB Conc 31.9 g/dl (32-36); Mean Corpuscular Hemoglobin 31.7 pg (26-34); Mean Corpuscular Volume 99.4 fl (80-100); Platelet Count Result 174 k/mm3 (150-375); Red Blood Count 3.22 M/mm3 (4.2-5.4); White Blood Count 5.8 K/mm3 (4.5-10.0)
[2025-07-18 11:05] LABS: Albumin Level 4.3 g/dL (3.5-5.1); Anion Gap 9 mmol/L (4-12); Blood Urea Nitrogen 41 mg/dL (7-17); Calcium 9.6 mg/dL (8.4-10.2); Carbon Dioxide 26 mmol/L (22-30); Chloride 103 mmol/L (98-107); Estimated Glomerular Filt Rate 27; Glucose 136 mg/dL (65-110); Potassium 4.8 mmol/L (3.4-5.0); Sodium 138 mmol/L (137-145)
[2025-07-18 11:18] LABS: Parathyroid Intact 27.6 pg/mL (14.5-75.2)
[2025-07-18 11:38] LABS: Total Protein Urine Random 10 mg/dL; Ur Ttl Prot Creatinine Ratio 0.53 mg/mg (0-0.20)
== END 2025-07-18 10:04 | disposition home or self-care (01) ==
PROVIDERS: PCP Emergency Medicine; Visit Provider Internal Medicine Nephrology
DX: N18.32 Chronic kidney disease, stage 3b (principal)
CPT/HCPCS: 36415; 80069; 82570; 83970; 84156; 85027

== ENCOUNTER 2025-10-11 09:48 | Outpatient (CLI) | payer MEDICARE, SELFPAY ==
--- NOTE | ~2025-10-11 | MM_ITS ---
EXAMINATION: US breast RT limited, MM diagnostic stephon RT w margoth HISTORY: Follow-up. Previous surgical biopsy of the left. TECHNIQUE: Craniocaudal and mediolateral oblique 3-D tomosynthesis images were obtained and synthetic 2-D images were generated. CAD analysis was submitted and interpreted. Grayscale sonography over the area(s) of interest with color Doppler if there is a finding. COMPARISON: March,. 2023. BREAST PARENCHYMAL COMPOSITION: Not Dense: There are scattered areas of fibroglandular tissue. MAMMOGRAM FINDINGS: No suspicious masses are seen. Calcifications in question are coarse and have been present for many years. They're probably dystrophic. There are no suspicious calcifications. Postop changes including fat necrosis are seen in the surgical bed on the left. No unexplained architectural distortion is seen. There are no skin or nipple abnormalities identified. There is no adenopathy seen on the images submitted. ULTRASOUND FINDINGS: No cystic or solid masses are seen in the area(s) of concern. IMPRESSION: No mammographic evidence to suggest malignancy is seen. The patient may return to screening mammography as per ACR guidelines. BI-RADS 2 - Benign. Reviewed, dictated and finalized at location C. BODY TECHNICIAN
--- OUTSIDE RECORDS SUMMARY | 2025-10-11 10:08 | XMS_ITS | Clinical Summary ---
Author Organization [facility] Address [address] [place] [address] Care Team Providers Care Health Care Assistant Name Role Phone Osman Malcolm MD Primary Care Provider [phone] Allergies No known active allergies Medications LASIX [...] drink = 0.6 oz pur e alcohol) [facility] Utilities Answer Date Recorded In the past 12 months has [facility] [employer], oil, or water [employer] threatened to shut off services in your [...] any time in the past 12 m [facility], were you homeless or living in a [place] health care facility (including now)? No 08/04/2024 Comments No Sex and Gender Information Value Date Recorded Sex Assigned at Not on file Legal Sex Female 12:57 PM CDT Gender Identity Not on file Sexual Orientation Not on file Last Filed Vital Signs Vital Sign Reading Time Taken Comments Blood Pressure 89/60 09/07/2024 10:35 AM CLINICAL SUPPORT SPECIALIST Pulse 88 09/07/2024 10:35 AM CLINICAL SUPPORT SPECIALIST Temperature 36.5 C (97.7 F) 09/07/2024 10:35 AM CLINICAL SUPPORT SPECIALIST Respiratory Rate 16 09/07/2024 10:35 AM CLINICAL SUPPORT SPECIALIST Oxygen Saturation 98% 09/07/2024 10:35 AM CLINICAL SUPPORT SPECIALIST Inhaled Oxygen Concentration - - Weight 76.7 kg (169 lb) 09/07/2024 10:35 AM CLINICAL SUPPORT SPECIALIST Height 170.2 cm (5' 7) 09/07/2024 10:35 AM CLINICAL SUPPORT SPECIALIST Body Mass Index 26.47 09/07/2024 10:35 AM CLINICAL SUPPORT SPECIALIST Plan of Treatment Health Maintenance Due Date Last Done Comments Colorectal Cancer Screening Colonoscopy (10 Years) 1954 Hepatitis C 1972 DTaP, Tdap and Td Vaccines (1 - Tdap) 1973 Mammogram Screening 1994 Annual Medicare Wellness Visit 2019 Dexa Scan (General) 2019 Pneumococcal Vaccine: 50+ Years (2 of 2 - PCV20 or PCV21) 07/18/2021 07/18/2020, 06/20/2020 PHQ-2 (Physician [employer]) 10/20/2024 09/07/2024 COVID-19 Vaccine ( season) 2025 07/31/2023, 08/04/2022, 01/22/2022, Additional history exists Influenza Adult (#1) 2025 08/10/2024, 07/31/2023, 08/05/2022, Additional history exists Hepatitis A Vaccines Aged Out 12/16/2000, 06/10/20 00 No longer eligible based on patient's age to complete this topic Zoster Vaccines Completed 04/30/2021, 02/21/2021 RSV Immunization [...] Briscoe, RN Medical Devices Implanted Type Area Product Lister Device Identifier Shelf Expiration Date Model / Serial / Lot Stimulator Lead Implant(2 Leads)-11/30/19 16 Implanted:Qty: 2 on 11/30/2015 Lead Implant Spine Thoracic [employer] [id number] / / Stimulator Implant- 024 Implanted:Qty: 1 on 04/16/2024 Stimulator Implant Back [employer] [id number] / [id number] / Description:MR CONDITIONAL A T 1.5 T ONLY, NEED REMOTE TO TURN OFF STIMULATION, SHOULD BE FULL BODY ELIGIBLE , NORMAL MODE [place] , MAX 30 MINUTES TOTAL SCAN TIME IN 90 MINUTE WINDOW Insurance [employer] MEDICARE Advance Directives * Full Code (Latest Code Status on File) Date Activated Date Inactivated Comments 08/04/2024 1:00 AM 08/10/2024 2:07 PM Care Teams Health Care Assistant Relationship Specialty Start Date End Date Osman Malcolm MD PCP - General FAMILY PRACTICE 05/09/22
--- OUTSIDE RECORDS SUMMARY | 2025-10-11 10:08 | XMS_ITS | Clinical Summary ---
Author Organization [facility] Address [address] [place] [address] Phone Care Team Providers Care Head Of Maintenance Name Role Phone Osman Malcolm MD Primary Care Provider [phone] Allergies No known active allergies Medications alendronate [...] DAILY 2 Active Lancets (OneTouch Delica Plus [id number]) misc USE TO CHECK GLUCOSE TWICE DAILY [...] on file Legal Sex Female 9:35 AM [facility] Gender Identity Not on file Sexual Orientation Not on file Last Filed Vital Signs Vital Sign Reading Time Taken Comments Blood Pressure 124/60 10/02/2022 11:11 AM TUMBLER OPERATOR Pulse 72 10/02/2022 11:11 AM TUMBLER OPERATOR Temperature 36.2 C (97.2 F) 10/02/2022 11:11 AM TUMBLER OPERATOR Respiratory Rate - - Oxygen Saturation - - Inhaled Oxygen Concentration - - Weight 97.5 kg (215 lb) 10/02/2022 11:11 AM TUMBLER OPERATOR Height 170.2 cm (5' 7) 10/02/2022 11:11 AM TUMBLER OPERATOR Body Mass Index 33.67 10/02/2022 11:11 AM TUMBLER OPERATOR Plan of Treatment Health Maintenance Due Date Last Done Comments Diabetic Foot Exam 1964 Ophthalmology Exam 1964 Pneumococcal PPSV23/PCV13 65 + Years / High and Highest Risk (1 of 5 - PCV) 1973 Influenza Vaccine (#1) 2025 08/03/2022, 2019 Insurance [employer] MEDICARE Care Teams Head Of Maintenance Relationship Specialty Start Date End Date Osman Malcolm MD [address] [place] [address] PCP - General Family Medicine 08/28/22
--- OUTSIDE RECORDS SUMMARY | 2025-10-11 10:08 | XMS_ITS | Clinical Summary ---
Author Organization [facility] Medical Office Building [address] Address [address] [place] [address] Care Team Providers Care Broadcast Program Director Name Role Phone Rey Hinton PA Unavailable [phone] Reina Jimenes Unavailable Osman Malcolm MD Primary Care Provider [phone] Allergies Active Allergy Reactions Criticality Noted Date [...] with long-term current use of insulin ([facility]) Continuous glucose monitoring. Change every 10 days. 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) miscIndication s:Type 2 diabetes mellitus with hyperglycemia, with long-term current use of insulin ([facility]) Continuous glucose monitor 1 each 05/08/20 23 Active levothyroxine (SYNTHROID) 112 mcg tablet Take 1 tablet (112 mcg total) by mouth drug abuse resistance education officer before breakfast 05/10/20 24 Active SITagliptin phosphate (JANUVIA) 100 mg tabletIndicati ons:type 2 diabetes mellitus Take 1 tablet (100 mg total) by mouth every morning Active cholecalcifero l (VITAMIN D-3) 5,000 unit tablet Take 125 mcg by mouth Active traMADoL (ULTRAM) 50 mg tablet Active BASAGLAR 100 unit/mL (3 mL) pen for injection Inject 23 Units under the skin nightly 30 mL 2 03/03/20 25 026 Active Additional Information Patient taking differently: 24 Unitssubcutaneous Nightly, Reported on 07/13/2025 gabapentin (NEURONTIN) 300 mg capsuleIndicat ions:Diabetic neuropathy associated with type 2 diabetes mellitus (HCC) TAKE 1 CAPSULE BY MOUTH THREE TIMES DAILY 90 capsule 1 05/31/20 25 Active aspirin 81 mg capsule Take 81 mg by mouth 08/10/20 20 Active pen needle, diabetic 32 gauge x 5/32 needleIndicati ons:Type 2 diabetes mellitus with hyperglycemia, with long-term current use of insulin ([facility]) USE TO INJECT INSULIN DAILY 100 each 3 08/22/20 25 Active Active Problems Problem Noted Date Diagnosed [...] Chronic problem. Managed by Dr Marr at [facility]; saw him 04/2025. Does not have to see him until 6 mos. Nephropathy: On GWEN-I / ARB s : Yes. Lisinopril 5mg. Last MA: 01/01/25 (54). Last creat/GFR: 04/28/25 GFR=30 (out of 60), CR=1.8. Assessment & Plan (03/03/2025 11:52 AM CDT): Chronic problem. Managed by Dr Marr at [facility]. Renal: Dr Marr at [facility]; saw him 01/2025 Dr Marr wants her [...] Will update MA/Cr. Verified that she uses [employer]. Aware to check results/results letter in [employer]. Will contact by phone if needed. Assessment & Plan (10/26/2024 12:09 PM STORE PLANNER): Chronic problem. Managed by Dr Marr at [facility]. Next appt 12/29/24 Nephropathy: On GWEN-I / ARB s : Yes. Lisinopril 5mg. Last MA: 12/25/23 (36 calc). Last creat/GFR: 03/31/24 GFR=27, CR=1.96. Assessment & Plan (06/29/2024 11:48 AM CDT): Chronic problem. Managed by Dr Marr at [facility]. Next appt 06/30/24. Nephropathy: On GWEN-I / [...] barefoot. Assessment & Plan (10/26/2024 11:56 AM STORE PLANNER): Chronic problem. Gabapentin Gabapentin 300-600mg at HS. [...] barefoot. Assessment & Plan (12/25/2023 10:41 AM STORE PLANNER): Foot care discussed Continue gabapentin Assessment & [...] 10/31/2022 Assessment & Plan (10/31/2022 12:56 PM STORE PLANNER): Encouraged Mrs Trujillo to walk in home if weather not conducive to walking outside. Discussed healthy diet and importance of regular physical activity (20- 30min/day, 150min/wk). Hyperlipidemia associated with type 2 diabetes latanya brown 07/25/2022 Assessment & Plan (07/13/2025 11:42 AM CDT): Chronic problem, at goal on Atorvastatin 10mg & fenofibrate 160mg daily Last lipid panel: 03/03/25 LDL=90, KU=732. Assessment & Plan (05/27/2025 12:27 PM CDT): Stable continue Lipitor Assessment & Plan (03/03/2025 11:43 AM CDT): Chronic problem, at goal on Atorvastatin 10mg & fenofibrate 160mg daily Last lipid panel: 12/25/23 LDL=98, ZC=101. Will update lipid panel. Verified that she uses [employer]. Aware to check results/results letter in [employer]. Will contact by phone if needed. Assessment & Plan (10/26/2024 11:30 AM STORE PLANNER): Chronic problem, at goal on Atorvastatin 10mg & fenofibrate 160mg daily Last lipid panel: 12/25/23 LDL=98, KM=730. Assessment & Plan (06/29/2024 11:46 AM CDT): Chronic problem, at goal on Atorvastatin 10mg & fenofibrate 160mg daily Last lipid panel: 12/25/23 LDL=98, JK=743. Assessment & Plan (12/25/2023 10:41 AM STORE PLANNER): Chronic, stable Continue Atorvastatin 10 mg daily UDT lipid profile Assessment & Plan (05/08/2023 11:12 AM CDT): Chronic problem, at goal on Atorvastatin 10mg & fenofibrate 160mg daily Last lipid panel: 07/25/22 LDL=74, KU=039. No changes at this time. Assessment & Plan (01/30/2023 11:08 AM CDT): Chronic problem, at goal on Atorvastatin 10mg. Last lipid panel: 07/25/22 LDL=74, ML=740. No changes at this time. Assessment & Plan (10/31/2022 8:59 AM STORE PLANNER): Chronic problem, near goal. LDL=74 07/2022. Atorvastatin [...] labs. DM eye exam (02/15/25 no DMR [facility] in [place] ) Strive for regular exercise (30min most [...] mychart. Aware to check results/results letter in [employer]. Will contact by phone if needed. DM eye exam (09/07/24 no DMR [facility]). Had appt 2 wks ago at [facility] in [place]. Letter sent to get copy of report. [...] infection. Assessment & Plan (10/26/2024 11:56 AM STORE PLANNER): Chronic problem, stable/controlled. A1c stable at 5.8%. Current medications: Metformin XR 500mg twice daily before meals Januvia 100 mg daily (PAP) Basaglar 14 units every evening (PAP) Cannot trial GLP1a d/t h/o pancreatitis UTD on labs DM eye exam (2023 at [facility]). 2nd request letter sent. Strive for [...] infection. Assessment & Plan (12/25/2023 10:40 AM STORE PLANNER): Chronic, stable Contiue current regimen including Basaglar, Glimepiride 1 mg daily, Metformin 500 mg bid and Januvia Diet and exercise were discussed Assessment & Plan (09/09/2023 11:37 AM STORE PLANNER): Hba1c was Lab Results Component Value Date [...] evening Had DM eye exam 01/2023 at [facility] in [place]. Letter sent to get copy of results. [...] infection. Assessment & Plan (10/31/2022 12:55 PM STORE PLANNER): Chronic problem, at goal. No changes. Continue [...] (04/20/2020): Added automatically from request for surgery [id number] Encounters Date Type Department Care Team Description 10/05/2025 Telephone [facility] Diabetes and Endocrinology [address] [place] [phone] Sisi Guevara NP CGM request correspondence ([employer]) 10/03/2025 Telephone [facility] [address] [place] [phone] Sisi Guevara NP patient request refill 09/21/2025 Telephone [facility] [address] [place] [phone] Sisi Guevara NP CGM Supply order form ([employer]) 09/21/2025 Telephone [facility] [address] [place], [place] [phone] Sisi Guevara, GRACE PAP Enrollment Notification ([employer]) 09/09/2025 Telephone [facility] [address] [place], [place] [phone] Sisi Guevara, GRACE PAP application ([employer]) 09/09/2025 Telephone [facility] [address] [place] [phone] Sisi Guevara, GRACE PAP application ([employer]) 09/05/2025 Telephone [facility] [address] [place], [place] [phone] Sisi Guevara NP patient assistance application 07/15/2025 Orders Only [facility] [address] [place] [phone] ProviderMarcello MD 07/13/2025 11:30 AM CDT Office Visit [facility] [address] [place] [phone] Sisi Guevara, GRACE Type 2 diabetes mellitus with hyperglycemia, with long-term current use of insulin (HCC) (Primary Dx); Hyperlipidemia associated with type 2 diabetes mellitus (HCC); CKD stage 4 due to type 2 diabetes mellitus (HCC); Diabetic neuropathy associated with type 2 diabetes mellitus (HCC) 07/13/2025 Orders Only [facility] [address] [place] [phone] Sisi Guevara NP from Last 3 Months Immunizations Immunization Administration [...] on file Legal Sex Female 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 Gender Identity Not on file Sexual Orientation [...] 04/30/2021, 02/21/2021 Medical Devices Implanted Type 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 Device Identifier Shelf Expiration Date Model / Serial / Lot Depuy Orthopaed[employer] Inc [id number] Attune Cruciate Retain Cementless Knee Left 6 Narrow Component - [id number] Implanted:Qty: 1 on 05/02/2020 by Go Lazaro MD at [facility] Left: Knee [employer] 10/19/2029 [id number] / / [id number] Dep[employer] [id number] Attune 5mm Cruciate Retaining Rotate Platform Knee 6 Insert - [id number] Implanted:Qty: 1 on 05/02/2020 by Go Lazaro MD at [facility] Left: Knee [employer] 08/19/2024 [id number] / / [id number] Attune Knee System, Tibial Base Rotating Platform Implanted:Qty: 1 on 05/02/2020 by Go Lazaro MD at [facility] Left: Knee [employer] Inc [id number] 05/19/2028 [id number] / / [id number] [employer] [id number] Palacos R+G High Viscosity Cement Bone Gentamicin Arthroplasty - [id number] Implanted:Qty: 1 on 05/02/2020 by Go Lazaro MD at [facility] Left: Knee [employer] 02/16/2022 [id number] / / [id number] [employer] [id number] Palacos R+G High Viscosity Cement Bone Gentamicin Arthroplasty - [id number] Implanted:Qty: 1 on 09/05/2020 by Go Lazaro MD at [facility] Right: Knee [employer] 08/19/2022 [id number] / / [id number] Depuy Orthopaed[employer] Inc [id number] Baseplate Tibial Attune 6 Knee Cement Rotate Platform Sterile - [id number] Implanted:Qty: 1 on 09/05/2020 by Go Lazaro MD at [facility] Right: Knee [employer] 03/19/2030 [id number] / / [id number] Dep[employer] [id number] Attune 7mm Cruciate Retaining Rotate Platform Knee 6 Insert - [id number] Implanted:Qty: 1 on 09/05/2020 by Go Lazaro MD at [facility] Right: Knee [employer] 08/19/2024 [id number] / / [id number] Dep[employer] [id number] Attune Cruciate Retain Cementless Knee Right 6 Component Femoral - [id number] Implanted:Qty: 1 on 09/05/2020 by Go Lazaro MD at [facility] Right: Knee [employer] 07/19/2028 [id number] / / [id number] Medtronic Inc Specify Surescan 65cm 3 Column 16 Electrode Lead Nerve Stimulator [id number] - [id number] Implanted:Qty: 1 on 12/27/2024 by Vivi Johansen MD at [facility] N/A: Back Med[employer] Inc 09/24/2028 [id number] / / [id number] Medtronic Inc Generator Pulse Inceptiv Sys Stm Electrcl Analges Implant [id number] - [id number] - [id number] Implanted:Qty: 1 on 12/27/2024 by Vivi Johansen MD at [facility] Right: Back Med[employer] Inc [id number] 11/02/2025 [id number] / [id number] / Biocom[employer]ites Stimulan Rapid Cure Kit Paste Ur Coordinator 5cc 12.5cc Bone Void 620-005 - [id number] Implanted:Qty: 1 on 12/27/2024 by Vivi Johansen MD at [facility] N/A: Back [employer] [id number] 06/19/2027 [id number] / / [id number] Procedures Procedure Name Priority Date/Time Associated Diagnosis Comments POCT HEMOGLOBIN A1C Routine 07/13/2025 1 1:25 AM CDT Type 2 diabetes mellitus with hyperglycemia, with long-term current use of insulin ([facility]) POCT GLUCOSE Routine 07/13/2025 11:19 AM CDT Type 2 diabetes mellitus with hyperglycemia, with long-term current use of insulin ([facility]) COMPREHENSIVE METABOLIC PANEL Routine 04/29/2025 9:56 AM CDT LIPID PANEL Routine 03/03/2025 12:03 PM CDT Type 2 diabetes mellitus with hyperglycemia, with long-term current use of insulin ([facility]) ALBUMIN CREATININE RATIO, URINE Routine 03/03/2025 12:03 PM CDT Type 2 diabetes mellitus with hyperglycemia, with long-term current use of insulin ([facility]) DIABETES EYE EXAM Routine 02/15/2025 from Last 3 Months or Most Recently Relevant to Health Maintenance Results * (ABNORMAL) POCT hemoglobin A1c (07/13/2025 11:25 AM CDT) [facility] Hemoglobin A1C, POC 6.9(A) 4.0 - 5.6 % Blood 07/13/2025 11:2 5 AM CDT us Sisi Guevara STILL PUMP OPERATOR POINT OF CARE TEST ORDERA BLES Final Result * POCT glucose (07/13/2025 11:19 AM CDT) [facility] Glucose Blood, POC 223 Normal Fasting 70 - 100, Random <200 mg/dL Blood 07/13/2025 11:1 9 AM CDT us Sisi Guevara STILL PUMP OPERATOR POINT OF CARE TEST ORDERA BLES Final Result * (ABNORMAL) Comprehensive metabolic panel (04/29/2025 9:56 AM CDT) [facility] SCRIBED Sodium 140 135 - 145 mmol/L [...] 3 m2 EXTERNAL LAB Blood Historical Provider LAB BLOOD ORDERABLES Edit ed Result - Final EXTERNAL LAB * (ABNORMAL) Albumin Creatinine Ratio, Urine (03/03/2025 12:03 PM CDT) Albumin Ur 12.2 mg/L Comment: Interpretive Data No reference range established. Current interpretive data was last revised 2019. Creatinine Ur 22.8 mg/dL [facility] Comment: Interpretive Data No reference range established. Current interpretive data was last revised 2019. Albumin Creatinine Ratio, Ur 54(H) 1 - 29 mg/g [facility] Urine 03/03/2025 12:0 3 PM CDT 03/03/2025 10:38 PM CDT Sisi Guevara STILL PUMP OPERATOR LAB URINE ORDERABLES Ban l Result [facility] [id number] [address] Department [place] [address] * (ABNORMAL) Lipid panel (03/03/2025 12:03 PM [...] on 2018. Triglycerides 217(H) <=149 mg/dL [facility] Comment: Interpretive Data Ages < [...] mg/dL High: >160 mg/dL Calculated using the Poon LDL-C estimating equation. This equation was implemented [...] on 2018. Chol/HDL ratio 4 [facility] Blood 03/03/2025 12:0 3 PM CDT 03/03/2025 10:38 PM CDT Sisi Guevara NP LAB BLOOD ORDERABLES Ban ruiz Result [facility] [address] Department [place] [address] * DIABETES EYE EXAM (02/15/2025) SCRIBED DIABETIC DILATED EYE EXAM Normal 02/15/2025 us Historical Provider HEALTH MAINTENANCE Edited Result - Final from Last 3 Months or Most Recently Relevant to Health Maintenance Insurance [employer] [facility] Address: [address] [place] [address] [facility] MEDICARE ADVANTAGE [facility] MEDICARE [facility] Address: [address] [address] [place] [address] [facility] MEDICARE [facility] Address: [address] [address] [place] [address] Advance Directives For more information, please contact: [phone] * Full Code (Latest Code Status on File) Date Activated Date Inactivated Comments 12/27/2024 12:45 PM 12/29/2024 7:57 PM * Full Code Date Activated Date Inactivated Comments 09/05/2020 1:54 PM 09/06/2020 6:34 PM * Full Code Date Activated Date Inactivated Comments 05/02/2020 2:11 PM 05/03/2020 8:18 PM Care Teams Broadcast Program Director Relationship Specialty Start Date End Date Osman Malcolm MD [address] [facility] [address] [facility] [address] [place] [address] PCP - General Family Medicine 09/18/22 Rey Hinton PA [address] [place] [address] [address] [address] Physician Hand Upper And Bottom Lacer Orthopedic Surgery 05/03/20 Reina Jimenes PA [address] [place] [address] [address] [address] Physician Hand Upper And Bottom Lacer Orthopedic Surgery 09/06/20
--- OUTSIDE RECORDS SUMMARY | 2025-10-11 10:08 | XMS_ITS | Clinical Summary ---
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 2 Active ReliOn Pen Hope 32G X 4 MM Misc 3 Active [...] 500 mg by mouth daily. 4 Active insulin glargine (Basaglar KwikPen) 100 UNIT/ML Solution Pen-injector 22 Units. Active Vitamin D3 (CHOLECALCIFERO L) 125 MCG Tablet Take 125 mcg by mouth. Active Multiple Vitamins-Minera ls (PreserVision AREDS 2) Capsule Take 1 Capful by mouth 2 times daily. Active doxycycline hyclate (VIBRAMYCIN) 100 MG Capsule take 1 capsule by mouth every 12 hours 4 09/29/20 25 Discontinu ed(Med List Clean Up) Active Problems Problem Noted Date Diagnosed Date HTN (hypertension) 02/03/2025 Elevated blood pressure reading 11/04/2024 Anemia in stage 3a chronic kidney disease 2023 Hyperlipidemia associated with type 2 diabetes latanya brown 07/25/2022 Overview (10/23/2022): Last Assessment & Plan: [...] Encounters Date Type Department Care Team Description 09/29/2025 9:30 AM ENVIRONMENTAL STUDIES FACULTY MEMBER Office Visit [facility] [address] [address] Mayda Torres, HEAD CAGER, UPHOLSTERY ESTIMATOR B12 deficiency (Primary Dx); Iron deficiency 09/29/2025 Travel 09/22/2025 9:15 AM ENVIRONMENTAL STUDIES FACULTY MEMBER Lab [facility] [address] [address] [address] Nurse, Eleni Clinton B12 deficiency; Iron deficiency; Anemia, iron deficiency, inadequate dietary intake 09/22/2025 Travel from Last 3 Months Immunizations Immunization [...] Sign Reading Time Taken Comments Blood Pressure 134/80 09/29/2025 9:12 AM ENVIRONMENTAL STUDIES FACULTY MEMBER Pulse 80 09/29/2025 9:12 AM ENVIRONMENTAL STUDIES FACULTY MEMBER Temperature 37 C (98.6 F) 09/29/2025 9:12 AM ENVIRONMENTAL STUDIES FACULTY MEMBER Respiratory Rate 20 09/29/2025 9:12 AM ENVIRONMENTAL STUDIES FACULTY MEMBER Oxygen Saturation 99% 09/29/2025 9:12 AM ENVIRONMENTAL STUDIES FACULTY MEMBER Inhaled Oxygen Concentration - - Weight 81.6 kg (179 lb 12.8 oz) 09/29/2025 9:12 AM ENVIRONMENTAL STUDIES FACULTY MEMBER Height 172.7 cm (5' 8) 09/29/2025 9:12 AM ENVIRONMENTAL STUDIES FACULTY MEMBER Body Mass Index 27.34 09/29/2025 9:12 AM ENVIRONMENTAL STUDIES FACULTY MEMBER Plan of Treatment Upcoming Encounters Date Type Department Care Team (Late st Contact Info) Description 03/23/2026 9:15 AM CDT Lab [facility] [address] [facility] [address] [address] Nurse, [facility] 03/30/2026 9:30 AM CDT Office Visit [facility] [address] [address] Adrien Cerrato MD [address] [place] [phone] Health Maintenance Due Date Last Done [...] PPSV23, PCV20, or PCV21) 09/12/2020 07/18/2020, 06/20/2020 Diabetes: Hemoglobin A1c 01/10/2026 025, 03/03/2025, 10/26/2024, Additional history exists SARS-COV-2 Immunization ( season) 2026 08/16/2025, 08/12/2024, 07/31/2023, Additional history exists Diabetes: Nephropathy Screening 09/22/2026 09/22/2025, 04/28/2025, 10/28/2024, Additional history exists Pneumococcal Immunization Combined Discontinued 07/18/2020, 06/20/2020 Zoster Immunization Completed 04/30/2021, Respiratory Syncytial Virus (RSV) Immunization (Adult) Completed 08/13/2023 Influenza Immunization Completed 5, 08/10/2024, 07/31/2023, Additional history exists Hepatitis B Immunization Aged Out No longer eligible based on patient's age to complete this topic Human Papillomavirus (HPV) Immunization (No Doses Required) Completed Meningococcal Immunization (ACWY) Aged Out No longer eligible based on patient's age to complete this topic Rotavirus Immunization Aged Out No lo nger eligible based on patient's age to complete this topic Procedures Procedure Name Priority Date/Time Associated Diagnosis Comments CBC WITH AUTO DIFF OH Routine 09/22/2025 11:20 AM ENVIRONMENTAL STUDIES FACULTY MEMBER CMP (COMPREHENSIVE METABOLIC PANEL) Routine 09/22/2025 11:20 AM ENVIRONMENTAL STUDIES FACULTY MEMBER B12 deficiency Iron deficiency Anemia, iron deficiency, inadequate dietary intake VITAMIN B12 Routine 09/22/2025 11:20 AM ENVIRONMENTAL STUDIES FACULTY MEMBER B12 deficiency Iron deficiency Anemia, iron deficiency, inadequate dietary intake FOLIC ACID (FOLATE) Routine 09/22/2025 1 1:20 AM ENVIRONMENTAL STUDIES FACULTY MEMBER B12 deficiency Iron deficiency Anemia, iron deficiency, inadequate dietary intake FERRITIN Routine 09/22/2025 11:20 AM ENVIRONMENTAL STUDIES FACULTY MEMBER B12 deficiency Iron deficiency Anemia, iron deficiency, inadequate dietary intake IRON W/ IRON BINDING CAPACITY OH Routine 09/22/2025 11:20 AM ENVIRONMENTAL STUDIES FACULTY MEMBER B12 deficiency Iron deficiency Anemia, iron deficiency, inadequate dietary intake RETICULOCYTE COUNT (RETIC) Routine 09/22/2025 11:20 AM ENVIRONMENTAL STUDIES FACULTY MEMBER B12 deficiency Iron deficiency Anemia, iron deficiency, inadequate dietary intake from Last 3 Months Results * (ABNORMAL) IRON W/ IRON BINDING CAPACITY OH (09/22/2025 11:20 AM ENVIRONMENTAL STUDIES FACULTY MEMBER) IRON 116 50 - 212 ug/dL [facility] UIBC 358(H) 155 - 355 ug/dL [facility] TIBC 474 261 - 478 ug/dl [facility] % Saturation 24 20 - 50 % [facility] 09/22/2025 11:2 0 AM ENVIRONMENTAL STUDIES FACULTY MEMBER Narrative [facility] - 09/22/2025 4:03 PM ENVIRONMENTAL STUDIES FACULTY MEMBER Release to patient->Immediate Adrien Cerrato MD LAB SEND OUTS Final Resul t [facility] [place] [address], * (ABNORMAL) CBC WITH AUTO DIFF [place] (09/22/2025 11:20 AM ENVIRONMENTAL STUDIES FACULTY MEMBER) WBC 5.5 4.0 - 10.0 10*3/uL [facility] HGB 10.9(L) 11.2 - 15.7 g/dL [facility] HCT 33.6(L) 34.1 - 44.9 % [facility] PLT 218 163 - 369 10*3/uL [facility] MPV 9.9 9.4 - 12.4 fL [facility] RBC 3.32(L) 3.93 - 5.22 10*6/uL [facility] MCV 101(H) 79 - 95 fL [facility] MCH 32.8(H) 25.6 - 32.2 pg [facility] MCHC 32.4 32.2 - 36.5 g/dL [facility] RDW 13.5 11.6 - 14.4 % [facility] Neutrophils % 64.9 36.0 - 66.0 % [facility] Lymphocytes % 19.5 19.0 - 40.0 % [facility] Monocytes % 7.8 4.1 - 12.1 % [facility] Eosinophils % 5.6(H) 0.0 - 3.5 % [facility] Basophils % 0.9 0.0 - 1.0 % [facility] Absolute Neutrophils 3.6 1.4 - 6.6 10*3/uL [facility] Absolute Lymphocytes 1.1 0.8 - 4.0 10*3/uL [facility] Absolute Monocytes 0.4 0.2 - 1.2 10*3/uL [facility] Absolute Eosinophils 0.3 0.0 - 0.4 10*3/uL [facility] Absolute Basophils 0.1 0.0 - 0.1 10*3/uL [facility] 09/22/2025 11:2 0 AM ENVIRONMENTAL STUDIES FACULTY MEMBER us Adrien Cerrato MD LAB SEND OUTS Final Resul t Performing Organization Address [facility] Co de Phone Number [facility] [place] [address], [place] [phone] * VITAMIN B12 (09/22/2025 11:20 AM ENVIRONMENTAL STUDIES FACULTY MEMBER) Vitamin B12 257 180 - 914 pg/mL [facility] Blood 09/22/2025 11:2 0 AM ENVIRONMENTAL STUDIES FACULTY MEMBER Narrative [facility] - 09/23/2025 3:22 PM ENVIRONMENTAL STUDIES FACULTY MEMBER Release to patient->Immediate us Adrien Cerrato MD CHEMISTRY ORDERABLES Final Result Performing Organization Address [facility] de Phone Number [facility] [place] [address], [place] [phone] * (ABNORMAL) RETICULOCYTE COUNT (RETIC) (09/22/2025 11:20 AM ENVIRONMENTAL STUDIES FACULTY MEMBER) Reticulocyte count 1.78(H) 0.50 - 1.70 % [facility] RET-He 33.80 28.20 - 36.60 pg [facility] Comment: RET-He is a direct assessment of incorporation of iron into erythrocyte hemoglobin. It provides an indirect measure of the iron available for new erythropoiesis over past 2-4 days. Blood 09/22/2025 11:2 0 AM ENVIRONMENTAL STUDIES FACULTY MEMBER Narrative [facility] - 09/22/2025 3:35 PM ENVIRONMENTAL STUDIES FACULTY MEMBER Release to patient->Immediate us Adrien Cerrato MD HEMATOLOGY ORDERABLES Final Result Performing Organization Address [facility] Co de Phone Number [facility] [address] [address], [place] [phone] * FOLIC ACID (FOLATE) (09/22/2025 11:20 AM ENVIRONMENTAL STUDIES FACULTY MEMBER) Folate 10.97 >=5.90 ng/mL [facility] Blood 09/22/2025 11:2 0 AM ENVIRONMENTAL STUDIES FACULTY MEMBER [facility] - 09/23/2025 3:22 PM ENVIRONMENTAL STUDIES FACULTY MEMBER Release to patient->Immediate us Adrien Cerrato MD CHEMISTRY ORDERABLES Final Result Performing Organization Address [facility] Co de Phone Number [facility] [place] [address] [place] [address], [place] [phone] * (ABNORMAL) FERRITIN (09/22/2025 11:20 AM ENVIRONMENTAL STUDIES FACULTY MEMBER) Ferritin 347(H) 11 - 307 ng/mL [facility] Blood 09/22/2025 11:2 0 AM ENVIRONMENTAL STUDIES FACULTY MEMBER [facility] - 09/23/2025 3:22 PM ENVIRONMENTAL STUDIES FACULTY MEMBER Release to patient->Immediate us Adrien Cerrato MD CHEMISTRY ORDERABLES Final Result Performing Organization Address [facility] Co de Phone Number [facility] [address] [place] [address], [place] [phone] * (ABNORMAL) CMP (COMPREHENSIVE METABOLIC PANEL) (09/22/2025 11:20 AM ENVIRONMENTAL STUDIES FACULTY MEMBER) Glucose 217(H) 70 - 105 mg/dL [facility] Blood Urea Nitrogen 43(H) 7 - 25 mg/dL [facility] Creatinine 1.8(H) 0.6 - 1.2 mg/dL [facility] Sodium 141 136 - 145 mEq/L [facility] Potassium 4.5 3.5 - 5.1 mEq/L [facility] Chloride 105 98 - 107 mEq/L [facility] Bicarbonate 27 21 - 31 mEq/L [facility] Total Bilirubin 0.4 0.3 - 1.0 mg/dL [facility] Alk. Phosphatase 37 34 - 104 U/L [facility] Aspartate Aminotransferase 22 13 - 39 U/L [facility] Alanine Aminotransferase 19 7 - 52 U/L [facility] Total Protein 6.8 6.4 - 8.9 g/dL [facility] Albumin 4.6 3.5 - 5.7 g/dL [facility] Calcium 9.5 8.6 - 10.3 mg/dL [facility] Anion Gap 13.5 7.0 - 15.0 mEq/L [facility] Globulin 2.2 2.0 - 3.5 g/dL [facility] EGFR 30(L) >60 ml/min/1. 73m2 [facility] Comment: This eGFR is calculated using 2020 CKD-EPI Creatinine equation without race modifier based on the NKF-ASN task force recommendations Equation: zVMZ=679*min(SCr/k,1)a*max(SCr/k,1)-1.200*0.9938Age*1.012 (if female), where SCr is serum creatinine, k is 0.7 for females and 0.9 for males, and a is -0.241 for females and -0.302 for males Blood 09/22/2025 11:2 0 AM ENVIRONMENTAL STUDIES FACULTY MEMBER Narrative [facility] - 09/22/2025 4:03 PM ENVIRONMENTAL STUDIES FACULTY MEMBER Release to patient->Immediate IS THE PATIENT REQUIRED TO BE FASTING FOR 8 HOURS?->No Adrien Cerrato MD CHEMISTRY ORDERABLES Final Result [facility] [place] [address], from Last 3 Months Insurance MEDICARE C [employer] MEDICARE C [facility] Care Teams National Flatbed Truck Driver Relationship Specialty Start Date End Date Gold Osman [address] [place] [address] PCP - General Family Medicine 03/08/20 Robert Corbett MD [address] [place] [address] Consulting Physician Oncology 04/18/22 Adrien Cerrato MD [address] [place] [address] Consulting Physician Oncology 05/14/22
== END 2025-10-11 09:49 | disposition home or self-care (01) ==
LOC: ANHFOHIMG 09:48
PROVIDERS: PCP Emergency Medicine; Visit Provider Emergency Medicine
DX: Z12.31 Encounter for screening mammogram for malignant neoplasm of breast (principal)
CPT/HCPCS: 77063; 77067